=== PATIENT | female | born 1960 | race Caucasian/White ===

== ENCOUNTER 2022-10-07 16:22 | Outpatient (REF) | payer OTHER, SELFPAY | END 2022-10-07 16:23 | disposition home or self-care (01) | LOC: HO.CHCLNP 16:22 | PROVIDERS: Visit Provider Internal Medicine | DX: R82.90 Unspecified abnormal findings in urine (principal); Z87.440 Personal history of urinary (tract) infections | CPT/HCPCS: 87086 ==

== ENCOUNTER 2022-10-24 14:50 | Outpatient (REF) | payer OTHER, SELFPAY | END 2022-10-24 14:51 | disposition home or self-care (01) | LOC: HO.CHCLNP 14:50 | PROVIDERS: Visit Provider Family Medicine | DX: N39.0 Urinary tract infection, site not specified (principal) | CPT/HCPCS: 87086 ==

== ENCOUNTER 2022-12-06 09:01 | Outpatient (AMB) | payer OTHER, SELFPAY ==
--- NOTE | 2022-12-06 09:08 | MHC.OFFVIS ---
Intake Vital Signs 12/06/22 09:09 Height 4 ft 11 in Weight 136 lb 6 oz BMI 27.5 BP 98/76 Blood Pressure Location Rt brachial Position Sitting Pulse 78 Pulse Source Pulse Oximeter Pulse Oximetry (%) 95 Oxygen Delivery Method Room Air Intake Visit Reasons: f/u appt for Seizures-Confirmed Intake Note: Patient presents for follow up seizures. patient states I had 2 episode of seizures, im n ow having them awake. Allergies codeine Allergy (Severe, Verified 12/06/22 09:13) weird feeling through out body Medication List - Last Reconciled 12/06/22 by EVA Arita acetaminophen ER 650 mg PO TID albuterol sulfate 90 mcg/actuation (Ventolin HFA) inhalation ascorbic acid (vitamin C) 1 g PO Q6H aspirin 81 mg PO DAILY clonazepam 1 mg PO BID PRN duloxetine mg PO estradiol 0.01%(0.1mg/gram) vaginal insulin glargine (Lantus Solostar U-100 Insulin) units subcut levetiracetam 500 mg PO BID lidocaine 5% 1 patch topical DAILY PRN lisinopril 40 mg PO DAILY loratadine 10 mg PO DAILY magnesium oxide 400 mg PO DAILY meclizine 12.5 mg PO BID metoprolol succinate ER 100 mg PO DAILY oxycodone mg PO zolpidem 10 mg PO BEDTIME PRN HPI HPI Comments History of Present Illness Details 61-yr-old female presents for f/u visit. Pt's dtr reports sometime in July of this yr, pt started having frequent UTIs and vaginal bleeding, which has resulted in hypotensive episodes. She has been evaluated at [facility]. During one of the [facility] admissions, pt was observed to have seizure activity. In the ER, pt's trileptal dose was increased from 150mg bid to 300mg bid. She starts shaking, feels a sense of desparation, eyes roll back, starts drooling in the right, bites her tongue. The whole episode lasts a few seconds. She states she feels these symptoms. She can hear people but as if they are a little far away. Afterwards, she feels tired and weak. Denies loss of urinary control. She has had 3 episodes that occurred during the day - this was from July to August. She has been having 1-2 nocturnal episodes a month- which started some time before July of this year. She has not been able to use her CPAP machine- because her (who has health issues) threw it out. She continues to have snoring, fatigue, daytime sleepiness, and sleep difficulties. [facility] Surgical History (Updated 12/06/22 @ 09:19 by MADISON Stuart) H/O knee surgery Hx of cholecystectomy H/O section H/O hernia repair Family History Mother Cancer Diabetes Osteoporosis Memory loss Social History (Updated 12/06/22 @ 09:19 by MADISON Stuart) Alcohol intake: never Patient Tobacco Use Status: Never used Tobacco Review of Systems Const All systems reviewed & are unremarkable except as noted in HPI and below Physical Exam Vital Signs: Last Vital Signs Pulse 78 12/06/22 09:09 BP 98/76 12/06/22 09:09 Pulse Ox 95 12/06/22 09:09 Oxygen Delivery Method Room Air 12/06/22 09:09 BMI result Body Mass Index 27.5 Const General: cooperative and no acute distress Orientation/consciousness: patient oriented x3 HEENT Head: Yes normocephalic Resp Effort & Inspection: normal respiratory effort and able to speak in complete sentences Neuro General: patient oriented x3, gait normal and CN's II-XI intact bilaterally Cognition (Neuro): normal cognition Motor exam (neuro): 5/5 motor strength present throughout Psych Appearance: grossly normal Mental Status: mental status grossly normal Speech and movement: Normal speech and movement present Affect: normal affect Attitude: cooperative Thought process: Normal thought process present Thought content: Normal thought content present Insight: Good insight present (Psych) Judgement: Good judgement present (Psych) Assessment & Plan Assessment & Plan (1) Seizures: Code(s): R56.9 - Unspecified convulsions (2) MICHA (obstructive sleep apnea): Code(s): G47.33 - Obstructive sleep apnea (adult) (pediatric) (3) Frequent UTI: Code(s): N39.0 - Urinary tract infection, site not specified (4) Sleep difficulties: Code(s): G47.9 - Sleep disorder, unspecified (5) Excessive daytime sleepiness: Comment: ESS 10 Code(s): G47.19 - Other hypersomnia (6) Snoring: Code(s): R06.83 - Snoring Plan Increase Trileptal from 150mg bid to 300mg bid. Continue Keppra 500mg bid. Check CBC, CMP Check EEG. Pt advised to undergo HST to assess status of sleep apnea- as her threw out her previous CPAP machine. Will refer pt for urology consult- for eval of frequent UTIs. f/u in 3 months or sooner prn. Orders: Orders EEG electroencephalogram 12/06/22 R56.9 - Unspecified convulsions Comprehensive Met. Panel 12/06/22 R56.9 - Unspecified convulsions RT home sleep study Today G47.19 - Other hypersomnia, G47.33 - Obstructive sleep apnea (adult) (pediatric), G47.9 - Sleep disorder, unspecified, R06.83 - Snoring Complete Blood Count Auto Diff 12/06/22 R56.9 - Unspecified convulsions Referrals Urology Referral N39.0 - Urinary tract infection, site not specified, R56.9 - Unspecified convulsions Medications: New oxcarbazepine 300 mg PO BID 60 tabs 3RF 30 days Refilled levetiracetam 500 mg PO BID 60 tabs 6RF Coding Level of Care Code Est Pt Level 4 (02525) Diagnoses Seizures R56.9 MICHA (obstructive sleep apnea) G47.33 Frequent UTI N39.0 Sleep difficulties G47.9 Excessive daytime sleepiness G47.19 Snoring R06.83
[2022-12-06 09:09] VITALS: BP 98/76; PULSE 78; O2SAT 95; BMI 27.5
== END 2022-12-06 10:05 | disposition home or self-care (01) ==
PROVIDERS: Visit Provider Nurse Practitioner Family
DX: R56.9 Unspecified convulsions (principal); G47.33 Obstructive sleep apnea (adult) (pediatric); N39.0 Urinary tract infection, site not specified; G47.9 Sleep disorder, unspecified; G47.19 Other hypersomnia; R06.83 Snoring
CPT/HCPCS: 99214

== ENCOUNTER → 2022-12-06 09:01 | Outpatient (BNVA) | payer OTHER, SELFPAY | PROVIDERS: Visit Provider Nurse Practitioner Family | DX: R56.9 Unspecified convulsions (principal); N39.0 Urinary tract infection, site not specified; G47.33 Obstructive sleep apnea (adult) (pediatric); G47.19 Other hypersomnia; G47.9 Sleep disorder, unspecified; R06.83 Snoring | CPT/HCPCS: 99212 ==

== ENCOUNTER 2023-01-08 12:48 | Outpatient (REF) | payer OTHER, SELFPAY ==
--- NOTE | 2023-01-08 12:59 | EEG_ITS ---
This is a 16-channel digital EEG. Patient was reported awake and drowsy during the tracing. Background EEG rhythm was 14 to 16 hertz 5 to 50 microvolt posteriorly and lower amplitude fast anteriorly. Photic stimulation does not produce any significant abnormality. Hyperventilation is not performed. Cardiac lead does not reveal any significant abnormality. No sharp wave spikes or paroxysmal tendency noted. IMPRESSION: Unremarkable EEG. MD AZIZA Smith/LOIS / [id number]
== END 2023-01-08 12:49 | disposition home or self-care (01) ==
LOC: HO.NEURO 12:48
PROVIDERS: PCP Pediatrics; Visit Provider Nurse Practitioner Family
DX: R56.9 Unspecified convulsions (principal)
CPT/HCPCS: 95816

== ENCOUNTER → 2023-01-21 11:28 | Outpatient (REF) | payer OTHER, SELFPAY | LOC: HO.SL 11:28 | PROVIDERS: PCP Pediatrics; Visit Provider Nurse Practitioner Family | DX: G47.33 Obstructive sleep apnea (adult) (pediatric) (principal); G47.19 Other hypersomnia; R06.83 Snoring | CPT/HCPCS: 95806 ==

== ENCOUNTER → 2023-01-21 11:39 | Outpatient (BNV) | payer OTHER, SELFPAY | PROVIDERS: PCP Pediatrics; Visit Provider Psychiatry & Neurology Neurology | DX: R06.83 Snoring (principal) | CPT/HCPCS: 95806 ==

== ENCOUNTER 2023-03-21 12:54 | Outpatient (AMB) | payer OTHER, SELFPAY ==
--- NOTE | 2023-03-21 12:56 | A.OFFVIS_ITS ---
Intake Vital Signs 03/21/23 12:58 Height 4 ft 11 in Weight 133 lb BMI 26.9 BP 106/76 Blood Pressure Location Rt brachial Position Sitting Intake Visit Reasons: 4 mo f/u - Seizure-Confirmed Intake Note: Patient presents for 4 month follow up. I'm doing better I haven't gotten an attack Allergies codeine Allergy (Severe, Verified 03/21/23 13:01) weird feeling through out body HPI HPI Comments History of Present Illness Details U[age]-old female presents for f/u visit. Accompanied by her daughter. Pt denies any significant interval medical changes. 01/28/2023 EEG was normal 02/06/2023 home sleep study did not show any evidence of sleep apnea. AHI 1.2 per hour, with O2 vincent 84%, SpO2 under 90% for less than 1 minute, average SpO2 94% Patient denies any interval seizure activity. She is compliant with her Keppra and her Trileptal. She is concerned about her memory. She states she is misplacing things. She also notes that she has decreased motivation to shower, pressure T, the activities. The daughter notes she is often just laying down. Her daughter is concerned she is depressed. She is followed by Demarcus CAMARGO, psychiatric nurse practitioner. She does not have a therapist. She is also worried that she has a prolonged infection of her right lateral foot, which she says has been present for months and is getting bigger. The area is itchy as well as under her foot can be itchy. [facility] Medical History (Updated 03/23/23 @ 15:59 by EVA Arita) Diabetes Surgical History H/O knee surgery Hx of cholecystectomy H/O section H/O hernia repair Family History Mother Cancer Diabetes Osteoporosis Memory loss Social History Alcohol intake: never Patient Tobacco Use Status: Never used Tobacco Physical Exam Vital Signs: Last Vital Signs BP 106/76 03/21/23 12:58 BMI result Body Mass Index 26.9 Const General: cooperative and no acute distress Orientation/consciousness: patient oriented x3 Resp Effort & Inspection: normal respiratory effort and able to speak in complete sentences Neuro General: patient oriented x3 Cranial nerves: Yes CN's II-XII intact bilaterally Cognition (Neuro): normal cognition Extrem Other: Right lateral foot approximately 4 x 3 cm area of intact blanchable redness without peripheral erythema, induration, or warmth. Dorsal foot with mild red rash Right lateral 5th toe red blanchable tender. Psych Appearance: grossly normal Mental Status: mental status grossly normal Speech and movement: Normal speech and movement present Affect: normal affect Attitude: cooperative Assessment & Plan Assessment & Plan (1) Seizures: Code(s): R56.9 - Unspecified convulsions (2) Depression: Code(s): F32.A - Depression, unspecified (3) Sleep difficulties: Code(s): G47.9 - Sleep disorder, unspecified (4) Rash of foot: Code(s): R21 - Rash and other nonspecific skin eruption Plan Reviewed home sleep study, normal. Patient does not have to use her CPAP machine. For seizure: Reviewed EEG, was normal. Explained by EEG can be normal in epilepsy. Continue Keppra 500 mg b.i.d. Add vitamin B6 50 mg b.i.d., this can reduce mood side effects from Keppra Continue Trileptal 300 mg b.i.d. For mood: Will request recent labs from PCP and [facility] Will initiate referral for psychologists the [place]-speaking.- Linda Ramesh- Monitor mood, if mood does not improve consider tapering off Keppra and increasing Trileptal. Right lateral dorsal foot appear to be a fungal infection, however the right 5th toe redness maybe a very early pressure injury. We will send an order for antifungal seen for right lateral foot redness. Patient advised to wear larger better fitting shoes and do daily foot checks, as she is a diabetic. Follow-up in 3 months or sooner as needed Orders: Referrals Psychology Referral F32.A - Depression, unspecified Medications: New pyridoxine (vitamin B6) 50 mg PO BID 30 days 60 tabs 4RF terbinafine HCl 1% 1 appl topical BID 14 days 30 grams 3RF B35.3 - Tinea pedis, E11.9 - Type 2 diabetes mellitus without complications Refilled oxcarbazepine 300 mg PO BID 30 days 60 tabs 6RF levetiracetam 500 mg PO BID 60 tabs 6RF Coding Level of Care Code Est Pt Level 4 (19810) Diagnoses Seizures R56.9 Depression F32.A Sleep difficulties G47.9 Rash of foot R21
[2023-03-21 12:58] VITALS: BP 106/76; BMI 26.9
== END 2023-03-21 13:49 | disposition home or self-care (01) ==
PROVIDERS: PCP Pediatrics; Visit Provider Nurse Practitioner Family
DX: R56.9 Unspecified convulsions (principal); F32.A Depression, unspecified; G47.9 Sleep disorder, unspecified; R21 Rash and other nonspecific skin eruption
CPT/HCPCS: 99214

== ENCOUNTER → 2023-03-21 12:54 | Outpatient (BNVA) | payer OTHER, SELFPAY | PROVIDERS: Visit Provider Nurse Practitioner Family | DX: R56.9 Unspecified convulsions (principal); F32.A Depression, unspecified; G47.9 Sleep disorder, unspecified; R21 Rash and other nonspecific skin eruption | CPT/HCPCS: 99212 ==

== ENCOUNTER 2023-04-16 16:17 | Outpatient (REF) | payer OTHER, SELFPAY | END 2023-04-16 16:18 | disposition home or self-care (01) | LOC: HO.CHCLNP 16:17 | PROVIDERS: Visit Provider Pediatrics | DX: Z87.440 Personal history of urinary (tract) infections (principal) | CPT/HCPCS: 87086 ==

== ENCOUNTER 2023-08-08 10:30 | Outpatient (REF) | payer OTHER, SELFPAY ==
--- NOTE | ~2023-08-08 | XR_ITS ---
EXAMINATION: XR FOOT, RIGHT CLINICAL INFORMATION: Dorsal right foot COMPARISON: None available. TECHNIQUE: AP, lateral, and oblique views of the right foot. FINDINGS: Skin defect is seen in the plantar soft tissues of the midfoot with associated soft tissue swelling of the plantar aspect of the foot. The bones are intact. No bone destruction or periosteal reaction. No fracture. Alignment is anatomic. There is mild degenerative change of the first metatarsophalangeal joint. There is degenerative changes of the PIP and DIP joints of the toes. The second and third DIP joints are fused. There is a posterior plantar calcaneal spur and Achilles enthesophyte. Arterial vascular calcification is seen in the ankle and foot. XR/XR foot RT 2V IMPRESSION: 1. Skin defect in the plantar soft tissues of the midfoot with associated soft tissue swelling of the plantar aspect of the foot. 2. No acute bony abnormality.
== END 2023-08-08 10:31 | disposition home or self-care (01) ==
LOC: HO.XRAY 10:30
PROVIDERS: PCP Pediatrics; Visit Provider Internal Medicine
DX: S91.301A Unspecified open wound, right foot, initial encounter (principal)
CPT/HCPCS: 73620

== ENCOUNTER 2023-08-25 09:57 | Outpatient (AMB) | payer OTHER, SELFPAY ==
--- NOTE | 2023-08-25 10:19 | MHC.OFFVIS ---
Intake Visit Reasons: Recurrent UTI (no showed last appt) Intake Note: New Patient presents today for initial visit to establish treatment for : recurrent uti Urology Medications: none Allergies to Antibiotic: none Blood Thinner: aspirin PVR: 0ml's Fence Post Cutter Required: Yes Accompanied by: Daughter Allergies codeine Allergy (Severe, Verified 08/25/23 15:01) weird feeling through out body Medication List - Last Reconciled 08/25/23 by EVA Whitten-LEONARD acetaminophen ER 650 mg PO TID albuterol sulfate 90 mcg/actuation (Ventolin HFA) inhalation ascorbic acid (vitamin C) 1 g PO Q6H aspirin 81 mg PO DAILY clonazepam 1 mg PO BID PRN dulaglutide (Trulicity) mg subcut duloxetine mg PO estradiol 0.01%(0.1mg/gram) vaginal gabapentin 600 mg PO BEDTIME 30 days insulin glargine (Lantus Solostar U-100 Insulin) units subcut levetiracetam 500 mg PO BID lidocaine 5% 1 patch topical DAILY PRN lisinopril 40 mg PO DAILY loratadine 10 mg PO DAILY magnesium oxide 400 mg PO DAILY meclizine 12.5 mg PO BID metoprolol succinate ER 100 mg PO DAILY oxcarbazepine 300 mg PO BID 30 days oxycodone mg PO pyridoxine (vitamin B6) 50 mg PO BID 30 days terbinafine HCl 1% 1 appl topical BID 14 days zolpidem 10 mg PO BEDTIME PRN HPI Comments Details: Janice is a very pleasant 62-year-old Central African-speaking female patient of Dr. Keith was accompanied by her daughter at today's office visit. She has a past medical history of diabetes, seizures, and depression. She presents to the office today as a new patient for recurrent urinary tract infections. In discussion with the patient and her daughter today she reports a longstanding history of recurrent urinary tract infections and has been previously hospitalized for recurrent urinary tract infections. She reports following up with her PCP at which time recommendations were made for urology referral for further assessment evaluation. In discussion with the patient today she reports feeling lower urinary bladder pressure as well as foul-smelling urine. She otherwise denies incontinence, nocturia, hematuria, dysuria, changes to urinary stream, flank pain, fever, and or chills. In office urinalysis with 2+ leukocytes negative nitrates. PVR 0 mL. Discussed at length potential causes for recurrent urinary tract infections. She denies any issues with her bowels. Discussed obtaining retroperitoneal ultrasound for further assessment evaluation. Discussed further treatment options for recurrent urinary tract infections. She otherwise offers no other issues or concerns at this time. [facility] Medical History Diabetes Surgical History H/O knee surgery Hx of cholecystectomy H/O section H/O hernia repair Family History Mother Cancer Diabetes Osteoporosis Memory loss Social History Alcohol intake: never Patient Tobacco Use Status: Never used Tobacco Review of Systems Const Reports no additional complaints Eyes Reports no additional complaints ENT Reports no additional complaints Card Reports no additional complaints Resp Reports no additional complaints GI Reports no additional complaints Reports as per HPI Musc Reports no additional complaints Neuro Reports as per HPI Psych Reports as per HPI Endo Reports as per HPI Rosendo/Lymph Reports no additional complaints Aller/Immun Reports no additional complaints Physical Exam Const General: cooperative, healthy appearing, comfortable, no acute distress, well developed, alert and awake Orientation/consciousness: patient oriented x3 Limitations: no limitations HEENT Head: Yes normal to inspection, Yes normocephalic and Yes atraumatic Ears: hearing grossly normal bilaterally Eyes General: appearance normal, both eyes and all related structures Neck Neck: Yes normal visual inspection and Yes trachea midline Chest Chest palpation & inspection: normal inspection of the chest Resp Effort & Inspection: normal respiratory effort and able to speak in complete sentences Cardio Rate: regular rate GI Inspection: Yes normal to inspection General: Yes no CVA tenderness Back/Spine/Pelvis Back: no CVA tenderness Skin General skin exam: no rashes or lesions noted Neuro General: patient oriented x3 Extrem General: Yes normal to inspection Psych Appearance: grossly normal and well kempt Mental Status: mental status grossly normal Speech and movement: Normal speech and movement present and Clear speech present Affect: normal affect Attitude: cooperative Thought process: Normal thought process present Thought content: Normal thought content present Insight: Fair insight present (Psych) Judgement: Fair judgement present (Psych) Office Procedures Post Void Residual Post Residual Void Post Void Residual (PVR): 0 [id number] Void Residual by ultrasound Results AMB Urinalysis, Automated UA Leukoctes 125 Felice/uL Last Edit by Marcelle Hopkins on 08/25/23 11:18 UA Nitrite Negative Last Edit by Changersreyna Lira on 08/25/23 11:18 UA Urobilinogen 0.2 mg/dL Last Edit by Plenum[employer]rey[employer] Lira on 08/25/23 11:18 UA Protein 0 mg/dL Last Edit by [employer]enum[employer]es [employer] on 08/25/23 11:18 UA pH 6.0 Last Edit by [employer] on 08/25/23 11:18 UA Blood 0 Donnie/uL Last Edit by [employer] on 08/25/23 11:18 UA Specific [place] 1.015 Last Edit by [employer] on 08/25/23 11:18 UA Ketone Negative Last Edit by [employer] on 08/25/23 11:18 UA Bilirubin 0 mg/dL Last Edit by [employer] on 08/25/23 11:18 UA Glucose 0 mg/dL Last Edit by [employer] on 08/25/23 11:18 Results Reviewed Results Reviewed: Laboratory Last Values Urine pH (Auto) 6.0 08/25/23 11:17 Specific [place] (Auto) 1.015 08/25/23 11:17 Urine Protein (Auto) 0 mg/dL 08/25/23 11:17 Glucose (UA)(Auto) 0 mg/dL 08/25/23 11:17 Urine Ketones (Auto) Negative 08/25/23 11:17 Urine Blood (Auto) 0 Donnie/uL 08/25/23 11:17 Urine Nitrite (Auto) Negative 08/25/23 11:17 Urine Bilirubin (Auto) 0 mg/dL 08/25/23 11:17 Urine Urobilinogen (Auto) 0.2 mg/dL 08/25/23 11:17 Leukocyte Esterase (Auto) 125 Felice/uL 08/25/23 11:17 Assessment & Plan Assessment & Plan (1) Recurrent urinary tract infection: Code(s): N39.0 - Urinary tract infection, site not specified Category: Medical Plan In office urinalysis results reviewed with the patient today; as noted above; will send for urine culture. PVR 0 mL. Discussed at length importance of managing diabetes for improvement in lower urinary tract symptoms as well as overall health and well-being. Start Estrace cream as discussed and prescribed. Discussed UTI prevention with D mannose supplement, vitamin-C, increasing fluid intake, behavioral therapy with timed voiding, perineal hygiene and postcoital voiding, and management of constipation with stool softeners and increased fiber intake. Discussed possible near future in office cystoscopy for further assessment evaluation. Discussed possible near future microgen for further assessment or evaluation. Will obtain retroperitoneal ultrasound for further assessment evaluation. Follow-up in 1-3 months with imaging to be completed prior; or sooner with any issues, concerns, and or questions. Orders: Orders AMB Post Void Residual by ultrasound Today N39.0 - Urinary tract infection, site not specified Urine Culture Today N39.0 - Urinary tract infection, site not specified US retroperitoneal comp Today N39.0 - Urinary tract infection, site not specified AMB Urinalysis Automated Today Z13.9 - Encounter for screening, unspecified Medications: New estradiol 0.01%(0.1mg/gram) pea sized amount to urethra 3 times a week 30 days 42.5 grams 1RF Patient Instructions: The patient had an opportunity to ask questions regarding the treatment plan. All questions were answered. Physical exam, labs, and imaging were discussed and reviewed in detail. As well as risks, benefits, and discussion of treatment choices. No major barriers to understanding were identified. The patient expressed understanding and agreement with the above treatment plan. The patient was made aware they should contact our office by phone for worsening of their current condition, the appearance of new symptoms, or with any questions or concerns. Compliance is encouraged with any medications and follow up testing that is ordered. It is a privilege to be allowed the opportunity to participate in? your urological care.? Again, if you have any questions or concerns If you have any questions or concerns please do not hesitate to contact me. The office is [phone]. This note is constructed using voice recognition software. While every effort has been made to ensure accuracy job setter errors may have been included. Yours sincerely, NEEL Whitten Coding Level of Care Code New Pt Level 4 (78970) Diagnoses Recurrent urinary tract infection N39.0 CPT Codes Post Residual Void - PVR CPT Code: 88869-Kica Void Residual by ultrasound ([id number]) Time Spent (min) 35
== END 2023-08-25 11:23 | disposition home or self-care (01) ==
PROVIDERS: PCP Pediatrics; Visit Provider Nurse Practitioner Family
DX: Z13.9 Encounter for screening, unspecified (principal); N39.0 Urinary tract infection, site not specified
CPT/HCPCS: 99204

== ENCOUNTER 2023-08-25 09:57 | Outpatient (REF) | payer OTHER, SELFPAY | END 2023-08-25 09:58 | disposition home or self-care (01) | LOC: HO.LNP 09:57 | PROVIDERS: PCP Pediatrics; Visit Provider Nurse Practitioner Family | DX: N39.0 Urinary tract infection, site not specified (principal) | CPT/HCPCS: 51798; 81003; 87086; 99202 ==

== ENCOUNTER 2023-11-26 10:30 | Emergency (ER) | payer OTHER, SELFPAY ==
--- NOTE | ~2023-11-26 | CT_ITS ---
EXAMINATION: CT ABDOMEN AND PELVIS WITHOUT CONTRAST CLINICAL INFORMATION: Flank pain. COMPARISON: Abdominal ultrasound June 09, 2015 TECHNIQUE: Multidetector volumetric imaging was performed from the superior aspect of the liver through the pubic symphysis. Sagittal and coronal reformatted images were obtained on the technologist's workstation. This CT examination was performed using dose optimization techniques as appropriate, variously including the following: *Automated exposure control *Adjustment of mA and/or kV according to patient size (this includes techniques or standardized protocols for targeted exams where dose is matched to indication/reason for exam; i.e. extremities or head) *Use of iterative reconstruction technique DLP: 471 mGy-cm FINDINGS: LUNG BASES: The visualized lung bases are unremarkable. LIVER, GALLBLADDER, AND BILIARY TREE: The noncontrast liver is normal in size and contour. No focal hepatic lesion or biliary ductal dilatation is present. The gallbladder is surgically absent. PANCREAS: Unremarkable. SPLEEN: Unremarkable. ADRENAL GLANDS: Unremarkable. KIDNEYS AND URETERS: The kidneys are symmetric in size. No hydronephrosis. Punctate mid pole left renal calculus. No perinephric stranding. BLADDER: Unremarkable. GASTROINTESTINAL TRACT: Small and large bowel loops are of normal caliber. No small bowel obstruction. Appendix is within normal limits. ABDOMINAL WALL: Prior ventral abdominal hernia repair with surgical mesh in place. There is laxity of the surgical mesh. Small fat-containing left inguinal hernia. LYMPH NODES: No bulky lymphadenopathy. VASCULAR: Normal caliber abdominal aorta. PELVIC VISCERA: Unremarkable. OSSEOUS STRUCTURES: Possible L1 vertebral body hemangioma. CT/CT abdomen pelvis wo IV con IMPRESSION: No acute abnormality in the abdomen or pelvis. Electronically signed by: Arcadio Antoine MD 11/26/2023 02:47 PM EDT
[2023-11-26 10:50] VITALS: BP 160/91; PULSE 83; RESP 19; TEMP 36.6; O2SAT 98; BMI 26.7
[2023-11-26 13:22] LABS: MANUAL DIFF FLAG NO
[2023-11-26 13:24] LABS: Basophils Absolute Auto 0.1 X10*3/uL (0.0-0.2); Basophils Percent Auto 0.9 % (0-2); Eosinophils Absolute Auto 0.4 X10*3/uL (0.0-0.4); Hematocrit 40.2 % (37.0-47.0); Hemoglobin 14.1 g/dl (12.0-16.0); Imm Gran Abs Auto 0.04 X10*3/uL (0.00-0.03); Imm Gran Pct Auto 0.4 % (0.0-0.4); Lymphocytes Absolute Auto 4.2 X10*3/uL (1.2-4.9); Lymphocytes Percent Auto 41.7 % (20-40); Mean Corpuscular HGB Conc 35.1 g/dl (31.0-35.0); Mean Corpuscular Hemoglobin 32.3 pg (27.0-33.0); Mean Platelet Volume 9.1 fL (9.4-12.3); Monocytes Absolute Auto 0.8 X10*3/uL (0.1-1.2); Monocytes Percent Auto 7.8 % (2-11); Neutrophils Absolute Auto 4.6 x10*3/uL (2.0-8.3); Neutrophils Percent Auto 45.2 % (45-73); Platelet Count 307 X10*3/uL (160-400); Red Blood Count 4.37 X10*6/uL (4.20-5.50); Red Cell Distribution Width 12.2 % (11.0-16.0); White Blood Count 10.2 X10*3/uL (4.8-10.8)
[2023-11-26 13:46] LABS: Alanine Aminotransferase 19 U/L (0-31); Albumin Level 4.1 g/dL (3.5-5.0); Alkaline Phosphatase 74 U/L (39-117); Anion Gap 13 (12-20); Aspartate Amino Transferase 28 U/L (5-31); Bilirubin Total 0.3 mg/dL (0.0-1.0); Blood Urea Nitrogen 11 mg/dL (9-16); Calcium 9.8 mg/dL (8.4-10.2); Carbon Dioxide 32 mmol/L (22-29); Chloride 101 mmol/L (96-108); Creatinine Clr Calc Pharmacy 56.6; Estimated Glomerular Filt Rate > 60; Glucose Random 176 mg/dL (60-115); Potassium 4.1 mmol/L (3.3-5.1); Sodium 142 mmol/L (135-145); Total Protein 8.5 g/dL (6.5-8.0)
== END 2023-11-26 17:39 | disposition left against medical advice (07) ==
LOC: HO.ED 17:19
PROVIDERS: Physician Assistant Medical; Emergency Provider Student in an Organized Health Care Education/Training Program; PCP Pediatrics
DX: R10.9 Unspecified abdominal pain (principal); E11.9 Type 2 diabetes mellitus without complications; Z87.440 Personal history of urinary (tract) infections; Z53.21 Procedure and treatment not carried out due to patient leaving prior to being seen by health care provider
CPT/HCPCS: 36415; 74176; 80053; 85025; 99281

== ENCOUNTER 2023-12-29 09:29 | Outpatient (AMB) | payer OTHER, SELFPAY ==
--- NOTE | 2023-12-29 09:51 | A.OFFVIS_ITS ---
Intake Visit Reasons: 3m/U/S Intake Note: Patient presents today for follow up on: recurrent uti Urology Medications: estrace cream Allergies to Antibiotic: none Blood Thinner: aspirin PVR: 29ml's Digital Printer Required: Yes Accompanied by: Daughter Allergies codeine Allergy (Severe, Verified 12/29/23 10:01) weird feeling through out body HPI Comments Details: Janice is a very pleasant 63-year-old Mosotho-speaking female patient of Dr. Keith was accompanied by her daughter at today's office visit. She has a past medical history of diabetes, seizures, and depression. She presents to the office today for follow-up of her recurrent urinary tract infections and lower urinary tract symptoms. Of note, patient was seen approximately 3 months ago at which time a retroperitoneal ultrasound was ordered for further assessment evaluation. However, patient did not have this completed however she did have a CT KUB 11/24 performed as she had been having flank pain. These results reviewed with the patient today. The kidneys are symmetrical in size, no hydronephrosis, punctate mid pole left renal calculus. No perinephric stranding. The bladder is unremarkable. During last office visit urine was sent for urine culture as patient had been reporting dysuria however urine culture 08/24 noted no growth. When asked she reports compliance with Estrace cream as prescribed. She continues to report lower urinary tract symptoms of dysuria and bladder pressure. She also reports generalized lower abdominal pain however no CVA tende rness noted bilaterally on exam today. We discussed potential causes for lower urinary tract symptoms patient is experiencing. She also reports noting foul- smelling urine however relates this to her decreased water intake. In office urinalysis with 2+ leukocytes otherwise within normal limits. PVR 29 mL. When asked she denies incontinence, nocturia, hematuria, changes to urinary stream, flank pain, fever, and or chills. She denies any issues with her bowels. Discussed sending urine for micogen testing and near future in office cystoscopy for further asessment and evaluation if symptoms continue, persist and/or worsen. She otherwise offers no other issues or concerns at this time. [facility] Medical History Diabetes Surgical History H/O knee surgery Hx of cholecystectomy H/O section H/O hernia repair Family History Mother Cancer Diabetes Osteoporosis Memory loss Social History Alcohol intake: never Patient Tobacco Use Status: Never used Tobacco Review of Systems Const Reports no additional complaints Eyes Reports no additional complaints ENT Reports no additional complaints Card Reports no additional complaints Resp Reports no additional complaints GI Reports no additional complaints Reports as per HPI Musc Reports no additional complaints Neuro Reports as per HPI Psych Reports as per HPI Endo Reports as per HPI Rosendo/Lymph Reports no additional complaints Aller/Immun Reports no additional complaints Physical Exam Const General: cooperative, healthy appearing, comfortable, no acute distress, well developed, alert and awake Orientation/consciousness: patient oriented x3 Limitations: no limitations HEENT Head: Yes normal to inspection, Yes normocephalic and Yes atraumatic Ears: hearing grossly normal bilaterally Eyes General: appearance normal, both eyes and all related structures Neck Neck: Yes normal visual inspection and Yes trachea midline Chest Chest palpation & inspection: normal inspection of the chest Resp Effort & Inspection: normal respiratory effort and able to speak in complete sentences Cardio Rate: regular rate GI Inspection: Yes normal to inspection General: Yes no CVA tenderness Back/Spine/Pelvis Back: no CVA tenderness Skin General skin exam: no rashes or lesions noted Neuro General: patient oriented x3 Extrem General: Yes normal to inspection Psych Appearance: grossly normal and well kempt Mental Status: mental status grossly normal Speech and movement: Normal speech and movement present and Clear speech present Affect: normal affect Attitude: cooperative Thought process: Normal thought process present Thought content: Normal thought content present Insight: Fair insight present (Psych) Judgement: Fair judgement present (Psych) Office Procedures Post Void Residual Post Residual Void Post Void Residual (PVR): 29 [id number] Void Residual by ultrasound Results AMB Urinalysis, Automated UA Leukoctes 125 Felice/uL Last Edit by Marcelle Hopkins on 12/29/23 10:03 UA Nitrite Last Edit by Marcelle Hopkins on 12/29/23 10:03 UA Urobilinogen 0.2 mg/dL Last Edit by Marcelle Hopkins on 12/29/23 10:03 UA Protein 0 mg/dL Last Edit by Marcelle Hopkins on 12/29/23 10:03 UA pH 6.0 Last Edit by Marcelle Hopkins on 12/29/23 10:03 UA Blood 0 Donnie/uL Last Edit by Marcelle Hopkins on 12/29/23 10:03 UA Specific [place] 1.020 Last Edit by Marcelle Hopkins on 12/29/23 10:03 UA Ketone Negative Last Edit by Marcelle Hopkins on 12/29/23 10:03 UA Bilirubin 0 mg/dL Last Edit by Marcelle Hopkins on 12/29/23 10:03 UA Glucose 0 mg/dL Last Edit by Marcelle Hopkins on 12/29/23 10:03 Results Reviewed Results Reviewed: Laboratory Last Values Urine pH (Auto) 6.0 12/29/23 10:02 Specific [place] (Auto) 1.020 12/29/23 10:02 Urine Protein (Auto) 0 mg/dL 12/29/23 10:02 Glucose (UA)(Auto) 0 mg/dL 12/29/23 10:02 Urine Ketones (Auto) Negative 12/29/23 10:02 Urine Blood (Auto) 0 Donnie/uL 12/29/23 10:02 Urine Bilirubin (Auto) 0 mg/dL 12/29/23 10:02 Urine Urobilinogen (Auto) 0.2 mg/dL 12/29/23 10:02 Leukocyte Esterase (Auto) 125 Felice/uL 12/29/23 10:02 Date of Service: 11/26/23 EXAMINATION: CT ABDOMEN AND PELVIS WITHOUT CONTRAST FINDINGS: LUNG BASES: The visualized lung bases are unremarkable. LIVER, GALLBLADDER, AND BILIARY TREE: The noncontrast liver is normal in size and contour. No focal hepatic lesion or biliary ductal dilatation is present. The gallbladder is surgically absent. PANCREAS: Unremarkable. SPLEEN: Unremarkable. ADRENAL GLANDS: Unremarkable. KIDNEYS AND URETERS: The kidneys are symmetric in size. No hydronephrosis. Punctate mid pole left renal calculus. No perinephric stranding. BLADDER: Unremarkable. GASTROINTESTINAL TRACT: Small and large bowel loops are of normal caliber. No small bowel obstruction. Appendix is within normal limits. ABDOMINAL WALL: Prior ventral abdominal hernia repair with surgical mesh in place. There is laxity of the surgical mesh. Small fat-containing left inguinal hernia. LYMPH NODES: No bulky lymphadenopathy. VASCULAR: Normal caliber abdominal aorta. PELVIC VISCERA: Unremarkable. OSSEOUS STRUCTURES: Possible L1 vertebral body hemangioma. IMPRESSION: No acute abnormality in the abdomen or pelvis. Assessment & Plan Assessment & Plan (1) Recurrent urinary tract infection: Code(s): N39.0 - Urinary tract infection, site not specified Category: Medical (2) Sensation of pressure in bladder area: Code(s): R39.89 - Other symptoms and signs involving the genitourinary system Category: Medical (3) Dysuria: Code(s): R30.0 - Dysuria Category: Medical (4) Foul smelling urine: Code(s): R82.90 - Unspecified abnormal findings in urine Category: Medical Plan In office urinalysis results reviewed with the patient and her daughter today; will send for [facility] for further assessment evaluation; will await results for potential treatment. PVR 29 mL. Discussed bladder triggers/irritants. Recent CT results reviewed with the patient and her daughter today; as noted above. Continue Estrace cream as discussed and prescribed. Discussed UTI prevention with D mannose supplement, vitamin-C, increasing fluid intake, behavioral therapy with timed voiding, perineal hygiene and postcoital voiding, and management of constipation with stool softeners and increased fiber intake. Discussed possible low-dose VESIcare for question of bladder spasms; she will think about this. Discussed possible near future in office cystoscopy if symptoms persist. Follow-up in 1-3 months with PVR; or sooner with any issues, concerns, and or questions. Orders: Orders AMB Urinalysis Automated Today Z13.9 - Encounter for screening, unspecified AMB Post Void Residual by ultrasound Today N39.0 - Urinary tract infection, site not specified Patient Instructions: The patient had an opportunity to ask questions regarding the treatment plan. All questions were answered. Physical exam, labs, and imaging were discussed and reviewed in detail. As well as risks, benefits, and discussion of treatment choices. No major barriers to understanding were identified. The patient expressed understanding and agreement with the above treatment plan. The patient was made aware they should contact our office by phone for worsening of their current condition, the appearance of new symptoms, or with any questions or concerns. Compliance is encouraged with any medications and follow up testing that is ordered. It is a privilege to be allowed the opportunity to participate in? your urological care.? Again, if you have any questions or concerns If you have any questions or concerns please do not hesitate to contact me. The office is [phone]. This note is constructed using voice recognition software. While every effort has been made to ensure accuracy hansard reporter errors may have been included. Yours sincerely, NEEL Whitten Coding Level of Care Code Est Pt Level 3 (11236) Complex EM visit Add On G2211 Diagnoses Recurrent urinary tract infection N39.0 Sensation of pressure in bladder area R39.89 Dysuria R30.0 Foul smelling urine R82.90 CPT Codes Post Residual Void - PVR CPT Code: 34780-Baya Void Residual by ultrasound ([id number])
== END 2023-12-29 10:20 | disposition home or self-care (01) ==
PROVIDERS: PCP Pediatrics; Visit Provider Nurse Practitioner Family
DX: N39.0 Urinary tract infection, site not specified (principal); R39.89 Other symptoms and signs involving the genitourinary system; R30.0 Dysuria; R82.90 Unspecified abnormal findings in urine; Z13.9 Encounter for screening, unspecified
CPT/HCPCS: 99213; G2211

== ENCOUNTER → 2023-12-29 09:29 | Outpatient (BNVA) | payer OTHER, SELFPAY | PROVIDERS: PCP Pediatrics; Visit Provider Nurse Practitioner Family | DX: N39.0 Urinary tract infection, site not specified (principal); R30.0 Dysuria; R39.89 Other symptoms and signs involving the genitourinary system; R82.998 Other abnormal findings in urine | CPT/HCPCS: 51798; 81003; 99212 ==

== ENCOUNTER 2024-01-09 11:21 | Outpatient (AMB) | payer OTHER, SELFPAY ==
[2024-01-09 11:23] VITALS: BMI 26.9
--- NOTE | 2024-01-09 11:23 | MHC.OFFVIS ---
Vital Signs 01/09/24 11:23 Height 4 ft 11 in Weight 133 lb BMI 26.9 Intake Visit Reasons: Follow up Intake Note: Patient presents for follow up. patient had a fall 3 weeks ago hit her face which swelled up pretty bad. Allergies codeine Allergy (Severe, Verified 01/09/24 11:26) weird feeling through out body Medication List - Last Reconciled 01/09/24 by EVA Arita acetaminophen ER 650 mg PO TID albuterol sulfate 90 mcg/actuation (Ventolin HFA) inhalation amoxicillin-pot clavulanate 500-125 mg (Augmentin) 1 tab PO TID 7 days ascorbic acid (vitamin C) 1 g PO Q6H aspirin 81 mg PO DAILY clonazepam 1 mg PO BID PRN dulaglutide (Trulicity) mg subcut duloxetine mg PO estradiol 0.01%(0.1mg/gram) pea sized amount to urethra 3 times a week 30 days gabapentin 600 mg PO BEDTIME 30 days insulin glargine (Lantus Solostar U-100 Insulin) units subcut levetiracetam 500 mg PO BID levofloxacin 500 mg PO DAILY 7 days lidocaine 5% 1 patch topical DAILY PRN lisinopril 40 mg PO DAILY loratadine 10 mg PO DAILY magnesium oxide 400 mg PO DAILY meclizine 12.5 mg PO BID metoprolol succinate ER 100 mg PO DAILY nut.tx.gluc.intol,lac-free,soy (Glucerna Therapeutic Nutrition oral liquid) 1 ea PO DAILY 24 days oxcarbazepine 300 mg PO BID 30 days oxycodone mg PO pyridoxine (vitamin B6) 50 mg PO BID 30 days terbinafine HCl 1% 1 appl topical BID 14 days zolpidem 10 mg PO BEDTIME PRN HPI Comments Details: 63-yr-old female presents for f/u visit. Accompanied by her daughter. Pt reports she had a fall 2 weeks ago. States she has overall not been feeling well d/t recurrent UTIs and a right foot infection, and thus often feels weak and deconditioned. On the morning of the fall, pt was walking out of ehr house to the car w/ her . She was eating an apple- had last eaten approx 5pm the evening before, which is typical for her). Then, all of a sudden pt fell forward- striking her face and more so left side of her body. She does not recall how she fell and, she just remembers sitting up feeling headcahe, nausea, unwell. She states this may ahve felt like she does after a seizure, but dtr does not believe pt had a full convulsive seizure epsiode. She went to [facility] ER, initial BP was elevated however, as pt was not feeling well, family brought her to an urgent care. Pt was dx'd w/ concussion. Since, pt has had a face XR at [facility] but have not received results yet. She does still have left periorbital and bilateral forehead tenderness to touch. She is still a bit sore. She describes a head sensation of lightheadedness. She states her last seizure like episode was a few months ago- not a full seizure but like one would come on. She is compliant w/ her Keppra dose but has not had her oxcarbazepine in some time- states the pharmacy has been confused about the dose. [facility] Medical History Diabetes Surgical History H/O knee surgery Hx of cholecystectomy H/O section H/O hernia repair Family History Mother Cancer Diabetes Osteoporosis Memory loss Social History Alcohol intake: never Patient Tobacco Use Status: Never used Tobacco Physical Exam Vital Signs: BMI result Body Mass Index 26.9 Const General: cooperative and no acute distress Orientation/consciousness: patient oriented x3 Resp Effort & Inspection: normal respiratory effort and able to speak in complete sentences Neuro General: patient oriented x3 Cranial nerves: Yes CN's II-XII intact bilaterally Cognition (Neuro): normal cognition Gait exam (Neuro): Normal gait present Motor exam (neuro): 5/5 motor strength present throughout Psych Appearance: grossly normal Mental Status: mental status grossly normal Speech and movement: Normal speech and movement present Affect: normal affect Attitude: cooperative Assessment & Plan Assessment & Plan (1) Seizures: Code(s): R56.9 - Unspecified convulsions Category: Medical (2) Depression: Code(s): F32.A - Depression, unspecified Category: Medical (3) Sleep difficulties: Code(s): G47.9 - Sleep disorder, unspecified Category: Medical Plan For fall: Discussed fall trigger may be multifactorial- possible hypoglycemic, posisble OH, possible seizure, possible mechanical fall. Pt encouraged to increase fluids, stand slowly, adhere to AED tx as below, and to increase po intake. Will order Glucerna nutritional supplement for now. For seizure: Reviewed EEG, was normal. Explained by EEG can be normal in epilepsy. Continue Keppra 500 mg b.i.d. Continue B6 50 mg b.i.d., this can reduce mood side effects from Keppra Resume Trileptal 300 mg b.i.d. Follow-up in 3-6 months or sooner as needed Medications: New nut.tx.gluc.intol,lac-free,soy (Glucerna Therapeutic Nutrition oral liquid) 1 ea PO DAILY 24 days 5,688 mL 6RF Refilled oxcarbazepine 300 mg PO BID 30 days 60 tabs 6RF levetiracetam 500 mg PO BID 60 tabs 6RF Scribe Plan - Not visible on output: Reviewed possible medication side effects, including but not limited to drowsiness, dizziness. Coding Level of Care Code Est Pt Level 4 (55841) Diagnoses Seizures R56.9 Depression F32.A Sleep difficulties G47.9
== END 2024-01-09 12:20 | disposition home or self-care (01) ==
PROVIDERS: PCP Pediatrics; Visit Provider Nurse Practitioner Family
DX: R56.9 Unspecified convulsions (principal); F32.A Depression, unspecified; G47.9 Sleep disorder, unspecified
CPT/HCPCS: 99214

== ENCOUNTER → 2024-01-09 11:21 | Outpatient (BNVA) | payer OTHER, SELFPAY | PROVIDERS: PCP Pediatrics; Visit Provider Nurse Practitioner Family | DX: R56.9 Unspecified convulsions (principal); G47.9 Sleep disorder, unspecified; F32.A Depression, unspecified | CPT/HCPCS: 99212 ==

== ENCOUNTER 2024-03-22 10:31 | Outpatient (AMB) | payer OTHER, SELFPAY ==
[2024-03-22 10:35] VITALS: BP 128/88; PULSE 80; O2SAT 98; BMI 27.1
--- NOTE | 2024-03-22 10:35 | MHC.OFFVIS ---
Vital Signs 03/22/24 10:35 Height 4 ft 11 in Weight 134 lb 6 oz BMI 27.1 BP 128/88 Blood Pressure Location Lt brachial Position Sitting Pulse 80 Pulse Source Pulse Oximeter Pulse Oximetry (%) 98 Oxygen Delivery Method Room Air Intake Visit Reasons: Follow up Accompanied by: Son Allergies codeine Allergy (Severe, Verified 03/22/24 10:38) weird feeling through out body Medication List - Last Reconciled 03/22/24 by EVA Arita acetaminophen ER 650 mg PO TID albuterol sulfate 90 mcg/actuation (Ventolin HFA) inhalation amoxicillin-pot clavulanate 500-125 mg (Augmentin) 1 tab PO TID 7 days ascorbic acid (vitamin C) 1 g PO Q6H aspirin 81 mg PO DAILY clonazepam 1 mg PO BID PRN dulaglutide (Trulicity) mg subcut duloxetine mg PO estradiol 0.01%(0.1mg/gram) pea sized amount to urethra 3 times a week 30 days gabapentin 600 mg PO BEDTIME 30 days insulin glargine (Lantus Solostar U-100 Insulin) units subcut levetiracetam 500 mg PO BID levofloxacin 500 mg PO DAILY 7 days lidocaine 5% 1 patch topical DAILY PRN lisinopril 40 mg PO DAILY loratadine 10 mg PO DAILY magnesium oxide 400 mg PO DAILY meclizine 12.5 mg PO BID metoprolol succinate ER 100 mg PO DAILY nut.tx.gluc.intol,lac-free,soy (Glucerna Therapeutic Nutrition oral liquid) 1 ea PO DAILY 24 days oxcarbazepine 300 mg PO BID 30 days oxycodone mg PO pyridoxine (vitamin B6) 50 mg PO BID 30 days terbinafine HCl 1% 1 appl topical BID 14 days zolpidem 10 mg PO BEDTIME PRN HPI Comments Details: 63-yr-old female presents for f/u visit to discuss recent brain MRI results. Patient is accompanied by her son. Patient comes to discuss results of brain MRI ordered by PCP office, following previously known fall with positive head strike. 02/21/2024, brain MRI W/WO: Impression: No acute intracranial findings. Moderate chronic microvascular ischemic changes. Small partially empty sella. 07/30/2019, at [facility], Brain MRI W/O: IMPRESSION: There are scattered nonspecific signal changes primarily involving the supratentorial white matter and anais. These findings presumably represent a chronic manifestation of small vessel ischemia. She is having daily right sided headache times the past month. This right-sided headache is a/w right eye vision changes-seeing colors/the world pressure, photophobia, phonophobia, high pitched ringing. This headache is worse during the day. The tinnitus is worse during the day as well. She is using Tylenol p.r.n. with some effect. She is having a lot of dizziness and feeling off balance. She can often feel forgetful. She denies pulsatile tinnitus. Her last eye exam was some time ago, states [facility] no longer accepts her insurance. Patient reports she has had some weight loss, as her Trulicity decreases her appetite so she does not eat much. 01/09/2024, previous HPI: Pt reports she had a fall 2 weeks ago. States she has overall not been feeling well d/t recurrent UTIs and a right foot infection, and thus often feels weak and deconditioned. On the morning of the fall, pt was walking out of ehr house to the car w/ her . She was eating an apple- had last eaten approx 5pm the evening before, which is typical for her). Then, all of a sudden pt fell forward- striking her face and more so left side of her body. She does not recall how she fell and, she just remembers sitting up feeling headcahe, nausea, unwell. She states this may ahve felt like she does after a seizure, but dtr does not believe pt had a full convulsive seizure epsiode. She went to [facility] ER, initial BP was elevated however, as pt was not feeling well, family brought her to an urgent care. Pt was dx'd w/ concussion. Since, pt has had a face XR at [facility] but have not received results yet. She does still have left periorbital and bilateral forehead tenderness to touch. She is still a bit sore. She describes a head sensation of lightheadedness. She states her last seizure like episode was a few months ago- not a full seizure but like one would come on. She is compliant w/ her Keppra dose but has not had her oxcarbazepine in some time- states the pharmacy has been confused about the dose. [facility] Medical History Diabetes Surgical History H/O knee surgery Hx of cholecystectomy H/O section H/O hernia repair Family History Mother Cancer Diabetes Osteoporosis Memory loss Social History Alcohol intake: never Patient Tobacco Use Status: Never used Tobacco Physical Exam Vital Signs: Last Vital Signs Pulse 80 03/22/24 10:35 BP 128/88 03/22/24 10:35 Pulse Ox 98 03/22/24 10:35 Oxygen Delivery Method Room Air 03/22/24 10:35 BMI result Body Mass Index 27.1 Const General: cooperative and no acute distress Orientation/consciousness: patient oriented x3 Resp Effort & Inspection: normal respiratory effort and able to speak in complete sentences Neuro General: patient oriented x3 Cranial nerves: Yes CN's II-XII intact bilaterally Cognition (Neuro): normal cognition Gait exam (Neuro): Normal gait present Motor exam (neuro): 5/5 motor strength present throughout Psych Appearance: grossly normal Mental Status: mental status grossly normal Speech and movement: Normal speech and movement present Affect: normal affect Attitude: cooperative Assessment & Plan Assessment & Plan (1) Migraine with aura: Code(s): G43.109 - Migraine with aura, not intractable, without status migrainosus Category: Medical (2) Vision changes: Code(s): H53.9 - Unspecified visual disturbance Category: Medical (3) Empty sella syndrome: Code(s): E23.6 - Other disorders of pituitary gland Category: Medical (4) Vertigo: Code(s): R42 - Dizziness and giddiness Category: Medical (5) Seizures: Code(s): R56.9 - Unspecified convulsions Category: Medical Plan Reviewed recent brain MRI with and without contrast report, and also reviewed previous 2020 brain MRI without contrast report and images with patient/son- there appears to be indications of in large sella on previous MRI as well. Patient's current headache symptoms are not consistent with IIH presentation- as pressure headache is worse during the day when she is sitting up, tinnitus is worse when sitting up, and overall patient feels better when lying down. I suspect patient's right eye visual symptoms and worsening headache are secondary to chronicification of migraine status post concussion. However, I have asked patient/son to obtain a CD copy of the current brain MRI and bring to [facility] to Radiology to ask them to directly compare previous MRI to current MRI findings- to see if there is any progression in chronic microangiopathic changes and signs of empty sella. In the meantime, patient is advised to undergo: Comprehensive ophthalmology evaluation- to assess for papilledema, intra-ocular etiologies of right vision changes. PT/vestibular eval and treat- for dizziness, headache. Order slip given to patient/son with contact information for local vestibular PT therapist Future considerations: If eye exam does show evidence of papilledema, we could consider LP for opening pressure and CSF studies. We will also optimize patient's migraine with aura preventive treatment plan: Start Emgality 120mg/ml auto-injection: Loading dose: 240mg (2 120mg/ml auto-injections) via subcutaneous injection in 2 different sites). Then 30 days after loading dose, start Maintenance dose: 120mg (120mg/ml autoinjector) subcutaneous injection every month. Patient requests injection training once Emgality available. Important considerations: Emgality will likely require insurance prior authorization prior to receiving it from the pharmacy. Potential side effects include allergic reaction and injection site reactions. Emgality injection training educational video is available to view on [email or web address] Store Emgality in the refrigerator in it's original packaging in order to protect from light. Remove Emgality at least 1 hour prior to taking the injection. Emgality can be left out of the fridge for?up to 7 days at a temperature not above 86?F. If either of these conditions are exceeded, then Emgality must be thrown away. Once Emgality has been stored out of refrigeration, do not place it back in the refrigerator. Continue metoprolol-ordered for HTN. Previous trials: Amitriptyline for several months: Not fully effective. For acute migraine with aura treatment: Trial Sumatriptan 100mg tab, 1/2 - 1 tab (50-100mg) at onset of headache, may repeat in 2 hours. Max of 2 tabs (200mg) per 24 hours. May take sumatriptan with OTC Tylenol 650-1,000mg every 4-6 hours, Ibuprofen (liquid gels) 600mg every 6 hours, or Naproxen (liquid gels) 440mg q 12 hrs prn. Potential adverse effects of triptans, include but are not limited to nausea, fatigue, chest tightness/tingling (usually passes within a few minutes), medication overuse headaches. For seizure: Reviewed EEG, was normal. Explained by EEG can be normal in epilepsy. Continue Keppra 500 mg b.i.d. Continue B6 50 mg b.i.d., this can reduce mood side effects from Keppra Resume Trileptal 300 mg b.i.d. Will follow-up upon review of above and patient to follow-up in clinic in 2 months or sooner prn. Orders: Orders PT Evaluation and Treatment Today G43.109 - Migraine with aura, not intractable, without status migrainosus, R42 - Dizziness and giddiness Referrals Ophthalmology Referral E23.6 - Other disorders of pituitary gland, H53.9 - Unspecified visual disturbance Medications: New galcanezumab-gnlm (Emgality Pen) Loading dose: 120 mg subcu injection x2 in alternate sites (total 240 mg). To be followed by maintenance dose of 120 mg subcu q.month. 240 mg (2 mL) subcut ONCE 2 mL 0RF 30 days sumatriptan succinate 50 - 100 mg orally at onset of headache, may repeat in 2 hrs PRN; max 2 tabs per day or 4 tabs/week (may take with Tylenol) 12 tabs 6RF migraine headache 30 days Changed From meclizine 12.5 mg PO BID To meclizine 12.5 mg PO BID PRN 60 tabs 1RF dizziness 30 days Coding Level of Care Code Est Pt Level 4 (32691) Diagnoses Migraine with aura G43.109 Vision changes H53.9 Empty sella syndrome E23.6 Vertigo R42 Seizures R56.9
--- OUTSIDE RECORDS SUMMARY | 2024-03-22 10:57 | XMS_ITS | Data Portability ---
Author Organization [employer] in - [employer] Address [address] [place] [id number] Care Team Providers Care Dictating Machine Transcriber Name Role Phone [facility] OTHER [facility] OTHER Assessment Encounter Date Assessment Date Assessment LastModified by Organization Details LastModified Time 01/06/2023 01/06/2023 service called for urinary sx found 62 geeta with hx recurrent UTI c/o worsening of chronic urinary sx x 1d denies fever, chills, flank pain currently presentation of lesser severity compared to multiple prior currently followed by Urology [facility] UA: LE +2 #Acute UTI empiric macrobid f/up UCx [email or web address] Not available 01/06/2023 23:43:58 05/29/2023 05/29/2023 62 yo F who is febrile (Tmax 101 this morning), p/w with acute bacterial sinusitis and likely viral conjunctivitis. No CP, SOB. No pain w/EOM. No surrounding ocular erythema. Will send rx augmentin for sinusitis. Advised that if eye symptoms worsening after 5-7 days, can use ofloxacin eye drops. [email or web address] Not available 05/29/2023 20:21:16 08/01/2023 08/01/2023 I have reviewed and agree with the assessment and plan as documented by the cleaner greaser. I provided real time medical direction for this encounter and was immediately available to provide additional phone based assistance as needed. History as noted by cleaner greaser. Pt with history of DM and reported toenail fungal infection. History obtained from pt's daughter. Pt has had a red, itchy rash on her lateral and plantar R foot for many months or several years according to her daughter. She was given a fungal cream in the past which helped but they do not have any more. Pt reports that the rash is itchy and sometimes painful. Pt also reports that several days ago she noted a small, tender blister on the plantar R foot which opened yesterday and drained pus . She reports that this is mildly tender as well. No known trauma to the R foot or puncture injuries. No fever but pt has described chills. Daughter is not sure if the pt has ever seen a senior systems software engineer in the past. On exam, pt is afebrile. R foot with lateral and plantar slightly raised red, scaling rash. Plantar foot with a small open wound (see photo) with slight surrounding erythema and tenderness but no induration, fluctuance or drainage. Pedal pulses palpable. Impression: Pt with what appears to be a fungal rash on the lateral and plantar R foot as well as a small wound (? blister/puncture wound) which reportedly opened and drained possibly purulent fluid yesterday. On exam currently, no evidence of abscess. Will treat for possible diabetic foot infection and cellulitis with keflex, 500mg po now by medic and I prescribe 500mg TID x7 days. Pt also prescribed clotrimazole cream to apply to the foot bid as well. We speak to the pt's daughter about the diagnosis of fungal and possible bacterial infection and the importance of very close follow up to ensure that the infections resolve. Pt and daughter told to call and follow up with her primary care team next week to re-examine the foot to ensure improvement. For primary care team: Please call pt and daughter after the weekend to arrange for follow up evaluation of her R foot. Pt will also need a referral to a senior systems software engineer for follow up and diabetic foot care (daughter is unsure if pt has seen senior systems software engineer in the past). Pt and daughter instructed to seek medical attention right away with any worsening or new symptoms, which are reviewed with them. [email or web address] Not available 08/01/2023 17:33:15 08/14/2023 08/14/2023 I have reviewed and agree with the assessment and plan as documented by the cleaner greaser. I provided real-time medical direction for this encounter and was immediately available to provide additional phone-based assistance as needed. History as noted in EMR and by cleaner greaser. I would add / emphasize: Patient seen for evaluation of wound/ulcer on the bottom of her right foot in the setting of history of diabetes. Patient had been prescribed a course of cephalexin during which patient reports her wound appeared better. Since finishing last week she reports worsening of pain and redness in the foot. Had reported chills but on clarification was reporting throbbing in the right foot. She is scheduled to see wound care clinic on 08/20 and has had x-rays performed to evaluate further. AVSS, afebrile and well-appearing on exam. Pictures of wound and clinical imaging demonstrate some surrounding erythema around ulcer. Given previous improvement with antibiotics and high risk extremity wound in a diabetic patient will resume course of antibiotics (will broaden to Augmentin) ahead of patient's wound care visit. Red flags discussed for worsening redness, swelling, pain or development of systemic symptoms such as fevers or chills. [email or web address] Not available 08/18/2023 21:27:18 Plan of Treatment Reminders Order Date Submit Date Provider Last Modified By Organization Details Last Modified Time Details Appointments None recorded. Lab culture, urine [address] [facility], [address] [place], [address], 3 09:59:42 urinalysi s, dipstick 2022 023 [facility], [address] [place] [address], [phone], 3 17:38:10 culture, urine 2022 023 [facility], [address] [place], [address], 3 11:25:58 urinalysi s, dipstick 2022 023 [facility], [address] [place] [address], [phone], 3 20:32:11 Referral None recorded. Procedures None recorded. Surgeries None recorded. Imaging None recorded. Medication Orders Macrobid 100 mg capsule 2022 023 [id number], [address], [place], [id number], 3 15:54:07 Macrobid 100 mg capsule 2022 023 [facility] #[id number], [address], [id number], 3 19:57:54 ofloxacin 0.3 % eye drops 2023 024 [facility] #76025, [address], [phone], 4 17:58:46 amoxicill in 875 mg-potass ium clavulana te 125 mg tablet 2023 024 [facility] #85610, [address] [place], [place], [id number], 4 17:58:44 clotrimaz ole 1 % topical cream 2023 024 [facility] #12255, [address], [id number], 4 17:00:00 cephalexi n 500 mg capsule 2023 024 [facility]20121, [address], [id number], 4 16:59:51 cephalexi n 500 mg capsule 2023 024 [facility] #40947, [address], [id number], 4 17:00:00 Augmentin 875 mg-125 mg tablet 2023 0[facility], [address] [place], [place], [id number], 4 14:23:34 Augmentin 875 mg-125 mg tablet 2023 024 [facility] #40339, [address] [place], [place], [id number], 14:23:42 Patient TargetsNo targets recorded. Patient InstructionsNo instructions recorded. Reason for Referral None Reported. Results Created Date Observation Date Name Description Value Unit Range Abnormal Flag Note LastModifiedBy Organization Detail LastModifiedTime 09/23/1909/22/2022 URINE CULTU RE specimen description URINE Not Available [facility] [address] [place], [address], 09/23/2022 18:28:15 09/23/19 23 09/22/2022 URINE CULTU RE special requests NONE Not Available [facility] [address] [place], [address], 09/23/2022 18:28:15 09/23/19 23 09/23/2022 URINE CULTU RE culture Mixed bacter ial anita, 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 Not Available [facility] [address] [place], [address], 09/23/2022 18:28:15 09/23/1909/23/2022 URINE CULTU RE report status FINAL 2022 Not Available [facility] [address] [place], [address], 09/23/2022 18:28:15 10/03/1910/03/2022 UA W/REF YANDEL CULTU RE appear/color BROWN MARKE D TURBI DITY Not Available [facility] [address] [place], [address], 10/03/2022 03:55:44 10/03/1910/03/2022 UA W/REF YANDEL CULTU RE sp. gravity 1.028 (1.002 -1.030 ) Not Available [facility] [address] [place], [address], 10/03/2022 03:55:44 10/03/1910/03/2022 UA W/REF YANDEL CULTU RE urine pH 6.0 (5.0-8 .0) Not Available [facility] [address], [address], 10/03/2022 03:55:44 10/03/19 23 10/03/2022 UA W/REF YANDEL CULTU RE urine albumin 2+ (neg) abnormal Not Available [facility] [address], [address], 10/03/2022 03:55:44 10/03/19 23 10/03/2022 UA W/REF YANDEL CULTU RE urine glucose 4+ (neg) abnormal Not Available [facility] [address] [place], [address], 10/03/2022 03:55:44 10/03/19 23 10/03/2022 UA W/REF YANDEL CULTU RE urine ketones NEGATI VE (neg) normal Not Available [facility] [address] [place], [address], 10/03/2022 03:55:44 10/03/19 23 10/03/2022 UA W/REF YANDEL CULTU RE urine bilirubin NEGATI VE (neg) normal Not Available [facility] [address] [place], [address], 10/03/2022 03:55:44 10/03/19 23 10/03/2022 UA W/REF YANDEL CULTU RE urine hemoglobin 3+ (neg) abnormal Not Available [facility] [address] [place], [address], 10/03/2022 03:55:44 10/03/19 23 10/03/2022 UA W/REF YANDEL CULTU RE urine nitrite NEGATI VE (neg) normal Not Available [facility] [address] [place], [address], 10/03/2022 03:55:44 10/03/19 23 10/03/2022 UA W/REF YANDEL CULTU RE urine leukocyte 3+ (neg) abnormal Not Available [facility] [address] [place], [address], 10/03/2022 03:55:44 10/03/19 23 10/03/2022 UA W/REF YANDEL CULTU RE urobilinogen NORMAL mg/dL (norm) normal Not Available [facility] [address] [place], [address], 10/03/2022 03:55:44 10/03/19 23 10/03/2022 UA W/REF YANDEL CULTU RE urine WBCs >182 /hpf (0-5) high Not Available [facility] [address] [place], [address], 10/03/2022 03:55:44 10/03/19 23 10/03/2022 UA W/REF YANDEL CULTU RE urine RBCs >182 /hpf (0-3) high Not Available [facility] [address] [place], [address], 10/03/2022 03:55:44 10/03/19 23 10/03/2022 UA W/REF YANDEL CULTU RE bacteria SLIGHT hpf (neg) abnormal Not Available [facility] [address], [address], 10/03/2022 03:55:44 10/03/19 23 10/03/2022 UA W/REF YANDEL CULTU RE clarity MARKED TURBID ITY (clear ) abnormal Not Available [facility] [address], [address], 10/03/2022 03:55:44 10/03/19 23 10/03/2022 UA W/REF YANDEL CULTU RE culture indication CULTUR E INDICA BRAD Not Available [facility] [address] [place], [address], 10/03/2022 03:55:44 10/03/19 23 10/03/2022 URINE CULTU RE specimen description URINE Not Available [facility] [address] [place], [address], 10/05/2022 10:08:49 10/03/19 23 10/03/2022 URINE CULTU RE special requests NONE Reflex ed from [id number] Not Available [facility] [address], [address], 10/05/2022 10:08:49 10/03/19 23 10/05/2022 URINE CULTU RE culture abnormal >100, 000 COL/M L ENTER OCOCC US FAECA LIS This isola te was ident ified using Maldi -TOF syste m These AST resul ts were perfo rmed on the Micro scan ID and AST syste m Not Available [facility] [address] [place], [address], 10/05/2022 10:08:49 10/03/19 23 10/05/2022 URINE CULTU RE report status FINAL 2022 Not Available [facility] [address] [place], [address], 10/05/2022 10:08:49 10/03/19 23 10/05/2022 URINE CULTU RE organism ORGAN ISM >100, 000 COL/M L ENTER OCOCC US FAECA LIS This isola te was ident ified using Maldi -TOF syste m These AST resul ts were perfo rmed on the Micro scan ID and AST syste m Not Available [facility] [address] [place], [address], 10/05/2022 10:08:49 10/03/19 23 10/05/2022 URINE CULTU RE method METHOD MIN. INHIB. CONC. (MCG/M L) Not Available [facility] [address] [place], [address], 10/05/2022 10:08:49 10/03/19 23 10/05/2022 URINE CULTU RE ampicillin AMPICI LLIN SUSCEP TIBLE susceptib le Not Available [facility] [address] [place], [address], 10/05/2022 10:08:49 10/03/19 23 10/05/2022 URINE CULTU RE ciprofloxaci n CIPROF LOXACI N SUSCEP TIBLE susceptib le Not Available [facility] [address] [place], [address], 10/05/2022 10:08:49 10/03/19 23 10/05/2022 URINE CULTU RE nitrofuranto in NITROF URANTO IN SUSCEP TIBLE susceptib le Not Available [facility] [address] [place], [address], 10/05/2022 10:08:49 10/03/19 23 10/05/2022 URINE CULTU RE levofloxacin LEVOFL OXACIN SUSCEP TIBLE susceptib le Not Available [facility] [address] [place], [address], 10/05/2022 10:08:49 10/03/19 23 10/05/2022 URINE CULTU RE vancomycin VANCOM YCIN SUSCEP TIBLE susceptib le Not Available [facility] [address] [place], [address], 10/05/2022 10:08:49 10/03/19 23 10/05/2022 URINE CULTU RE gentamicin synergy GENTAM ICIN SYNERG Y SUSCEP TIBLE susceptib le Not Available [facility] [address] [place], [address], 10/05/2022 10:08:49 10/03/19 23 10/05/2022 URINE CULTU RE streptomycin synergy STREPT OMYCIN SYNERG Y SUSCEP TIBLE susceptib le Not Available [facility] [address] [place], [address], 10/05/2022 10:08:49 10/03/19 23 10/05/2022 URINE CULTU RE tetracycline TETRAC YCLINE RESIST ANT resistant Not Available [facility] [address] [place], [address], 10/05/2022 10:08:49 10/03/19 23 10/02/2022 urina lysis , dipst ick Leukocytes positi ve Not Available [facility] - [facility] [address] [place] [address], [phone], 10/02/2022 15:59:10 10/03/19 23 10/02/2022 urina lysis , dipst ick Nitrite positi ve Not Available Main - [facility] ed [address] [place] [address], [phone], 10/02/2022 15:59:10 10/03/19 23 10/02/2022 urina lysis , dipst ick Blood positi ve Not Available Main - [facility] ed [address] [place] [address], [phone], 10/02/2022 15:59:10 10/03/19 23 10/02/2022 urina lysis , dipst ick Appearance cloudy Not Available [facility] - [address], [phone], 10/02/2022 15:59:10 10/19/19 23 10/18/2022 URINE CULTU RE specimen description URINE Not Available [facility] [address] [place], [address], 10/21/2022 09:59:42 10/19/1910/18/2022 URINE CULTU RE special requests NONE Not Available [facility] [address] [place], [address], 10/21/2022 09:59:42 10/19/19 23 10/21/2022 URINE CULTU RE culture abnormal >100, 000 COL/M L ENTER OCOCC US FAECA LIS This isola te was ident ified using Maldi -TOF syste m These AST resul ts were perfo rmed on the Vitek 2 ID and AST syste m Not Available [facility] [address] [place], [address], 10/21/2022 09:59:42 10/19/19 23 10/21/2022 URINE CULTU RE report status FINAL 2022 Not Available [facility] [address] [place], [address], 10/21/2022 09:59:42 10/19/19 23 10/21/2022 URINE CULTU RE organism ORGAN ISM >100, 000 COL/M L ENTER OCOCC US FAECA LIS This isola te was ident ified using Maldi -TOF syste m These AST resul ts were perfo rmed on the Vitek 2 ID and AST syste m Not Available [facility] [address] [place], [address], 10/21/2022 09:59:42 10/19/19 23 10/21/2022 URINE CULTU RE method METHOD MIN. INHIB. CONC. (MCG/M L) Not Available [facility] [address] [place], [address], 10/21/2022 09:59:42 10/19/19 23 10/21/2022 URINE CULTU RE ampicillin AMPICI LLIN SUSCEP TIBLE susceptib le Not Available [facility] [address] [place], [address], 10/21/2022 09:59:42 10/19/19 23 10/21/2022 URINE CULTU RE ciprofloxaci n CIPROF LOXACI N SUSCEP TIBLE susceptib le Not Available [facility] [address] [place], [address], 10/21/2022 09:59:42 10/19/19 23 10/21/2022 URINE CULTU RE nitrofuranto in NITROF URANTO IN SUSCEP TIBLE susceptib le Not Available [facility] [address] [place], [address], 10/21/2022 09:59:42 10/19/19 23 10/21/2022 URINE CULTU RE levofloxacin LEVOFL OXACIN SUSCEP TIBLE susceptib le Not Available [facility] [address] [place], [address], 10/21/2022 09:59:42 10/19/19 23 10/21/2022 URINE CULTU RE vancomycin VANCOM YCIN SUSCEP TIBLE susceptib le Not Available [facility] [address] [place], [address], 10/21/2022 09:59:42 10/19/19 23 10/21/2022 URINE CULTU RE gentamicin synergy GENTAM ICIN SYNERG Y SUSCEP TIBLE susceptib le Not Available [facility] [address] [place], [address], 10/21/2022 09:59:42 10/19/19 23 10/21/2022 URINE CULTU RE streptomycin synergy STREPT OMYCIN SYNERG Y SUSCEP TIBLE susceptib le Not Available [facility] [address] [place], [address], 10/21/2022 09:59:42 10/19/19 23 10/21/2022 URINE CULTU RE tetracycline TETRAC YCLINE RESIST ANT resistant Not Available [facility] [address] [place], [address], 10/21/2022 09:59:42 01/07/20 23 01/07/2023 URINE CULTU RE specimen description URINE Not Available [facility] [address] [place], [address], 01/08/2023 11:25:58 01/07/20 23 01/07/2023 URINE CULTU RE special requests NONE Not Available [facility] [address], [address], 01/08/2023 11:25:58 01/07/20 23 01/08/2023 URINE CULTU RE culture NO GROWTH Not Available [facility] [address] [place], [address], 01/08/2023 11:25:58 01/07/20 23 01/08/2023 URINE CULTU RE report status FINAL 2022 Not Available [facility] [address] [place], [address], 01/08/2023 11:25:58 01/11/20 23 01/10/2023 URINE CULTU RE specimen description URINE CLEAN CATCH/ MIDSTR EAM Not Available [facility] [address] [place], [address], 01/11/2023 10:53:12 01/11/20 23 01/10/2023 URINE CULTU RE special requests NONE Not Available [facility] [address] [place], [address], 01/11/2023 10:53:12 01/11/20 23 01/11/2023 URINE CULTU RE culture NO GROWTH Not Available [facility] [address] [place], [address], 01/11/2023 10:53:12 01/11/20 23 01/11/2023 URINE CULTU RE report status FINAL 2022 Not Available [facility] [address] [place], [address], 01/11/2023 10:53:12 Result Notes None recorded. Medical Equipment None Reported. Medications Name Sig Start Date Stop Date Status Note LastModified by Organization Details LastModified Time vitamin b-12 100mcg tablets TAKE 1 TABLET BY MOUTH EVERY MORNING active Not Available Not Available No t Available b-12 tab 100mcg active Not Available Not Available Not Available amoxicillin 500 mg capsule TAKE 1 CAPSULE BY MOUTH EVERY 8 HOURS active Not Available Not Available No t Available terbinafine HCl 1 % topical cream APPLY TOPICALLY TO THE AFFECTED AREA TWICE DAILY FOR 14 DAYS active Not Available Not Available No t Available BD Alcohol Swabs USE THREE TIMES EVERY DAY active Not Available Not Available No t Available gabapentin 600 mg tablet TAKE 1 TABLET BY MOUTH AT BEDTIME active Not Available Not Available No t Available ibuprofen 800 mg tablet TAKE 1 TABLET BY MOUTH THREE TIMES DAILY WITH FOOD active Not Available Not Available No t Available ofloxacin 0.3 % eye drops INSTILL 1 DROP INTO AFFECTED EYE(S) BY OPHTHALMIC ROUTE 4 TIMES PER DAY active Not Available Not Available No t Available levetiraceta m 500 mg tablet TAKE 1 TABLET BY MOUTH TWICE DAILY active Not Available Not Available No t Available FreeStyle Lancets 28 gauge TEST BLOOD SUGAR FIVE TIMES DAILY active Not Available Not Available Not Available prednisone 20 mg tablet TAKE 1 TABLET BY MOUTH EVERY DAY active Not Available Not Available No t Available clonazepam 0.5 mg tablet TAKE 1 TABLET BY MOUTH TWICE DAILY NEEDED FOR ANXIETY active Not Available Not Available No t Available metoprolol succinate ER 100 mg tablet,exten ded release 24 hr TAKE 1 TABLET BY MOUTH EVERY DAY active Not Available Not Available No t Available clonazepam 1 mg tablet TAKE 1 TABLET BY MOUTH TWICE DAILY NEEDED FOR ANXIETY active Not Available Not Available No t Available meclizine 12.5 mg tablet TAKE 1 TABLET BY MOUTH TWICE DAILY active Not Available Not Available No t Available oxcarbazepin e 300 mg tablet TAKE 1 TABLET BY MOUTH TWICE DAILY active Not Available Not Available No t Available sulfamethoxa zole 800 mg-trimethop rim 160 mg tablet TAKE 1 TABLET BY MOUTH EVERY 12 HOURS FOR 5 DAYS active Not Available Not Available N ot Available peg-electrol yte solution 420 gram oral solution TAKE ONE OUNCE BY MOUTH APPLY SPARINGLY WITH EACH DIAPER CHANGE active Not Available Not Available No t Available aspirin 81 mg tablet,delay ed release TAKE 1 TABLET BY MOUTH EVERY MORNING active Not Available Not Available No t Available acetaminophe n 500 mg tablet TAKE 2 TABLETS BY MOUTH THREE TIMES DAILY NEEDED FOR MILD PAIN active Not Available Not Available No t Available acetaminophe n ER 650 mg tablet,exten ded release TAKE 1 TABLET BY MOUTH EVERY 8 HOURS NEEDED active Not Available Not Available No t Available magnesium oxide 400 mg (241.3 mg magnesium) tablet TAKE 1 TABLET BY MOUTH AT BEDTIME active Not Available Not Available No t Available OneTouch Ultra Test strips USE 1 FIVE TIMES A DAY active Not Available Not Available Not Available meclizine 25 mg tablet active Not Available Not Available No t Available cephalexin 500 mg capsule TAKE 1 CAPSULE BY MOUTH THREE TIMES DAILY FOR 7 DAYS active Not Available Not Available N ot Available mirtazapine 30 mg tablet TAKE 1 TABLET BY MOUTH AT BEDTIME active Not Available Not Available No t Available nystatin 100,000 unit/gram topical cream APPLY TOPICALLY TO THE AFFECTED AREA TWICE DAILY active Not Available Not Available No t Available buspirone 10 mg tablet TAKE 1 TABLET BY MOUTH TWICE DAILY active Not Available Not Available No t Available clotrimazole -betamethaso ne 1 %-0.05 % topical cream APPLY TOPICALLY TO THE AFFECTED AREA TWICE DAILY active Not Available Not Available No t Available lidocaine 5 % topical patch APPLY 1 PATCH TOPICALLY TO THE SKIN EVERY DAY. MAY WEAR UP TO 12 HOURS. NEEDED active Not Available Not Available No t Available docusate sodium 100 mg capsule TAKE 1 CAPSULE BY MOUTH EVERY DAY AT BEDTIME NEEDED active Not Available Not Available No t Available pyridoxine (vitamin B6) 50 mg tablet TAKE 1 TABLET BY MOUTH TWICE DAILY active Not Available Not Available No t Available diclofenac sodium 75 mg tablet,delay ed release active Not Available Not Available N ot Available cephalexin 500 mg tablet Take 1 tablet every 6 hours by oral route for 5 days. 2022 active Not Available Not Available Not Avai lable estradiol 0.01% (0.1 mg/gram) vaginal cream USE 1 GRAM VAGINALLY EVERY DAY FOR 14 DOSES. CONTINUE TO USE 2 TIMES A WEEK THEREAFTER active Not Available Not Available N ot Available zolpidem 10 mg tablet TAKE 1 TABLET BY MOUTH AT BEDTIME active Not Available Not Available No t Available celecoxib 100 mg capsule active Not Available Not Available Not Available lisinopril 40 mg tablet TAKE 1 TABLET BY MOUTH EVERY DAY active Not Available Not Available No t Available clotrimazole 1 % topical cream APPLY TOPICALLY TO THE AFFECTED AREA AND SURROUNDING AREAS OF RIGHT FOOT TWICE DAILY active Not Available Not Available Not Available loratadine 10 mg tablet TAKE 1 TABLET BY MOUTH EVERY DAY active Not Available Not Available No t Available amoxicillin 875 mg-potassium clavulanate 125 mg tablet TAKE 1 TABLET BY MOUTH TWICE DAILY active Not Available Not Available No t Available Ventolin HFA 90 mcg/actuatio n aerosol inhaler INHALE 2 PUFFS BY MOUTH EVERY 6 HOURS NEEDED FOR WHEEZING active Not Available Not Available No t Available oxycodone 5 mg tablet TAKE 1 TABLET BY MOUTH EVERY 4 HOURS FOR 3 DAYS NEEDED FOR MODERATE PAIN active Not Available Not Available No t Available Novolog FlexPen U-100 Insulin aspart 100 unit/mL (3 mL) subcutaneous INJECT 25 UNITS UNDER THE SKIN THREE TIMES DAILY BEFORE MEALS active Not Available Not Available No t Available nitrofuranto in monohydrate/ macrocrystal s 100 mg capsule TAKE 1 CAPSULE BY MOUTH EVERY 12 HOURS FOR 10 DAYS active Not Available Not Available Not Available duloxetine 60 mg capsule,davion yed release TAKE 1 CAPSULE BY MOUTH TWICE DAILY active Not Available Not Available No t Available BD Ultra-Fine Short Pen Needle 31 gauge x 5/16 USE DIRECTED THREE TIMES DAILY active Not Available Not Available No t Available Lantus Solostar U-100 Insulin 100 unit/mL (3 mL) subcutaneous pen ADMINISTER 68 UNITS UNDER THE SKIN EVERY NIGHT AT BEDTIME DIRECTED active Not Available Not Available No t Available diclofenac 1 % topical gel APPLY TOPICALLY TO THE AFFECTED AREA TWICE DAILY active Not Available Not Available No t Available OneTouch Ultra2 Meter USE DIRECTED active Not Available Not Available No t Available OneTouch Delica Plus Lancet 30 gauge USE 1 FIVE TIMES PER DAY active Not Available Not Available No t Available Trulicity 3 mg/0.5 mL subcutaneous pen injector ADMINISTER 0.5 ML UNDER THE SKIN EVERY WEEK active Not Available Not Available No t Available Trulicity 4.5 mg/0.5 mL subcutaneous pen injector ADMINISTER 4.5 MG UNDER THE SKIN 1 TIME EVERY WEEK active Not Available Not Available N ot Available BinaxNOW COVID-19 Ag Self Test kit TEST DIRECTED TODAY active Not Available Not Available No t Available Vitals Date Recorded Body temperature Respiratory rate Oxygen saturation Oxygen saturation in Arterial blood by Pulse oximetry Heart rate Systolic blood pressure Diastolic blood pressure Provider Name and Address Organization Details Last Updated DateTime 3 98.4 [degF] 16 /min 96 % 96 % 91 /min 144 mm[Hg] 88 mm[Hg] Not Available [employer] 3 15:50:54 Date Recorded Oxygen saturation Oxygen saturation in Arterial blood by Pulse oximetry Body height Heart rate Respiratory rate Body weight Systolic blood pressure Diastolic blood pressure Provider Name and Address Organization Details Last Updated DateTime 3 97 % 97 % 167.64 cm 80 /min 16 /min 49789.4 8 g 132 mm[Hg] 84 mm[Hg] Not Available [employer] 3 20:19:39 Date Recorded Body temperature Body weight Respiratory rate Oxygen saturation Oxygen saturation in Arterial blood by Pulse oximetry Body height Heart rate Systolic blood pressure Diastolic blood pressure Provider Name and Address Organization Details Last Updated DateTime 4 99.4 [degF] 86732.9 2 g 18 /min 98 % 98 % 147.32 cm 90 /min 127 mm[Hg] 75 mm[Hg] Not Available [employer] [facility] [employer] 4 17:34:56 Date Recorded Respiratory rate Body temperature Heart rate Oxygen saturation Oxygen saturation in Arterial blood by Pulse oximetry Systolic blood pressure Diastolic blood pressure Provider Name and Address Organization Details Last Updated DateTime 4 16 /min 98.3 [degF] 86 /min 95 % 95 % 122 mm[Hg] 84 mm[Hg] Not Available [employer] 4 16:48:35 Date Recorded Body weight Body temperature Respiratory rate Heart rate Oxygen saturation Oxygen saturation in Arterial blood by Pulse oximetry Systolic blood pressure Diastolic blood pressure Provider Name and Address Organization Details Last Updated DateTime 4 09804.9 2 g 98.8 [degF] 14 /min 85 /min 95 % 95 % 143 mm[Hg] 80 mm[Hg] Not Available [employer] [facility] [employer] 4 14:15:36 Social History None recorded. Functional Status None recorded. Mental Status None recorded. Family History Nothing Reported. Medical History No medical history recorded. Gynecological HistoryNo gynecological history recorded. Obstetrics History GPAL:G 0 P 0 0 0 0 Past Encounters Encounter ID Performer Location Encounter Start Date Encounter Closed Date Diagnosis/Indication Diagnosis SNOMED-CT Code Diagnosis ICD10 Code Diagnosis Note [id number] Shine Butler MD [facility] [address] [place] [address] [id number] 09/22/2022 18:56:06 09/23/2022 16:07:24 Dysuria 49247480 R30.0 S/p hospitaliz ation where she was receiving IV antibiotic s at [facility] prior to leaving [place]. States was going to be prescribed QID antibiotic before leaving. Unable to obtain lab report from [facility]. Rechecked urinalysis and sent culture and will treat empiricall y with Cephalexin in the interim. Urinary symptoms 9527941 08 R39.9 Per above [id number] Araseli Santoro MD [facility] [address] [place] [address] [id number] 10/02/2022 15:54:53 10/03/2022 12:15:37 Urinary tract infectious disease 12249153 N39.0 [id number] Cat Alarcon MD [facility] [address] [place] [address] [id number] 10/18/2022 15:50:47 10/19/2022 15:34:32 Urinary symptoms [id number] R39.9 61 year old female being evaluated for urinary symptoms for the last few days, recurrent after completing a course of bactrim for a UTI a few days ago. Patient reports dysuria, urgency and frequency, which improved after taking a course of bactrim, but resumed immediatel y after bactrim stopped. Patient believes this may be a recurring problem due to her underlying hernia, which she is awaiting surgical repair next month. Patient is taking PO, without vomiting or fever. Exam notable for normal vital signs, POC urinalysis positive for leukocytes . Presentati on suggestive of recurrent simple cystitis UTI, possibly secondary to underlying hernia. Previous urine culture sensitive to macrobid - will empiricall y treat with macrobid, although given recent antibiotic use, and high risk of recurrence , patient at high risk of MDR. Resent urine culture and encouraged patient to reach out to PCP carolina to discuss prophylaxi s until hernia surgery. [id number] Mary Guerra MD [facility] [address] [place] [address] [id number] 01/06/2023 19:53:10 01/07/2023 11:59:02 Acute urinary tract infection [id number] N39.0 Urinary symptoms [id number] 08 R39.9 [id number] ALF FULLER MD [facility] [address] [place] [address] [id number] 05/29/2023 17:34:47 06/02/2023 18:12:07 Acute bacterial sinusitis 12942180 J01.90 Acute conj unctivitis of bilateral eyes [id number] 29572 H10.33 [id number] Robinson Jefferson MD [facility] [address] [place] [address] [id number] 08/01/2023 16:48:22 08/01/2023 21:28:25 Tinea pedis 1057246 B35.3 Cellulitis of right lower limb [id number] [id number] L03.115 [id number] Jordon Crane MD [facility] [address] [place] [address] [id number] 08/14/2023 14:15:25 08/18/2023 22:23:18 Diabetic foot ulcer [id number] E13.621 Health Concerns Section Related Observation LastModified by Organization Detai ls LastModified Time None Recorded Concern Status LastModified by Organization Details LastModified Time None Recorded Advance Directives Directive None Recorded Payers Encounter Date Sequence Insurance Name Policy Number Policy Hayward Covered Member ID Hayward Member ID Guarantor Name 10/18/2022 1 [facility] - DOS ON OR AFTER 2022 - DUAL ELIGIBLE - [employer] OPTIONS AND ONE CARE (MEDICARE REPLACEMENT/AD VANTAGE - HMO) Janice Burt [id number] Janice Burt 01/06/2023 1 [email or web address] AFTER 2022 - DUAL ELIGIBLE - [employer] OPTIONS AND ONE CARE (MEDICARE REPLACEMENT/AD VANTAGE - HMO) Janice Burt [id number] Janice Burt 05/29/2023 1 [email or web address] ON OR AFTER 2022 - DUAL ELIGIBLE - [employer] OPTIONS AND ONE CARE (MEDICARE REPLACEMENT/AD VANTAGE - HMO) Janice Burt [id number] Janice Burt 08/01/2023 1 [email or web address] ON OR AFTER 2022 - DUAL ELIGIBLE - [employer] OPTIONS AND ONE CARE (MEDICARE REPLACEMENT/AD VANTAGE - HMO) Janice Burt [id number] Janice Burt 08/14/2023 1 [email or web address] ON OR AFTER 2022 - DUAL ELIGIBLE - [employer] OPTIONS AND ONE CARE (MEDICARE REPLACEMENT/AD VANTAGE - HMO) Janice Burt [id number] Janice Burt Notes Date Note Type Note Provider Name and Address Organization Details Recorded Time 10/18/2022 text/html [facility] Nursing Assessment: Reason For Request: UTI Chief Complaints: UTI/Pyelonephritis PMH: COPD/Asthma, Diabetes, Hypertension Comments: Members daughter calling in to place a referral, member identified via /name. Member with hernia that requires surgery, and can be causing blood per MD, surgery scheduled for Spet 22. Member also with a concern for UTI. Member having pain with urination, some urgency, urine is not dark but has blood intermittently, no odor, +flank pain, denies fever/chills. Member would like to be evaluated. ................... ................... ................... ................... ................... ................... ................... ........ Corner Trimmer Operator Note From Austen Perez: Dispatched to the call address for the female with possible UTI. Family states Pt has had many UTIs recently and was seen in the ED and spoke to her PCP recently. She was advised that she is likely getting recurrent UTIs due to her hernia that needs to be surgically repaired but is not scheduled until the middle of next month. Pt complains of frequent and painful urination and CVA tenderness. Pt states she is drinking as much water as she can tolerate. Pt was found sitting in living room chair, CAOx4, airway open and patent, breathing non labored, able to speak in full sentences, -JVD, -HEENT, skin PWD with good turgor, abd soft non tender, pupils PERRL, +CMSx4, A-febrile, UA positive for UTI. [facility] consulted. Script called into preferred pharmacy. Pt advised to follow up with PCP today to discuss joint terminal attack controller abx until her surgery. Red flags discussed. ALL times are approx. ................... ................... ................... ................... ................... ................... ................... ........ Disposition: Fulfilled Cat Alarcon MD [address] [facility],[address], [place], [address], [employer] 10/18/2022 16:26:54 01/06/2023 text/html CRC Nursing Assessment: Reason For Request: Daughter reporting problems with urination and pain in that area>symptoms going on a few weeks>called surgeon who recommended PCP but no availability. Chief Complaints: UTI/Pyelonephritis PMH: COPD/Asthma, Diabetes, Hypertension Pain Assessment: Level 8 out of 10 Comments: Umbilical hernia repair on 11/22. Difficulty urinating since surgery. + dysuria, lower abdominal pain, and bilateral flank pain. No known fevers. Denies hematuria. Reports urinary retention. ................... ................... ................... ................... ................... ................... ................... ........ Corner Trimmer Operator Note From Austen Perez: Dispatched to above address for UTI. On arrival patient 62 y/o F, found lying in bed, AOX4, airway patent, speaking in full sentences, good color, in no apparent distress. Patient states she is having continued abdominal pain and urinary retention, has been and ongoing problem for several months, had a hiatal hernia repair at the end of November, has a follow up with her surgeon this week and a follow up with urology next week. Patients vital signs checked, unremarkable. Physical exam unremarkable. Patient was able to provide a clean catch urine sample. Sample indicated positive for UTI on UA. Consulted to [facility], requested sample for culture and gave prescription for a new round of ABX treatment. Patient advised of red flags, has no questions or additional complaints at this time. SC12 clear. Labs brought to [facility] laboratory. [place]. [facility] Lab Orders: culture, urine: Performed urinalysis, dipstick: Performed ................... ................... ................... ................... ................... ................... ................... ........ Disposition: Fulfilled Mary Guerra MD [address] [facility],[address], [place], [address], [employer] 01/06/2023 23:44:10 05/29/2023 text/html HPI: Patient reports illness starting two weeks ago. Seemed better and then three days ago with worsening symptoms. Temp 101 last night and cough LITIGATION [place] burning eyes with drainage. No Home COVID testing done. ................... ................... ................... ................... ................... ................... ................... ........ [facility] Nurse Triage Notes (Mazin Lantigua): Comments: Reviewed HPI ................... ................... ................... ................... ................... ................... ................... ........ Corner Trimmer Operator Note From Erasmo Sanz: 62yo F c/o URI s/s. Pt had been sick 2-3 weeks prior, gotten better , and 3 days ago began to feel sick again. Pt c/o non-productive cough, eye pain, scratchy watery eyes with drainage, fever, TINSLEY, and lethargy. Pt denes CP, N/V/D, or UTI s/s. Pt reports having a fever last night of 101 but has been taking Tylenol since. MD requested urine sample due to multiple UTIs in the past. Uranalysis did not reveal any indication of such. MD Rx eye drops only if eye symptoms continue for two additional days. Also Rx Augmentin. Discussed red flags with pt and family discussing when to call 911/EMS or seek ER services. Pt or family had no questions. ................... ................... ................... ................... ................... ................... ................... ........ Disposition: Fulfilled ALF FULLER MD [address] [place] [address],[address], [place], [address], [employer] 05/29/2023 20:21:28 08/01/2023 text/html This was a supervised home visit with cleaner greaser Erasmo Fisher. HPI: Nurse Camacho from [facility] calling in to place a referral for member. Per Janice it was difficult to get chronological information from member. Member with diabetes, was seen by a senior systems software engineer for debridement of fungus to nails. Member also went on to say she has had discoloration in her legs for 3 months, had a cream, but ran out. Members chief complaint today is an open area to her right foot; corner edge and outer sole, foot is painful, unsure if there is any erythema, drainage or foul odor. Member agreeable to an [employer] visit. ................... ................... ................... ................... ................... ................... ................... ........ CRC Nurse Triage Notes (Anyi Rosa): Comments: CRC RN did not require any additional information to process this visit. ................... ................... ................... ................... ................... ................... ................... ........ Corner Trimmer Operator Note From Erasmo Fisher: Dispatched to the call address for a female with a wound on her foot. upon arrival daughter answered the door and advocated for mother due to language barrier but multiple children screaming and running in and out of the room and multiple dogs barking throughout making communication difficult. daughter noted her mother had a wound on the sole of her right foot that felt like a hard lump and then appeared like a blister filled with puss and then earlier today burst and liquid drained. noted redness around the area and pt. noted discomfort. also noted pt. had a fungal rash on the outside of her right foot that has been looked at and given fungal cream for but she ran out of the cream. doctors noted it was from poor circulation from her diabetes. noted feeling feverish over the last few days.pt.-vitals on scene. pt. -chest pain -sob -head pain -nvd -abd pain -fever per assessment -bowel issues -urinary issues eating and drinking properly. pt. and daughter were unable to remember when she saw the doctor for this and what type of doctor she saw and daughter was unable to provide a medication list. [facility] contacted and ordered a one time dose Keflex 500 mg PO and then would call in a prescription to be taken 3x a day 500 mg PO also ordered a fungal cream for the rash on the patients foot. red flag warnings discussed and noted if the patient began feeling feverish, chills, sweating or any other significant symptoms to call 911. Keflex PO administered by Corner Trimmer Operator on scene. instructed to orange picking supervisor the remainder by tonight. all times are approx. ................... ................... ................... ................... ................... ................... ................... ........ Disposition: Fulfilled Robinson Jefferson MD [address] [place] [address],[address], [place], [address], [facility] [employer] 08/01/2023 17:33:31 08/14/2023 text/html [facility] Nurse Triage Notes (Sharon Kirby): Reason For Request: Pt's daughter reporting mbr was seen for wound care 2 weeks ago Chief Complaints: Wound Care PMH: COPD/Asthma, Diabetes, Hypertension Comments: 62 year old female with PMH: Copd/asthma, DM, HTN, chief complaint of right foot wound/ulcer on bottom of her foot not getting any better. painful/chills/nerv e pain- taking TylenolSeen by [facility] 2 weeks ago, prescribed ABX treatment- completed, but no [facility] wound care follow up was done.Had a XRAY and pending results, [facility] to be [facility], verified address/phone/dobHp maria a CUETO ................... ................... ................... ................... ................... ................... ................... ........ Corner Trimmer Operator Note From Erasmo Sanz: 62 yo FPt called for a wound/ulcer on bottom of her R foot - which isn't getting any better. Wound started over two weeks ago, and was given Antibiotics Cephalexin 500mg 3x a day, for 1 week. After antibiotics and got better. It was finished last week. Since then, it's been getting worse. No S/S of sepsis, no fever, chills, or malaise.Insted reports painful/chills/ner ve pain- taking Tylenol to clarify, there is a throbbing pain in her R foot, but not chills, and pt has not had a fever, even when she does not take Tylenol. Had a XRAY and pending results, due to be seen @ [facility] on 08/20.MD Consult:Rx Augmentin 875mg BID, for 7 days.Very important, discussed red flags with pt, specifically focusing on fever, chills, and other sepsis s/s, informed if s/s developed pt needs to go to the ER. Pt and family had no questions. ................... ................... ................... ................... ................... ................... ................... ........ Disposition: Fulfilled Jordon Crane MD [address] [facility],[address], [place], [address], [employer] 08/18/2023 21:27:40 OBGyn Episode No OBEpisode recorded.
== END 2024-03-22 11:36 | disposition home or self-care (01) ==
PROVIDERS: PCP Pediatrics; Visit Provider Nurse Practitioner Family
DX: G43.109 Migraine with aura, not intractable, without status migrainosus (principal); H53.9 Unspecified visual disturbance; E23.6 Other disorders of pituitary gland; R42 Dizziness and giddiness; R56.9 Unspecified convulsions
CPT/HCPCS: 99214

== ENCOUNTER → 2024-03-22 10:31 | Outpatient (BNVA) | payer OTHER, SELFPAY | PROVIDERS: PCP Pediatrics; Visit Provider Nurse Practitioner Family | DX: G43.109 Migraine with aura, not intractable, without status migrainosus (principal); H53.9 Unspecified visual disturbance; E23.6 Other disorders of pituitary gland; R42 Dizziness and giddiness; R56.9 Unspecified convulsions; Z91.81 History of falling | CPT/HCPCS: 99212 ==

== ENCOUNTER 2024-05-04 09:57 | Outpatient (AMB) | payer OTHER, SELFPAY ==
--- NOTE | 2024-05-04 09:59 | A.OFFVIS_ITS ---
Vital Signs 05/04/24 10:00 Height 4 ft 11 in Weight 138 lb BMI 27.9 BP 102/60 Comment unable to obtain Oxygen and pulse Intake Visit Reasons: Follow Up Intake Note: Patient presents follow up migraine medication. PT reached out to patient with no CB. Ophthalmology booked 05/06/24 Allergies codeine Allergy (Severe, Verified 05/04/24 10:04) weird feeling through out body Medication List - Last Reconciled 05/04/24 by EVA Arita acetaminophen ER 650 mg PO TID albuterol sulfate 90 mcg/actuation (Ventolin HFA) inhalation amoxicillin-pot clavulanate 500-125 mg (Augmentin) 1 tab PO TID 7 days ascorbic acid (vitamin C) 1 g PO Q6H aspirin 81 mg PO DAILY clonazepam 1 mg PO BID PRN dulaglutide (Trulicity) mg subcut duloxetine mg PO estradiol 0.01%(0.1mg/gram) pea sized amount to urethra 3 times a week 30 days gabapentin 600 mg PO BEDTIME 30 days galcanezumab-gnlm (Emgality Pen) 120 mg subcut ONCE 30 days insulin glargine (Lantus Solostar U-100 Insulin) units subcut levetiracetam 500 mg PO BID levofloxacin 500 mg PO DAILY 7 days lidocaine 5% 1 patch topical DAILY PRN lisinopril 40 mg PO DAILY loratadine 10 mg PO DAILY magnesium oxide 400 mg PO DAILY meclizine 12.5 mg PO BID PRN 30 days metoprolol succinate ER 100 mg PO DAILY nut.tx.gluc.intol,lac-free,soy (Glucerna Therapeutic Nutrition oral liquid) 1 ea PO DAILY 24 days ondansetron HCl 4 mg PO Q4H PRN 30 days MDD 3 oxcarbazepine 300 mg PO BID 30 days oxycodone mg PO pyridoxine (vitamin B6) 50 mg PO BID 30 days sumatriptan succinate 50 - 100 mg orally at onset of headache, may repeat in 2 hrs PRN; max 2 tabs per day or 4 tabs/week (may take with Tylenol) 30 days terbinafine HCl 1% 1 appl topical BID 14 days zolpidem 10 mg PO BEDTIME PRN HPI Comments Details: The patient is a 63-year-old female presenting with chronic migraine and dizziness. Patient reports the initial injection of Emgality did not alleviate her symptoms- still has daily migraine, though behavioral improvements were observed by her daughter. Of note, patient did not take the full loading dose of Emgality of 240 mg, she only did 1 injection of 120 mg on 04/07/2024. She denies any adverse effects from the Emgality injection. She did not try the sumatriptan, daughter believes she accidentally threw it away and thought it was for something else. Ophthalmology exam is scheduled for later this week- for follow-up of recent MRI showing empty sella syndrome. Dizziness has persisted for two weeks, , particularly in the last 2 weeks. She did not start vestibular therapy- daughter was unaware she was supposed to do this. Nausea and anorexia are present, as well as frequent loose stools. The patient has difficulty consuming solid nutritious meals due to persistent nausea. She sometimes eats only once a day and reports that any intake often results in feelings of nausea. She reports known history of abdominal hernia- however she does not currently have a GI specialist. She is compliant with magnesium oxide every night. She denies any interval seizure activity. She has been compliant with her Keppra and oxcarbazepine therapy. 03/22/2024 HPI: 63-yr-old female presents for f/u visit to discuss recent brain MRI results. Patient is accompanied by her son. Patient comes to discuss results of brain MRI ordered by PCP office, following previously known fall with positive head strike. 02/21/2024, brain MRI W/WO: Impression: No acute intracranial findings. Moderate chronic microvascular ischemic changes. Small partially empty sella. 07/30/2019, at [facility], Brain MRI W/O: IMPRESSION: There are scattered nonspecific signal changes primarily involving the supratentorial white matter and anais. These findings presumably represent a chronic manifestation of small vessel ischemia. She is having daily right sided headache times the past month. This right-sided headache is a/w right eye vision changes-seeing colors/the world pressure, photophobia, phonophobia, high pitched ringing. This headache is worse during the day. The tinnitus is worse during the day as well. She is using Tylenol p.r.n. with some effect. She is having a lot of dizziness and feeling off balance. She can often feel forgetful. She denies pulsatile tinnitus. Her last eye exam was some time ago, [facility] eye [facility] no longer accepts her insurance. Patient reports she has had some weight loss, as her Trulicity decreases her appetite so she does not eat much. 01/09/2024, previous HPI: Pt reports she had a fall 2 weeks ago. States she has overall not been feeling well d/t recurrent UTIs and a right foot infection, and thus often feels weak and deconditioned. On the morning of the fall, pt was walking out of ehr house to the car w/ her . She was eating an apple- had last eaten approx 5pm the evening before, which is typical for her). Then, all of a sudden pt fell forward- striking her face and more so left side of her body. She does not recall how she fell and, she just remembers sitting up feeling headcahe, nausea, unwell. She states this may ahve felt like she does after a seizure, but dtr does not believe pt had a full convulsive seizure epsiode. She went to [facility] ER, initial BP was elevated however, as pt was not feeling well, family brought her to an urgent care. Pt was dx'd w/ concussion. Since, pt has had a face XR at [facility] but have not received results yet. She does still have left periorbital and bilateral forehead tenderness to touch. She is still a bit sore. She describes a head sensation of lightheadedness. She states her last seizure like episode was a few months ago- not a full seizure but like one would come on. She is compliant w/ her Keppra dose but has not had her oxcarbazepine in some time- states the pharmacy has been confused about the dose. [facility] Medical History Diabetes Surgical History H/O knee surgery Hx of cholecystectomy H/O section H/O hernia repair Family History Mother Cancer Diabetes Osteoporosis Memory loss Social History Alcohol intake: never Patient Tobacco Use Status: Never used Tobacco Physical Exam Vital Signs: Last Vital Signs BP 102/60 05/04/24 10:00 BMI result Body Mass Index 27.9 Const General: cooperative and no acute distress Orientation/consciousness: patient oriented x3 Resp Effort & Inspection: normal respiratory effort and able to speak in complete sentences Neuro General: patient oriented x3 Cranial nerves: Yes CN's II-XII intact bilaterally Cognition (Neuro): normal cognition Gait exam (Neuro): Normal gait present Motor exam (neuro): 5/5 motor strength present throughout Psych Appearance: grossly normal Mental Status: mental status grossly normal Speech and movement: Normal speech and movement present Affect: normal affect Attitude: cooperative Assessment & Plan Assessment & Plan (1) Migraine with aura: Code(s): G43.109 - Migraine with aura, not intractable, without status migrainosus Category: Medical (2) Vision changes: Code(s): H53.9 - Unspecified visual disturbance Category: Medical (3) Empty sella syndrome: Code(s): E23.6 - Other disorders of pituitary gland Category: Medical (4) Vertigo: Code(s): R42 - Dizziness and giddiness Category: Medical (5) Seizures: Code(s): R56.9 - Unspecified convulsions Category: Medical Plan Discussion Notes I discussed the importance of controlling migraine symptoms and their impact on overall health with the patient and her family. Discussed that a common migraine trigger is not eating and drinking on a regular basis. Emphasis was placed on correct administration of patient's acute and preventative migraine treatment regimen. Stressed the importance of eye exam as scheduled. I explained the potential gastrointestinal side effects of magnesium and recommended discontinuing its use. I provided details for referral to a pedodontist. The vestibular therapy referral was touched upon to alleviate dizziness, and Zofran was prescribed for episodic nausea relief. Patient was informed and verbally consented to the use of an ambient scribe for clinic note documentation during this visit. For empty sella syndrome: Reviewed recent brain MRI with and without contrast report, and also reviewed previous 2020 brain MRI without contrast report and images with patient/son- there appears to be indications of in large sella on previous MRI as well. Patient's current headache symptoms are not consistent with IIH presentation- as pressure headache is worse during the day when she is sitting up, tinnitus is worse when sitting up, and overall patient feels better when lying down. I suspect patient's right eye visual symptoms and worsening headache are secondary to chronicification of migraine status post concussion. However, I have asked patient/son to obtain a CD copy of the current brain MRI and bring to [facility] to Radiology to ask them to directly compare previous MRI to current MRI findings- to see if there is any progression in chronic microangiopathic changes and signs of empty sella. Comprehensive ophthalmology evaluation as ordered- to assess for papilledema, intra-ocular etiologies of right vision changes. Future considerations: If eye exam does show evidence of papilledema, we could consider LP for opening pressure and CSF studies. For dizziness: PT/vestibular eval and treat as ordered- for dizziness, headache. Order slip given to patient/son with contact information for local vestibular PT therapist Trial Zofran 4 mg every 6 hours as needed for nausea, not exceeding 3 doses daily. May use meclizine 12.5 mg twice a day as needed for dizziness. For nausea and GI symptoms that are interfering with oral intake, which thus may be exacerbating patient's neurological symptoms: We will take the liberty of referring patient for GI consult. We will also optimize patient's migraine with aura preventive treatment plan: As patient missed initial loading dose of Emgality, take Emgality 240mg tomorrow (she is due for her follow-up injection tomorrow)- (2 120mg/ml auto-injections) via subcutaneous injection in 2 different sites). Then 30 days after loading dose, resume maintenance dose: 120mg (120mg/ml autoinjector) subcutaneous injection every month. Continue metoprolol-ordered for HTN. Previous trials: Amitriptyline for several months: Not fully effective. For acute migraine with aura treatment: Again trial Sumatriptan 100mg tab, 1/2 - 1 tab (50-100mg) at onset of headache, may repeat in 2 hours. Max of 2 tabs (200mg) per 24 hours. May take sumatriptan with OTC Tylenol 650-1,000mg every 4-6 hours, Ibuprofen (liquid gels) 600mg every 6 hours, or Naproxen (liquid gels) 440mg q 12 hrs prn. Potential adverse effects of triptans, include but are not limited to nausea, fatigue, chest tightness/tingling (usually passes within a few minutes), medication overuse headaches. For seizure: Continue Keppra 500 mg b.i.d. Continue B6 50 mg b.i.d., this can reduce mood side effects from Keppra Continue Trileptal 300 mg b.i.d. Will follow-up upon review of above and patient to follow-up in clinic in 6 months or sooner prn. Orders: Referrals Gastroenterology Referral R11.0 - Nausea, R63.0 - Anorexia Medications: New ondansetron HCl 4 mg PO Q4H 30 days PRN 30 tabs 1RF nausea and vomiting MDD 3 Changed From galcanezumab-gnlm (Emgality Pen) Loading dose: 120 mg subcu injection x2 in alternate sites (total 240 mg). To be followed by maintenance dose of 120 mg subcu q.month. 240 mg (2 mL) subcut ONCE 30 days 2 mL 0RF To galcanezumab-gnlm (Emgality Pen) Maintenance dose of 120 mg subcu q.month. 120 mg subcut ONCE 30 days 1 mL 6RF Refilled oxcarbazepine 300 mg PO BID 30 days 60 tabs 6RF sumatriptan succinate (0.5 - 1 x 100 mg) 50 - 100 mg orally at onset of headache, may repeat in 2 hrs PRN; max 2 tabs per day or 4 tabs/week (may take with Tylenol) 30 days 12 tabs 6RF migraine headache Coding Level of Care Code Est Pt Level 4 (61826) Complex EM visit Add On G2211 Diagnoses Migraine with aura G43.109 Vision changes H53.9 Empty sella syndrome E23.6 Vertigo R42 Seizures R56.9
[2024-05-04 10:00] VITALS: BP 102/60; BMI 27.9
--- OUTSIDE RECORDS SUMMARY | 2024-05-04 11:51 | XMS_ITS | Data Portability ---
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 [email or web address] Not available 05/29/2023 20:21:16 08/01/2023 08/01/2023 I have reviewed and agree with the assessment and plan as documented by the [employer]. I provided real time medical direction for this encounter and was immediately available to provide additional phone based assistance as needed. History as noted by [employer]. Pt with history of DM and reported [...] if the pt has ever seen a mailroom associate in the past. On exam, pt is [...] will also need a referral to a mailroom associate for follow up and diabetic foot care (daughter is unsure if pt has seen mailroom associate in the past). Pt and daughter instructed to seek medical attention right away with any worsening or new symptoms, which are reviewed with them. [email or web address] Not available 08/01/2023 17:33:15 08/14/2023 08/14/2023 I have reviewed and agree with the assessment and plan as documented by the [employer]. I provided real-time medical direction for this encounter and was immediately available to provide additional phone-based assistance as needed. History as noted in EMR and by [employer]. I would add / emphasize: Patient seen [...] None recorded. Lab culture, urine 2022 023 [facility] (Centralized Electronic Ordering - All Locations), Patient Can Go To The Location Of Their Choice, [id number] 3 11:25:58 urinalysi s, dipstick 2022 023 [facility], [address] [place] [address], [phone], 3 20:32:11 culture, urine 2022 023 [facility] (Centralized Electronic Ordering - All Locations), Patient Can Go To The Location Of Their Choice, [id number] 3 09:59:42 urinalysi s, dipstick 2022 023 [facility], [address] [place] [address], [id number], 3 17:38:10 Referral None recorded. Procedures None recorded. Surgeries None recorded. Imaging None recorded. Medication Orders Augmentin 875 mg-125 mg tablet 2023 024 [id number], [address], [place], [place], [id number], 4 14:23:34 Augmentin 875 mg-125 mg tablet 2023 024 [facility] #71621, [address] [place], [place], [id number], 4 14:23:42 clotrimaz ole 1 % topical cream 2023 024 [facility] #01166, [address] [place], [place], [id number], 4 17:00:00 cephalexi n 500 mg capsule 2023 024 [facility] #75201, [address] [place], [place], [id number], 4 16:59:51 cephalexi n 500 mg capsule 2023 024 [facility] #67647, [address] [place], [place], [id number], 4 17:00:00 ofloxacin 0.3 % eye drops 2023 024 [facility] #73603, [address] [place], [place], [id number], 4 17:58:46 amoxicill in 875 mg-potass ium clavulana te 125 mg tablet 2023 024 [facility] #19936, [address] [place], [place], [id number], 4 17:58:44 Macrobid 100 mg capsule 2022 023 [facility] #63103, [address] [place], [place], [id number], 3 19:57:54 Macrobid 100 mg capsule 2022 023 [facility] #38772, [address], [place], [place], [id number], 15:54:07 Patient TargetsNo targets recorded. Patient InstructionsNo instructions recorded. Reason for Referral None Reported. Results Created Date Observation Date Name Description Value Unit Range Abnormal Flag Note LastModifiedBy Organization Detail LastModifiedTime 09/23/1909/22/2022 URINE CULTU RE specimen description URINE Not Available [facility] ([facility] Order[facility] - All Locations) Patient Can Go To The Location Of Their Choice, 09/23/2022 18:28:15 09/23/1909/22/2022 URINE CULTU RE special requests NONE Not Available [facility] ([facility] Ordering - All Locations) Patient Can Go To The Location Of Their Choice, 09/23/2022 18:28:15 09/23/1909/23/2022 URINE CULTU RE culture Mixed bacter ial anita, 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 Not Available [facility] (Centralized Electronic Ordering - All Locations) Patient Can Go To The Location Of Their Choice, 09/23/2022 18:28:15 09/23/1909/23/2022 URINE CULTU RE report status FINAL 2022 Not Available [facility] (Centralized Electronic Ordering - All Locations) Patient Can Go To The Location Of Their Choice, 09/23/2022 18:28:15 10/03/1910/03/2022 UA W/REF YANDEL CULTU RE appear/color BROWN MARKE D TURBI DITY Not Available [facility] (Centralized Electronic Ordering - All Locations) Patient Can Go To The Location Of Their Choice, 10/03/2022 03:55:44 10/03/1910/03/2022 UA W/REF YANDEL CULTU RE sp. gravity 1.028 (1.002 -1.030 ) Not Available [facility] (Centralized Electronic Ordering - All Locations) Patient Can Go To The Location Of Their Choice, 10/03/2022 03:55:44 10/03/1910/03/2022 UA W/REF YANDEL CULTU RE urine pH 6.0 (5.0-8 .0) Not Available [facility] (Centralized Electronic Ordering - All Locations) Patient Can Go To The Location Of Their Choice, 10/03/2022 03:55:44 10/03/1910/03/2022 UA W/REF YANDEL CULTU RE urine albumin 2+ (neg) abnormal Not Available [facility] ([facility] Ordering - All Locations) Patient Can Go To The Location Of Their Choice, 10/03/2022 03:55:44 10/03/1910/03/2022 UA W/REF YANDEL CULTU RE urine glucose 4+ (neg) abnormal Not Available [facility] (Centralized [facility] Ordering - All Locations) Patient Can Go To The Location Of Their Choice, 10/03/2022 03:55:44 10/03/1910/03/2022 UA W/REF YANDEL CULTU RE urine ketones NEGATI VE (neg) normal Not Available [facility] (Centralized Electronic Ordering - All Locations) Patient Can Go To The Location Of Their Choice, 10/03/2022 03:55:44 10/03/1910/03/2022 UA W/REF YANDEL CULTU RE urine bilirubin NEGATI VE (neg) normal Not Available [facility] (Centralized Electronic Ordering - All Locations) Patient Can Go To The Location Of Their Choice, 10/03/2022 03:55:44 10/03/1910/03/2022 UA W/REF YANDEL CULTU RE urine hemoglobin 3+ (neg) abnormal Not Available [facility] ([facility] Order[facility] - All Locations) Patient Can Go To The Location Of Their Choice, 10/03/2022 03:55:44 10/03/1910/03/2022 UA W/REF YANDEL CULTU RE urine nitrite NEGATI VE (neg) normal Not Available [facility] (Centralized Electronic Ordering - All Locations) Patient Can Go To The Location Of Their Choice, 10/03/2022 03:55:44 10/03/1910/03/2022 UA W/REF YANDEL CULTU RE urine leukocyte 3+ (neg) abnormal Not Available [facility] ([facility] Ordering - All Locations) Patient Can Go To The Location Of Their Choice, 10/03/2022 03:55:44 10/03/1910/03/2022 UA W/REF YANDEL CULTU RE urobilinogen NORMAL mg/dL (norm) normal Not Available [facility] (Central[facility] Ordering - All Locations) Patient Can Go To The Location Of Their Choice, 10/03/2022 03:55:44 10/03/1910/03/2022 UA W/REF YANDEL CULTU RE urine WBCs >182 /hpf (0-5) high Not Available [facility] (Centralized Electronic Ordering - All Locations) Patient Can Go To The Location Of Their Choice, 10/03/2022 03:55:44 10/03/1910/03/2022 UA W/REF YANDEL CULTU RE urine RBCs >182 /hpf (0-3) high Not Available [facility] (Centralized Electronic Ordering - All Locations) Patient Can Go To The Location Of Their Choice, 10/03/2022 03:55:44 10/03/1910/03/2022 UA W/REF YANDEL CULTU RE bacteria SLIGHT hpf (neg) abnormal Not Available [facility] (Centralized Electronic Ordering - All Locations) Patient Can Go To The Location Of Their Choice, 10/03/2022 03:55:44 10/03/1910/03/2022 UA W/REF YANDEL CULTU RE clarity MARKED TURBID ITY (clear ) abnormal Not Available [facility] (Centralized Electronic Ordering - All Locations) Patient Can Go To The Location Of Their Choice, 10/03/2022 03:55:44 10/03/1910/03/2022 UA W/REF YANDEL CULTU RE culture indication CULTUR E INDICA BRAD Not Available [facility] (Centralized Electronic Ordering - All Locations) Patient Can Go To The Location Of Their Choice, 10/03/2022 03:55:44 10/03/1910/03/2022 URINE CULTU RE specimen description URINE Not Available [facility] ([facility] Order[facility] - All Locations) Patient Can Go To The Location Of Their Choice, 10/05/2022 10:08:49 10/03/1910/03/2022 URINE CULTU RE special requests NONE Reflex ed from [id number] Not Available [facility] (Centralized Electronic Ordering - All Locations) Patient Can Go To The Location Of Their Choice, 10/05/2022 10:08:49 10/03/19 23 10/05/2022 URINE CULTU RE culture abnormal >100, 000 COL/M L ENTER OCOCC US FAECA LIS This isola te was ident ified using Maldi -TOF syste m These AST resul ts were perfo rmed on the Micro scan ID and AST syste m Not Available [facility] (Centralized Electronic Ordering - All Locations) Patient Can Go To The Location Of Their Choice, 10/05/2022 10:08:49 10/03/1910/05/2022 URINE CULTU RE report status FINAL 2022 Not Available [facility] (Centralized Electronic Ordering - All Locations) Patient Can Go To The Location Of Their Choice, 10/05/2022 10:08:49 10/03/1910/05/2022 URINE CULTU RE organism ORGAN ISM >100, 000 COL/M L ENTER OCOCC US FAECA LIS This isola te was ident ified using Maldi -TOF syste m These AST resul ts were perfo rmed on the Micro scan ID and AST syste m Not Available [facility] (Centralized Electronic Ordering - All Locations) Patient Can Go To The Location Of Their Choice, 10/05/2022 10:08:49 10/03/1910/05/2022 URINE CULTU RE method METHOD MIN. INHIB. CONC. (MCG/M L) Not Available [facility] (Centralized Electronic Ordering - All Locations) Patient Can Go To The Location Of Their Choice, 10/05/2022 10:08:49 10/03/1910/05/2022 URINE CULTU RE ampicillin AMPICI LLIN SUSCEP TIBLE susceptib le Not Available [facility] (Centralized Electronic Ordering - All Locations) Patient Can Go To The Location Of Their Choice, 10/05/2022 10:08:49 10/03/1910/05/2022 URINE CULTU RE ciprofloxaci n CIPROF LOXACI N SUSCEP TIBLE susceptib le Not Available [facility] (Centralized Electronic Ordering - All Locations) Patient Can Go To The Location Of Their Choice, 10/05/2022 10:08:49 10/03/1910/05/2022 URINE CULTU RE nitrofuranto in NITROF URANTO IN SUSCEP TIBLE susceptib le Not Available [facility] (Centralized Electronic Ordering - All Locations) Patient Can Go To The Location Of Their Choice, 10/05/2022 10:08:49 10/03/1910/05/2022 URINE CULTU RE levofloxacin LEVOFL OXACIN SUSCEP TIBLE susceptib le Not Available [facility] (Centralized Electronic Ordering - All Locations) Patient Can Go To The Location Of Their Choice, 10/05/2022 10:08:49 10/03/1910/05/2022 URINE CULTU RE vancomycin VANCOM YCIN SUSCEP TIBLE susceptib le Not Available [facility] (Centralized Electronic Ordering - All Locations) Patient Can Go To The Location Of Their Choice, 10/05/2022 10:08:49 10/03/1910/05/2022 URINE CULTU RE gentamicin synergy GENTAM ICIN SYNERG Y SUSCEP TIBLE susceptib le Not Available [facility] (Centralized Electronic Ordering - All Locations) Patient Can Go To The Location Of Their Choice, 10/05/2022 10:08:49 10/03/1910/05/2022 URINE CULTU RE streptomycin synergy STREPT OMYCIN SYNERG Y SUSCEP TIBLE susceptib le Not Available [facility] (Centralized Electronic Ordering - All Locations) Patient Can Go To The Location Of Their Choice, 10/05/2022 10:08:49 10/03/1910/05/2022 URINE CULTU RE tetracycline TETRAC YCLINE RESIST ANT resistant Not Available [facility] (Centralized Electronic Ordering - All Locations) Patient Can Go To The Location Of Their Choice, 10/05/2022 10:08:49 10/03/1910/02/2022 urina lysis , dipst ick Leukocytes positi ve Not Available [facility] [address] [place] [address], [id number], 10/02/2022 15:59:10 10/03/19 23 10/02/2022 urina lysis , dipst ick Nitrite positi ve Not Available [facility] [address] [place] [address], [phone], 10/02/2022 15:59:10 10/03/19 23 10/02/2022 urina lysis , dipst ick Blood positi ve Not Available [facility] [address] [facility], [place], [phone], 10/02/2022 15:59:10 10/03/19 23 10/02/2022 urina lysis , dipst ick Appearance cloudy Not Available [facility] [address] [place], [phone], 10/02/2022 15:59:10 10/19/19 23 10/18/2022 URINE CULTU RE specimen description URINE Not Available [facility] ([facility] Order[facility] - All Locations) Patient Can Go To The Location Of Their Choice, 10/21/2022 09:59:42 10/19/1910/18/2022 URINE CULTU RE special requests NONE Not Available [facility] ([facility] Ordering - All Locations) Patient Can Go To The Location Of Their Choice, 10/21/2022 09:59:42 10/19/1910/21/2022 URINE CULTU RE culture abnormal >100, 000 COL/M L ENTER OCOCC US FAECA LIS This isola te was ident ified using Maldi -TOF syste m These AST resul ts were perfo rmed on the Vitek 2 ID and AST syste m Not Available [facility] (Centralized Electronic Ordering - All Locations) Patient Can Go To The Location Of Their Choice, 10/21/2022 09:59:42 10/19/1910/21/2022 URINE CULTU RE report status FINAL 2022 Not Available [facility] (Centralized Electronic Ordering - All Locations) Patient Can Go To The Location Of Their Choice, 10/21/2022 09:59:42 10/19/19 23 10/21/2022 URINE CULTU RE organism ORGAN ISM >100, 000 COL/M L ENTER OCOCC US FAECA LIS This isola te was ident ified using Maldi -TOF syste m These AST resul ts were perfo rmed on the Vitek 2 ID and AST syste m Not Available [facility] (Centralized Electronic Ordering - All Locations) Patient Can Go To The Location Of Their Choice, 10/21/2022 09:59:42 10/19/1910/21/2022 URINE CULTU RE method METHOD MIN. INHIB. CONC. (MCG/M L) Not Available [facility] (Centralized Electronic Ordering - All Locations) Patient Can Go To The Location Of Their Choice, 10/21/2022 09:59:42 10/19/19 23 10/21/2022 URINE CULTU RE ampicillin AMPICI LLIN SUSCEP TIBLE susceptib le Not Available [facility] (Centralized Electronic Ordering - All Locations) Patient Can Go To The Location Of Their Choice, 10/21/2022 09:59:42 10/19/19 23 10/21/2022 URINE CULTU RE ciprofloxaci n CIPROF LOXACI N SUSCEP TIBLE susceptib le Not Available [facility] ([facility]ized Electronic Ordering - All Locations) Patient Can Go To The Location Of Their Choice, 10/21/2022 09:59:42 10/19/19 23 10/21/2022 URINE CULTU RE nitrofuranto in NITROF URANTO IN SUSCEP TIBLE susceptib le Not Available [facility] (Centralized Electronic Ordering - All Locations) Patient Can Go To The Location Of Their Choice, 10/21/2022 09:59:42 10/19/1910/21/2022 URINE CULTU RE levofloxacin LEVOFL OXACIN SUSCEP TIBLE susceptib le Not Available [facility] (Centralized Electronic Ordering - All Locations) Patient Can Go To The Location Of Their Choice, 10/21/2022 09:59:42 10/19/19 23 10/21/2022 URINE CULTU RE vancomycin VANCOM YCIN SUSCEP TIBLE susceptib le Not Available [facility] (Centralized Electronic Ordering - All Locations) Patient Can Go To The Location Of Their Choice, 10/21/2022 09:59:42 10/19/19 23 10/21/2022 URINE CULTU RE gentamicin synergy GENTAM ICIN SYNERG Y SUSCEP TIBLE susceptib le Not Available [facility] (Centralized Electronic Ordering - All Locations) Patient Can Go To The Location Of Their Choice, 10/21/2022 09:59:42 10/19/19 23 10/21/2022 URINE CULTU RE streptomycin synergy STREPT OMYCIN SYNERG Y SUSCEP TIBLE susceptib le Not Available [facility] ([facility]ized Electronic Ordering - All Locations) Patient Can Go To The Location Of Their Choice, [id number] 10/21/2022 09:59:42 10/19/1910/21/2022 URINE CULTU RE tetracycline TETRAC YCLINE RESIST ANT resistant Not Available [facility] ([facility]ized [facility] Ordering - All Locations) Patient Can Go To The Location Of Their Choice, [id number] 10/21/2022 09:59:42 01/07/2001/07/2023 URINE CULTU RE specimen description URINE Not Available [facility] ([facility] Order[facility] - All Locations) Patient Can Go To The Location Of Their Choice, 01/08/2023 11:25:58 01/07/2001/07/2023 URINE CULTU RE special requests NONE Not Available [facility] ([facility] Order[facility] - All Locations) Patient Can Go To The Location Of Their Choice, 01/08/2023 11:25:58 01/07/2001/08/2023 URINE CULTU RE culture NO GROWTH Not Available [facility] ([facility] Ordering - All Locations) Patient Can Go To The Location Of Their Choice, [id number] 01/08/2023 11:25:58 01/07/2001/08/2023 URINE CULTU RE report status FINAL 2022 Not Available [facility] ([facility]ized [facility] Ordering - All Locations) Patient Can Go To The Location Of Their Choice, [id number] 01/08/2023 11:25:58 01/11/2001/10/2023 URINE CULTU RE specimen description URINE CLEAN CATCH/ MIDSTR EAM Not Available [facility] ([facility]ized [facility] Ordering - All Locations) Patient Can Go To The Location Of Their Choice, [id number] 01/11/2023 10:53:12 01/11/2001/10/2023 URINE CULTU RE special requests NONE Not Available [facility] ([facility] Ordering - All Locations) Patient Can Go To The Location Of Their Choice, 01/11/2023 10:53:12 01/11/2001/11/2023 URINE CULTU RE culture NO GROWTH Not Available [facility] ([facility]ized [facility] Ordering - All Locations) Patient Can Go To The Location Of Their Choice, [id number] 01/11/2023 10:53:12 01/11/2001/11/2023 URINE CULTU RE report status FINAL 2022 Not Available [facility] ([facility]ized [facility] Ordering - All Locations) Patient Can Go To The Location Of Their Choice, [id number] 01/11/2023 10:53:12 Result Notes None recorded. Medical [...] Not Available Not Available No t Available [employer] Ultra Test strips USE 1 FIVE TIMES [...] /min 144 mm[Hg] 88 mm[Hg] Not Available [facility] 3 15:50:54 Date Recorded Oxygen saturation Oxygen saturation in Arterial blood by Pulse oximetry Body height Heart rate Respiratory rate Body weight Systolic blood pressure Diastolic blood pressure Provider Name and Address Organization Details Last Updated DateTime 3 97 % 97 % 167.64 cm 80 /min 16 /min 43608.4 8 g 132 mm[Hg] 84 mm[Hg] Not Available [facility] [facility] 3 20:19:39 Date Recorded Body temperature Body weight Respiratory rate Oxygen saturation Oxygen saturation in Arterial blood by Pulse oximetry Body height Heart rate Systolic blood pressure Diastolic blood pressure Provider Name and Address Organization Details Last Updated DateTime 4 99.4 [degF] 44600.9 2 g 18 /min 98 % 98 % 147.32 cm 90 /min 127 mm[Hg] 75 mm[Hg] Not Available [employer] 4 17:34:56 Date Recorded Respiratory rate Body temperature Heart rate Oxygen saturation Oxygen saturation in Arterial blood by Pulse oximetry Systolic blood pressure Diastolic blood pressure Provider Name and Address Organization Details Last Updated DateTime 4 16 /min 98.3 [degF] 86 /min 95 % 95 % 122 mm[Hg] 84 mm[Hg] Not Available [employer] 4 16:48:35 Date Recorded Body weight Body temperature Respiratory rate Heart rate Oxygen saturation Oxygen saturation in Arterial blood by Pulse oximetry Systolic blood pressure Diastolic blood pressure Provider Name and Address Organization Details Last Updated DateTime 4 91168.9 2 g 98.8 [degF] 14 /min 85 /min 95 % 95 % 143 mm[Hg] 80 mm[Hg] Not Available [facility] 4 14:15:36 Social History None recorded. Functional Status None recorded. Mental Status None recorded. Family History Nothing Reported. Medical History No medical history recorded. Gynecological HistoryNo gynecological history recorded. Obstetrics History GPAL:G 0 P 0 0 0 0 Past Encounters Encounter ID Performer Location Encounter Start Date Encounter Closed Date Diagnosis/Indication Diagnosis SNOMED-CT Code Diagnosis ICD10 Code Diagnosis Note [id number] Shine Butler MD [facility] [address] [place] [phone] 09/22/2022 18:56:06 09/23/2022 16:07:24 Dysuria 30790723 R30.0 [facility] prior to leaving [place]. States was going to be prescribed QID antibiotic before leaving. Unable to obtain lab report from [facility]. Rechecked urinalysis and sent culture and will treat empiricall y with Cephalexin in the interim. Urinary symptoms 4316640 08 R39.9 Per above [id number] Araseli Santoro MD [facility] [address] [place] [id number] 10/02/2022 15:54:53 10/03/2022 12:15:37 Urinary tract infectious disease 17839111 N39.0 [id number] Cat Alarcon MD [facility] [address] [place] [id number] 10/18/2022 15:50:47 10/19/2022 15:34:32 Urinary symptoms [id number] R39.9 61 year old female being evaluated [...] to discuss prophylaxi s until hernia surgery. [id number] Mary Guerra MD [facility] [address] [place] [phone] 01/06/2023 19:53:10 01/07/2023 11:59:02 Acute urinary tract infection 340949896 N39.0 Urinary symptoms 7519571 08 R39.9 [id number] ALF FULLER MD [facility] [address] [place] [id number] 05/29/2023 17:34:47 06/02/2023 18:12:07 Acute bacterial sinusitis 52566611 J01.90 Acute conj unctivitis of bilateral eyes [id number] 86841 H10.33 [id number] Robinson Jefferson MD [facility] [address] [place] [id number] 08/01/2023 16:48:22 08/01/2023 21:28:25 Tinea pedis 7108482 B35.3 Cellulitis of right lower limb 1652261054 [id number] L03.115 [id number] Jordon Crane MD [facility] [address] [place] [phone] 08/14/2023 14:15:25 08/18/2023 22:23:18 Diabetic foot ulcer 875213496 E13.621 Health Concerns Section Related Observation LastModified by Organization Detai ls LastModified Time None Recorded Concern Status LastModified by Organization Details LastModified Time None Recorded Advance Directives Directive None Recorded Payers Encounter Date Sequence Insurance Name Policy Number Policy Hayward Covered Member ID Hayward Member ID Guarantor Name 10/18/2022 1 [facility] [employer] - DOS ON OR AFTER 2022 - DUAL ELIGIBLE - HALFWAY OPTIONS AND ONE CARE (MEDICARE REPLACEMENT/AD VANTAGE - HMO) Janice Burt [id number] Janice Burt 01/06/2023 1 [facility] [employer] - DOS ON OR AFTER 2022 - DUAL ELIGIBLE - HALFWAY OPTIONS AND ONE CARE (MEDICARE REPLACEMENT/AD VANTAGE - HMO) Janice Burt [id number] Janice Burt 05/29/2023 1 [facility] [employer] - DOS ON OR AFTER 2022 - DUAL ELIGIBLE - HALFWAY OPTIONS AND ONE CARE (MEDICARE REPLACEMENT/AD VANTAGE - HMO) Janice Burt [id number] Janice Burt 08/01/2023 1 [facility] [employer] - DOS ON OR AFTER 2022 - DUAL ELIGIBLE - HALFWAY OPTIONS AND ONE CARE (MEDICARE REPLACEMENT/AD VANTAGE - HMO) Janice Javed [id number] Janice Javed 08/14/2023 1 [facility] - DOS ON OR AFTER 2022 - DUAL ELIGIBLE - HALFWAY OPTIONS AND ONE CARE (MEDICARE REPLACEMENT/AD VANTAGE - HMO) Janice Javed [id number] Janice Javed Notes Date Note Type Note Provider Name [...] ................... ................... ................... ................... ................... ................... ........ 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 Red flags discussed. ALL times are approx. ................... ................... ................... ................... ................... ................... ................... ........ Disposition: Fulfilled Cat Alarcon MD [address] [place] [address],[address], [place], [address], [employer] 10/18/2022 16:26:54 01/06/2023 text/html CRC Nursing Assessment: [...] ................... ................... ................... ................... ................... ................... ........ Coagulant Dipper Note From Austen Perez: Dispatched to above [...] positive for UTI on UA. Consulted to [facility], requested sample for culture and gave prescription for a new round of ABX treatment. Patient advised of red flags, has no questions or additional complaints at this time. SC12 clear. Labs brought to [facility] laboratory. [facility] Lab Orders: culture, urine: Performed urinalysis, dipstick: Performed ................... ................... ................... ................... ................... ................... ................... ........ Disposition: Fulfilled Mary Guerra MD [address] [facility],[address], [place], [address], [employer] 01/06/2023 23:44:10 05/29/2023 text/html HPI: Patient reports illness starting two weeks ago. Seemed better and then three days ago with worsening symptoms. 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 No Home COVID testing done. ................... ................... ................... ................... ................... ................... ................... ........ [facility] Nurse Triage Notes (Mazin Lantigua): Comments: Reviewed HPI ................... ................... ................... ................... ................... ................... ................... ........ Coagulant Dipper Note From Erasmo Sanz: 62yo F c/o [...] ................... ........ Disposition: Fulfilled ALF FULLER MD [address] [facility],[address], [place], [address], [employer] 05/29/2023 20:21:28 08/01/2023 text/html This was a supervised home visit with miller helper distillery Erasmo Fisher. HPI: Nurse Janice from [facility] calling in to place a referral for member. Per Janice it was difficult to get chronological information from member. Member with diabetes, was seen by a mailroom associate for debridement of fungus to nails. Member also went on to say she has had discoloration in her legs for 3 months, had a cream, but ran out. Members chief complaint today is an open area to her right foot; corner edge and outer sole, foot is painful, unsure if there is any erythema, drainage or foul odor. Member agreeable to an [facility] visit. ................... ................... ................... ................... ................... ................... ................... ........ [facility] Nurse Triage Notes (Anyi Rosa): Comments: [facility] RN did not require any additional information to process this visit. ................... ................... ................... ................... ................... ................... ................... ........ Coagulant Dipper Note From Erasmo Fisher: Dispatched to the [...] was unable to provide a medication list. [facility] contacted and ordered a one time dose [...] to call 911. Keflex PO administered by Coagulant Dipper on scene. instructed to picking tech the remainder by magalie. all times are approx. ................... ................... ................... ................... ................... ................... ................... ........ Disposition: Fulfilled Robinson Jefferson MD [address] [facility],[address], [place], [address], [facility] [employer] 08/01/2023 17:33:31 08/14/2023 text/html [facility] Nurse Triage Notes (Sharon Kirby): Reason For Request: Pt's daughter reporting mbr was seen for wound care 2 weeks ago Chief Complaints: Wound Care PMH: COPD/Asthma, Diabetes, Hypertension Comments: 62 year old female with PMH: Copd/asthma, DM, HTN, chief complaint of right foot wound/ulcer on bottom of her foot not getting any better. painful/chills/nerv e pain- taking Tyl[facility]olSeen by [facility] 2 weeks ago, prescribed ABX treatment- completed, but no [facility] wound care follow up was done.Had a XRAY and pending results, due to be [facility] on [facility], verified address/phone/dobHp maria a CUETO ................... ................... ................... ................... ................... ................... ................... ........ Coagulant Dipper Note From Erasmo Sanz: 62 yo FPt [...] ........ Disposition: Fulfilled Jordon Crane MD [address] [facility],[address], [place], [address], [employer] OTR [facility]NA 08/18/2023 21:27:40 OBGyn Episode No OBEpisode recorded.
--- OUTSIDE RECORDS SUMMARY | 2024-05-04 11:51 | XMS_ITS | Encounter Summary ---
Author Organization [facility] Address [address] [place] [address] Care Team Providers Care Vocational Rehabilitation Consultant Name Role Phone Unavailable Primary Care Provider Unavailabl e Encounter Details Date Type Department Care Team (Late st Contact Info) Description 12/31/2023 12:01 PM EDT Hospital Encounter TH HISTORIC ENCOUNTERS EASTERN CONVERSION ONLY Viola Keith MD [address] [place] [phone] Social History Tobacco Use Types Packs/Day Years Used Date Smoking Tobacco: Never Smokeless Tobacco: Never Alcohol Use Standard Drinks/Week Comments No 0 (1 standard drink = 0.6 oz pur e alcohol) Comments Unknown Sex and Gender Information Value Date Recorded Sex Assigned at Not on file Legal Sex Female 5:37 AM EST Gender Identity Not on file Sexual Orientation Not on file documented as of this encounter Plan of Treatment Upcoming Encounters Date Type Department Care Team (Late st Contact Info) Description 06/02/2024 10:15 AM EDT Office Visit Orthopedic Surgery - [place] [address] [address] Filiberto Silva DPM [address] [address] documented as of this encounter Procedures Procedure Name Priority Date/Time Associated Diagnosis Comments CR ORBIT MIN 4 VIEWS Routine 12/31/2023 5:08 PM EDT documented in this encounter Results * CR ORBIT MIN 4 VIEWS (12/31/2023 5:08 PM EDT) Anatomical Region Laterality Modality Ultrasound 12/31/2023 12:0 7 PM EDT Narrative 12/31/2023 5:08 PM EDT [facility] Diagnostic Imaging Department [address] [place] [address] Patient: ??TITO BURTBETH ?/Age/Sex: 1960 - 63 - F Unit#: ??[id number] ? Location/Status: ??SPDIGEN/REG CLI ? Mnemonic/Ordering Site: ??[facility] Ordering Physician: ??VIOLA KETIH CR Orbit Min 4 Views - 12/31/23 [...] clinical concern for facial/orbital fracture. Dictating Physician: ??ELSY OTERO MD Electronically Signed by: ??ELSY OTERO MD Dic Date/Time: ??12/31/231705 Sign date/Time: ??12/31/231707 Procedure Note Elsy Otero MD - 01/03/2024 [facility] Diagnostic Imaging Department [address] [place] [address] Patient: JANICE BURT./Age/Sex: 1960 - 63 - F Unit#: [id number] Location/Status: SPDIGEN/REG CLI Mnemonic/Ordering Site: [facility]DI Ordering [...] Sign date/Time: 12/31/231707 us Viola Keith MD IMG US PROCEDURES Final Resul t documented in this encounter Visit Diagnoses Not on filedocumented in this encounter
--- OUTSIDE RECORDS SUMMARY | 2024-05-04 11:51 | XMS_ITS | Encounter Summary ---
Author Organization [employer] Address [address] [facility] [address] [place] [address] Care Team Providers Care Canoe Inspector Final Name Role Phone Ana Keith MD Primary Care Provider [phone] Reason for Visit * Reason Onset Date Comments Med Refill 03/19/2023 Encounter Details Date Type Department Care Team (Late st Contact Info) Description 03/19/2023 Telephone [facility] MEDICINE [address] [place] [address] Ana Keith MD [address] [place] [address] Med Refill Social History Tobacco Use Types Packs/Day Years Used Date Smoking Tobacco: Never Passive Smoke Exposure: Never Smokeless Tobacco: Never Comments Unknown Sex and Gender Information Value Date Recorded Sex Assigned at Female 12/31/2021 10:29 AM EDT Legal Sex Female 10:29 AM EDT Gender Identity Female 12/31/2021 10:29 AM EDT Sexual Orientation Straight 12/31/2021 10 :29 AM EDT documented as of this encounter Miscellaneous Notes * Telephone Encounter - Carrillo Aldridge - 03/19/2023 1:37 PM EST TC from pt requesting medication refill. Medications needing refill : insulin glargine (Lantus SoloStar) 100 UNIT/ML pen To be sent to: [id number] - [place], [place] - [address] documented in this encounter Plan of Treatment Not on file documented as of this encounter Visit Diagnoses Not on filedocumented in this encounter Care Teams Canoe Inspector Final Relationship Specialty Start Date End Date Ana Keith MD [address] [place] [address] PCP - General Family Medicine 11/05/17 documented as of this encounter
--- OUTSIDE RECORDS SUMMARY | 2024-05-04 11:52 | XMS_ITS | Encounter Summary ---
Author Organization [employer] Address [address] [place] [address] 7 [place] [address] Care Team Providers Care Director Of Online Education Name Role Phone Ana Keith MD Primary Care Provider [phone] Encounter Details Date Type Department Care Team (Late st Contact Info) Description 06/04/2023 Telephone [facility] MEDICINE [address] [place] [address] Ana Keith MD [address] [place], [place] [phone] Social History Tobacco Use Types Packs/Day Years Used Date Smoking Tobacco: Never Passive Smoke Exposure: Never Smokeless Tobacco: Never Depression Answer Date Recorded Patient Health Questionnaire-9 Score 22 04/16/2023 Patient Health Questionnaire-9 Score 22 04/16/2023 Last PHQ-9: Questionnaire Data Not on file 0 04/16/2023 Depression Answer Date Recorded Patient Health Questionnaire-2 Score 6 04/16/2023 Comments Unknown Sex and Gender Information Value Date Recorded Sex Assigned at Female 12/31/2021 10:29 AM EDT Legal Sex Female 10:29 AM EDT Gender Identity Female 12/31/2021 10:29 AM EDT Sexual Orientation Straight 12/31/2021 10 :29 AM EDT documented as of this encounter Plan of Treatment Not on file documented as of this encounter Visit Diagnoses Not on filedocumented in this encounter Additional Health Concerns Assessment Noted Time PHQ-9 Depression Total Score: 22 024 11:59 AM EST documented as of this encounter Care Teams Director Of Online Education Relationship Specialty Start Date End Date Ana Keith MD [address] [place] [address] PCP - General Family Medicine 11/05/17 documented as of this encounter
--- OUTSIDE RECORDS SUMMARY | 2024-05-04 11:52 | XMS_ITS | Encounter Summary ---
Author Organization [employer] Address [address] [place] [address] [address] [address] Care Team Providers Care Locomotive Observer Name Role Phone Ana Keith MD Primary Care Provider [phone] Reason for Visit * Reason Onset Date Comments Results 04/02/2022 Encounter Details Date Type Department Care Team ([facility] st Contact Info) Description 04/02/2022 Telephone [facility] MED & PEDS [address] [place], [place] [phone] Ana Keith MD [address] [place] [address] Results Social History Tobacco Use Types Packs/Day Years Used Date Smoking Tobacco: Never Assessed Comments Unknown Sex and Gender Information Value Date Recorded Sex Assigned at Female 12/31/2021 10:29 AM EDT Legal Sex Female 10:29 AM EDT Gender Identity Female 12/31/2021 10:29 AM EDT Sexual Orientation Straight 12/31/2021 10 :29 AM EDT documented as of this encounter Miscellaneous Notes * Telephone Encounter - Addy Burt RN - 04/02/2022 1:26 PM EST Call to pt. Per pt, completed a colonoscopy at [facility] several weeks ago and is requesting results. RN advised results are not in system. Will request results and and send to scan for PCP to review. Pt agrees. Pt requesting f/u with PCP. States she saw general surgery today at [facility]. Per pt, will be scheduled for surgery of hernia repair and would like to see PCP to discuss prior to the surgery. Pt agrees tovisit on 04/10/22 @11:00am. * Telephone Encounter - Edyta Ariane - 04/02/2022 9:38 AM EST Tc from pt requesting colonoscopy results . documented in this encounter Plan of Treatment Not on file documented as of this encounter Visit Diagnoses Diagnosis Type 2 diabetes mellitus without complication, with long-term current use of insulin ([facility])- Primary Mild intermittent asthma without complication Diverticulosis Diverticulosis of colon (without mention of hemorrhage) documented in this encounter Care Teams Locomotive Observer Relationship Specialty Start Date End Date Ana Keith MD [address] [place] [address] PCP - General Family Medicine 11/05/17 documented as of this encounter
--- OUTSIDE RECORDS SUMMARY | 2024-05-04 11:52 | XMS_ITS | Encounter Summary ---
Author Organization [employer] Address [address] [place] [address] [address] [place] [address] Care Team Providers Care Dry Mixer Name Role Phone Ana Keith MD Primary Care Provider [phone] Reason for Visit * Reason Onset Date Comments Durable Medical Equipment 03/19/2023 Encounter Details Date Type Department Care Team (Late st Contact Info) Description 03/19/2023 Telephone [facility] MEDICINE [address] [place], [place] [phone] Ana Keith MD [address] [place] [address] Durable Medical Equipment Social History Tobacco Use Types Packs/Day Years [...] Telephone Encounter - Carrillo Aldridge - 03/19/2023 1:41 PM EST Tc from pharmacy requesting a Onetouch glucose monitoring kit documented in this encounter Plan of Treatment Not on file documented as of this encounter Visit Diagnoses Not on filedocumented in this encounter Care Teams Dry Mixer Relationship Specialty Start Date End Date Ana Keith MD [address] [place] [address] PCP - General Family Medicine 11/05/17 documented as of this encounter
--- OUTSIDE RECORDS SUMMARY | 2024-05-04 11:52 | XMS_ITS | Clinical Summary ---
Author Organization [address] [place] [address] Address [address] [place] [address] Phone Care Team Providers Care Coke Drawer Name Role Phone Viola Keith MD Primary Care Provider [phone] Allergies Active Allergy Reactions Criticality Noted Date Comments Codeine 02/11/2020 Medications lisinopril (PRINIVIL,ZEST RIL) 40 mg tablet Take 40 mg by mouth daily. Active zolpidem tartrate (AMBIEN ORAL) Take by mouth. A ctive CLONAZEPAM ORAL Take by mouth. Activ e UNABLE TO FIND FLUOXETINE HCL OR Take by mouth Active dulaglutide (Trulicity) 0.75 mg/0.5 mL pen injector injection Inject into the skin. Active albuterol sulfate (PROAIR HFA INHL) Inhale into the lungs. Active gabapentin (NEURONTIN) 300 mg capsule Take 300 mg by mouth 2 times daily. Active amitriptyline HCl (AMITRIPTYLINE ORAL) AMITRIPTYLINE HCL OR Take ??by mouth. Active metformin HCl (METFORMIN ORAL) Take by mouth. Activ e Active Problems Problem Noted Date Diagnosed Date Class 1 obesity with body ma ss index (BMI) of 30.0 to 30.9 in adult 02/03/2024 Diastasis recti 04/10/2020 Incisional hernia with obstruction but no gangre ne 04/10/2020 Nephrolithiasis 04/10/2020 Nonalcoholic steatohepatitis (SLOAN) 04/10/2020 Type 2 diabetes mellitus wit hout complication, without long-term current use of insulin 04/10/2020 Uncomplicated asthma 04/10/2020 Encounters Date Type Department Care Team Description 02/21/2024 9:05 AM EST - 02/21/2024 11:59 PM EST Hospital Encounter [facility] MRI [address] [place] [id number] Blurry vision Discharge Disposition: Home or Self Care from Last 3 Months Social History Tobacco Use Types Packs/Day Years Used Date Smoking Tobacco: Never Smokeless Tobacco: Never Alcohol Use Standard Drinks/Week Comments No 0 (1 standard drink = 0.6 oz pur e alcohol) Comments Unknown Sex and Gender Information Value Date Recorded Sex Assigned at Not on file Legal Sex Female 5:37 AM EST Gender Identity Not on file Sexual Orientation Not on file Obstetrics History Last Filed Vital Signs Vital Sign Reading Time Taken Comments Blood Pressure - - Pulse - - Temperature - - Respiratory Rate - - Oxygen Saturation - - Inhaled Oxygen Concentration - - Weight 57.6 kg (127 lb) 02/21/2024 9:04 AM EST Height - - Body Mass Index - - Plan of Treatment Upcoming Encounters Date Type Department Care Team (Late st Contact Info) Description 06/02/2024 10:15 AM EDT Office Visit [facility] [place] [address] [address] Filiberto Silva, DPM [address] [address] Health Maintenance Due Date Last Done Comments Diabetes: Annual Foot Exam 1968 Diabetes: Annual Retina Eye Exam 1968 Pneumococcal Vaccine: 50+ Years (1 of 2 - PCV) 1977 Pneumococcal Vaccine: Pediatrics (0 to 5 Years) and At-Risk Patients (6 to 64 Years) (1 of 2 - PCV) 1977 Cervical Cancer Screening: Pap Smear 12/24/1979 RSV Immunization Patients 60+ Years Old (1 - Risk 60-74 years 1-dose series) 2018 Hepatitis B Vaccines (3 of 3 - 19+ 3-dose series) 01/08/2019 08/20/2018, 07/08/2018 Colorectal Cancer Screening: Colonoscopy 02/03/2022 Hepatitis C Screening 02/03/2022 Social Influencers of Health Screening 02/03/2022 Diabetes: Annual Urine Albumin-Creatinine Ratio (uACR) 02/15/2022 01/10/1998 Breast Cancer Screening 04/18/2023 04/18/2021, 03/19 COVID-19 Vaccine ( season) 2023 01/12/2021, 06/08/2020, 05/10/2020 Falls Risk Assessment 12/24/2023 Diabetes: Blood Sugar Control Test (HGBA1C) 06/30/2024 12/31/2023 Diabetes: Annual GFR (Glomerular Filtration Rate) 11/25/2024 11/26/2023 Hypertension/CHF/CAD Annual BMP Blood Test 11/25/2024 11/26/2023 Depression Screening 12/30/2024 12/31/2023 Cholesterol Screening (Lipid Panel) 02/28/2026 02/28/2021 DTaP,Tdap,and Td Vaccines (2 - Td or Tdap) 09/11/2026 09/11/2016 Osteoporosis Screening (Bone Density Screening) 04/18/2031 04/18/2021 Zoster Vaccines Completed 04/29/2019, 12/07/2018 Influenza Vaccine Completed 12/31/2023, , 11/21/2021, Additional history exists HIB Vaccines Aged Out No longer eligi ble based on patient's age to complete this topic HPV Vaccines Aged Out No longer eligi ble based on patient's age to complete this topic Hepatitis A Vaccines Aged Out No long er eligible based on patient's age to complete this topic IPV Vaccines Aged Out No longer eligi ble based on patient's age to complete this topic MMR Vaccines Aged Out No longer eligi ble based on patient's age to complete this topic Meningococcal ACWY Vaccine Aged Out N o longer eligible based on patient's age to complete this topic Meningococcal B Vacine Aged Out No lo nger eligible based on patient's age to complete this topic RSV Immunization Patients Under 20 months Aged Out No longer eligible based on patient's age to complete this topic Varicella Vaccines Aged Out No longer eligible based on patient's age to complete this topic Procedures Procedure Name Priority Date/Time Associated Diagnosis Comments MR BRAIN WO AND W CONTRAST Routine 02/21/2024 10:02 AM EST Blurry vision PILAR DEXA AXIAL SKELETON Routine 04/18/2021 1:22 PM EST Encounter for screening for osteoporosis PILAR SCREENING DIGITAL Routine 04/18/2021 1:10 PM EST Encounter for screening mammogram for malignant neoplasm of breast HM URINE ALBUMIN CREATININE RATIO Routine 01/10/1998 from Last 3 Months or Most Recently Relevant to Health Maintenance Results * MR Brain wo and w Contrast (02/21/2024 10:02 AM EST) Anatomical Region Laterality Modality Head and Neck Magnetic Resonan ce 02/21/2024 11:1 6 AM EST Impressions 02/22/2024 1:17 PM EST No acute intracranial findings. Moderate chronic microvascular ischemic changes. Small partially empty sella. ??This is a relatively common finding which can be seen in asymptomatic patients, but has been associated with pseudotumor cerebri and requires correlation with the patient's clinical presentation. -------- FINAL REPORT -------- Dictated By: Khalif Crane Dictated Date: 02/21/2024 11:16 ET Assigned Physician: Khalif Crane Reviewed and Electronically Signed By: Khalif Crane Signed Date: 02/22/2024 13:17 ET Workstation ID: [id number] Transcribed By: Self Edit Transcribed Date: 02/21/2024 11:29 ET Narrative 02/22/2024 1:17 PM EST MRI brain dated 02/21/2024. HISTORY: blurry vision. ??History of head trauma. TECHNIQUE: Multiplanar multisequence MRI of the brain with and without intravenous contrast. IV CONTRAST DOSE: 12 mL intravenous Dotarem from a 15 mL vial with 3 mL discarded. COMPARISON: FINDINGS: BRAIN: No diffusion abnormality. ??No mass or extra-axial fluid collection. ??No hydrocephalus. ??The major intracranial flow voids are preserved. Age commensurate ventricles and sulci. ??No abnormal enhancement. ??Patchy T2 signal abnormality in the central anais and multifocal T2 hyperintensities in the supratentorial white matter, suggestive of moderate chronic microvascular ischemic disease. ??Small partially empty sella. ORBITS: Normal. SINUSES/MASTOIDS: Mild mucosal thickening in the ethmoid air cells. ??Large right dillan bullosa. ??Small amount of fluid in the right mastoid air cells. CALVARIUM: Mild hyperostosis frontalis interna. OTHER: The visualized skull base soft tissues are normal. ??Partially visible degenerative changes of the cervical spine. Procedure Note Khalif Crane MD - 02/22/2024 MRI brain dated 02/21/2024. HISTORY: blurry vision. History of head trauma. TECHNIQUE: Multiplanar multisequence MRI of the brain with and withoutintravenous contrast. IV CONTRAST DOSE: 12 mL intravenous Dotarem from a 15 mL vial with 3 mLdiscarded. COMPARISON: FINDINGS: BRAIN: No diffusion abnormality. No mass or extra-axial fluid collection.No hydrocephalus. The major intracranial flow voids are preserved. Agecommensurate ventricles and sulci. No abnormal enhancement. Patchy [id number] abnormality in the central anais and multifocal T2 hyperintensitiesin the supratentorial white matter, suggestive of moderate chronicmicrovascular ischemic disease. Small partially empty sella. ORBITS: Normal. SINUSES/MASTOIDS: Mild mucosal thickening in the ethmoid air cells. Largeright dillan bullosa. Small amount of fluid in the right mastoid aircells. CALVARIUM: Mild hyperostosis frontalis interna. OTHER: The visualized skull base soft tissues are normal. Partiallyvisible degenerative changes of the cervical spine. IMPRESSION: No acute intracranial findings. Moderate chronic microvascular ischemic changes. Small partially empty sella. This is a relatively common finding whichcan be seen in asymptomatic patients, but has been associated withpseudotumor cerebri and requires correlation with the patient's clinicalpresentation. -------- FINAL REPORT -------- Dictated By: Khalif Crane Dictated Date: 02/21/2024 11:16 ET Assigned Physician: Khalif Crane Reviewed and Electronically Signed By: Khalif Crane Signed Date: 02/22/2024 13:17 ET Workstation ID: [id number] Transcribed By: Self Edit Transcribed Date: 02/21/2024 11:29 ET us Viola Keith MD IM MRI PROCEDURES Final Resu lt * PILAR DEXA AXIAL SKELETON (04/18/2021 1:22 PM EST) Anatomical Region Laterality Modality Mammography 04/18/2021 10:0 6 AM EST Narrative 04/18/2021 1:22 PM EST [facility] Diagnostic Imaging Department [address] [place] [id number] Patient: ??JANICE BURT ?/Age/Sex: 1960 - 60 - F Unit#: ??[id number] ? Location/Status: ??SPDIMAM/REG CLI ? Mnemonic/Ordering Site: ??MAMDEXAAX/SPMAM Ordering Physician: ??VIOLA KEITH [facility] Dexa Axial Skeleton - 04/18/211052 HISTORY: Post menopausal woman with hormone depletion for screening bone densitometry. TECHNIQUE: Bone densitometry is performed utilizing dual energy x-ray absorptiometry (DEXA) in the [employer] unit. The lumbar spine is evaluated in the AP projection and L1 through L4 are utilized. The proximal femora are evaluated in the AP projection bilaterally. FINDINGS: AP spine: Bone mineral density: 1.257 gm/cm2 T-score: 0.6 Z-score: 2.1 Dual Femur (mean): Bone mineral density: 1.112 gm/cm2 T-score: 0.8 Z-score: 1.9 IMPRESSION: Normal bone mineralization in the lumbar spine. Normal bone mineralization in the bilateral hips. Comparison with prior examination 07/18/2016, there is increased bone mineralization within the lumbar spine and increased bone mineralization within the left proximal femur and decreased bone mineralization in the right proximal femur. [id number] A report detailing these results has been enclosed. Dictating Physician: ??MILTON OCAMPO MD Electronically Signed by: ??MILTON OCAMPO MD Dic Date/Time: ??04/18/21 1321 Sign date/Time: ??04/18/21 1322 Procedure Note Milton Ocampo MD - 02/20/2022 [facility] Diagnostic Imaging Department [address] [place], [place] [id number] Patient: JANICE BURT D.O.B./Age/Sex: 1960 - 60 - F Unit#: [id number] Location/Status: [facility] Mnemonic/Ordering Site: [facility] Ordering Physician: VIOLA KEITH [facility] Dexa Axial Skeleton - 04/18/21 - 105 HISTORY: Post menopausal woman with hormone depletion for screening bone densitometry. TECHNIQUE: Bone densitometry is performed utilizing dual energy x-ray absorptiometry (DEXA) in the [employer] unit. The lumbar spine isevaluated in the AP projection and L1 through L4 are utilized. The proximal femoraare evaluated in the AP projection bilaterally. FINDINGS: AP spine: Bone mineral density: 1.257 gm/cm2 T-score: 0.6 Z-score: 2.1 Dual Femur (mean): Bone mineral density: 1.112 gm/cm2 T-score: 0.8 Z-score: 1.9 IMPRESSION: Normal bone mineralization in the lumbar spine. Normal bone mineralization in the bilateral hips. Comparison with prior examination 07/18/2016, there is increased bone mineralization within the lumbar spine and increased bone mineralizationwithin the left proximal femur and decreased bone mineralization in the rightproximal femur. [id number] A report detailing these results has been enclosed. Dictating Physician: MILTON OCAMPO MD Electronically Signed by: MILTON OCAMPO MD Dic Date/Time: 04/18/21 1321 Sign date/Time: 04/18/21 1322 us Viola Keith MD IMG BI PROCEDURES Final Resul t * PILAR SCREENING DIGITAL (04/18/2021 1:10 PM EST) Anatomical Region Laterality Modality Mammography 04/18/2021 10:0 4 AM EST Narrative 04/18/2021 1:10 PM EST [facility] Diagnostic Imaging Department [address] [place] [address] Patient: ??JANICE BURT ?/Age/Sex: 1960 - 60 - F Unit#: ??[id number] ? Location/Status: ??SPDIMAM/REG CLI ? Mnemonic/Ordering Site: ??DIGSC/SPMAM Ordering Physician: ??VIOLA KEITH [facility] Screening Digital - 04/18/21 - EXAM: [facility] Screening Digital EXAM DATE AND TIME: 04/18/2021 10:47 AM HISTORY: ??Screening. Mother had breast carcinoma. COMPARISON: ??03/19/18, at 2616, 04/07/13, 09/19/11 TECHNIQUE: CC and MLO views of both breasts were obtained using full field digital mammography. Bilateral digital breast tomosynthesis was performed in the MLO projection. Computer aided detection with the [employer] was employed. TISSUE DENSITY: c. The breasts are heterogeneously dense, which may obscure small masses. FINDINGS: No suspicious masses, grouped microcalcifications, or areas of architectural distortion are seen. Scattered microcalcifications are again seen. Vascular calcification is present. The skin is unremarkable. IMPRESSION: Stable mammographic appearance of the breasts. ??No evidence of malignancy is seen. A negative mammogram in the presence of a clinically suspicious palpable abnormality does not preclude the possibility of malignancy or alter the indications for biopsy. BI-RADS: ??Category 2: Benign RECOMMENDATION(S): 1: Routine screening mammogram BILATERAL in 1 year. 65809, 09358 3342F, 7025F Dictating Physician: ??ELSY OTERO MD Electronically Signed by: ??ELSY OTERO MD Dic Date/Time: ??04/18/21 1310 Sign date/Time: ??04/18/21 1310 Procedure Note Elsy Otero MD - 02/20/2022 [facility] Diagnostic Imaging Department [address] [place], [place] [id number] Patient: JANICE BURT/Age/Sex: 1960 - 60 - F Unit#: [id number] Location/Status: SPDIMAM/REG CLI Mnemonic/Ordering Site: [facility] Ordering Physician: VIOLA KEITH [facility] Screening Digital - 04/18/21 - EXAM: [facility] Screening Digital EXAM DATE AND TIME: 04/18/2021 10:47 AM HISTORY: Screening. Mother had breast carcinoma. COMPARISON: 03/19/18, at 2616, 04/07/13, 09/19/11 TECHNIQUE: CC and MLO views of both breasts were obtained using fullfield digital mammography. Bilateral digital breast tomosynthesis was performedin the MLO projection. Computer aided detection with the [employer] employed. TISSUE DENSITY: c. The breasts are heterogeneously dense, which mayobscure small masses. FINDINGS: No suspicious masses, grouped microcalcifications, or areas ofarchitectural distortion are seen. Scattered microcalcifications are again seen. Vascular calcification is present. The skin is unremarkable. IMPRESSION: Stable mammographic appearance of the breasts. No evidence of malignancyis seen. A negative mammogram in the presence of a clinically suspicious palpable abnormality does not preclude the possibility of malignancy or alter the indications for biopsy. BI-RADS: Category 2: Benign RECOMMENDATION(S): 1: Routine screening mammogram BILATERAL in 1 year. 07472, 75325 3342F, 7025F Dictating Physician: ELSY OTERO MD Electronically Signed by: ELSY OTERO MD Dic Date/Time: 04/18/21 1310 Sign date/Time: 04/18/21 1310 us Viola Keith MD IMG BI PROCEDURES Final Resul t * HM Urine Albumin Creatinine Ratio (01/10/1998) Urine Albumin Creatinine Ratio Abstracted us Historical Provider HEALTH MAINTENANCE Final Result from Last 3 Months or Most Recently Relevant to Health Maintenance Advance Directives Documents on File Type Date Recorded Patient Tour Escort Expl anation Health Care Decision (hx) 07/23/2017 AD GEE DIRECTIVE Health Care Decision (hx) 07/23/2017 AD GEE DIRECTIVE Health Care Decision (hx) 07/23/2017 AD GEE DIRECTIVE Health Care Decision (hx) 07/23/2017 AD GEE DIRECTIVE Health Care Decision (hx) 07/23/2017 AD GEE DIRECTIVE Health Care Decision (hx) 07/23/2017 AD GEE DIRECTIVE Health Care Decision (hx) 07/23/2017 AD GEE DIRECTIVE Health Care Decision (hx) 07/23/2017 AD GEE DIRECTIVE Health Care Decision (hx) 07/23/2017 AD GEE DIRECTIVE Health Care Decision (hx) 07/23/2017 AD GEE DIRECTIVE Health Care Decision (hx) 07/23/2017 AD GEE DIRECTIVE Health Care Decision (hx) 07/23/2017 AD GEE DIRECTIVE Health Care Decision (hx) 07/23/2017 AD GEE DIRECTIVE Health Care Decision (hx) 07/23/2017 AD GEE DIRECTIVE Health Care Decision (hx) 07/23/2017 AD GEE DIRECTIVE Health Care Decision (hx) 07/23/2017 AD GEE DIRECTIVE Health Care Decision (hx) 07/23/2017 AD GEE DIRECTIVE Health Care Decision (hx) 07/23/2017 AD GEE DIRECTIVE Health Care Decision (hx) 07/23/2017 AD GEE DIRECTIVE Health Care Decision (hx) 07/23/2017 AD GEE DIRECTIVE Health Care Decision (hx) 07/23/2017 AD GEE DIRECTIVE Health Care Decision (hx) 07/23/2017 AD GEE DIRECTIVE Health Care Decision (hx) 07/23/2017 AD GEE DIRECTIVE Health Care Decision (hx) 07/23/2017 AD GEE DIRECTIVE Health Care Decision (hx) 07/23/2017 AD GEE DIRECTIVE Health Care Decision (hx) 07/23/2017 AD GEE DIRECTIVE Health Care Decision (hx) 07/23/2017 AD GEE DIRECTIVE Health Care Decision (hx) 07/23/2017 AD GEE DIRECTIVE Health Care Decision (hx) 07/23/2017 AD GEE DIRECTIVE Health Care Decision (hx) 07/23/2017 AD GEE DIRECTIVE Health Care Decision (hx) 07/23/2017 AD GEE DIRECTIVE Health Care Decision (hx) 07/23/2017 AD GEE DIRECTIVE Health Care Decision (hx) 07/23/2017 AD GEE DIRECTIVE Health Care Decision (hx) 07/23/2017 AD GEE DIRECTIVE Health Care Decision (hx) 07/23/2017 AD GEE DIRECTIVE Health Care Decision (hx) 07/23/2017 AD GEE DIRECTIVE Health Care Decision (hx) 07/23/2017 AD GEE DIRECTIVE Health Care Decision (hx) 07/23/2017 AD GEE DIRECTIVE Health Care Decision (hx) 07/23/2017 AD GEE DIRECTIVE Health Care Decision (hx) 07/23/2017 AD GEE DIRECTIVE Health Care Decision (hx) 07/23/2017 AD GEE DIRECTIVE Health Care Decision (hx) 07/23/2017 AD GEE DIRECTIVE Health Care Decision (hx) 07/23/2017 AD GEE DIRECTIVE Health Care Decision (hx) 07/23/2017 AD GEE DIRECTIVE Health Care Decision (hx) 07/23/2017 AD GEE DIRECTIVE Health Care Decision (hx) 07/23/2017 AD GEE DIRECTIVE Health Care Decision (hx) 07/23/2017 AD GEE DIRECTIVE Health Care Decision (hx) 07/23/2017 AD GEE DIRECTIVE Health Care Decision (hx) 07/23/2017 AD GEE DIRECTIVE Health Care Decision (hx) 07/23/2017 AD GEE DIRECTIVE Care Teams Coke Drawer Relationship Specialty Start Date End Date Viola Kieth MD [address] [place] [phone] PCP - General Internal Medicine 02/03/24
--- OUTSIDE RECORDS SUMMARY | 2024-05-04 11:52 | XMS_ITS | Encounter Summary ---
Author Organization [employer] Address [address] [facility] 7[address] [place] [address] Care Team Providers Care Aircraft Armorer Name Role Phone Ana Keith MD Primary Care Provider [phone] Reason for Visit * Reason Onset Date Comments Results 03/01/2024 Encounter Details Date Type Department Care Team ([facility] st Contact Info) Description 03/01/2024 Telephone C [facility] [address] [place], [place] [phone] Aan Keith MD [address] [place] [address] Results Social History Tobacco Use Types Packs/Day Years Used Date Smoking Tobacco: Never Passive Smoke Exposure: Never Smokeless Tobacco: Never Alcohol Answer Date Recorded Frequency of Alcohol Consumption Not on file 12/31/2023 Average Number of Drinks Not on file 024 Frequency of Binge Drinking Not on file 12/03 Score 0 12/31/2023 Depression Answer Date Recorded Patient Health Questionnaire-9 Score 17 12/31/2023 Patient Health Questionnaire-9 Score 17 12/31/2023 Last PHQ-9: Questionnaire Data Not on file 1 Housing Stability Answer Date Recorded What is your housing situation today? I have reji hart 12/31/[address] you li ve. Do you have problems with any of the following? None of the above 12/31/2023 Food Insecurity Answer Date Recorded Within the past 12 months, y ou worried that your food would run out before you got money to buy more: Never True 12/31/2023 Within the past 12 months,th e food you bought just didn't last and you didn't have enough money to get more: Never True Transportation Answer Date Recorded In the past 12 months, has l ack of transportation kept you from medical appts, meetings, work or from getting things needed for daily living? No 12/31/2023 Utilities Answer Date Recorded In the past 12 months, has t he electric, gas, oil or water company threatened to shut off services in your home? Yes 12/31/2023 Depression Answer Date Recorded Patient Health Questionnaire-2 Score 4 12/31/2023 Internet Access Answer Date Recorded Internet Access Q1 Yes 12/31/2023 Internet Access Q2 Not on file 12/31/2023 Comments Unknown Sex and Gender Information Value Date Recorded Sex Assigned at Female 12/31/2021 10:29 AM EDT Legal Sex Female 10:29 AM EDT Gender Identity Female 12/31/2021 10:29 AM EDT Sexual Orientation Straight 12/31/2021 10 :29 AM EDT documented as of this encounter Miscellaneous Notes * Telephone Encounter - Felecia Meza RN - 03/10/2024 2:36 PM EST Noted MRI result faxed to [facility] Neuro as requested. * Telephone Encounter - Edyta Thakkar - 03/01/2024 11:25 AM EST TC from pt daughter Catarina requesting a call back regarding Results. Type of results: MRI Date when done: about 2 weeks ago Facility: [facility] documented in this encounter Plan of Treatment Not on file documented as of this encounter Visit Diagnoses Not on filedocumented in this encounter Additional Health Concerns Assessment Noted Time PHQ-9 Depression Total Score: 17 024 11:10 AM EDT documented as of this encounter Care Teams Aircraft Armorer Relationship Specialty Start Date End Date Ana Keith MD [address] [place] [address] PCP - General Family Medicine 11/05/17 documented as of this encounter
--- OUTSIDE RECORDS SUMMARY | 2024-05-04 11:52 | XMS_ITS | Encounter Summary ---
Author Organization [employer] Address [address] [facility] [address] [place] [address] Care Team Providers Care Bowling Alley Operator Name Role Phone Ana Keith MD Primary Care Provider [phone] Reason for Visit * Reason Comments Med Refill Encounter Details Date Type Department Care Team ([facility] [facility] st Contact Info) Description 02/07/[address] [facility] [address] [place], [place] [phone] Ana Keith MD [address] [place] [address] Type 2 diabetes mellitus without complication, with long-term current use of insulin ([facility]); Mild intermittent asthma without complication; Diverticulosis Social History Tobacco Use Types Packs/Day Years [...] complication, with long-term current use of insulin ([facility]) Mild intermittent asthma without complication Diverticulosis Diverticulosis of colon (without mention of hemorrhage) documented in this encounter Additional Health Concerns Assessment Noted Time PHQ-9 Depression Total Score: 17 024 11:10 AM EDT documented as of this encounter Care Teams Bowling Alley Operator Relationship Specialty Start Date End Date nAa Keith MD [address] [place] [phone] PCP - General Family Medicine 11/05/17 documented as of this encounter
--- OUTSIDE RECORDS SUMMARY | 2024-05-04 11:52 | XMS_ITS | Clinical Summary ---
Author Organization [employer] Address [address] [facility] 7t [place] [address] Care Team Providers Care Cheese Cook Name Role Phone Ana Keith MD Primary Care Provider [phone] Allergies Active Allergy Reactions Criticality Noted Date Comments Codeine Hives 10/12/2015 Other reaction(s): Hives/Skin Rash Sumatriptan 04/10/2022 Other reaction(s): chest pain Medications * This document contains information received from the source organization and may not represent a complete record from that organization. B-D ULTRAFINE III SHORT PEN 31G X 8 MM miscIndications: Type 2 diabetes mellitus without complication, with long-term current use of insulin ([facility]),Mild intermittent asthma without complication,Div erticulosis Inject under the skin 3 times daily. 100 each 11 04/12/19 23 Active OXcarbazepine (Trileptal) 150 MG tablet take 1 tablet by oral route 2 times every day x2 weeks then increase to 300mg BID Active baclofen (Lioresal) 10 MG tablet Take 1 tablet by mouth if needed in the morning and at bedtime. 10/28/19 10 Active clonazePAM (KlonoPIN) 1 MG tablet Take 1 mg by mouth if needed in the morning and at bedtime for anxiety. 06/21/19 23 Active docusate sodium (Colace) 100 MG capsule Take 1 capsule by mouth if needed at bedtime. 07/13/19 23 Active DULoxetine (Cymbalta) [address] capsule Take 1 capsule by mouth 2 times daily. 06/21/19 23 Active gabapentin (Neurontin) 600 MG tablet Take 1 tablet by mouth at bedtime. 07/15/19 23 Active FreeStyle lancets TEST BLOOD SUGAR FIVE TIMES DAILY 10/11/19 22 Active levETIRAcetam (Keppra) 500 MG tablet Take 1 tablet by mouth 2 times daily. 07/13/19 23 Active meclizine (Antivert) 12.5 MG tablet Take 1 tablet by mouth 2 times daily. 07/10/19 23 Active riboflavin (vitamin B2) 100 mg tablet tablet Take 2 tablets by mouth 2 times daily. Active zolpidem (Ambien) 10 MG tablet Take 10 mg by mouth at bedtime. 07/25/19 23 Active rosuvastatin (Crestor) 20 MG tablet Take 1 tablet by mouth at bed time. 01/31/20 21 Active amitriptyline (Elavil) 10 MG tablet Take 1 tablet by mouth at bed time. Active ammonium lactate (Amlactin) 12 % cream use daily as needed 05/26/19 21 Active estradiol (Estrace) 0.1 MG/GM vaginal cream 1g vaginally x 14d, then continue to use twice weekly thereafter 42.5 g 2 11/13/19 23 Active aspirin (Aspirin Low Dose) 81 MG EC tabletIndication s:Type 2 diabetes mellitus without complication, with long-term current use of insulin ([facility]),Mild intermittent asthma without complication,Div erticulosis TAKE 1 TABLET BY MOUTH EVERY MORNING 30 tablet 11 12/17/19 23 Active Alcohol Swabs (B-D SINGLE USE SWABS REGULAR) pads USE THREE TIMES DAILY 100 each 11 12/17/19 23 Active nystatin (Mycostatin) cream APPLY TOPICALLY TO THE AFFECTED AREA TWICE DAILY 60 g 3 12/17/19 23 Active busPIRone (Buspar) 10 MG tablet 04/10/19 24 Active pyridoxine (Vitamin B-6) 50 MG tablet Take 1 tablet by mouth 2 times daily. 03/21/19 24 Active dulaglutide (Trulicity) 4.5 MG/0.5ML solution pen-injector Inject 4.5 mg under the skin 1 (one) time per week. 4 each 11 04/16/19 24 Active Diclofenac Sodium 1 % gel Apply bid to affected area 100 g 3 04/16/19 24 Active nitrofurantoin, macrocrystal-mon ohydrate, (Macrobid) 100 MG capsule TAKE 1 CAPSULE BY MOUTH EVERY 12 HOURS FOR 10 DAYS 20 capsule 04/16/19 24 Active NovoLOG FLEXPEN 100 UNIT/ML pen Inject 25 Units under the skin before breakfast, before lunch, and before evening meal. 10 mL 11 06/05/19 24 Active lidocaine (Lidoderm) 5 % patch APPLY 1 PATCH TOPICALLY TO THE SKIN EVERY DAY. MAY WEAR UP TO 12 HOURS. NEEDED 30 patch 11 08/22/19 24 Active metoprolol succinate XL (Toprol-XL) 100 MG 24 hr tablet TAKE 1 TABLET BY MOUTH EVERY DAY 90 tablet 1 09/24/19 24 Active lisinopril 40 MG tabletIndication s:Primary hypertension,Jerri n TAKE 1 TABLET(40 MG) BY MOUTH IN THE MORNING 90 tablet 3 12/01/19 24 Active cyanocobalamin (Vitamin B-12) 100 MCG tabletIndication s:Type 2 diabetes mellitus without complication, with long-term current use of insulin (CMS/HCC),Mild intermittent asthma without complication,Div erticulosis TAKE 1 TABLET BY MOUTH EVERY MORNING 30 tablet 3 12/10/19 24 Active Blood Glucose Monitoring Suppl (Blood Glucose Monitor System) w/Device kitIndications:T ype 2 diabetes mellitus with hyperglycemia, with long-term current use of insulin (CMS/HCC) 1 kit 4 times daily. 1 kit 12/31/19 24 Active Continuous Glucose Monitor Sup miscIndications: Type 2 diabetes mellitus with hyperglycemia, with long-term current use of insulin (CMS/HCC) 1 kit 4 times daily. 2 kit 12/31/19 24 Active Misc. Devices (Pulse Oximeter) miscIndications: Mild intermittent asthma without complication Use prn to check oxygen level 1 each 12/31/19 24 Active meclizine (Antivert) 25 MG tablet Take 1 tab orally tid prn dizziness 30 tablet 12/31/19 24 Active loratadine (Claritin) 10 MG tablet Take 1 tablet (10 mg) by mouth Once per day. 30 tablet 11 12/31/19 24 Active omeprazole (PriLOSEC) [address] capsule Take 1 capsule (20 mg) by mouth before breakfast and before evening meal. 30 capsule 11 12/31/19 24 Active acetaminophen (Tylenol 8 Hour) 650 MG ER tablet TAKE 1 TABLET BY MOUTH EVERY 8 HOURS NEEDED 60 tablet 2 02/09/20 24 Active albuterol 108 (90 Base) MCG/ACT inhalerIndicatio ns:Type 2 diabetes mellitus without complication, with long-term current use of insulin (CMS/HCC),Mild intermittent asthma without complication,Div erticulosis INHALE 2 PUFFS BY MOUTH EVERY 6 HOURS NEEDED FOR WHEEZING 18 g 2 02/09/20 24 Active magnesium oxide (Mag-Ox) 400 (240 Mg) MG tabletIndication s:Type 2 diabetes mellitus without complication, with long-term current use of insulin (CMS/HCC),Mild intermittent asthma without complication,Div erticulosis TAKE 1 TABLET BY MOUTH AT BEDTIME 30 tablet 3 02/09/20 24 Active clotrimazole-bet amethasone (Lotrisone) cream Apply topically 2 times daily. 45 g 1 03/26/19 25 Active glucose blood (VeaconTouch Ultra Test) test strip USE 1 FIVE TIMES A DAY 450 strip 5 04/12/19 25 Active Lantus SoloStar 100 UNIT/ML pen ADMINISTER 68 UNITS UNDER THE SKIN EVERY NIGHT AT BEDTIME DIRECTED 45 mL 5 04/12/19 25 Active Lantus SoloStar 100 UNIT/ML pen INJECT 68 UNITS UNDER THE SKIN EVERY NIGHT AT BEDTIME DIRECTED 45 mL 5 03/19/19 24 025 Discontinued glucose blood test strip 1 each by Other route 5 (five) times a day. 450 each 3 03/20/19 24 025 Discontinued terbinafine (LamISIL) 250 MG tablet Take 1 tablet (250 mg) by mouth Once per day for 14 days. 14 tablet 03/26/19 25 025 Active Problems Problem Noted Date Diagnosed Date Tinea pedis of both feet 12/31/2023 Recurrent UTI 10/24/2022 Assessment & Plan (10/24/2022 1:13 PM EDT): Hx of recurrent UTI's and atrophic vaginitis upon examination. Will refer to clinic senior ruby developer and urologist for further evaluation. Diverticulosis 04/10/2022 Fibromyalgia 04/09/2022 Hypertension 04/09/2022 Benign essential hypertension 05/26/2015 Type 2 diabetes mellitus 05/26/2015 Mild intermittent asthma 05/26/2015 Primary insomnia 05/26/2015 Vitamin D deficiency 05/26/2015 Encounters * This document contains information received from the source organization and may not represent a complete record from that organization. Date Type Department Care Team Description 04/09/2024 Refill [facility] [address] [place] [address] Ana Keith MD 03/26/2024 Orders Only [facility] [address] [place] [id number] Ana Keith MD 03/12/2024 Telephone [facility] [address] [place] [address] Ana Keith MD Prior Authorization (Lidocaine patches ) 03/01/2024 Orders Only [facility] [address] [place] [address] Ana Keith MD Blurry vision, right eye (Primary Dx); Empty sella syndrome (CMS/HCC) 03/01/2024 Telephone [facility] [address] [place] [address] Ana Keith MD Results 02/11/2024 11:00 AM EST Office Visit [facility] [address] [place] [address] Ana Keith MD Type 2 diabetes mellitus with hyperglycemia, with long-term current use of insulin (CMS/HCC) (Primary Dx); Blurry vision, right eye; Decreased peripheral vision of right eye; Head trauma, sequela 02/11/2024 Telephone [facility] [address] [place] [address] Ana Keith MD DME quad cane 02/11/2024 Travel 02/09/2024 Telephone [facility] [address] [place] [phone] Ana Keith MD Nurse Triage 02/07/2024 Refill [facility] [address] [place] [address] Gisell Guthrie MD Type 2 diabetes mellitus without complication, with long-term current use of insulin (CMS/HCC); Mild intermittent asthma without complication; Diverticulosis 02/07/2024 Refill [facility] [address] [place] [address] Ana Keith MD Type 2 diabetes mellitus without complication, with long-term current use of insulin ([facility]); Mild intermittent asthma without complication; Diverticulosis from Last 3 Months Immunizations Name Administration Dates Next Due Hep B, adult 08/20/2018,07/08/2018 Influenza High-dose Quadriva lent Preservative Free 11/21/2021 Influenza injectable quadriv alent IIV4 with preservative 11/26/2017,01/03/2016 Influenza injectable quadriv alent preservative free 04/16/2023,01/12/2021,12/04/2018 Influenza, High Dose Seasona l, Preservative Free 12/31/2023 Influenza, IIV3, injectable 11/02/2009 Tdap 09/11/2016 Zoster, Recombinant 04/29/2019,12/07/2018 Social History Tobacco Use Types Packs/Day Years Used Date Smoking Tobacco: Never Passive Smoke Exposure: Never Smokeless Tobacco: Never Tobacco Cessation:Counseling Given: Not Answered Alcohol Answer Date Recorded Frequency of Alcohol [...] Orientation Straight 12/31/2021 10 :29 AM EDT Last Filed Vital Signs Vital Sign Reading Time Taken Comments Blood Pressure 161/88 02/11/2024 10:57 AM EST Pulse 86 02/11/2024 10:57 AM EST Temperature 36.9 ??C (98.5 ??F) 02/11/2024 10:[address] Respiratory Rate 16 02/11/2024 10:57 AM EST Oxygen Saturation 97% 02/11/2024 10:57 AM EST Inhaled Oxygen Concentration - - Weight 57.6 kg (127 lb) 02/11/2024 10:57 AM EST Height 149.9 cm (4' 11 ) 02/11/2024 10:57 AM EST Body Mass Index 25.65 02/11/2024 10:57 AM EST Plan of Treatment Health Maintenance Due Date Last Done Comments CT Colonography 1958 Colonoscopy 1958 Colorectal Cancer Screening 1958 FIT DNA/Cologuard 1958 FIT 1958 FOBT 1958 Sigmoidoscopy 1958 Diabetes: Foot Exam 1968 Eye Exam 1968 Hepatitis C Screening 1976 Hepatitis A Vaccines (1 of 2 - Risk 2-dose series) 1977 Pneumococcal Vaccine: 50+ Years (1 of 2 - PCV) 1977 Mammogram 1998 Dental Prophylaxis 09/24/2017 03/26/2017, 0 06/12/2016, 10/12/2015 Dental X-Ray: Full Mouth 10/12/2018 10/12/2015 Dental Oral Exam 11/21/2018 05/20/2018, , 08/21/2016, Additional history exists RSV Patients and Patients Aged 60 years or older (1 - Risk 60-74 years 1-dose series) 2018 Hepatitis B Vaccines (3 of 3 - Risk 3-dose series) 01/08/2019 08/20/2018, 07/08/2018 Dental X-Ray: Bitewings 05/22/2019 05/21/19 19, 08/21/2016, 10/12/2015 Diabetes: Urine Protein Screening 02/28/2022 02/28/2021 Lipid Panel 02/28/2022 02/28/2021 COVID-19 Vaccine ( season) 2023 01/12/2021, 06/08/2020, 05/10/2020 Pap Smear 03/29/2024 03/29/2021 Diabetes: Hemoglobin A1C 04/01/2024 024, 08/07/2023, 04/16/2023, Additional history exists Depression Monitoring (PHQ-9) 06/30/2024 12/31/2023, 12/31/2023 Alcohol/Substance Use Screening 12/30/2024 12/31/2023 Depression Screening 12/30/2024 12/31/2023, 12/31/19 24 SDOH Screening 12/30/2024 12/31/2023 Tobacco Screening 02/10/2025 02/11/2024 Cervical Cancer Screening 03/29/2026 HPV/Cotest 03/29/2026 03/29/2021, 08/19/2017 DTaP/Tdap/Td Vaccines (2 - Td or Tdap) 09/11/2026 09/11/2016 Zoster Vaccines Completed 04/29/2019, 12/07/2018 Influenza Vaccine Completed 12/31/2023, , 11/21/2021, Additional history exists HIB Vaccines Aged Out No longer eligi ble based on patient's age to complete this topic HPV Vaccines Aged Out No longer eligi ble based on patient's age to complete this topic IPV Vaccines Aged Out No longer eligi ble based on patient's age to complete this topic Meningococcal Vaccine Aged Out No thanh sienna eligible based on patient's age to complete this topic RSV under 20 months Aged Out No longe r eligible based on patient's age to complete this topic Rotavirus Vaccines Aged Out No longer eligible based on patient's age to complete this topic Procedures Procedure Name Priority Date/Time Associated Diagnosis Comments MR BRAIN W AND WO CONTRAST Routine 02/21/2024 Type 2 diabetes mellitus with hyperglycemia, with long-term current use of insulin ([facility]) Blurry vision, right eye Decreased peripheral vision of right eye Head trauma, sequela POCT GLYCATED HEMOGLOBIN, TOTAL Routine 12/31/2023 11:15 AM EDT Type 2 diabetes mellitus with hyperglycemia, with long-term current use of insulin ([facility]) THINPREP IMAGING PAP AND HPV MRNA E6/E7, WITH CT/NG, TRICHOMONAS Routine 03/29/2021 12:00 AM EST ALBUMIN, RANDOM URINE W/CREATININE Routine 02/28/2021 11:12 AM EST LIPID PANEL, STANDARD Routine 02/28/2021 11:12 AM EST BITEWINGS - 4 RADIOGRAPHIC IMAGES Routine 05/20/2018 12:00 AM EDT PERIODIC ORAL EVALUATION - ESTABLISHED PATIENT Routine 05/20/2018 12:00 AM EDT PROPHYLAXIS - ADULT Routine 03/26/2017 1 2:00 AM EST INTRAORAL - COMPLETE SERIES OF RADIOGRAPHIC IMAGES Routine 10/12/2015 12:00 AM EDT from Last 3 Months or Most Recently Relevant to Health Maintenance Results * Mr Brain w/ and w/o Contrast (02/21/2024) Anatomical Region Laterality Modality Brain Magnetic Resonan ce us Ana Keith MD IMG MRI PROCEDURES Final Resu lt * (ABNORMAL) POCT HGB A1C (12/31/2023 11:15 AM EDT) Hemoglobin A1C 7.5(A) 4.0 - 6.0 % QC Media Lot # [id number] Lot# Expiration Date [id number] Blood 12/31/2023 11:1 5 AM EDT Ana Keith MD POINT OF CARE TEST ENTER/EDIT ORDERABLES Final Result * THINPREP TIS PAP AND HPV mRNA E6/E7, CT/NG, TRICH (03/29/2021 12:00 AM EST) Chlamydia trachomatis RNA, TMA, Urogenital NOT DETECTED NOT DETECTED [facility] Clinical Information: None given [facility] COMMENT SEE COMMENT [facility] Comment: The analytical performance characteristics of this assay, when used to test SurePath(TM) specimens have been determined by [employer]. The modifications have not been cleared or approved by the FDA. This assay has been validated pursuant to the CLIA regulations and is used for clinical purposes. ?? For additional information, please refer to https://education.Dunamu/faq/NCB000 (This link is being provided for information/ educational purposes only.) ?? COMMENT SEE COMMENT [facility] Comment: EXPLANATORY NOTE: ? The Pap is a screening test for cervical cancer. It is ?? not a diagnostic test and is subject to false negative ?? and false positive results. It is most reliable when a ?? satisfactory sample, regularly obtained, is submitted ?? with relevant clinical findings and history, and when ?? the Pap result is evaluated along with historic and ?? current clinical information. ?? COMMENT: SEE COMMENT [facility] Comment: This case could not be evaluated with computer assisted technology. The slide was manually screened according to routine procedures. Quality Control Tech: SEE COMMENT [facility] Comment: CXP, CT(ASCP) CT screening location: [address] ??[address] HPV nRNA E6/E7 Not Detected Not Detected [facility] Comment: Methodology: Dietitian Therapeutic-Mediated Amplification This assay detects E6/E7 viral messenger RNA (mRNA) from 14 high-risk HPV types (16,18,31,33,35,39,45,51,52,56,58,59,66,68). ? The analytical performance characteristics of this assay have been determined by [employer]. The modifications have not been cleared or approved by the FDA. This assay has been validated pursuant to the CLIA regulations and is used for clinical purposes. ?? For additional information, please refer to http://Addvocate.Dunamu/faq/LGR008g9 (This link if provided for information/ educational purposes only.) Interpretation/Res ult: SEE COMMENT [facility] Comment: Negative for intraepithelial lesion or malignancy. Atrophic pattern; predominantly parabasal cells LMP: NONE GIVEN [facility] Neisseria gonorrhoeae RNA, TMA, Urogenital NOT DETECTED NOT DETECTED [facility] Prev. BX: NONE GIVEN [facility] Prev. PAP: NONE GIVEN [facility] Review Quality Control Tech: SEE COMMENT [facility] Comment: GSG, CT(ASCP) CT screening location: [address] ??[address] SOURCE: None given [facility] Statement Of Adequacy: SATISFACTORY FOR EVALUATION [facility] Trichomonas vaginalis, QL, TMA, PAP Vial NOT DETECTED NOT DETECTED [facility] Comment: The analytical performance characteristics of this assay have been determined by [employer]. The modifications have not been cleared or approved by the FDA. This assay has been validated pursuant to the CLIA regulations and is used for clinical purposes. ?? For additional information, please refer to [email or web address].Dunamu/ faq/Trichomonastma (This link is being provided for information/ educational purposes only.) ?? 03/29/2021 Ana Keith MD LAB PATHOLOGY ORDERABLES Enid gerard Result [facility] [address] * ALBUMIN, RANDOM URINE W/CREATININE (02/28/2021 11:12 AM EST) Microalbumin Urine 1.9 See Note: mg/dL [facility] Comment: Reference Range: ?? Reference Range Not established Microalb/Creat Ratio 24 <30 mcg/mg creat [facility] Comment: ?? The ADA defines abnormalities in albumin excretion as follows: ?? Albuminuria Category ?Result (mcg/mg creatinine) ?? Normal to Mildly increased ?? <30 Moderately increased ? 30-299 ?? Severely increased ? > OR = 300 ?? The ADA recommends that at least two of three specimens collected within a 3-6 month period be abnormal before considering a patient to be within a diagnostic category. Creatinine, Urine 79 20 - 275 mg/dL [facility] 02/28/2021 11:1 2 AM EST us Ana Keith MD LAB URINE ORDERABLES Final Re sult [facility] [address] * (ABNORMAL) LIPID PANEL, STANDARD (02/28/2021 11:12 AM EST) Chol/HDLC Ratio 6.4(H) <5.0 (calc) [facility] Cholesterol, Total 251(H) <200 mg/dL [facility] HDL Cholesterol 39(L) > OR = 50 mg/dL [facility] LDL Cholesterol 151(H) mg/dL (calc) [facility] Comment: Reference range: <100 ?? Desirable range <100 mg/dL for primary prevention; ?? <70 mg/dL for patients with CHD or diabetic patients ?? with > or = 2 CHD risk factors. ?? LDL-C is now calculated using the John-Dinero ?? calculation, which is a validated novel method providing ?? better accuracy than the Friedewald equation in the ?? estimation of LDL-C. ?? John RIGGINS et al. CLAUDIA. 2013;310(19): 1009-2658 ?? (http://education.[employer]faq/VGE966) Non-HDL Cholesterol 212(H) <130 mg/dL (calc) [facility] Comment: For patients with diabetes plus 1 major ASCVD risk ?? factor, treating to a non-HDL-C goal of <100 mg/dL ?? (LDL-C of <70 mg/dL) is considered a therapeutic ?? option. Triglycerides 396(H) <150 mg/dL [facility] Comment: ?? If a non-fasting specimen was collected, consider repeat triglyceride testing on a fasting specimen if clinically indicated. ?? Rashmi et al. J. of Clin. Lipidol. 2015;9:129-169. ?? 02/28/2021 11:1 2 AM EST Ana Keith MD LAB BLOOD ORDERABLES Final Re sult [facility] [address] [place] [address], from Last 3 Months or Most Recently Relevant to Health Maintenance Insurance [facility] Care Teams Cheese Cook Relationship Specialty Start Date End Date Ana Keith MD [address] [place] [phone] PCP - General Family Medicine 11/05/17
--- OUTSIDE RECORDS SUMMARY | 2024-05-04 11:52 | XMS_ITS | Encounter Summary ---
Author Organization [employer] Address [address] [facility] 7t [place] [address] Care Team Providers Care Insurance Writer Name Role Phone Ana Keith MD Primary Care Provider [phone] Encounter Details Date Type Department Care Team (Late st Contact Info) Description 09/02/2023 Orders Only [facility] [address] [place] [address] Provider, Historical, Social History Tobacco Use Types Packs/Day Years [...] on file documented as of this encounter Procedures Procedure Name Priority Date/Time Associated Diagnosis Comments DERMATOPATHOLOGY REPORT Routine 08/21/2023 1:35 PM EDT documented in this encounter Results * Dermatopathology Report (08/21/2023 1:35 PM EDT) us Historical Provider LAB BLOOD ORDERABLES Edit ed Result - Final documented in this encounter Visit Diagnoses Not on filedocumented in this encounter Additional Health Concerns Assessment Noted Time PHQ-9 Depression Total Score: 22 04/16/ 024 11:59 AM EST documented as of this encounter Care Teams Insurance Writer Relationship Specialty Start Date End Date Ana Keith MD [address] [place] [address] PCP - General Family Medicine 11/05/17 documented as of this encounter
--- OUTSIDE RECORDS SUMMARY | 2024-05-04 11:52 | XMS_ITS | Encounter Summary ---
Author Organization [employer] Address [address] [facility] [address]t [place] [address] Care Team Providers Care Personal Care Aide Name Role Phone Ana Keith MD Primary Care Provider [phone] Encounter Details Date Type Department Care Team ([facility] st Contact Info) Description 09/30/2023 Orders Only [facility] [address] [place], [place] [phone] Ana Keith MD [address] [place] [address] Social History Tobacco Use Types Packs/Day Years [...] documented as of this encounter Care Teams Personal Care Aide Relationship Specialty Start Date End Date Ana Keith MD [address] [place] [phone] PCP - General Family Medicine 11/05/17 documented as of this encounter
--- OUTSIDE RECORDS SUMMARY | 2024-05-04 11:52 | XMS_ITS | Encounter Summary ---
Author Organization [employer] Address 75 [facility] [address] [place] [address] Care Team Providers Care Protein Purification Scientist Name Role Phone Ana Keith MD Primary Care Provider [phone] Reason for Visit * Reason Comments Med Refill Encounter Details Date Type Department Care Team ([facility] st Contact Info) Description 04/09/2024 Refill [facility] [address] [place], [place] [phone] Ana Keith MD [address] [place] [address] Social History Tobacco Use Types Packs/Day Years [...] documented as of this encounter Care Teams Protein Purification Scientist Relationship Specialty Start Date End Date Ana Keith MD [address] [place] [phone] PCP - General Family Medicine 11/05/17 documented as of this encounter
--- OUTSIDE RECORDS SUMMARY | 2024-05-04 11:52 | XMS_ITS | Encounter Summary ---
Author Organization [employer] Address [address] [facility] [address] [place] [address] Care Team Providers Care Fishing Gear Mechanic Name Role Phone Ana Keith MD Primary Care Provider [phone] Encounter Details Date Type Department Care Team ([facility] st Contact Info) Description 02/03/2024 Orders Only [facility] MED & PEDS [address] [place], [place] [id number] Ana Keith MD [address] [place] [address] Social History Tobacco Use Types Packs/Day Years [...] documented as of this encounter Care Teams Fishing Gear Mechanic Relationship Specialty Start Date End Date Ana Keith MD [address] [place] [id number] PCP - General Family Medicine 11/05/17 documented as of this encounter
--- OUTSIDE RECORDS SUMMARY | 2024-05-04 11:52 | XMS_ITS | Encounter Summary ---
Author Organization [employer] Address [address] [facility] [address] [place] [address] Care Team Providers Care Lehr Attendant Name Role Phone Ana Keith MD Primary Care Provider [phone] Reason for Visit * Reason Onset Date Comments Medication Question 06/04/2023 Referral 06/04/2023 Encounter Details Date Type Department Care Team (Late st Contact Info) Description 06/04/2023 Telephone [facility] MED[facility]INE [address] [place] [address] Ana Keith MD [address] [place] [phone] Medication Question; Referral Social History Tobacco Use Types Packs/Day Years [...] encounter Miscellaneous Notes * Telephone Encounter - David Olsen RN - 06/05/2023 3:15 PM EDT Return T/C x 1 pm through [employer] id - [id number] for below message, No answer. Mail box is full, not able to LVM. * Telephone Encounter - Robert Cassidy - 06/04/2023 2:56 PM EDT Tc from pt requesting call back from nurse regarding medication stating pharmacy has not been receiving medications unsure on what is going on. Pt is also requesting status on referral for vascular specialist discussed during last office visit with pcp. Please contact pt at [phone]. documented in this encounter Plan of Treatment Not on file documented as of this encounter Visit Diagnoses Not on filedocumented in this encounter Additional Health Concerns Assessment Noted Time PHQ-9 Depression Total Score: 22 024 11:59 AM EST documented as of this encounter Care Teams Lehr Attendant Relationship Specialty Start Date End Date Ana Keith MD [address] [place] [id number] PCP - General Family Medicine 11/05/17 documented as of this encounter
== END 2024-05-04 10:49 | disposition home or self-care (01) ==
PROVIDERS: PCP Pediatrics; Visit Provider Nurse Practitioner Family
DX: G43.109 Migraine with aura, not intractable, without status migrainosus (principal); H53.9 Unspecified visual disturbance; E23.6 Other disorders of pituitary gland; R42 Dizziness and giddiness; R56.9 Unspecified convulsions
CPT/HCPCS: 99214; G2211

== ENCOUNTER → 2024-05-04 09:57 | Outpatient (BNVA) | payer OTHER, SELFPAY | PROVIDERS: PCP Pediatrics; Visit Provider Nurse Practitioner Family | DX: G43.109 Migraine with aura, not intractable, without status migrainosus (principal); H53.9 Unspecified visual disturbance; E23.6 Other disorders of pituitary gland; R42 Dizziness and giddiness; R56.9 Unspecified convulsions | CPT/HCPCS: 99212 ==

== ENCOUNTER 2024-05-31 09:50 | Outpatient (AMB) | payer OTHER, SELFPAY ==
--- NOTE | 2024-05-31 10:08 | A.OFFVIS_ITS ---
Intake Visit Reasons: 2m/PVR Intake Note: Patient presents today for follow up on: recurrent uti and dysuria Urology Medications: estrace cream Allergies to Antibiotic: none Blood Thinner: aspirin PVR: 19ml's Sample Maker Hand Required: Yes Accompanied by: Daughter Allergies codeine Allergy (Severe, Verified 05/31/24 10:41) weird feeling through out body Medication List - Last Reconciled 05/31/24 by NEEL Whitten acetaminophen ER 650 mg PO TID albuterol sulfate 90 mcg/actuation (Ventolin HFA) inhalation ascorbic acid (vitamin C) 1 g PO Q6H aspirin 81 mg PO DAILY clonazepam 1 mg PO BID PRN dulaglutide (Trulicity) mg subcut duloxetine mg PO estradiol 0.01%(0.1mg/gram) pea sized amount to urethra 3 times a week 30 days gabapentin 600 mg PO BEDTIME 30 days galcanezumab-gnlm (Emgality Pen) 120 mg subcut ONCE 30 days insulin glargine (Lantus Solostar U-100 Insulin) units subcut levetiracetam 500 mg PO BID lidocaine 5% 1 patch topical DAILY PRN lisinopril 40 mg PO DAILY loratadine 10 mg PO DAILY magnesium oxide 400 mg PO DAILY meclizine 12.5 mg PO BID PRN 30 days metoprolol succinate ER 100 mg PO DAILY mirabegron ER (Myrbetriq) 25 mg PO DAILY 30 days nut.tx.gluc.intol,lac-free,soy (Glucerna Therapeutic Nutrition oral liquid) 1 ea PO DAILY 24 days ondansetron HCl 4 mg PO Q4H PRN 30 days MDD 3 oxcarbazepine 300 mg PO BID 30 days pyridoxine (vitamin B6) 50 mg PO BID 30 days sumatriptan succinate 100 mg orally at onset of headache, may repeat in 2 hrs PRN; max 2 tabs per day or 4 tabs/week (may take with Tylenol) 30 days terbinafine HCl 1% 1 appl topical BID 14 days zolpidem 10 mg PO BEDTIME PRN HPI Comments Details: Janice is a very pleasant 63-year-old Czech-speaking female patient of Dr. Keith was accompanied by her daughter at today's office visit. She has a past medical history of diabetes, seizures, and depression. She presents to the office today for follow-up of her recurrent urinary tract infections and lower urinary tract symptoms. Of note, patient was seen approximately 6 months ago at which time her urine was sent for microgen testing for further assessment evaluation as patient had been reporting bladder pressure. These results were reviewed with the patient today 12/24 microgen Klebsiella granulomatis, lactococcus lactis, Enterococcus faecalis, Klebsiella pneumoniae, Streptococcus agalactiae, prevotella bivia, gardnerella vaginalis she has since completed Levaquin and Augmentin as prescribed. She reports feeling lower abdominal bladder discomfort she had been experiencing has since subsided. She does however continue to report episodes of urge/stress incontinence. She reports typically when she is at home it is less bothersome as she has axis of the bathroom rather quickly however when she is out in about she finds this bothersome as she has had increased episodes of incontinence. She reports utilizing approximately 2 adult diapers per day. In office urinalysis results reviewed with the patient today. PVR 19 mL. When asked she reports compliance with Estrace cream as prescribed. She otherwise denies nocturia, hematuria, changes to urinary stream, flank pain, fever, and or chills. She denies any issues with her bowels. We discussed potential near future in office cystoscopy and or urodynamics for further assessment evaluation. We discussed potential causes as well as treatment options for stress/mixed urinary incontinence. All questions were answered. She otherwise offers no other issues or concerns at this time. [facility] Medical History Diabetes Surgical History H/O knee surgery Hx of cholecystectomy H/O section H/O hernia repair Family History Mother Cancer Diabetes Osteoporosis Memory loss Social History (Reviewed 03/04/25 @ 10:04 by NEGRA Tracey Alcohol intake: never Patient Tobacco Use Status: Never used Tobacco Review of Systems Const Reports no additional complaints Eyes Reports no additional complaints ENT Reports no additional complaints Card Reports no additional complaints Resp Reports no additional complaints GI Reports no additional complaints Reports as per HPI Musc Reports no additional complaints Neuro Reports as per HPI Psych Reports as per HPI Endo Reports as per HPI Rosendo/Lymph Reports no additional complaints Aller/Immun Reports no additional complaints Physical Exam Const General: cooperative, healthy appearing, comfortable, no acute distress, well developed, alert and awake Orientation/consciousness: patient oriented x3 Limitations: ambulation with cane HEENT Head: Yes normal to inspection, Yes normocephalic and Yes atraumatic Ears: hearing grossly normal bilaterally Eyes General: appearance normal, both eyes and all related structures Neck Neck: Yes normal visual inspection and Yes trachea midline Chest Chest palpation & inspection: normal inspection of the chest Resp Effort & Inspection: normal respiratory effort and able to speak in complete sentences Cardio Rate: regular rate GI Inspection: Yes normal to inspection General: Yes no CVA tenderness Back/Spine/Pelvis Back: no CVA tenderness Skin General skin exam: no rashes or lesions noted Neuro General: patient oriented x3 Extrem General: Yes normal to inspection Psych Appearance: grossly normal and well kempt Mental Status: mental status grossly normal Speech and movement: Normal speech and movement present and Clear speech present Affect: normal affect Attitude: cooperative Thought process: Normal thought process present Thought content: Normal thought content present Insight: Fair insight present (Psych) Judgement: Fair judgement present (Psych) Office Procedures Post Void Residual Post Residual Void Post Void Residual (PVR): 19 [id number]-[id number] Void Residual by ultrasound Results AMB Urinalysis, Automated UA Leukoctes 0 Felice/uL Last Edit by Bin1 ATE Sandeep on 05/31/24 10:51 UA Nitrite Last Edit by Bin1 ATE Sandeep on 05/31/24 10:51 UA Urobilinogen 0.2 mg/dL Last Edit by Skyfiberreyes Hopkins on 05/31/24 10:51 UA Protein 0 mg/dL Last Edit by Skyfiberreyes Hopkins on 05/31/24 10:51 UA pH 6.0 Last Edit by Bin1 ATE Sandeep on 05/31/24 10:51 UA Blood 0 Donnie/uL Last Edit by Marcelle Hopkins on 05/31/24 10:51 UA Specific Olema 1.010 Last Edit by Marcelle Hopkins on 05/31/24 10:51 UA Ketone Last Edit by Marcelle Hopkins on 05/31/24 10:51 UA Bilirubin 0 mg/dL Last Edit by Marcelle Hopkins on 05/31/24 10:51 UA Glucose 1000 mg/dL Last Edit by Marcelle Hopkins on 05/31/24 10:51 Results Reviewed Results Reviewed: Laboratory Last Values Urine pH (Auto) 6.0 05/31/24 10:50 Specific Olema (Auto) 1.010 05/31/24 10:50 Urine Protein (Auto) 0 mg/dL 05/31/24 10:50 Glucose (UA)(Auto) 1000 mg/dL 05/31/24 10:50 Urine Blood (Auto) 0 Donnie/uL 05/31/24 10:50 Urine Bilirubin (Auto) 0 mg/dL 05/31/24 10:50 Urine Urobilinogen (Auto) 0.2 mg/dL 05/31/24 10:50 Leukocyte Esterase (Auto) 0 Felice/uL 05/31/24 10:50 Assessment & Plan Assessment & Plan (1) Foul smelling urine: Code(s): R82.90 - Unspecified abnormal findings in urine Category: Medical (2) Sensation of pressure in bladder area: Code(s): R39.89 - Other symptoms and signs involving the genitourinary system Category: Medical (3) Mixed stress and urge urinary incontinence: Code(s): N39.46 - Mixed incontinence Category: Medical Plan In office urinalysis results reviewed with the patient today; as noted above. PVR 19 mL. We discussed potential causes of stress/urge/mixed urinary incontinence; as well as further treatment options and risks and benefits of these treatment options. We discussed potential near future in office cystoscopy and or urodynamics for further assessment evaluation. Start Myrbetriq as discussed and prescribed. We discussed bladder triggers/irritants. We discussed importance of timed/scheduled voiding given decreased mobility. We also discussed the importance of managing diabetes for improvement in lower urinary tract symptoms as well as overall health and well-being. Follow-up in 1-3 months with PVR; or sooner with any issues, concerns, and or questions. Orders: Orders AMB Urinalysis Automated Today Z13.9 - Encounter for screening, unspecified AMB Post Void Residual by ultrasound Today N39.0 - Urinary tract infection, site not specified Medications: New mirabegron ER (Myrbetriq) 25 mg PO DAILY 30 tabs 3RF 30 days N30.10 - Interstit ial cystitis (chronic) without hematuria, N32.81 - Overactive bladder, R35.1 - Nocturia, R39.15 - Urgency of urination Patient Instructions: The patient had an opportunity to ask questions regarding the treatment plan. All questions were answered. Physical exam, labs, and imaging were discussed and reviewed in detail. As well as risks, benefits, and discussion of treatment choices. No major barriers to understanding were identified. The patient expressed understanding and agreement with the above treatment plan. The patient was made aware they should contact our office by phone for worsening of their current condition, the appearance of new symptoms, or with any questions or concerns. Compliance is encouraged with any medications and follow up testing that is ordered. It is a privilege to be allowed the opportunity to participate in? your urological care.? Again, if you have any questions or concerns If you have any questions or concerns please do not hesitate to contact me. The office is [phone]. This note is constructed using voice recognition software. While every effort has been made to ensure accuracy facility practice specialist errors may have been included. Yours sincerely, NEEL Whitten Coding Level of Care Code Est Pt Level 4 (75930) Diagnoses Foul smelling urine R82.90 Sensation of pressure in bladder area R39.89 Mixed stress and urge urinary incontinence N39.46 CPT Codes Post Residual Void - PVR CPT Code: 70050-Mnph Void Residual by ultrasound ([id number])
== END 2024-05-31 10:39 | disposition home or self-care (01) ==
LOC: HO.HUSH 09:50
PROVIDERS: PCP Pediatrics; Visit Provider Nurse Practitioner Family
DX: R82.90 Unspecified abnormal findings in urine (principal); R39.89 Other symptoms and signs involving the genitourinary system; N39.46 Mixed incontinence; Z13.9 Encounter for screening, unspecified
CPT/HCPCS: 99214

== ENCOUNTER → 2024-05-31 09:50 | Outpatient (BNVA) | payer OTHER, SELFPAY | PROVIDERS: PCP Pediatrics; Visit Provider Nurse Practitioner Family | DX: R30.0 Dysuria (principal); R82.90 Unspecified abnormal findings in urine; R39.89 Other symptoms and signs involving the genitourinary system; N39.46 Mixed incontinence; N30.10 Interstitial cystitis (chronic) without hematuria; N32.81 Overactive bladder; R35.1 Nocturia | CPT/HCPCS: 51798; 81003; 99212 ==

== ENCOUNTER 2024-10-01 08:59 | Outpatient (AMB) | payer OTHER, SELFPAY ==
--- OUTSIDE RECORDS SUMMARY | 2023-12-31 12:01 | XMS_ITS | Encounter Summary ---
Author Organization [facility] Address [address] [place] [address] Care Team Providers Care Solar Installation Supervisor Name Role Phone Unavailable Primary Care Provider Unavailabl e Encounter Details Date Type Department Care Team (Late st Contact Info) Description 12/31/2023 12:01 PM EDT Hospital Encounter TH HISTORIC ENCOUNTERS [facility] ONLY Viola Keith MD [address] [place] [phone] Social History Tobacco Use Types Packs/Day Years Used Date Smoking Tobacco: Never Smokeless Tobacco: Never Alcohol Use Standard Drinks/Week Comments No 0 (1 standard drink = 0.6 oz pur e alcohol) Health Literacy Answer Date Recorded How often do you need to hav e someone help you when you read instructions, pamphlets, or other written material from your doctor or pharmacy? Always 07/07/2024 Caregiver: How often do you need to have someone help you when you read instructions, pamphlets, or other written material from your doctor or pharmacy? Not on file 07/07/2024 Transportation Answer Date Recorded Has the lack of transportati on kept you from meetings, work, or from getting things needed for daily living? No Has the lack of transportati on kept you from medical appointments or from getting medications? No 06/16/2024 Social Isolation Answer Date Recorded How often do you feel lonely or isolated from th ose around you? Never 07/08/2024 Interpersonal Safety Answer Date Record ed Physical Abuse 09/09/2024 Verbal Abuse 09/09/2024 Comments No Sex and Gender Information Value Date Recorded Sex Assigned at Female 06/15/2024 12:42 PM EDT Legal Sex Female 5:37 AM EST Gender Identity Female 06/15/2024 12:42 PM EDT Sexual Orientation Straight 06/15/2024 12 :42 PM EDT documented as of this encounter Plan of Treatment Upcoming Encounters Date Type Department Care Team (Late st Contact Info) Description 10/04/2024 10:15 AM EDT Treatment [facility] [address] [phone] aTnmay Carlton, PT 10/04/2024 11:00 AM EDT Treatment [facility] Occupational Therapy [address] [place] [phone] Nell Warren, OT 10/06/2024 10:15 AM EDT Treatment [facility] [address] [phone] Tanmay Carlton, PT 10/06/2024 11:00 AM EDT Treatment [facility] Occupational Therapy [address] [place] [phone] Boni Mckeon COTA/Sandra 10/11/2024 10:15 AM EDT Treatment [facility] [address] [address] Tom Antony, MAY 10/11/2024 11:00 AM EDT Treatment [facility] Occupational Therapy [address] [place] [phone] Nell Warren, OT 10/14/2024 11:00 AM EDT Treatment [facility] Occupational Therapy [address] [place] [phone] Nell Warren, OT 10/14/2024 12:00 PM EDT Treatment [facility] [address] [phone] Geovanna Conroy, PT documented as of this encounter Goals Goal Patient Goal Type Associated Problems Recent Progress Patient-Stated? Author PT LTGs General No Tanmay Carlton, PT Note: Pt will complete all bed mobility tasks mod independent Pt will transfer to/from all seated surfaces mod independent with LAD Pt will ambulate x200 ft with LAD mod independent Pt will ascend/descend 12 stesp with LAD mod independent Pt will be independent with HEP PT STGs General No Tanmay Carlton, PT Note: Pt will be fitted for and receive right AFO Pt will ambulate with LAD x50 ft with supervision and LAD Pt will stand-pivot transfer left and right with LAD with supervision Pt will ascend/descend 4 steps with supervision and LAD OT STG 6-8 visits General No Zina Warren OT Note: Pt/family will return demo initial HEP (positioning, therex, pain mange) 09/20 Met and ongoing Pt will demo R sh elevation at least 80 AROM for ease of axillary bathe/shave 09/20 In progress, cont Pt will demo R elbow ext AROM no > than -20 to enable reaching ADL items tabletop 09/20 in progress, cont Pt will report no greater than min pain to palp RUT 09/20 Met, but does report GH joint pain Pt will engage RUE in stablizing position w/ no greater than mod A for placement (ie to stablize mixing bowl or bottle) 09/20/Met New goals Pt will engage RUE in stablizing position w/ no greater than min A for placement (ie to stablize mixing bowl or bottle) Pt will demo R wrist ext at least 1/2 range AROM to promote finger and utensil feeding OT LTG's 20 visits General On track( 025 2:06 PM EDT) Nell Scanlon OT Note: Pt/family return demo approp HEP (therex, positioining, review of AE/DME needs consistent w/fcnl level at DC) RUE FUEL Level 4 (active stablizer), pt will be able to indep place RUE in stablizing position on larger handles/ADL containers while unaffected arm performs opening/skilled/fine motor aspects of task documented as of this encounter Procedures Procedure Name Priority Date/Time Associated Diagnosis Comments CR ORBIT MIN 4 VIEWS Routine 12/31/2023 5:08 PM EDT documented in this encounter Results * CR ORBIT MIN 4 VIEWS (12/31/2023 5:08 PM EDT) Anatomical Region Laterality Modality Ultrasound 12/31/2023 12:0 7 PM EDT Narrative 12/31/2023 5:08 PM EDT [facility] Diagnostic Imaging Department [address] [place] [id number] Patient: JANICE BURT D.O.B./Age/Sex: 1960 - 63 - F Unit#: [id number] Location/Status: SPDIGEN/REG CLI Mnemonic/Ordering Site: ORBITS/SPDI Ordering Physician: VIOLA KEITH CR Orbit Min 4 Views - 12/31/23 - 4830 Report Status:Signed History: Facial trauma (fall). Orbital contusions. Comparison: 06/20/11 Findings: AP, Pringle and oblique views of both orbits. No fracture of the bony orbits is identified. The paranasal sinuses are clear. The mastoids are well-pneumatized. Impression: No orbital fracture is identified. Recommend maxillofacial CT for further evaluation if there is clinical concern for facial/orbital fracture. Dictating Physician: ELSY OTERO MD Electronically Signed by: ELSY OTERO MD Dic Date/Time: 12/31/231705 Sign date/Time: 12/31/231707 Procedure Note Elsy Otero MD - 01/03/2024 [facility] Diagnostic Imaging Department [address] [place] [phone] Patient: JANICE BURT./Age/Sex: 1960 - 63 - F Unit#: [id number] Location/Status: SPDIGEN/REG CLI Mnemonic/Ordering Site: ORBITS/SPDI Ordering Physician: VIOLA KEITH CR Orbit Min 4 Views - 12/31/23 - 1226 Report Status:Signed History: Facial trauma (fall). Orbital contusions. Comparison: 06/20/11 Findings: AP, Pringle and oblique views of both orbits. No fracture of the bony orbits is identified. The paranasal sinuses areclear. The mastoids are well-pneumatized. Impression: No orbital fracture is identified. Recommend maxillofacial CT for further evaluation if there is clinicalconcern for facial/orbital fracture. Dictating Physician: ELSY OTERO MD Electronically Signed by: ELSY OTERO MD Dic Date/Time: 12/31/231705 Sign date/Time: 10/30/24 1708 us Viola Keith MD [facility] PROCEDURES Final Resul t documented in this encounter Visit Diagnoses Not on filedocumented in this encounter Additional Health Concerns Infection Onset Date Last Indicated Resolved Time Respiratory Rule-Out 06/07/2024 06/07/2024 025 2:32 AM EDT COVID-19 Rule-Out 06/07/2024 06/07/2024 06/07/2024 2:32 AM EDT Enterovirus Comment:completed 06/07/2024 06/07/2024 06/16/2024 10:41 AM EDT Rhinovirus Comment:completed 06/07/2024 06/07/2024 06/16/2024 10:41 AM EDT Respiratory Rule-Out 06/21/2024 06/21/2024 025 1:44 PM EDT COVID-19 Rule-Out 06/21/2024 06/21/2024 06/21/2024 1:44 PM EDT Enterovirus Comment:Completed isolation period 06/21/2024 06/21/202406/28 10:07 AM EDT Rhinovirus Comment:Completed isolation period 06/21/2024 06/21/202406/28 10:07 AM EDT ESBL Comment:Klebsiella Oxytoca ESBL culture from the . 08/16/2024 09/10/2024 C. difficile Rule-Out 09/10/2024 09/10/20242024 1:29 PM EDT C. difficile 09/10/2024 09/10/2024 documented as of this encounter
[2024-10-01 09:01] VITALS: BP 120/74; PULSE 86; O2SAT 97
--- NOTE | 2024-10-01 09:01 | MHC.OFFVIS ---
Vital Signs 10/01/24 09:01 Height 4 ft 11 in BP 120/74 Blood Pressure Location Lt brachial Position Sitting Pulse 86 Pulse Source Pulse Oximeter Pulse Oximetry (%) 97 Oxygen Delivery Method Room Air Intake Visit Reasons: 6 mo follow up Intake Note: Patient presents follow up Migraine/Seizure medication. GI booked 11/15 Electric Train Driver Required: No Electric Train Driver Name: Son is interpreting Accompanied by: Son Allergies codeine Allergy (Severe, Verified 10/01/24 09:14) weird feeling through out body HPI Comments Details: The patient is a 63-year-old female presenting with chronic migraine and dizziness, however patient today notes that she suffered an interval stroke in June. Patient is accompanied by her son. Patient reports on 06/09/2024, her presenting symptoms of the stroke were elevated BP, she reports she had presented to [facility], and then due to long wait time, returned home. Upon returning home, her family noted that she had left facial droop and slurred speech, and as she just in the seen right, they called 911 and patient was brought to [facility] ER. Per ER notes, patient had left facial droop and right hemiparesis and speech difficulties upon presentation. Patient underwent stroke workup which was notable for an acute 2.2 cm infarct in the left paramedian anais. Stroke was managed medically-started on aspirin, Plavix, BP optimization, with plan for outpatient cardiac monitoring to assess for AFib in setting of cardiomyopathy.. On 06/11/2024, patient had exacerbation of right-sided weakness, however follow-up head CT did not reveal any new infarcts. Patient was discharged to [facility] for several weeks. Patient has since returned home with VNA services and PT. Since, patient had another [facility] hospitalization due to exacerbation of right foot wound. At [facility], patient was advised to undergo RLE amputation, however patient and family declined. Since, patient returned home with VNA nursing for wound care and PT. Patient's primary complaint today, is bothersome pulsating migraine a/w room spinning dizziness. Compliant w/ Emgality. Has been using Sumatriptan prn- which has been helpful. Patient states since the stroke, she can no longer tolerate cold on her head, but rather prefers warmth. Patient states her residual stroke symptoms include some difficulty w/ swallowing, right-sided weakness. She has starting to walk some at home with assist Notes right distal thumb and finger intact redness-they state they were told this is a pressure ulcer due to patient holding her right hand in flexion. Continues to have chronic right foot ulcer- has KENNAA, f/b Dr Blake podiatry at [place], and has been referred to wound clinic and [facility] vascular. She has had follow-up cardiology consult with Dr. Jovel at [facility], who recommended against an implanted ICD but rather recommended a 2-week ZIO monitor to assess for any atrial fibrillation Son notes, the patient has not had a refill of the aspirin or the atorvastatin in since discharge from rehab, as they need a follow-up appointment with the PCP before this would be filled. Also states that the oxcarbazepine was discontinued during the rehab stay. Image ?CT Angio Neck?06/09/2024 17:04 by Kg Valencia IMPRESSION: No proximal occlusion or high grade stenosis in the major arteries of the head and neck. ?CT Angio Head?06/09/2024 17:04 by Kg Valencia IMPRESSION: No proximal occlusion or high grade stenosis in the major arteries of the head and neck. ?MRI Brain W/O Contrast?06/11/2024 03:05 by Nikko Faye IMPRESSION: 1. Acute 2.2 cm infarct in the left paramedian anais. 2. Most focal T2 signal abnormality in the supratentorial white matter and anais is nonspecific though likely related to chronic microvascular ischemic change. Chronic lacunar infarcts are also seen in the bilateral basal ganglia and thalami. ?CT Head-Hyper Acute Stroke?06/11/2024 09:39 by Cristiane Henderson IMPRESSION: Subtle area of hypoattenuation in the left hemipons, corresponding to acute infarct, better appreciated on recent MRI. No new abnormality. No hydrocephalus. ?Echo Complete-Doppler, Colorflow, M-Mode?06/11/2024 13:53 by Renée GAMINO, Robel Daigle Summary The left ventricle is small. Left ventricular systolic function is vigorous. LVEF visually estimated at 70 to 75%. No significant LV regional wall motion abnormalities. *There is moderate asymmetric hypertrophy of the anteroseptum, 15 mm. There is severe hypertrophy of the inferoseptum, 17 mm. The papillary muscles are hypertrophied. There is mild systolic anterior motion of the anterior mitral valve leaflet. There is mild inducible mid cavity obstruction-mid cavity peak gradient at rest 20 mmHg. Mid cavity peak gradient with Valsalva is 34 mmHg. On a post PAC beat with compensatory pause, mid cavity peak gradient 45 mmHg. Indeterminate diastolic function. The right ventricle is normal in size and systolic function. Normal biatrial size. No significant valve dysfunction. Normal CVP and PASP estimate. Impressions Findings consistent with hypertrophic cardiomyopathy with mild, inducible mid cavity LV obstruction. 05/04/2024, previous HPI: Patient reports the initial injection of Emgality did not alleviate her symptoms- still has daily migraine, though behavioral improvements were observed by her daughter. Of note, patient did not take the full loading dose of Emgality of 240 mg, she only did 1 injection of 120 mg on 04/07/2024. She denies any adverse effects from the Emgality injection. She did not try the sumatriptan, daughter believes she accidentally threw it away and thought it was for something else. Ophthalmology exam is scheduled for later this week- for follow-up of recent MRI showing empty sella syndrome. Dizziness has persisted for two weeks, , particularly in the last 2 weeks. She did not start vestibular therapy- daughter was unaware she was supposed to do this. Nausea and anorexia are present, as well as frequent loose stools. The patient has difficulty consuming solid nutritious meals due to persistent nausea. She sometimes eats only once a day and reports that any intake often results in feelings of nausea. She reports known history of abdominal hernia- however she does not currently have a GI specialist. She is compliant with magnesium oxide every night. She denies any interval seizure activity. She has been compliant with her Keppra and oxcarbazepine therapy. 03/22/2024 HPI: 63-yr-old female presents for f/u visit to discuss recent brain MRI results. Patient is accompanied by her son. Patient comes to discuss results of brain MRI ordered by PCP office, following previously known fall with positive head strike. 02/21/2024, brain MRI W/WO: Impression: No acute intracranial findings. Moderate chronic microvascular ischemic changes. Small partially empty sella. 07/30/2019, at [facility], Brain MRI W/O: IMPRESSION: There are scattered nonspecific signal changes primarily involving the supratentorial white matter and anais. These findings presumably represent a chronic manifestation of small vessel ischemia. She is having daily right sided headache times the past month. This right-sided headache is a/w right eye vision changes-seeing colors/the world pressure, photophobia, phonophobia, high pitched ringing. This headache is worse during the day. The tinnitus is worse during the day as well. She is using Tylenol p.r.n. with some effect. She is having a lot of dizziness and feeling off balance. She can often feel forgetful. She denies pulsatile tinnitus. Her last eye exam was some time ago, states [facility] no longer accepts her insurance. Patient reports she has had some weight loss, as her Trulicity decreases her appetite so she does not eat much. 01/09/2024, previous HPI: Pt reports she had a fall 2 weeks ago. States she has overall not been feeling well d/t recurrent UTIs and a right foot infection, and thus often feels weak and deconditioned. On the morning of the fall, pt was walking out of ehr house to the car w/ her . She was eating an apple- had last eaten approx 5pm the evening before, which is typical for her). Then, all of a sudden pt fell forward- striking her face and more so left side of her body. She does not recall how she fell and, she just remembers sitting up feeling headcahe, nausea, unwell. She states this may ahve felt like she does after a seizure, but dtr does not believe pt had a full convulsive seizure epsiode. She went to [facility] ER, initial BP was elevated however, as pt was not feeling well, family brought her to an urgent care. Pt was dx'd w/ concussion. Since, pt has had a face XR at [facility] but have not received results yet. She does still have left periorbital and bilateral forehead tenderness to touch. She is still a bit sore. She describes a head sensation of lightheadedness. She states her last seizure like episode was a few months ago- not a full seizure but like one would come on. She is compliant w/ her Keppra dose but has not had her oxcarbazepine in some time- states the pharmacy has been confused about the dose. [facility] Medical History Diabetes Surgical History H/O knee surgery Hx of cholecystectomy H/O section H/O hernia repair Family History Mother Cancer Diabetes Osteoporosis Memory loss Social History Alcohol intake: never Patient Tobacco Use Status: Never used Tobacco Physical Exam Vital Signs: Last Vital Signs Pulse 86 10/01/24 09:01 BP 120/74 10/01/24 09:01 Pulse Ox 97 10/01/24 09:01 Oxygen Delivery Method Room Air 10/01/24 09:01 Const General: cooperative and no acute distress Orientation/consciousness: patient oriented x3 Resp Effort & Inspection: normal respiratory effort and able to speak in complete sentences Neuro Other: Right hemiparesis: Right hand decreased ability to flex and extend fingers against gravity, RUE 4+/5, RLE 5-/5 Right distal palm-erythematous, moist- c/w fungal infection Right distal fingers with patches of intact blanchable erythema. General: patient oriented x3 Cranial nerves: Yes CN's II-XII intact bilaterally Cognition (Neuro): normal cognition Deep tendon reflexes (DTR's): Right triceps reflex intensity grade: 3+, Left triceps reflex intensity grade: 2+, Rt Biceps (C5, C6): 3+, Left biceps reflex intensity grade: 2+, Right brachioradialis reflex intensity grade: 3+, Left brachioradialis reflex intensity grade: 2+, Right patellar reflex intensity grade: 3+ and Left patellar reflex intensity grade: 2+ Psych Appearance: grossly normal Mental Status: mental status grossly normal Speech and movement: Normal speech and movement present Affect: normal affect Attitude: cooperative Results Reviewed Results Reviewed: Patient lab results from [facility]: Assessment & Plan Assessment & Plan (1) Left pontine CVA: Code(s): I63.9 - Cerebral infarction, unspecified Category: Medical (2) Migraine with aura: Code(s): G43.109 - Migraine with aura, not intractable, without status migrainosus Category: Medical Qualifiers: Status migrainosus presence: without status migrainosus Intractability: not intractable Qualified Code(s): G43.109 - Migraine with aura, not intractable, without status migrainosus (3) Vision changes: Code(s): H53.9 - Unspecified visual disturbance Category: Medical (4) Empty sella syndrome: Code(s): E23.6 - Other disorders of pituitary gland Category: Medical (5) Vertigo: Code(s): R42 - Dizziness and giddiness Category: Medical (6) Seizures: Code(s): R56.9 - Unspecified convulsions Category: Medical Plan For left pontine stroke: Resume aspirin 81 mg daily at bedtime Resume atorvastatin 40 mg daily at bedtime Continue metoprolol and lisinopril per Cardiology. Follow-up with cardiology as scheduled for Rubeno monitor. Continue post stroke PT For right hand fungal infection: We will send order for nystatin powder to treat the palm of the right hand, and nystatin cream to treat the right fingers. For dizziness: Continue Zofran 4 mg every 6 hours as needed for nausea, not exceeding 3 doses daily. Continue meclizine 12.5 mg twice a day as needed for dizziness. For migraine with aura preventive treatment plan: Continue Emgality 120mg (120mg/ml autoinjector) subcutaneous injection every month. Continue metoprolol-ordered for HTN. Previous trials: Amitriptyline for several months: Not fully effective. For acute migraine with aura treatment: Discontinue Sumatriptan 100mg tab due to recent CVA. May continue OTC Tylenol 650-1,000mg every 4-6 hours as needed. Acute migraine treatment contraindications: All triptans and DHE due to CVA Future considerations: Ubrelvy or Nurtec, however not until patient is at least 6 months post CVA For seizure: Continue Keppra 500 mg b.i.d. Continue B6 50 mg b.i.d., this can reduce mood side effects from Keppra Resume Trileptal 300 mg b.i.d. Recent CBC and serum sodium level within normal limits. For empty sella syndrome: Monitor clinically May 2024 eye exam, no evidence of IIH. Follow-up eye exam as scheduled evaluation as ordered. Will follow-up upon review of above and patient to follow-up in clinic in 6 months or sooner prn. Medications: New gabapentin 1 cap in, 2 caps qhs, and 1 extra cap per day prn pain orally bedtime; 120 caps 6RF 30 days MDD 4 caps aspirin 81 mg PO BEDTIME 30 tabs 3RF 30 days atorvastatin (Lipitor) 40 mg PO BEDTIME 30 tabs 3RF 30 days nystatin 1 appl topical QID 60 grams 1RF 30 days B49 - Unspecified mycosis nystatin 1 appl topical BID 30 grams 1RF fungal infection of hand 30 days Refilled levetiracetam 500 mg PO BID 60 tabs 6RF Discontinued terbinafine HCl 1% Discontinued Reason: Doctor's Order 1 appl topical BID 14 days 30 grams 3RF B35.3 - Tinea pedis, E11.9 - Type 2 diabetes mellitus without complications gabapentin Discontinued Reason: Doctor's Order 600 mg PO BEDTIME 30 days 30 tabs 5RF sumatriptan succinate Discontinued Reason: Doctor's Order 100 mg orally at onset of headache, may repeat in 2 hrs PRN; max 2 tabs per day or 4 tabs/week (may take with Tylenol) 30 days 12 tabs 6RF migraine headache Coding Level of Care Code Est Pt Level 4 (58351) Diagnoses Left pontine CVA I63.9 Migraine with aura and without status migrainosus, not intractable G43.109 Status migrainosus presence: without status migrainosus Intractability: not intractable Vision changes H53.9 Empty sella syndrome E23.6 Vertigo R42 Seizures R56.9
--- OUTSIDE RECORDS SUMMARY | 2024-10-01 09:16 | XMS_ITS | Encounter Summary ---
Author Organization [employer] Address [address] [place] [address] Care Team Providers Care Branch Lending Manager Name Role Phone Ana Keith MD Primary Care Provider [phone] Reason for Visit * Reason Onset Date Comments Med Refill 03/19/2023 Encounter Details Date Type Department Care Team (Late st Contact Info) Description 03/19/2023 Telephone [facility] [address] [place] [address] Ana Keith MD [address] [place] [id number] Med Refill Social History Tobacco Use Types [...] 100 UNIT/ML pen To be sent to: [id number] [place], [place] - [address] documented in this encounter Plan of Treatment Upcoming Encounters Date Type Department Care Team (Late st Contact Info) Description 10/04/2024 9:30 AM EDT Office Visit [facility] [address] [place] [address] Siddharth Roa DDS [address] [place] [address] 10/08/2024 9:15 AM EDT Office Visit [facility] [address] [place], [place] [id number] Ana Keith MD [address] [place] [address] documented as of this encounter Visit Diagnoses Not on filedocumented in this encounter Care Teams Branch Lending Manager Relationship Specialty Start Date End Date Ana Keith MD [address] [place] [address] PCP - General Family Medicine 11/05/17 [facility] 09/16/24 documented as of this encounter
== END 2024-10-01 10:19 | disposition home or self-care (01) ==
LOC: HO.HSMS 09:00
PROVIDERS: PCP Pediatrics; Visit Provider Nurse Practitioner Family
DX: I69.398 Other sequelae of cerebral infarction (principal); G43.109 Migraine with aura, not intractable, without status migrainosus; H53.9 Unspecified visual disturbance; E23.6 Other disorders of pituitary gland; R42 Dizziness and giddiness; R56.9 Unspecified convulsions
CPT/HCPCS: 99214

== ENCOUNTER → 2024-10-01 08:59 | Outpatient (BNVA) | payer OTHER, SELFPAY | PROVIDERS: PCP Pediatrics; Visit Provider Nurse Practitioner Family | DX: R42 Dizziness and giddiness (principal); I63.9 Cerebral infarction, unspecified; G43.109 Migraine with aura, not intractable, without status migrainosus; E23.6 Other disorders of pituitary gland; R56.9 Unspecified convulsions | CPT/HCPCS: 99212 ==

== ENCOUNTER 2024-11-15 12:36 | Outpatient (AMB) | payer OTHER, SELFPAY ==
--- OUTSIDE RECORDS SUMMARY | 2023-12-31 12:01 | XMS_ITS | Encounter Summary ---
Author Organization [facility] Address [address] [place] [address] Care Team Providers Care Head Mva Reactor Operator Name Role Phone Unavailable Primary Care Provider Unavailabl e Encounter Details Date Type Department Care Team (Late st Contact Info) Description 12/31/2023 12:01 PM EDT Hospital Encounter TH HISTORIC ENCOUNTERS [facility] ONLY Viola Keith MD [address] [place] [phone] Social History Tobacco Use Types Packs/Day Years [...] PM EDT Narrative 12/31/2023 5:08 PM EDT [facility] Diagnostic Imaging Department [address] [place] [address] Patient: JANICE BURT D.O.B./Age/Sex: 1960 - 63 - F Unit#: [id number] Location/Status: SPDIGEN/REG CLI Mnemonic/Ordering Site: ORBITS/SPDI Ordering [...] Procedure Note Elsy Otero MD - 01/03/2024 [facility] Diagnostic Imaging Department [address] [place] [address] Patient: JANICE BURT./Age/Sex: 1960 - 63 - F Unit#: [id number] Location/Status: SPDIGEN/REG CLI Mnemonic/Ordering Site: ORBITS/SPDI Ordering [...]
--- NOTE | 2024-11-15 12:38 | A.OFFVIS_ITS ---
Vital Signs 11/15/24 12:42 Height 4 ft 11 in Weight 131 lb BMI 26.5 BP 121/74 Blood Pressure Location Lt brachial Position Sitting Intake Visit Reasons: Nausea - Anorexia Intake Note: Janice presents in the office as a new patient for nausea and anorexia. CC: diarrhea, nausea, states that she has some pains in her colon. Switchboard And Control Room Operator Required: Yes Switchboard And Control Room Operator Name: son Allergies codeine Allergy (Severe, Verified 11/15/24 12:42) weird feeling through out body HPI Comments Details: 63 y.o F with PMH of CVA, HTN, DM, empty sella syndrome who is here on behest of her neurologist. Pt reports decreased appetite and nausea ongoing since the stroke. Reports no difficulty swallowing. No unintentional weight loss. She does report increase in Trulicity dose around the same time. Pt also reports fluctuating diarrhea with constipation also ongoing x 6 months. No blood in stool. Reports hx of C Diff earlier this year after she was prolonged Abx for a foot infection. Completed PO vanc. Last colo was in 2018 or 2019, does not recall where it was done. Had polyps. [facility] Medical History Diabetes Surgical History Hx of colonoscopy H/O knee surgery Hx of cholecystectomy H/O section H/O hernia repair Family History Mother Cancer Diabetes Osteoporosis Memory loss Social History Alcohol intake: never Patient Tobacco Use Status: Never used Tobacco Review of Systems Const All systems reviewed & are unremarkable except as noted in HPI and below Physical Exam Exam Exam: No apparent distress Nonicteric Abdomen soft, nondistended Alert and oriented x3, normal gait Vital Signs: Last Vital Signs BP 121/74 11/15/24 12:42 BMI result Body Mass Index 26.5 Assessment & Plan Assessment & Plan (1) Nausea: Code(s): R11.0 - Nausea Category: Medical (2) Change in bowel habit: Code(s): R19.4 - Change in bowel habit Category: Medical (3) Anorexia: Code(s): R63.0 - Anorexia Category: Medical Plan Reports decreased appetite with nausea ongoing with change in bowel habits x months. Coincides with increase in dose of trulicity could potentially be 2/2 to med effect. Other ddx include IBD, PUD, gastritis, pt is s/p CCY. Plan: - Labs as below - EGD/colo to be booked. PEG prep + bisacodyl given. Pt aware to HOLD trulicity x 1 dose. - Pt also encouraged to review trulicity dosing with PCP Follow up after procedures Orders: Orders Comprehensive Met. Panel Today R19.4 - Change in bowel habit Calprotectin, Fecal Today R19.4 - Change in bowel habit TSH reflex Free T4 Today R19.4 - Change in bowel habit Immunoglobulin A Today R19.4 - Change in bowel habit Complete Blood Count no Diff Today R19.4 - Change in bowel habit Transglutaminase IgA Today R19.4 - Change in bowel habit Referrals GI Procedure Notification R11.0 - Nausea, R19.4 - Change in bowel habit Medications: New peg 3350-electrolytes 236-22.74-6.74 -5.86 gram (Golytely) as per split prep instructions, until fecal effluent is clear 240 mL PO Q10M 4,000 mL 0RF colonoscopy bisacodyl start 2 days before the colonoscopy 10 mg (2 x 5 mg) PO BID 8 tabs 0RF 2 days Coding Level of Care Code New Pt Level 4 (07542) Diagnoses Nausea R11.0 Change in bowel habit R19.4 Anorexia R63.0
[2024-11-15 12:42] VITALS: BP 121/74; BMI 26.5
--- OUTSIDE RECORDS SUMMARY | 2024-11-15 14:45 | XMS_ITS | Encounter Summary ---
Author Organization [employer] Address [address] [place] [address] [address] [address] Care Team Providers Care Campus Manager Name Role Phone Ana Keith MD Primary Care Provider [phone] Reason for Referral * Imaging (Routine) - Pending Review Specialty Diagnoses / Procedures Referred By Contac t Referred To Contact Radiology Diagnoses Vaginal bleeding Procedures US Pelvis Transvaginal Cuca Sousa MD [address] [place] [address] Phone: tel: fax: [address] Phone: tel: fax: Referral ID Status Reason Start Date Expiration Date V isits Requested Visits Authorized [id number] Pending Review 11/15/2024 11/15/2025 1 1 * Consultation (Urgent) - Pending Review Specialty Diagnoses / Procedures Referred By Contac t Referred To Contact Obstetrics and Gynecology Diagnoses Vaginal bleeding Cuca Sousa MD [address] [place] [address] Phone: tel: fax: Referral ID Status Reason Start Date Expiration Date Visits Requested Visits Authorized [id number] Pending Review Specialty Services Required 11/15/2024 11/15/2025 1 1 Reason for Visit * Reason Comments Vaginal Bleeding Encounter Details Date Type Department Care Team ([facility] st Contact Info) Description 11/15/2024 2:45 PM EDT Office Visit [facility] PEDS [address] [place] [address] Cuca Sousa MD [address] [place] [address] Vaginal bleeding (Primary Dx) Social History Tobacco Use Types Packs/Day Years Used Date Smoking Tobacco: Never Passive Smoke Exposure: Never Smokeless Tobacco: Never Alcohol Use Standard Drinks/Week Comments Never 0 (1 standard drink = 0.6 oz pur e alcohol) Alcohol Answer Date Recorded Frequency of Alcohol [...] AM EDT documented as of this encounter Last Filed Vital Signs Vital Sign Reading Time Taken Comments Blood Pressure 135/87 11/15/2024 2:48 PM EDT Pulse 94 11/15/2024 2:48 PM EDT Temperature - - Respiratory Rate 20 11/15/2024 2:48 PM EDT Oxygen Saturation 97% 11/15/2024 2:48 PM EDT Inhaled Oxygen Concentration - - Weight 59.4 kg (131 lb) 11/15/2024 2:48 PM EDT Height 149.9 cm (4' 11 ) 11/15/2024 2:48 PM EDT Body Mass Index 26.46 11/15/2024 2:48 PM EDT documented in this encounter Progress Notes * Cuca Sousa MD - 11/15/2024 2:45 PM EDT SUBJECTIVE Janice Burt is a 63 y.o. female who presents for Vaginal Bleeding. Vaginal Bleeding The patient's primary symptoms include vaginal bleeding. This is a new problem. The current episodestarted today. The problem occurs daily. The problem has been unchanged. The patient is experiencing no pain. Pertinent negatives include no abdominal pain, anorexia, back pain, chills, constipation,diarrhea, discolored urine, dysuria, fever, flank pain, frequency, headaches, hematuria, joint pain, joint swelling, nausea, painful intercourse, rash, sore throat, urgency or vomiting. The vaginal discharge was bloody. The vaginal bleeding is cutter operator tile than menses. She has not been passing clots. She has not been passing tissue. Nothing aggravates the symptoms. She has tried nothing for the symptoms. She is not sexually active. Problem List[1] Allergies[2] Medications Ordered Prior to Encounter[3] Review of Systems Constitutional: Negative for chills and fever. HENT: Negative for sore throat. Gastrointestinal: Negative for abdominal pain, anorexia, constipation, diarrhea, nausea and vomiting. Genitourinary: Positive for vaginal bleeding. Negative for dysuria, flank pain, frequency, hematuria and urgency. Musculoskeletal: Negative for back pain and joint pain. Skin: Negative for rash. Neurological: Negative for headaches. OBJECTIVE Vitals: 11/15/24 1448 BP: 135/87 BP Location: Left arm Patient Position: Sitting BP Cuff Size: Adult Pulse: 94 Resp: 20 SpO2: 97% Weight: 131 lb (59.4 kg) Height: 4' 11 (1.499 m) Physical Exam Constitutional: General: She is not in acute distress. Appearance: Normal appearance. She is not ill-appearing, toxic-appearing or diaphoretic. Cardiovascular: Rate and Rhythm: Normal rate. Pulmonary: Effort: Pulmonary effort is normal. Abdominal: General: There is no distension. Palpations: Abdomen is soft. There is no mass. Tenderness: There is no abdominal tenderness. Hernia: No hernia is present. Neurological: Mental Status: She is alert. Assessment/Plan Assessment/Plan Diagnoses and all orders for this visit: Vaginal bleeding - Referral to Obstetrics / Gynecology; Future - US Pelvis Transvaginal; Future Normal exam No urinary complaint. Pt needs an urgent referral to consider an endometrial biopsy. [1] Patient Active Problem List Diagnosis Benign essential hypertension Type 2 diabetes mellitus without complication, without long-term current use of insulin (CMS/HCC) Chronic pain syndrome HTN (hypertension) Mild intermittent asthma Primary insomnia Vitamin D deficiency Diverticulosis Recurrent UTI Tinea pedis of both feet Hypertrophic cardiomyopathy (CMS/HCC) Stroke (CMS/HCC) Anxiety Chest pain Class 1 obesity with body mass index (BMI) of 30.0 to 30.9 in adult Class 1 obesity Diabetic foot infection (CMS/HCC) Diastasis recti Dry skin Incisional hernia with obstruction but no gangrene Migraine headache Nephrolithiasis Nonalcoholic steatohepatitis (SLOAN) Pressure injury of left foot, stage 3 (CMS/HCC) Seasonal allergic rhinitis Ulcer of toe of right foot, with necrosis of muscle (CMS/HCC) Uncomplicated asthma Vulvovaginitis Well controlled intermittent asthma Severe dental caries Missing teeth, acquired Periodontal disease [2] Allergies Allergen Reactions Codeine Hives Other reaction(s): Hives/Skin Rash Sumatriptan Other reaction(s): chest pain [3] Current Outpatient Medications on File Prior to Visit Medication Sig Dispense Refill acetaminophen (Tylenol 8 Hour) 650 MG ER tablet Take 1 tablet (650 mg) by mouth every 6 (six) hoursduring the day. 60 tablet 3 Admelog SoloStar 100 UNIT/ML injection Alcohol Swabs (B-D SINGLE USE SWABS REGULAR) pads USE THREE TIMES DAILY 100 each 11 aspirin 81 MG chewable tablet Chew 1 tablet at bedtime. atorvastatin (Lipitor) 40 MG tablet Take 1 tablet by mouth at bedtime. Blood Glucose Monitoring Suppl (Blood Glucose Monitor System) w/Device kit 1 kit 4 times daily. 1 kit 0 Blood Pressure kit 1 kit Once per day. 1 kit 0 busPIRone (Buspar) 10 MG tablet Take 1 tablet by mouth 2 times daily. clonazePAM (KlonoPIN) 0.5 MG tablet Take 1 tablet by mouth if needed in the morning and at bedtime for anxiety. Continuous Glucose Monitor Sup misc 1 kit 4 times daily. 2 kit 0 cyanocobalamin (Vitamin B-12) 100 MCG tablet TAKE 1 TABLET BY MOUTH EVERY MORNING 30 tablet 3 Diclofenac Sodium 1 % gel Apply bid to affected area 100 g 3 docusate sodium (Colace) 100 MG capsule Take 1 capsule by mouth if needed at bedtime. Dulaglutide (Trulicity) 1.5 MG/0.5ML solution auto-injector Inject 1.5 mg under the skin 1 (one) time per week. 0.5 mL 11 DULoxetine (Cymbalta) [address] capsule Take 1 capsule by mouth 2 times daily. Emgality 120 MG/ML auto-injector Inject 120 mg under the skin every 30 (thirty) days. estradiol (Estrace) 0.1 MG/GM vaginal cream 1g vaginally x 14d, then continue to use twice weekly thereafter 42.5 g 2 FreeStyle lancets TEST BLOOD SUGAR FIVE TIMES DAILY gabapentin (Neurontin) 300 MG capsule Take 1 cap in the am , 2 caps at bedtime, and 1 extra cap perday as needed for pain at bedtime glucose blood (OneTouch Ultra Test) test strip USE 1 FIVE TIMES A DAY 450 strip 5 insulin glargine (Lantus SoloStar) 100 UNIT/ML pen Inject 37 Units under the skin at bedtime. 12 mL2 levETIRAcetam (Keppra) 500 MG tablet Take 1 tablet by mouth 2 times daily. lidocaine (Lidoderm) 5 % patch APPLY 1 PATCH TOPICALLY TO THE SKIN EVERY DAY. MAY WEAR UP TO 12 HOURS. NEEDED 30 patch 11 loratadine (Claritin) 10 MG tablet Take 1 tablet (10 mg) by mouth Once per day. 30 tablet 11 magnesium oxide (Mag-Ox) 400 (240 Mg) MG tablet TAKE 1 TABLET BY MOUTH AT BEDTIME 30 tablet 3 metoprolol succinate XL (Toprol-XL) 25 MG 24 hr tablet Take 1 tablet by mouth Once per day. Misc. Devices (Pulse Oximeter) misc Use prn to check oxygen level 1 each 0 nystatin (Mycostatin) 640631 UNIT/GM powder Apply topically 4 times daily. nystatin (Mycostatin) cream Apply topically 2 times daily. OXcarbazepine (Trileptal) 300 MG tablet Take 1 tablet by mouth 2 times daily. pen needle 32G x 4 mm misc Use as instructed 100 each 3 pyridoxine (Vitamin B-6) 50 MG tablet Take 1 tablet (50 mg) by mouth 2 times daily. 90 tablet 1 triamcinolone (Kenalog) 0.1 % cream Apply topically if needed in the morning and at bedtime (pain and swelling). 30 g 2 Ventolin HFA 108 (90 Base) MCG/ACT inhaler INHALE 2 PUFFS BY MOUTH EVERY 6 HOURS NEEDED FOR WHEEZING 18 g 2 zolpidem (Ambien) 10 MG tablet Take 10 mg by mouth at bedtime. [DISCONTINUED] albuterol 108 (90 Base) MCG/ACT inhaler INHALE 2 PUFFS BY MOUTH EVERY 6 HOURS NEEDED FOR WHEEZING 18 g 2 No current facility-administered medications on file prior to visit. documented in this encounter Plan of Treatment Upcoming Encounters Date Type Department Care Team (Late st Contact Info) Description 12/02/2024 9:00 AM EDT Office Visit [facility] ADULT DENTAL [address] [place] [address] Siddharth Roa DDS [address] [place] [address] Scheduled Orders Name Type Priority Associated Diagnoses Orde r Schedule US Pelvis Transvaginal Imaging Routine Vaginal bleeding Expected: 11/15/2024, Expires: 11/15/2025 Scheduled Referrals Name Type Priority Associated Diagnoses Order Schedule Referral to Obstetrics / Gynecology Outpatient Referral Urgent Vaginal bleeding Expected: 11/15/2024 (Approximate), Expires: 11/15/2025 documented as of this encounter Visit Diagnoses Diagnosis Vaginal bleeding- Primary Other specified noninflammatory disorder of vagina documented in this encounter Additional Health Concerns Assessment Noted Time PHQ-9 Depression Total Score: 17 024 11:10 AM EDT documented as of this encounter Care Teams Campus Manager Relationship Specialty Start Date End Date Ana Keith MD [address] [place] [phone] PCP - General Family Medicine 11/05/17 [facility] 09/16/24 documented as of this encounter
--- OUTSIDE RECORDS SUMMARY | 2024-11-15 17:18 | XMS_ITS | Encounter Summary ---
Author Organization [employer] Address [address] [facility] [address] [place] [address] Care Team Providers Care Appliance Tester Name Role Phone Ana Keith MD Primary Care Provider [phone] Encounter Details Date Type Department Care Team (Late st Contact Info) Description 11/15/2024 Orders Only GENERIC EXTERNAL DATA DEPARTMENT Provider, Generic External Data Social History Tobacco Use Types Packs/Day Years [...] Description 12/02/2024 9:00 AM EDT Office Visit [facility] ADULT D[facility] [address] [place] [address] Siddharth Roa, DDS [address] [place] [address] documented as of this encounter Procedures Procedure Name Priority Date/Time Associated Diagnosis Comments TSH W/REFLEX TO FT4 Routine 11/15/2024 1 :34 PM EDT CBC Routine 11/15/2024 1:34 PM EDT COMPREHENSIVE METABOLIC PANEL Routine 11/15/2024 1:34 PM EDT documented in this encounter Results * TSH with Reflex to Free T4 (11/15/2024 1:34 PM EDT) TSH reflex Free T4 1.34 0.32 - 4.0 uIU/mL [facility] 11/15/2024 1:34 PM EDT 11/15/2024 1:34 PM EDT us Generic External Data Provider LAB BLOOD ORDERAB LES Final Result [facility] [address] [place] [address] [phone] * (ABNORMAL) Comprehensive Metabolic Panel (11/15/2024 1:34 PM EDT) Sodium 143 135 - 145 mmol/L [facility] Potassium 4.2 3.3 - 5.1 mmol/L [facility] Chloride 102 96 - 108 mmol/L [facility] Carbon Dioxide 33(H) 22 - 29 mmol/L [facility] Anion Gap 12 12 - 20 [facility] Urea Nitrogen (BUN) 8(L) 9 - 16 mg/dL [facility] Creatinine, Serum 0.59 0.5 - 1.4 mg/dL [facility] Estimated Glomerular Filt Rate >60 [facility] Comment:Chronic Kidney Disea se: Estimated GFR < 60 mL/min/[id number] Kidney Disease: Estimated GFR < 15 mL/min/1.73m2 Glucose 90 60 - 115 mg/dL [facility] Calcium 10.3(H) 8.4 - 10.2 mg/dL [facility] Bilirubin, Total 0.3 0.0 - 1.0 mg/dL [facility] Aspartate Amino Transferase 25 5 - 31 U/L [facility] Alanine Aminotransferase 23 0 - 31 U/L [facility] Total Protein 8.8(H) 6.5 - 8.0 g/dL [facility] Albumin Level 4.5 3.5 - 5.0 g/dL [facility] Alkaline Phosphatase 80 39 - 117 U/L [facility] 11/15/2024 1:34 PM EDT 11/15/2024 1:34 PM EDT us Generic External Data Provider LAB BLOOD ORDERAB LES Final Result Performing Organization Address [facility]/ZIP Co de Phone Number [facility] [address] [place] [address] [phone] * (ABNORMAL) CBC (11/15/2024 1:34 PM EDT) White Blood Count 8.9 4.8 - 10.8 X10*3/uL [facility] Red Blood Count 4.63 4.20 - 5.50 X10*6/uL [facility] Hemoglobin 14.8 12.0 - 16.0 g/dl [facility] Hematocrit 41.9 37.0 - 47.0 % [facility] Mean Corpuscular Volume 90.5 80.0 - 98.0 fL [facility] Mean Corpuscular Hemoglobin 32.0 27.0 - 33.0 pg [facility] Mean Corpuscular HGB Conc 35.3(H) 31.0 - 35.0 g/dl [facility] Red Cell Distribution Width 12.8 11.0 - 16.0 % [facility] Platelet Count 355 160 - 400 X10*3/uL [facility] Mean Platelet Volume 9.0(L) 9.4 - 12.3 fL [facility] NRBC Pct Auto 0.0 0.0 - 0.2 /100WBC [facility] NRBC Abs Auto 0.000 0.0 - 0.012 X10*3/uL [facility] 11/15/2024 1:34 PM EDT 11/15/2024 1:34 PM EDT us Generic External Data Provider LAB BLOOD ORDERAB LES Final Result [facility] [address] [place] [address] [phone] documented in this encounter Visit Diagnoses Not on filedocumented in this encounter Additional Health Concerns Assessment Noted Time PHQ-9 Depression Total Score: 17 024 11:10 AM EDT documented as of this encounter Care Teams Appliance Tester Relationship Specialty Start Date End Date Ana Keith MD [address] [place] [phone] PCP - General Family Medicine 11/05/17 [facility] 09/16/24 documented as of this encounter
--- OUTSIDE RECORDS SUMMARY | 2024-11-15 17:18 | XMS_ITS | Clinical Summary ---
Author Organization 175 [facility] Address [address] [place] [address] Phone Care Team Providers Care Partner Marketing Intern Name Role Phone Viola Rhodes MD Primary Care Provider [phone] Allergies Active Allergy Reactions Criticality Noted Date Comments Codeine 02/11/2020 Medications SUMAtriptan (IMITREX) 100 mg tablet Take 1 tablet (100 mg total) by mouth 1 (one) time each day if needed for migraine. May repeat dose once in 2 hours if no relief. Do not exceed 2 doses in 24 hours. Active atorvastatin (LIPITOR) 40 mg tablet Take 1 tablet (40 mg total) by mouth at bedtime. 30 each 5 Active gabapentin (NEURONTIN) 100 mg capsule Take 1 capsule (100 mg total) by mouth at bedtime. 30 each 5 Active levETIRAcetam (KEPPRA) 500 mg tablet Take 1 tablet (500 mg total) by mouth 2 (two) times a day. 60 each 5 Active loratadine (CLARITIN) 10 mg tablet Take 1 tablet (10 mg total) by mouth 1 (one) time each day. 30 each 5 Active Additional Information Patient taking differently:10 mg oralDaily PRN, allergies, Reported on 09/09/2024 metoprolol succinate (TOPROL-XL) 25 mg 24 hr tablet Take 1 tablet (25 mg total) by mouth 1 (one) time each day. Do not crush or chew. 30 each 5 Active insulin glargine (LANTUS) 100 unit/mL injectionIndica tions:type 2 diabetes mellitus Inject 37 Units under the skin at bedtime. 5 Active Admelog U-100 insulin lispro 100 unit/mL injectionIndica tions:type 2 diabetes mellitus Inject 2-12 Units under the skin 4 (four) times a day (before meals and nightly). -Administer within 15 minutes of a meal 10 mL 12 5 07/09/19 26 Active Admelog U-100 insulin lispro 100 unit/mL injectionIndica tions:type 2 diabetes mellitus Inject 10 Units under the skin 1 (one) time each day before dinner. -Administer within 15 minutes of a meal 5 Active Admelog U-100 insulin lispro 100 unit/mL injectionIndica tions:type 2 diabetes mellitus Inject 5 Units under the skin 2 (two) times daily after breakfast and lunch. -Administer within 15 minutes of a meal 5 Active acetaminophen (TYLENOL 8 HOUR) 650 mg 8 hr tablet Take 1 tablet (650 mg total) by mouth every 8 (eight) hours if needed. Active busPIRone (BUSPAR) 10 mg tablet Take 1 tablet (10 mg total) by mouth 2 (two) times a day. Active clonazePAM (KlonoPIN) 0.5 mg tablet Take 1 tablet (0.5 mg total) by mouth 2 (two) times a day if needed. for anxiety Max Daily Amount: 1 mg Active Trulicity 1.5 mg/0.5 mL pen injector injection Inject 0.5 mL (1.5 mg total) under the skin 1 (one) time per week. TAKE ON FRIDAY Active DULoxetine (CYMBALTA) [address] capsule Take 1 capsule (60 mg total) by mouth 2 (two) times a day. Active Emgality Pen 120 mg/mL injection pen Inject 1 mL (120 mg total) under the skin every 28 (twenty-eight) days. Active omeprazole (PriLOSEC) [address] capsule Take 1 capsule (20 mg total) by mouth 1 (one) time each day. Active pyridoxine (B-6) 50 mg tablet Take 1 tablet (50 mg total) by mouth 2 (two) times a day. Active zolpidem (AMBIEN) 10 mg tablet Take 1 tablet (10 mg total) by mouth at bedtime. at bedtime. Max Daily Amount: 10 mg Active Active Problems Problem Noted Date Diagnosed Date Diabetic foot infection ([facility] V24, [facility] V2 8) 09/14/2024 Pressure injury of left foot , stage 3 ([facility] V24, [facility] V28) 09/09/2024 Ulcer of toe of right foot, with necrosis of muscle ([facility] V24, [facility] V28) 09/09/2024 Stroke ([facility] V24, [facility] V28) 06/15/2024 Chest pain 06/06/2024 Class 1 obesity with body ma ss index (BMI) of 30.0 to 30.9 in adult 02/03/2024 Diastasis recti 04/10/2020 Incisional hernia with obstruction but no gangre ne 04/10/2020 Nephrolithiasis 04/10/2020 Nonalcoholic steatohepatitis (SLOAN) 04/10/2020 Type 2 diabetes mellitus wit hout complication, without long-term current use of insulin ([facility] V24, [facility] V28) 04/10/2020 Uncomplicated asthma 04/10/2020 Encounters Date Type Department Care Team Description 10/06/2024 11:00 AM EDT Treatment [facility] Occupational Therapy [address] [place] [phone] Boni Mckeon COTA/Sandra Cerebrovascular accident (CVA) due to other mechanism ([facility] V24, [facility] V28) (Primary Dx) 10/06/2024 10:15 AM EDT Treatment [facility] Outpatient Rehabilitation [facility] [address] [phone] Tanmay Carlton, PT Cerebrovascular accident (CVA) due to other mechanism ([facility] V24, [facility] V28) (Primary Dx) 09/27/2024 10:15 AM EDT Treatment [facility] [address] [phone] Tom Antony PTA Cerebrovascular accident (CVA) due to other mechanism ([facility] V24, [facility] V28) (Primary Dx) 09/20/2024 11:00 AM EDT Treatment [facility] Occupational Therapy [address] [phone] Nell Warren, OT Cerebrovascular accident (CVA) due to other mechanism ([facility] V24, [facility] V28) (Primary Dx) 09/20/2024 10:15 AM EDT Treatment [address] [phone] Tanmay Carlton, PT Cerebrovascular accident (CVA) due to other mechanism ([facility] V24, [facility] V28) (Primary Dx) 09/10/2024 3:00 PM EDT - 09/10/2024 4:00 PM EDT Surgery [address] [phone] Filiberto Silva DPM DEBRIDEMENT WOUND [80060 (CPT )] 09/10/2024 2:14 PM EDT Anesthesia Event [address] [phone] Hiro Malcolm MD 09/09/2024 12:19 PM EDT - 09/14/2024 5:49 PM EDT Hospital Encounter [facility]rology Unit [address] [place] [phone] Stella Rollins DO Flores, Carlos M, MD Kokosadze, Estate, MD Zipagan, James T, MD Diabetic foot infection ([facility] V24, [facility] V28) (Primary Dx); Gangrene of left foot ([facility] V24, [facility] V28); Ulcer of toe of right foot, with necrosis of muscle (CMS/HCC V24, [facility] V28); Pressure injury of left foot, stage 3 (CMS/HCC V24, CMS/HCC V28) Discharge Disposition: Home-Health Care [facility] 09/09/2024 Telephone [facility] [phone] [phone] Filiberto Silva DPM 09/06/2024 3:50 PM EDT Office Visit Orthopedic [facility] [address] [phone] Filiberto Silva, DPM Cellulitis of right foot (Primary Dx); Ulcer of toe of right foot, with fat layer exposed (CMS/HCC V24, CMS/HCC V28); Gangrene (CMS/HCC V24, CMS/HCC V28); Follow-up exam 09/02/2024 11:30 AM EDT Treatment [facility] [address] [phone] Tatianna Carreon, E [employer] Aphasia (Primary Dx); Cerebrovascular accident (CVA) due to other mechanism (CMS/HCC V24, CMS/HCC V28) 09/01/2024 1:15 PM EDT Treatment [facility] [address] [phone] Boni Mckeon, TUTTLE/L Cerebrovascular accident (CVA) due to other mechanism (CMS/HCC V24, CMS/HCC V28) (Primary Dx); Ulcer of toe of right foot, with fat layer exposed ([facility] V24, [facility] V28) 08/26/2024 Telephone [facility] [address] [phone] Nell Warren OT 08/19/2024 1:00 PM EDT Treatment [facility] [address] [phone] Boni Mckeon, TUTTLE/L Cerebrovascular accident (CVA) due to other mechanism (CMS/HCC V24, CMS/HCC V28) (Primary Dx) 08/16/2024 9:45 AM EDT Office Visit [facility] [place] [address] [place] [phone] Filiberto Silva, DPM Ulcer of toe of right foot, with fat layer exposed ([facility] V24, [facility] V28) (Primary Dx); Cellulitis of right foot from Last 3 Months Surgical History Surgery Date Site/Laterality Comments HERNIA REPAIR x2 Medical History Medical History Date Comments Hypertension Diabetes mellitus ([facility] V24, [facility] V28) Migraines Hyperlipidemia CVA (cerebral vascular accident) ([facility] V24, [facility] V28) Insomnia Asthma Seizure disorder ([facility] V24, [facility] V28) Fibromyalgia Arthritis Family History Medical History Relation Name Comments Diabetes Other Hyperlipidemia Other Hypertension Other Relation Name Status Comments Other Social History Tobacco Use Types Packs/Day Years [...] Orientation Straight 06/15/2024 12 :42 PM EDT Obstetrics History Last Filed Vital Signs Vital Sign Reading Time Taken Comments Blood Pressure 154/83 09/14/2024 3:50 PM EDT Pulse 92 09/14/2024 3:50 PM EDT Temperature 37 C (98.6 F) 09/14/2024 3:50 PM EDT Respiratory Rate 16 09/14/2024 3:50 PM EDT Oxygen Saturation 95% 09/14/2024 7:26 AM EDT Inhaled Oxygen Concentration - - Weight 68 kg (150 lb) 09/09/2024 12:00 PM EDT Height 149 cm (4' 10.66 ) 09/09/2024 12:00 PM ED T Body Mass Index 30.65 09/09/2024 12:00 PM EDT Plan of Treatment Health Maintenance Due Date Last Done Comments Diabetes: Annual Retina Eye Exam 1968 Pneumococcal Vaccine: 50+ Years (1 of 2 - PCV) 1977 Cervical Cancer Screening: Pap Smear 12/24/1979 RSV Immunization Adult Patients (1 - Risk 60-74 years 1-dose series) 2018 Hepatitis B Vaccines (3 of 3 - 19+ 3-dose series) 01/08/2019 08/20/2018, 07/08/2018 Colorectal Cancer Screening: Colonoscopy 02/03/2022 Hepatitis C Screening 02/03/2022 Medicare Annual Wellness Visit 02/03/2022 Diabetes: Annual Urine Albumin-Creatinine Ratio (uACR) 02/15/2022 01/10/1998 Breast Cancer Screening 04/18/2023 04/18/2021, 03/19 COVID-19 Vaccine ( season) 2024 01/12/2021, 06/08/2020, 05/10/2020 Influenza Vaccine (#1) 2024 , 04/16/2023, 11/21/2021, Additional history exists Diabetes: Blood Sugar Control Test (HGBA1C) 01/16/2025 07/16/2024, 06/06/2024, 12/31/2023 Social Influencers of Health Screening 07/08/2025 07/08/2024 Diabetes: Annual Foot Exam 09/09/2025 09/09/2024 Diabetes: Annual GFR (Glomerular Filtration Rate) 09/13/2025 09/13/2024, 09/11/2024, 09/10/2024, Additional history exists Hypertension/CHF/CAD Annual BMP Blood Test 09/13/2025 09/13/2024, 09/11/2024, 09/10/2024, Additional history exists Falls Risk Assessment 09/14/2025 09/14/2024 DTaP,Tdap,and Td Vaccines (2 - Td or Tdap) 09/11/2026 09/11/2016 Cholesterol Screening (Lipid Panel) 06/07/2029 06/07/2024, 02/28/2021 Osteoporosis Screening (Bone Density Screening) 04/18/2031 04/18/2021 Zoster Vaccines Completed 04/29/2019, 12/07/2018 Depression Screening Completed 07/08/2024 HIB Vaccines Aged Out No longer eligi [...] age to complete this topic Meningococcal B Vaccine Aged Out No l onger eligible based on patient's age to complete this topic RSV Immunization Patients Under 20 months Aged Out No longer eligible based on patient's age to complete this topic Varicella Vaccines Aged Out No longer eligible based on patient's age to complete this topic Goals Goal Patient Goal Type Associated Problems [...] General On track( 025 2:06 PM EDT) No Nell Warren, OT Note: Pt/family return demo approp HEP (therex, positioining, review of AE/DME needs consistent w/fcnl level at DC) RUE FUEL Level 4 (active stablizer), pt will be able to indep place RUE in stablizing position on larger handles/ADL containers while unaffected arm performs opening/skilled/fine motor aspects of task Procedures Procedure Name Priority Date/Time Associated Diagnosis Comments POCT GLUCOSE BLOOD Routine 09/14/2024 5: 07 PM EDT POCT GLUCOSE BLOOD Routine 09/14/2024 11 :08 AM EDT POCT GLUCOSE BLOOD Routine 09/14/2024 7: 32 AM EDT POCT GLUCOSE BLOOD Routine 09/13/2024 8: 19 PM EDT POCT GLUCOSE BLOOD Routine 09/13/2024 3: 54 PM EDT ECG 12-LEAD Routine 09/13/2024 2:30 PM EDT POCT GLUCOSE BLOOD Routine 09/13/2024 11 :16 AM EDT POCT GLUCOSE BLOOD Routine 09/13/2024 7: 53 AM EDT MAGNESIUM Routine 09/13/2024 6:12 AM EDT BASIC METABOLIC PANEL Routine 09/13/2024 6:12 AM EDT LAVENDER - EDTA Routine 09/13/2024 6:09 AM EDT EXTRA TUBES Routine 09/13/2024 6:09 AM EDT POCT GLUCOSE BLOOD Routine 09/12/2024 3: 56 PM EDT POCT GLUCOSE BLOOD Routine 09/12/2024 11 :33 AM EDT POCT GLUCOSE BLOOD Routine 09/12/2024 7: 49 AM EDT POCT GLUCOSE BLOOD Routine 09/11/2024 8: 18 PM EDT POCT GLUCOSE BLOOD Routine 09/11/2024 4: 53 PM EDT POCT GLUCOSE BLOOD Routine 09/11/2024 11 :38 AM EDT POCT GLUCOSE BLOOD Routine 09/11/2024 8: 32 AM EDT CBC WITH AUTO DIFFERENTIAL Routine 09/11/2024 5:21 AM EDT CBC AND DIFFERENTIAL Routine 09/11/2024 5:21 AM EDT BASIC METABOLIC PANEL Routine 09/11/2024 5:20 AM EDT POCT GLUCOSE BLOOD Routine 09/10/2024 9: 00 PM EDT POCT GLUCOSE BLOOD Routine 09/10/2024 3: 00 PM EDT OXYGEN THERAPY, ADULT Routine 09/10/2024 2:54 PM EDT TISSUE EXAM Routine 09/10/2024 2:45 PM EDT Ulcer of toe of right foot, with necrosis of muscle (CMS/HCC V24, CMS/HCC V28) CULTURE WOUND DEEP Routine 09/10/2024 2: 44 PM EDT Ulcer of toe of right foot, with necrosis of muscle (CMS/HCC V24, CMS/HCC V28) AR DEBRIDEMENT MUSCLE/FASCIA <= 20 SQ CM 09/10/2024 2:13 PM EDT Ulcer of toe of right foot, with necrosis of muscle (CMS/HCC V24, CMS/HCC V28) CLOSTRIDIUM DIFFICILE PCR Routine 09/10/2024 12:40 PM EDT CLOSTRIDIUM DIFFICILE TOXIN Routine 09/10/2024 12:40 PM EDT POCT GLUCOSE BLOOD Routine 09/10/2024 11 :00 AM EDT CBC WITH AUTO DIFFERENTIAL Routine 09/10/2024 6:06 AM EDT MAGNESIUM Routine 09/10/2024 6:06 AM EDT BASIC METABOLIC PANEL Routine 09/10/2024 6:06 AM EDT CBC AND DIFFERENTIAL Routine 09/10/2024 6:06 AM EDT POCT GLUCOSE BLOOD Routine 09/09/2024 8: 07 PM EDT POCT GLUCOSE BLOOD Routine 09/09/2024 5: 37 PM EDT MR FOOT WO AND W CONTRAST RIGHT STAT 09/09/2024 4:43 PM EDT CULTURE BLOOD STAT 09/09/2024 1:54 PM EDT LACTATE STAT 09/09/2024 1:33 PM EDT CULTURE BLOOD STAT 09/09/2024 1:33 PM EDT CBC WITH AUTO DIFFERENTIAL STAT 09/09/2024 12:07 PM EDT BASIC METABOLIC PANEL STAT 09/09/2024 12:07 PM EDT CBC AND DIFFERENTIAL STAT 09/09/2024 12:07 PM EDT XR FOOT 3+ VIEWS RIGHT Routine 09/06/2024 4:17 PM EDT Follow-up exam CULTURE WOUND DEEP Routine 08/16/2024 10 :59 AM EDT Ulcer of toe of right foot, with fat layer exposed (CMS/HCC V24, CMS/HCC V28) LIPID PANEL WITH REFLEX TO DIRECT LDL Routine 06/07/2024 5:54 AM EDT HEMOGLOBIN A1C Add-On 06/06/2024 7:53 PM EDT [facility] DEXA AXIAL SKELETON Routine 04/18/2021 1:22 PM EST Encounter for screening for osteoporosis [facility] SCREENING DIGITAL Routine 04/18/2021 1:10 PM EST Encounter for screening mammogram for malignant neoplasm of breast URINE ALBUMIN CREATININE RATIO Routine 01/10/1998 from Last 3 Months or Most Recently Relevant to Health Maintenance Results * (ABNORMAL) POCT Glucose, blood (09/14/2024 5:07 PM EDT) Only the most recent of19 resultswithin the time period is included. Glucose POCT 204(H) 70 - 100 mg/dL 09/14/2024 8:14 PM EDT [facility] Blood Capillary blood specimen / Unknown 09/14/2024 5:07 PM EDT 09/14/2024 8:15 PM EDT Vincent Bradford MD LAB POINT OF CARE TE ST DOCKED DEVICE UNSOLICITED RESULTS Final Result Performing Organization Address [facility] Co de Phone Number [facility] [address] [place] [address], [place] [phone] * ECG 12 lead (09/13/2024 2:30 PM EDT) Ventricular Rate ECG 86 BPM GEMUSE Atrial Rate 86 BPM GEMUSE P-R Interval 152 ms GEMUSE QRS Duration 74 ms GEMUSE Q-T Interval 380 ms GEMUSE QTc 454 ms GEMUSE P Wave [place] 60 degrees GEMUSE R [place] 17 degrees GEMUSE T [place] 56 degrees GEMUSE ECG Interpretation Normal sinus rhythm When compared with ECG of 06-JUN-2024 21:00, No significant change was found Confirmed by MADDY THOMAS ([id number]) on 09/14/2024 7:13:53 AM GEMUSE 09/13/2024 2:30 PM EDT 09/14/2024 7:13 AM EDT Fern Thomas MD ECG ORDERABLES Final Result Performing Organization Address [facility] de Phone Number GEMUSE * Magnesium (09/13/2024 6:12 AM EDT) Only the most recent of2 resultswithin the time period is included. Pathologist [facility] Magnesium 2.2 1.9 - 2.6 mg/dL LAB CHEMISTRY METHOD 09/13/2024 7:14 AM EDT [facility] Blood Venous blood specimen / Unknown Venipuncture / Unknown 09/13/2024 6:12 AM EDT 09/13/2024 6:33 AM EDT Ciara ARMANDO LAB BLOOD ORDERABLES Final Result [facility] [address] [place] [address], * (ABNORMAL) Basic metabolic panel (09/13/2024 6:12 AM EDT) Only the most recent of4 resultswithin the time period is included. Sodium 136 133 - 145 mmol/L LAB CHEMISTRY METHOD 09/13/2024 7:14 AM [facility] Potassium 4.0 3.5 - 5.5 mmol/L LAB CHEMISTRY METHOD 09/13/2024 7:14 AM [facility] Chloride 102 96 - 110 mmol/L LAB CHEMISTRY METHOD 09/13/2024 7:14 AM [facility] CO2 30 21 - 32 mmol/L LAB CHEMISTRY METHOD 09/13/2024 7:14 AM [facility] Anion Gap 4 3 - 11 LAB CHEMISTRY METHOD 09/13/2024 7:14 AM [facility] Glucose 111(H) 70 - 100 mg/dL LAB CHEMISTRY METHOD 09/13/2024 7:14 AM [facility] BUN 14 5 - 25 mg/dL LAB CHEMISTRY METHOD 09/13/2024 7:14 AM [facility] Creatinine 0.64 0.50 - 1.10 mg/dL LAB CHEMISTRY METHOD 09/13/2024 7:14 AM [facility] eGFR 98 >=60 mL/min/1. 73m2 LAB CHEMISTRY METHOD 09/13/2024 7:14 AM [facility] Comment:Calculation based on the Chronic Kidney Disease Epidemiology Collaboration (CKD-EPI) equation refit without adjustment for race. BUN/Creatinine Ratio 21.9 LAB CHEMISTRY METHOD 09/13/2024 7:14 AM [facility] Calcium 9.6 8.5 - 10.5 mg/dL LAB CHEMISTRY METHOD 09/13/2024 7:14 AM EDT [facility] Blood Venous blood specimen / Unknown Venipuncture / Unknown 09/13/2024 6:12 AM EDT 09/13/2024 6:33 AM EDT us Ciara ARMANDO LAB BLOOD ORDERABLES Final Result [facility] [address] [place] [address], [place] [phone] * Lavender tube (09/13/2024 6:09 AM EDT) [facility] Extra Tube Hold for add-ons. 09/13/2024 8:01 AM EDT [facility] Comment:Auto resulted. Blood Venous blood specimen / Unknown Venipuncture / Unknown 09/13/2024 6:09 AM EDT 09/13/2024 6:33 AM EDT us Vincent Bradford MD LAB BLOOD ORDERABLES Final Re sult [facility] [address] [place] [address], [place] [phone] * CBC auto differential (09/11/2024 5:21 AM EDT) Only the most recent of3 resultswithin the time period is included. WBC 7.7 4.8 - 10.8 K/mcL LAB HEMETOLOGY METHOD 09/11/2024 6:51 AM EDT [facility] RBC 3.90 3.80 - 4.80 M/mcL LAB HEMETOLOGY METHOD 09/11/2024 6:51 AM EDT [facility] Hemoglobin 12.5 11.5 - 16.0 g/dL LAB HEMETOLOGY METHOD 09/11/2024 6:51 AM EDT [facility] Hematocrit 36.4 35.0 - 47.0 % LAB HEMETOLOGY METHOD 09/11/2024 6:51 AM [facility] MCV 92.4 79.0 - 98.0 FL LAB HEMETOLOGY METHOD 09/11/2024 6:51 AM [facility] MCH 31.7 27.0 - 32.0 pcg LAB HEMETOLOGY METHOD 09/11/2024 6:51 AM [facility] MCHC 34.3 32.0 - 37.0 g/dL LAB HEMETOLOGY METHOD 09/11/2024 6:51 AM [facility] RDW 12.4 11.0 - 15.0 % LAB HEMETOLOGY METHOD 09/11/2024 6:51 AM [facility] Platelets 304 130 - 400 K/mcL LAB HEMETOLOGY METHOD 09/11/2024 6:51 AM [facility] MPV 9.8 7.0 - 11.0 FL LAB HEMETOLOGY METHOD 09/11/2024 6:51 AM [facility] NRBC 0.0 <1.0 % LAB HEMETOLOGY METHOD 09/11/2024 6:51 AM [facility] NRBC Absolute 0.00 <0.10 K/mcL LAB HEMETOLOGY METHOD 09/11/2024 6:51 AM [facility] Neutrophils Relative 50.3 % LAB HEMETOLOGY METHOD 09/11/2024 6:51 AM [facility] Lymphocytes Relative 35.3 % LAB HEMETOLOGY METHOD 09/11/2024 6:51 AM [facility] Monocytes Relative 7.3 % LAB HEMETOLOGY METHOD 09/11/2024 6:51 AM [facility] Eosinophils Relative 6.1 % LAB HEMETOLOGY METHOD 09/11/2024 6:51 AM [facility] Basophils Relative 0.7 % LAB HEMETOLOGY METHOD 09/11/2024 6:51 AM EDT [facility] Immature Granulocytes Relative 0.3 % LAB HEMETOLOGY METHOD 09/11/2024 6:51 AM EDT [facility] Neutrophils Absolute 3.86 1.50 - 7.00 K/mcL LAB HEMETOLOGY METHOD 09/11/2024 6:51 AM EDT [facility] Lymphocytes Absolute 2.71 1.00 - 5.00 K/mcL LAB HEMETOLOGY METHOD 09/11/2024 6:51 AM EDT [facility] Monocytes Absolute 0.56 0.20 - 1.00 K/mcL LAB HEMETOLOGY METHOD 09/11/2024 6:51 AM EDT [facility] Eosinophils Absolute 0.47 0.00 - 0.50 K/mcL LAB HEMETOLOGY METHOD 09/11/2024 6:51 AM EDT [facility] Basophils Absolute 0.05 0.00 - 0.20 K/mcL LAB HEMETOLOGY METHOD 09/11/2024 6:51 AM EDT [facility] Immature Granulocytes Absolute 0.02 0.00 - 0.03 K/mcL LAB HEMETOLOGY METHOD 09/11/2024 6:51 AM T [facility] Blood Venous blood specimen / Unknown Venipuncture / Unknown 09/11/2024 5:21 AM EDT 09/11/2024 6:22 AM EDT us Ciara ARMANDO LAB BLOOD ORDERABLES Final Result [facility] [address] [place] [address], * Tissue exam (09/10/2024 2:45 PM EDT) Final Diagnosis Right foot-debridemen t: -SCAR AND NON-SPECIFIC CHRONIC INFLAMMATION 09/13/2024 2:42 PM EDT [facility] Gross Description A. Foot, Right, wound tissue sample: Labeled foot R, wound . Received in formalin is a 0.4 x 0.4 x 0.2 cm aggregate of irregular granular pink-red soft tissue fragments which is wrapped in paper and submitted in toto in one cassette, multiple pieces. BRIDGETT 09/13/2024 2:42 PM EDT [facility] Disclaimer Unless otherwise specified, all tissue is 10% NB formalin fixed and paraffin embedded. 09/13/2024 2:42 PM EDT [facility] Tissue Structure of right foot / Unknown 09/10/2024 2:45 PM EDT 09/10/2024 4:01 PM EDT Filiberto Silva DPM LAB PATHOLOGY ORDERABLES Final Result [facility] [address] [place] [address], * (ABNORMAL) Culture wound deep (09/10/2024 2:44 PM EDT) Only the most recent of2 resultswithin the time period is included. Culture, Wound Growth in broth media only Pseudomonas aeruginosa(A) ETTA 09/13/2024 10:14 AM EDT [facility] Comment: The organism value for this result has been updated. These results have been appended to the previously preliminary verified report. This is an edited result. Previous organism was Gram negative bacilli on 09/12/2024 at 1052 EDT. Culture, Wound Klebsiella oxytoca ESBL(A) ETTA 09/13/2024 10:14 AM EDT [facility] Comment: THIS ORGANISM IS POSITIVE FOR EXTENDED SPECTRUM BETA-LACTAMASE (ESBL). EXTENDED SPECTRUM BETA-LACTAMASE PRODUCING ORGANISMS DEMONSTRATE DECREASED ACTIVITY WITH PENICILLINS, CEPHALOSPORINS AND AZTREONAM. The organism value for this result has been updated. These results have been appended to the previously preliminary verified report. This is an edited result. Previous organism was Gram negative bacilli on 09/12/2024 at 1052 EDT. Gram Stain Result No polymorphonuclear leukocytes, No epithelial cells, and No organisms noted 09/13/2024 10:14 AM EDT [facility] Swab Structure of right foot / Unknown 09/10/2024 2:44 PM EDT 09/10/2024 2:59 PM EDT Narrative Organism Antibiotic Method Susceptibility Pseudomonas aeruginosa Piperacillin/Tazobactam ETTA 8 ug/ml: Susceptible Pseudomonas aeruginosa Ceftazidime ETTA 2 ug/ml: Susceptible Pseudomonas aeruginosa Cefepime ETTA 2 ug/ml: Susceptible Pseudomonas aeruginosa Meropenem ETTA <=0.25 ug/ml: Susceptible Pseudomonas aeruginosa Ciprofloxacin ETTA 0.12 ug/ml: Susceptible Pseudomonas aeruginosa Levofloxacin ETTA 1 ug/ml: Susceptible Klebsiella oxytoca ESBL Amoxicillin/Clavulanate ETTA <=2 ug/ml: Susceptible Klebsiella oxytoca ESBL Ampicillin/Sulbactam ETTA 8 ug/ml: Susceptible Klebsiella oxytoca ESBL Cefoxitin ETTA <=4 ug/ml: Susceptible Klebsiella oxytoca ESBL Ceftazidime ETTA <=0.5 ug/ml: Susceptible Klebsiella oxytoca ESBL Ceftriaxone ETTA <=0.25 ug/ml: Susceptible Klebsiella oxytoca ESBL Cefepime ETTA <=0.12 ug/ml: Susceptible Klebsiella oxytoca ESBL Meropenem ETTA <=0.25 ug/ml: Susceptible Klebsiella oxytoca ESBL Amikacin ETTA <=1 ug/ml: Susceptible Klebsiella oxytoca ESBL Gentamicin ETTA <=1 ug/ml: Susceptible Klebsiella oxytoca ESBL Ciprofloxacin ETTA <=0.06 ug/ml: Susceptible Klebsiella oxytoca ESBL Levofloxacin ETTA <=0.12 ug/ml: Susceptible Klebsiella oxytoca ESBL Trimethoprim/Sul famethoxazo le ETTA >=320 ug/ml: Resistant us Filiberto Silva DPM LAB MICROBIOLOGY - GENERA L ORDERABLES Final Result [facility] [address] [place] [address], * (ABNORMAL) Clostridium difficile molecular study (09/10/2024 12:40 PM EDT) Clostridium difficile PCR Positive (AA) Negative LAB MICROBIOLOGY METHOD 09/10/2024 2:39 PM EDT [facility] Comment: CRITICAL RESULT POSITIVE FOR TOXIN PRODUCING CLOSTRIDIOIDES DIFFICILE, NO ADDITIONAL TESTING IS NECESSARY. REPEAT SAMPLES SHOULD NOT BE SUBMITTED FOR TEST OF CURE. Stool Rectum structure / Unknown Non-blood Collection / Unknown 09/10/2024 12:40 PM EDT 09/10/2024 1:28 PM EDT Ciara ARMANDO LAB MICROBIOLOGY - GENERAL ORDERABLES Final Result Performing Organization Address [facility]/ZIP Co de Phone Number [facility] [address] [place] [address], [place] [phone] * Clostridium difficile toxin (09/10/2024 12:40 PM EDT) C difficile Toxins A+B, EIA 09/10/2024 1:29 PM EDT [facility] Comment:Refer to C. difficil e PCR assay for results. Stool Rectum structure / Unknown Non-blood Collection / Unknown 09/10/2024 12:40 PM EDT 09/10/2024 12:46 PM EDT Ciara ARMANDO LAB MICROBIOLOGY - GENERAL ORDERABLES Final Result Performing Organization Address City/[facility]/ZIP Co de Phone Number [facility] [address] [place] [address], [place] [phone] * MR Foot wo and w Contrast Right (09/09/2024 4:43 PM EDT) Anatomical Region Laterality Modality Lower Extremities, Foot Right Magnetic Resonance 09/10/2024 8:08 AM EDT Impressions 09/10/2024 8:27 AM EDT 1. Ill-defined enhancing soft tissue thickening along the 5th dorsal interspace, possibly granulation tissue at the site of a chronic wound. There may be subtle nonspecific marrow edema in the phalanges of the 5th toe, but no correlating signal abnormality is evident on T1-weighted imaging; no convincing evidence of osteomyelitis. 2. No soft tissue abscess. -------- FINAL REPORT -------- Dictated By: Khalif Crane Dictated Date: 09/10/2024 08:08 ET Assigned Physician: Khalif Crane Reviewed and Electronically Signed By: Khalif Crane Signed Date: 09/10/2024 08:27 ET Workstation ID: [id number] Transcribed By: Self Edit Transcribed Date: 09/10/2024 08:08 ET Narrative 09/10/2024 8:27 AM EDT PROCEDURE: MRI of the right forefoot with intravenous contrast administration. IV contrast dose: 12 mL intravenous Dotarem from a 15 mL vial with 3 mL discarded. HISTORY: Osteomyelitis, foot. COMPARISON: None. TECHNIQUE: Multiplanar multisequence MRI of the right forefoot with and without intravenous contrast administration. FINDINGS: There is ill-defined enhancing soft tissue centered along the dorsal aspect of the 4th interspace the level of the metatarsal heads, which may represent granulation tissue. Mild generalized soft tissue edema, also most prominent along the dorsolateral aspect of the foot. No focal rim-enhancing fluid collection. Evaluation for T2 signal abnormality and enhancement within the marrow spaces of the phalanges is limited by off resonance fat saturation. On inversion recovery images there is suggestion of mild T2 signal abnormality in the head and neck of the 5th proximal phalanx and in the medial aspect of the middle phalanx, but there is no accompanying signal abnormality on T1-weighted imaging. Mild degenerative irregularity of the 1st MTP joint with a small bunion. The DIP joints of the 2nd and 3rd toes are fused. Mild degenerative irregularity throughout the midfoot. Procedure Note Khalif Crane MD - 09/10/2024 PROCEDURE: MRI of the right forefoot with intravenous contrastadministration. IV contrast dose: 12 mL intravenous Dotarem from a 15 mL vial with 3 mLdiscarded. HISTORY: Osteomyelitis, foot. COMPARISON: None. TECHNIQUE: Multiplanar multisequence MRI of the right forefoot with andwithout intravenous contrast administration. FINDINGS: There is ill-defined enhancing soft tissue centered along the dorsalaspect of the 4th interspace the level of the metatarsal heads, which mayrepresent granulation tissue. Mild generalized soft tissue edema, alsomost prominent along the dorsolateral aspect of the foot. No focalrim-enhancing fluid collection. Evaluation for T2 signal abnormality and enhancement within the marrowspaces of the phalanges is limited by off resonance fat saturation. Oninversion recovery images there is suggestion of mild T2 signalabnormality in the head and neck of the 5th proximal phalanx and in themedial aspect of the middle phalanx, but there is no accompanying signalabnormality on T1-weighted imaging. Mild degenerative irregularity of the 1st MTP joint with a small bunion.The DIP joints of the 2nd and 3rd toes are fused. Mild degenerativeirregularity throughout the midfoot. IMPRESSION: 1. Ill-defined enhancing soft tissue thickening along the 5th dorsalinterspace, possibly granulation tissue at the site of a chronic wound.There may be subtle nonspecific marrow edema in the phalanges of the 5thtoe, but no correlating signal abnormality is evident on T1-weightedimaging; no convincing evidence of osteomyelitis. 2. No soft tissue abscess. -------- FINAL REPORT -------- Dictated By: Khalif Crane Dictated Date: 09/10/2024 08:08 ET Assigned Physician: Khalif Crane Reviewed and Electronically Signed By: Khalif Crane Signed Date: 09/10/2024 08:27 ET Workstation ID: [id number] Transcribed By: Self Edit Transcribed Date: 09/10/2024 08:08 ET Stella Rollins DO IMG MRI PROCEDURES Final Result * Blood culture (09/09/2024 1:54 PM EDT) Only the most recent of2 resultswithin the time period is included. Culture, Blood No growth at 5 days 09/14/2024 3:01 PM EDT [facility] Blood Venous blood specimen / Unknown Venipuncture / Unknown 09/09/2024 1:54 PM EDT 09/09/2024 2:08 PM EDT Stella Rollins DO LAB MICROBIOLOGY - GENERA L ORDERABLES Final Result [facility] [address] [place] [address], [place] [phone] * Lactate (09/09/2024 1:33 PM EDT) Lactate 1.2 0.4 - 2.0 mmol/L LAB CHEMISTRY METHOD 09/09/2024 2:37 PM EDT [facility] Blood Venous blood specimen / Unknown Venipuncture / Unknown 09/09/2024 1:33 PM EDT 09/09/2024 2:09 PM EDT Stella Rollins DO LAB BLOOD ORDERABLES Enid l Result Performing Organization Address City/[facility]/ZIP Co de Phone Number [facility] [address] [place] [address], [place] [phone] * XR Foot 3+ Views Right (09/06/2024 4:17 PM EDT) Anatomical Region Laterality Modality Lower Extremities, Foot Right Computed Radiography Narrative 09/30/2024 5:27 PM EDT Right foot 3 views No radiolucencies noted in chief complaint overlying 4th and 5th digit Filiberto Silva DPM IMG XR PROCEDURES Final R esult * (ABNORMAL) Lipid panel with reflex to direct LDL (06/07/2024 5:54 AM EDT) Cholesterol 190 0 - 200 mg/dL LAB CHEMISTRY METHOD 06/07/2024 6:38 AM EDT [facility] Triglycerides 195(H) 0 - 150 mg/dL LAB CHEMISTRY METHOD 06/07/2024 6:38 AM EDT [facility] HDL 45 >=40 mg/dL LAB CHEMISTRY METHOD 06/07/2024 6:38 AM EDT [facility] LDL Calculated 106(H) 0 - 100 mg/dL LAB CHEMISTRY METHOD 06/07/2024 6:38 AM EDT [facility] VLDL Cholesterol Chauncey 39 mg/dL LAB CHEMISTRY METHOD 06/07/2024 6:38 AM EDT [facility] Non HDL Chol. (LDL+VLDL) 145(H) <145 mg/dL LAB CHEMISTRY METHOD 06/07/2024 6:38 AM EDT [facility] Chol/HDL Ratio 4.2 0.0 - 4.4 LAB CHEMISTRY METHOD 06/07/2024 6:38 AM EDT [facility] Blood Venous blood specimen / Unknown Venipuncture / Unknown 06/07/2024 5:54 AM EDT 06/07/2024 6:01 AM EDT Luz Elena ARMANDO LAB BLOOD ORDERABLES Final Resu lt Performing Organization Address City/[facility]/ZIP Co de Phone Number [facility] [address] [place] [address], [place] [phone] * (ABNORMAL) Hemoglobin A1c (06/06/2024 7:53 PM EDT) Hemoglobin A1C 10.2(H) <6.5 % LAB CHEMISTRY METHOD 06/07/2024 10:50 AM EDT [facility] Mean Bld Glu Estim. 246 mg/dL LAB CHEMISTRY METHOD 06/07/2024 10:50 AM EDT [facility] Blood Venous blood specimen / Unknown Venipuncture / Unknown 06/06/2024 7:53 PM EDT 06/06/2024 8:01 PM EDT Filiberto Conroy MD LAB BLOOD ORDERABLES Final Result Performing Organization Address [facility]/ZIP Co de Phone Number [facility] [address] [place] [address], [place] [phone] * PILAR DEXA AXIAL SKELETON (04/18/2021 1:22 PM EST) Anatomical Region Laterality Modality Mammography 04/18/2021 10:0 6 AM EST Narrative 04/18/2021 1:22 PM EST [facility] Diagnostic Imaging Department [address] [place] [id number] Patient: JANICE BURT./Age/Sex: 1960 - 60 - F Unit#: [id number] Location/Status: SPDIMAM/REG CLI [facility]em[facility] Ordering Physician: VIOLA RHODES [facility] Dexa Axial Skeleton - 04/18/21 - 1053 HISTORY: Post menopausal woman with hormone depletion for screening bone densitometry. TECHNIQUE: Bone densitometry is performed utilizing dual energy x-ray absorptiometry (DEXA) in the [employer] unit. The lumbar spine is evaluated in [...] bone mineralization in the right proximal femur. [id number] A report detailing these results has been enclosed. Dictating Physician: MILTON OCAMPO MD Electronically Signed by: MILTON OCAMPO MD Dic Date/Time: 04/18/21 1321 Sign date/Time: 04/18/21 1322 Procedure Note Milton Ocampo MD - 02/20/2022 [facility] Diagnostic Imaging Department [address] [place] [address] Patient: JANICE BURT./Age/Sex: 1960 - 60 - F Unit#: [id number] [facility] Ordering Physician: VIOLA RHODES [facility] Dexa Axial Skeleton - 04/18/211052 HISTORY: Post menopausal woman with hormone depletion for screening bone densitometry. TECHNIQUE: Bone densitometry is performed utilizing dual energy x-ray absorptiometry (DEXA) in the [employer] unit. The lumbar spine isevaluated in the [...] decreased bone mineralization in the rightproximal femur. [id number] A report detailing these results has been enclosed. Dictating Physician: MILTON OCAMPO MD Electronically Signed by: MILTON OCAMPO MD Dic Date/Time: 04/18/21 1321 Sign date/Time: 04/18/21 132 Viola Rhodes MD IMG BI PROCEDURES Final Resul t * PILAR SCREENING DIGITAL (04/18/2021 1:10 PM EST) Anatomical Region Laterality Modality Mammography 04/18/2021 10:0 4 AM EST Narrative 04/18/2021 1:10 PM EST [facility] Diagnostic Imaging Department [address] [place], [place] [id number] Patient: JANICE BURT/Age/Sex: 1960 - 60 - F Unit#: [id number] Location/Status: [facility] CLI Mnemonic/Ordering Site: [facility] Ordering Physician: VIOLA RHODES Pilar Screening Digital - 04/18/21 - EXAM: Pilar Screening Digital EXAM DATE AND TIME: 04/18/2021 10:47 AM HISTORY: Screening. Mother had breast carcinoma. COMPARISON: 03/19/18, at 2616, 04/07/13, 09/19/11 TECHNIQUE: CC and MLO views of both breasts were obtained using full field digital mammography. Bilateral digital breast tomosynthesis was performed in the MLO projection. Computer aided detection with the [employer]Game.2-H was employed. TISSUE DENSITY: c. The breasts are heterogeneously dense, which may obscure small masses. FINDINGS: No suspicious masses, grouped microcalcifications, or areas of architectural distortion are seen. Scattered microcalcifications are again seen. Vascular calcification is present. The skin is unremarkable. IMPRESSION: Stable mammographic appearance of the breasts. No evidence of malignancy is seen. A negative mammogram in the presence of a clinically suspicious palpable abnormality does not preclude the possibility of malignancy or alter the indications for biopsy. BI-RADS: Category 2: Benign RECOMMENDATION(S): 1: Routine screening mammogram BILATERAL in 1 year. 72717, 20367 3342F, 7018F Dictating Physician: ELSY OTERO MD Electronically Signed by: ELSY OTERO MD Dic Date/Time: 04/18/21 1310 Sign date/Time: 04/18/21 131 Procedure Note Elsy Otero MD - 02/20/2022 [facility] Diagnostic Imaging Department [address] [place] [address] Patient: JANICE BURT/Age/Sex: 1960 - 60 - F Unit#: [id number] Location/Status: [facility]/REG CLI Mnemonic/Ordering Site: [facility] Ordering Physician: VIOLA RHODES [facility] Screening Digital - 04/18/21 - EXAM: [facility] Screening Digital EXAM DATE AND TIME: 04/18/2021 10:47 AM HISTORY: Screening. Mother had breast carcinoma. COMPARISON: 03/19/18, at 2616, 04/07/13, 09/19/11 TECHNIQUE: CC and MLO views of both breasts were obtained using fullfield digital mammography. Bilateral digital breast tomosynthesis was performedin the MLO projection. Computer aided detection with the [employer]Game.[employer] employed. TISSUE DENSITY: c. The breasts are [...] Routine screening mammogram BILATERAL in 1 year. 13266, 55301 3342F, 7025F Dictating Physician: ELSY OTERO MD Electronically Signed by: ELSY OTERO MD Dic Date/Time: 04/18/21 1310 Sign date/Time: 04/18/21 1310 Viola Rhodes MD IMG BI PROCEDURES Final Resul t * Urine Albumin Creatinine Ratio (01/10/1998) Urine Albumin Creatinine Ratio Abstracted Historical Provider HEALTH MAINTENANCE Final Result from Last 3 Months or Most Recently Relevant to Health Maintenance Additional Health Concerns Infection Onset Date Last Indicated ESBL Comment:Klebsiella Oxytoca ESBL culture from the . 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 Do not modify or discontinue any currently active code status orders. * Full Code - Default Date Activated Date Inactivated Comments 06/15/2024 7:09 PM 07/08/2024 1:29 PM This is order is used when code status has not been discussed with the patient, or code status is otherwise unknown/unconfirmed To update the patient's code status, place a code status order. Do not modify or discontinue any currently active code status orders. * Full Code - Default Date Activated Date Inactivated Comments 06/06/2024 11:01 PM 06/08/2024 1:20 PM This is order is used when code status has not been discussed with the patient, or code status is otherwise unknown/unconfirmed To update the patient's code status, place a code status order. Do not modify or discontinue any currently active code status orders. Healthcare Agents on File Name Relationship Healthcare Agent Relationship Communication Aakash Javed Spouse Health Care Agent Celestine Burt Son Second Alternate Health Care Agent Care Teams Partner Marketing Intern Relationship Specialty Start Date End Date Viola Rhodes MD [address] [place] [phone] PCP - General Internal Medicine 02/03/24
--- OUTSIDE RECORDS SUMMARY | 2024-11-15 17:18 | XMS_ITS | Encounter Summary ---
Author Organization [facility] Address [address] [place] [address] Encounters * CPT with [facility] at [facility] on 2024-11-02 Call returned to Rosemary who reports pt having this red rash on hand is new. Pt has had on her foot and told it was fungal. Per [facility] redness is on palm and across fingers. Pt mentioned to [facility] yesterday. Pt is seen daily for wound care on right foot. No new lotions/soaps to skin to cause irritation. Call returned to Janice Burt to triage below at [phone]. Patient confirms that has had redness on hand x 3 months. Per pt has been applying nystatin with no relief of sx. Pt states rash isvery itchy on hands. No open skin or areas of bleeding/discharge. Pt states unable to send picture now but will have [facility] assist in the morning. Pt states unable to see outer foot as currently coveredby bandage. Pt advised of disposition, agrees to [facility]ED for evaluation as pt unable to come into [facility]. Confirmed demographics and allergies. { reasonForRequest : Provider request , patientReports : ,& quot;denies :[], chiefComplaints : Rash, Weakness, Wound Care , pmh&qu ot;: COPD/Asthma, Hypertension, Asthma, Diabetes Mellitus Type 2, Fibromyalgia, Urinary Tract Infections (UTI), Stroke , allergies : Codeine, Sumatriptan , otherAllergies :null, painAssessment : , visitOutcome : ,&quot ;additionalComments : HPI reviewed } Dispatched to the call address for the female with a rash on her hand. Pts family advises that Pt has a rash on her hand that has been there for approx 4 months now. She states she had a similar belgica her right foot and now it is on her hand. It is not painful but it is itchy. She also has a wound on her right foot that is being treated by wound care specialists. Family advises that Pt hid the rash from them because she did not want to go back to the ED. 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 She denies fevers, chest pain, diff breathing/sob, n/v/d, cough or other symptoms at this time. Pt was found laying in hospital bed in bedroom, CAOx4, airway open and patent, able to speak in full sentences, breathing non labored, lungs CTA, skin PWD with good turgor, mucous membranes pink and moist, -JVD, -HEENT, abd soft non tender/distended, -edema/swelling, afebrile. right hand with spotsof raised erythema and round areas approx the size of a dime of erythema on Pts armpits/upper innerarms Rash Pt was assessed. Pictures of rash taken and uploaded to Pts portal. [facility] consulted. Script called into preferred pharmacy. Red flags discussed. Noted- multiple cockroaches seen climbing castro/furniture. ALL times are approx. ORAL_MEDICATION, WOUND_CARE, PO_MEDICATION Written by Medical [facility] on 2024-11-02
--- OUTSIDE RECORDS SUMMARY | 2024-11-15 17:18 | XMS_ITS | Encounter Summary ---
Author Organization [employer] Address [address] [place] [address] Care Team Providers Care Citrix Engineer Name Role Phone Ana Keith MD Primary Care Provider [phone] Encounter Details Date Type Department Care Team (Latest Contact Info) Description 11/15/2024 Travel Social History Tobacco Use Types Packs/Day Years [...] Description 12/02/2024 9:00 AM EDT Office Visit [facility] [address] [place] [address] Siddharth Roa DDS [address] [place] [address] documented as of this encounter Visit Diagnoses Not on filedocumented in this encounter Additional Health Concerns Assessment Noted Time PHQ-9 Depression Total Score: 17 024 11:10 AM EDT documented as of this encounter Care Teams Citrix Engineer Relationship Specialty Start Date End Date Ana Keith MD [address] [place] [address] PCP - General Family Medicine 11/05/17 [facility] 09/16/24 documented as of this encounter
--- OUTSIDE RECORDS SUMMARY | 2024-11-15 17:18 | XMS_ITS | Encounter Summary ---
Author Organization [employer] Address [address] [place] [address] Care Team Providers Care Supervisor Cytology Name Role Phone Ana Keith MD Primary Care Provider [phone] Encounter Details Date Type Department Care Team (Late st Contact Info) Description 07/08/2024 Orders Only [facility] [address] [place] [address] Provider, MD Megan Social History Tobacco Use Types Packs/Day Years [...] Description 12/02/2024 9:00 AM EDT Office Visit [facility] [address] [place] [address] Siddharth Roa DDS [address] [place] [address] documented as of this encounter Procedures Procedure Name Priority Date/Time Associated Diagnosis Comments XR HUMERUS 2+ VW LEFT Routine 07/07/2024 9:30 AM EDT documented in this encounter Results * XR HUMERUS 2+ VW LEFT (07/07/2024 9:30 AM EDT) Anatomical Region Laterality Modality Radiographic Gloria ging Historical Provider MD TORRES XR PROCEDURES Final R esult documented in this encounter Visit Diagnoses Not on filedocumented in this encounter Additional Health Concerns Assessment Noted Time PHQ-9 Depression Total Score: 17 024 11:10 AM EDT documented as of this encounter Care Teams Supervisor Cytology Relationship Specialty Start Date End Date Ana Keith MD [address] [place] [address] PCP - General Family Medicine 11/05/17 [facility] 09/16/24 documented as of this encounter
--- OUTSIDE RECORDS SUMMARY | 2024-11-15 17:18 | XMS_ITS | Encounter Summary ---
Author Organization [employer] Address [address] [place] [address] [address] [place] [address] Care Team Providers Care Student Services Representative Name Role Phone Ana Keith MD Primary Care Provider [phone] Encounter Details Date Type Department Care Team (Late st Contact Info) Description 09/02/2023 Orders Only [facility] MED & PEDS [address] [place], [place] [phone] Provider, MD Megan Social History Tobacco Use [...] Description 12/02/2024 9:00 AM EDT Office Visit [facility] ADULT DENTAL [address] [place] [address] Siddharth Roa DDS [address] [place], [place] [phone] documented as of this encounter Procedures Procedure [...] documented as of this encounter Care Teams Student Services Representative Relationship Specialty Start Date End Date Ana Keith MD [address] [place] [address] PCP - General Family Medicine 11/05/17 [facility] 09/16/24 documented as of this encounter
--- OUTSIDE RECORDS SUMMARY | 2024-11-15 17:18 | XMS_ITS | Encounter Summary ---
Author Organization [facility] Address [address] [facility] [address] [place] [address] Encounters * CPT with Sacha Boo at [employer] on 2024-09-17 BG >350 x 2. Recent discharge from [facility] . Wound infection/debridement Known CDiff, ESBL,Pseudomonas. Is to be on PO Vanco per DC instructions meds not filled by [facility] as not on approved list. No current issues with elevated BG per . { reasonForRequest : Diabetes Related , patientReports : ,& quot;denies :[], chiefComplaints : Diabetes Related , pmh : COPD/Asthma, Hypertension, Asthma, Diabetes Mellitus Type 2, Fibromyalgia, Urinary Tract Infections(UTI), Other , allergies : Codeine, Sumatriptan , otherAllergies :null, painAssessment : , visitOutcome : , additionalComments : Per requestor, \ home evaluation of elevated BG use of insulins and recent illness. Follow if PO Vanco has been obtained as ordered\ .\OHPI reviewed by this RN, no further information needed to process visit -Hari Fitch RN } Encountered patient supine and conscious with family present. Family reports patient was admitted to the hospital from 09/09/24-09/15/24 after a diagnosis of C-Diff, was discharged on PO vancomycin, but the pharmacy was unable to fill the prescription due to a logistical issue. Patient and family report patient has not exhibited any worsening symptoms, denies pain as well as any decreases in oral intake and has not exhibited fevers since coming home. Skin warm, dry and of appropriate color for ethnicity. Head and neck, free of trauma and edema. -JVD. Breath sounds present, clear and equal bilaterally. Abdomen is soft, non-tender and non-distended. Extremities are free of trauma and edema. [facility] contacted: this typewriter operator automatic explained to [facility] that patient is not currently reporting any symptoms and does not require interventions; this visit was made by patient???s son in order to obtain the prescription patient was supposed to be taking since 09/15/24. [facility] reports they will contact patients pharmacy personally in order to fix patients prescription. [facility] returns phone call stating the correct prescription has been sent to patients pharmacy. Patient and family were encouraged to monitor patient for worsening symptoms and fevers; urged to consider further medical attention including 911 should said symptoms develop. Patient and family verbalize understanding of the plan and state they are co mfortable with patient remaining home today. IV_(FLUIDS_AND/OR_MEDICATION), MEDICATION_IM, POC_BLOODWORK, GLUCOSE Written by Sacha Boo on 2024-09-17
--- OUTSIDE RECORDS SUMMARY | 2024-11-15 17:18 | XMS_ITS | Encounter Summary ---
Author Organization [employer] Address [address] [facility] [address] [place] [address] Care Team Providers Care Director Of [employer] Name Role Phone Ana Keith MD Primary Care Provider [phone] Reason for Visit * Reason Onset Date Comments Medication Question 09/24/2024 Encounter Details Date Type Department Care Team ([facility] st Contact Info) Description 09/24/[address] [facility] [address] [place] [address] Ana Keith MD [address] [place] [phone] Medication Question Social History Tobacco Use Types Packs/Day Years [...] encounter Miscellaneous Notes * Telephone Encounter - Robert Cassidy - 09/24/2024 3:30 PM EDT Tc from pt requesting pen needles to be sent. She states that she would need to have an appt with pcp before receiving script but she informed she does not want nor need an appt and would just like script to be sent to the pharmacy. Please contact pt at [phone]. (Faroese Speaker) documented in this encounter Plan of Treatment Upcoming Encounters Date Type Department Care Team (Late st Contact Info) Description 12/02/2024 9:00 AM EDT Office Visit [facility] ADULT DENTAL [address] [place] [address] Siddharth Roa DDS [address] [place] [address] documented as of this encounter Visit Diagnoses Not on filedocumented in this encounter Additional Health Concerns Assessment Noted Time PHQ-9 Depression Total Score: 17 024 11:10 AM EDT documented as of this encounter Care Teams Director Of [employer] [facility] Relationship Specialty Start Date End Date Ana Keith MD [address] [place] [address] PCP - General Family Medicine 11/05/[address] [facility] 09/16/24 documented as of this encounter
--- OUTSIDE RECORDS SUMMARY | 2024-11-15 17:18 | XMS_ITS | Encounter Summary ---
Author Organization [employer] Address [address] [facility] [address] [place] [address] Care Team Providers Care Dry Pan Feeder Name Role Phone Ana Keith MD Primary Care Provider [phone] Reason for Visit * Reason Comments Med Refill Encounter Details Date Type Department Care Team ([facility] Contact Info) Description 02/07/2024 Refill [facility] MED & PEDS [address] [place], [place] [phone] Ana Keith MD [address] [place] [address] Type 2 diabetes mellitus without complication, with long-term current use of insulin ([facility]); Mild intermittent asthma without complication; Diverticulosis Social [...] Description 12/02/2024 9:00 AM EDT Office Visit [facility] ADULT DENTAL [address] [place] [address] Siddharth Roa DDS [address] [place] [address] documented as of this encounter Visit Diagnoses Diagnosis Type 2 diabetes mellitus without complication, with long-term current use of insulin ([facility]) Mild intermittent asthma without complication Diverticulosis Diverticulosis of colon (without mention of hemorrhage) documented in this encounter Additional Health Concerns Assessment Noted Time PHQ-9 Depression Total Score: 17 024 11:10 AM EDT documented as of this encounter Care Teams Dry Pan Feeder Relationship Specialty Start Date End Date Ana Keith MD [address] [place] [address] PCP - General Family Medicine 11/05/17 [facility] 09/16/24 documented as of this encounter
--- OUTSIDE RECORDS SUMMARY | 2024-11-15 17:18 | XMS_ITS | Encounter Summary ---
Author Organization [employer] Address [address] [facility] [address] [place] [address] Care Team Providers Care At Risk Specialist Name Role Phone Ana Keith MD Primary Care Provider [phone] Encounter Details Date Type Department Care Team (Late st Contact Info) Description 06/07/2024 Orders Only [facility] [address] [place] [address] Provider, MD Megan Social History Tobacco Use [...] Description 12/02/2024 9:00 AM EDT Office Visit [facility] ADULT DENTAL [address] [place], [place] [phone] Siddharth Roa DDS [address] [place] [address] documented as of this encounter Procedures Procedure Name Priority Date/Time Associated Diagnosis Comments XR CHEST 2 VIEWS Routine 06/06/2024 10:4 8 AM EDT documented in this encounter Results * XR Chest 2 Views (06/06/2024 10:48 AM EDT) Anatomical Region Laterality Modality Chest Radiographic Gloria ging Historical Provider MD TORRES XR PROCEDURES Final R esult documented in this encounter Visit Diagnoses Not on filedocumented in this encounter Additional Health Concerns Assessment Noted Time PHQ-9 Depression Total Score: 17 024 11:10 AM EDT documented as of this encounter Care Teams At Risk Specialist Relationship Specialty Start Date End Date Ana Keith MD [address] [place] [address] PCP - General Family Medicine 11/05/17 [facility] 09/16/24 documented as of this encounter
--- OUTSIDE RECORDS SUMMARY | 2024-11-15 17:18 | XMS_ITS | Clinical Summary ---
Author Organization [employer] Address [address] [place] [address] Care Team Providers Care Analytics Developer Name Role Phone Ana Keith MD Primary Care Provider [phone] Allergies Active Allergy Reactions Criticality Noted Date Comments Codeine Hives 10/12/2015 Other reaction(s): Hives/Skin Rash Sumatriptan 04/10/2022 Other reaction(s): chest pain Medications * This document contains information received from the source organization and may not represent a complete record from that organization. docusate sodium (Colace) 100 MG capsule Take 1 capsule by mouth if needed at bedtime. 07/13/19 23 Active FreeStyle lancets TEST BLOOD SUGAR FIVE TIMES DAILY 10/11/19 22 Active levETIRAcetam (Keppra) 500 MG tablet Take 1 tablet by mouth 2 times daily. 07/13/19 23 Active zolpidem (Ambien) 10 MG tablet Take 10 mg by mouth at bedtime. 07/25/19 23 Active estradiol (Estrace) 0.1 MG/GM vaginal cream 1g vaginally x 14d, then continue to use twice weekly thereafter 42.5 g 2 11/13/19 23 Active Alcohol Swabs (B-D SINGLE USE SWABS REGULAR) pads USE THREE TIMES DAILY 100 each 11 12/17/19 23 Active Diclofenac Sodium 1 % gel Apply bid to affected area 100 g 3 04/16/19 24 Active lidocaine (Lidoderm) 5 % patch APPLY 1 PATCH TOPICALLY TO THE SKIN EVERY DAY. MAY WEAR UP TO 12 HOURS. NEEDED 30 patch 11 08/22/19 24 Active cyanocobalamin (Vitamin B-12) 100 MCG tabletIndicatio ns:Type 2 diabetes mellitus without complication, with long-term current use of insulin (CMS/HCC),Mild intermittent asthma without complication,Di verticulosis TAKE 1 TABLET BY MOUTH EVERY MORNING 30 tablet 3 12/10/19 24 Active Blood Glucose Monitoring Suppl (Blood Glucose Monitor System) w/Device kitIndications: Type 2 diabetes mellitus with hyperglycemia, with long-term current use of insulin (CMS/HCC) 1 kit 4 times daily. 1 kit 12/31/19 24 Active Misc. Devices (Pulse Oximeter) miscIndications :Mild intermittent asthma without complication Use prn to check oxygen level 1 each 12/31/19 24 Active loratadine (Claritin) 10 MG tablet Take 1 tablet (10 mg) by mouth Once per day. 30 tablet 11 12/31/19 24 Active magnesium oxide (Mag-Ox) 400 (240 Mg) MG tabletIndicatio ns:Type 2 diabetes mellitus without complication, with long-term current use of insulin (CMS/HCC),Mild intermittent asthma without complication,Di verticulosis TAKE 1 TABLET BY MOUTH AT BEDTIME 30 tablet 3 02/09/20 24 Active Emgality 120 MG/ML auto-injector Inject 120 mg under the skin every 30 (thirty) days. Active metoprolol succinate XL (Toprol-XL) 25 MG 24 hr tablet Take 1 tablet by mouth Once per day. 07/09/19 25 Active OXcarbazepine (Trileptal) 300 MG tablet Take 1 tablet by mouth 2 times daily. Active Admelog SoloStar 100 UNIT/ML injection 07/09/19 25 Active Dulaglutide (Trulicity) 1.5 MG/0.5ML solution auto-injectorIn dications:Type 2 diabetes mellitus with hyperglycemia, with long-term current use of insulin (CMS/[facility]) Inject 1.5 mg under the skin 1 (one) time per week. 0.5 mL 11 07/17/19 25 Active Blood Pressure kit 1 kit Once per day. 1 kit 07/17/19 25 Active triamcinolone (Kenalog) 0.1 % cream Apply topically if needed in the morning and at bedtime (pain and swelling). 30 g 2 07/17/19 25 Active glucose blood (GoChimeTouch Ultra Test) test strip USE 1 FIVE TIMES A DAY 450 strip 5 07/30/19 25 Active insulin glargine (Lantus SoloStar) 100 UNIT/ML penIndications: Type 2 diabetes mellitus with hyperglycemia, with long-term current use of insulin ([facility]) Inject 37 Units under the skin at bedtime. 12 mL 2 09/25/19 25 025 Active aspirin 81 MG chewable tablet Chew 1 tablet at bedtime. 10/02/19 25 Active atorvastatin (Lipitor) 40 MG tablet Take 1 tablet by mouth at bedtime. Active busPIRone (Buspar) 10 MG tablet Take 1 tablet by mouth 2 times daily. Active clonazePAM (KlonoPIN) 0.5 MG tablet Take 1 tablet by mouth if needed in the morning and at bedtime for anxiety. 09/18/19 25 Active DULoxetine (Cymbalta) [address] capsule Take 1 capsule by mouth 2 times daily. Active gabapentin (Neurontin) 300 MG capsule Take 1 cap in the am , 2 caps at bedtime, and 1 extra cap per day as needed for pain at bedtime 10/02/19 25 Active nystatin (Mycostatin) 521143 UNIT/GM powder Apply topically 4 times daily. Active nystatin (Mycostatin) cream Apply topically 2 times daily. Active pyridoxine (Vitamin B-6) 50 MG tablet Take 1 tablet (50 mg) by mouth 2 times daily. 90 tablet 1 10/09/19 25 Active Continuous Glucose Monitor Sup miscIndications :Type 2 diabetes mellitus with hyperglycemia, with long-term current use of insulin ([facility]),Type 2 diabetes mellitus with hyperglycemia, with long-term current use of insulin ([facility]) 1 kit 4 times daily. 2 kit 10/09/19 25 Active acetaminophen (Tylenol 8 Hour) 650 MG ER tablet Take 1 tablet (650 mg) by mouth every 6 (six) hours during the day. 60 tablet 3 10/09/19 25 Active pen needle 32G x 4 mm miscIndications :Type 2 diabetes mellitus with hyperglycemia, with long-term current use of insulin ([facility]) Use as instructed 100 each 3 11/06/19 25 Active Ventolin HFA 108 (90 Base) MCG/ACT inhalerIndicati ons:Type 2 diabetes mellitus without complication, with long-term current use of insulin ([facility]),Mild intermittent asthma without complication,Di verticulosis INHALE 2 PUFFS BY MOUTH EVERY 6 HOURS NEEDED FOR WHEEZING 18 g 2 11/12/19 25 Active albuterol 108 (90 Base) MCG/ACT inhalerIndicati ons:Type 2 diabetes mellitus without complication, with long-term current use of insulin ([facility]),Mild intermittent asthma without complication,Di verticulosis INHALE 2 PUFFS BY MOUTH EVERY 6 HOURS NEEDED FOR WHEEZING 18 g 2 02/09/20 24 025 Discontinued(R eorder (will not trigger notification to Pharmacy)) pen needle 32G x 4 mm miscIndications :Type 2 diabetes mellitus with hyperglycemia, with long-term current use of insulin ([facility]) Use as instructed 100 each 09/25/19 25 025 Discontinued(R eorder (will not trigger notification to Pharmacy)) Active Problems Problem Noted Date Diagnosed Date Class 1 obesity 10/04/2024 Dry skin 10/04/2024 Migraine headache 10/04/2024 Vulvovaginitis 10/04/2024 Severe dental caries 10/04/2024 Missing teeth, acquired 10/04/2024 Periodontal disease 10/04/2024 Diabetic foot infection 09/14/2024 Pressure injury of left foot, stage 3 09/09/2024 Ulcer of toe of right foot, with necrosis of mus randell 09/09/2024 Hypertrophic cardiomyopathy 07/16/2024 Stroke 06/15/2024 Chest pain 06/06/2024 Class 1 obesity with body ma ss index (BMI) of 30.0 to 30.9 in adult 02/03/2024 Tinea pedis of both feet 12/31/2023 Recurrent UTI 10/24/2022 Assessment & Plan (10/24/2022 1:13 PM EDT): Hx of recurrent UTI's and atrophic vaginitis upon examination. Will refer to clinic manager loss prevention and urologist for further evaluation. Diverticulosis 04/10/2022 HTN (hypertension) 04/09/2022 Diastasis recti 04/10/2020 Incisional hernia with obstruction but no gangre ne 04/10/2020 Nephrolithiasis 04/10/2020 Nonalcoholic steatohepatitis (SLOAN) 04/10/2020 Uncomplicated asthma 04/10/2020 Well controlled intermittent asthma 11/05/2017 Benign essential hypertension 05/26/2015 Type 2 diabetes mellitus wit hout complication, without long-term current use of insulin 05/26/2015 Chronic pain syndrome 05/26/2015 Mild intermittent asthma 05/26/2015 Primary insomnia 05/26/2015 Vitamin D deficiency 05/26/2015 Anxiety 05/26/2015 Seasonal allergic rhinitis 05/26/2015 Encounters Date Type Department Care Team Description 11/15/2024 2:45 PM EDT Office Visit [facility] [address] [place] [address] Cuca Sousa MD Vaginal bleeding (Primary Dx) 11/15/2024 Orders Only GENERIC EXTERNAL DATA DEPARTMENT Provider, Generic External Data 11/15/2024 Travel 11/11/[address] [facility] [address] [place] [address] Ana Keith MD wound orders 11/10/[address] [facility] [address] [place] [address] Ana Keith MD Type 2 diabetes mellitus without complication, with long-term current use of insulin (CMS/HCC); Mild intermittent asthma without complication; Diverticulosis 11/04/2024 Refill [facility] [address] [place] [address] Jay Martinez MD Type 2 diabetes mellitus with hyperglycemia, with long-term current use of insulin (CMS/HCC) 11/02/[address] [facility] [address] [place] [address] Ana Keith MD request 11/02/[address] [facility] [address] [place] [address] Ana Keith MD Nurse Triage 10/27/2024 Orders Only [facility] [address] [place] [address] Ana Keith MD Left pontine stroke (CMS/HCC) (Primary Dx); Decreased peripheral vision of right eye 10/27/[address] [facility] [address] [place] [address] Ana Keith MD 10/26/2024 Telephone [facility] [address] [place] [address] Siddharth Roa DDS 10/19/[address] [facility] [address] [place] [address] Ana Keith MD 10/08/2024 9:15 AM EDT Office Visit [facility] [address] [place] [address] Ana Keith MD Benign essential hypertension (Primary Dx); Type 2 diabetes mellitus with hyperglycemia, with long-term current use of insulin ([facility]); Type 2 diabetes mellitus with hyperglycemia, with long-term current use of insulin ([facility]); Ulcer of toe of right foot, with necrosis of muscle ([facility]); Anxiety; Primary insomnia; 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, unspecified blood vessel laterality ([facility]) 10/08/2024 Travel 10/07/2024 Telephone [facility] [address] [place] [phone] Ana Keith MD FYI 10/04/2024 9:30 AM EDT Office Visit [facility] [address] [place] [address] Siddharth Roa DDS Severe dental caries (Primary Dx); Missing teeth, acquired; Periodontal disease 10/01/2024 Orders Only [facility] [address] [place] [address] Megan Ferrer MD 09/24/[address] [phone] Ana Keith MD Medication Question 09/24/2024 Telephone [facility] [address] [place] [phone] Jay Martinez MD 09/24/[address] [facility] [address] [place] [address] Ana Keith MD Med Refill 09/24/[address] [facility] [address] [place] [phone] Ana Keith MD 09/17/2024 Patient Outreach [address] [address] Ana Keith MD Pre-visit Planning (HDF scheduled and SDOH screening unable to be completed. ) 09/17/[address] [address] Ana Keith MD Med Refill 09/17/[address] [address] Ana Keith MD Nurse Triage 09/17/[address] [address] Ana Keith MD Hospital Follow-up 09/14/2024 Orders Only [facility] [address] [place] [address] Megan Ferrer MD 09/13/2024 Orders Only [facility] [address], [place] [phone] ProviderMegan MD from Last 3 Months Immunizations Immunization Administration Dates Next Due Hep B, adult [...] Never Tobacco Cessation:Counseling Given: Not Answered Alcohol Use Standard Drinks/Week Comments Never 0 [...] Pulse 94 11/15/2024 2:48 PM EDT Temperature 36.1 C (97 F) 10/08/2024 9:12 AM EDT Respiratory Rate 20 11/15/2024 2:48 PM EDT Oxygen Saturation 97% 11/15/2024 2:48 PM EDT Inhaled Oxygen Concentration - - Weight 59.4 kg (131 lb) 11/15/2024 2:48 PM EDT Height 149.9 cm (4' 11 ) 11/15/2024 2:48 PM EDT Body Mass Index 26.46 11/15/2024 2:48 PM EDT Plan of Treatment Upcoming Encounters Date Type Department Care Team (Late st Contact Info) Description 12/02/2024 9:00 AM EDT Office Visit [facility] [address] [place] [address] Siddharth Roa, ALIZES [address] [place], [place] [phone] Health Maintenance Due Date Last Done Comments CT Colonography 1958 FIT DNA/Cologuard 1958 FIT 1958 FOBT 1958 Sigmoidoscopy 1958 Diabetes: Foot Exam 1968 Eye Exam 1968 Hepatitis C Screening 1976 Hepatitis A Vaccines (1 of 2 - Risk 2-dose series) 1977 Pneumococcal Vaccine: 50+ Years (1 of 2 - PCV) 1977 Mammogram 1998 Dental Prophylaxis 09/24/2017 03/26/2017, 0 06/12/2016, 10/12/2015 RSV Patients and Patients Aged 60 years or older (1 - Risk 60-74 years 1-dose series) 2018 Hepatitis B Vaccines (3 of 3 - Risk 3-dose series) 01/08/2019 08/20/2018, 07/08/2018 Diabetes: Urine Protein Screening 02/28/2022 02/28/2021 Lipid Panel 02/28/2022 02/28/2021 Pap Smear 03/29/2024 03/29/2021 Depression Monitoring 06/30/2024 12/31/2023, 024 COVID-19 Vaccine ( season) 2024 01/12/2021, 06/08/2020, 05/10/2020 Influenza Vaccine (#1) 2024 , 04/16/2023, 11/21/2021, Additional history exists Alcohol/Substance Use Screening 12/30/2024 12/31/2023 SDOH Screening 12/30/2024 12/31/2023 Diabetes: Hemoglobin A1C 01/08/2025 08 025, 07/16/2024, 06/06/2024, Additional history exists Dental Oral Exam 04/07/2025 10/04/2024, , 03/26/2017, Additional history exists Dental X-Ray: Bitewings 10/05/2025 10/05/19, 05/20/2018, 08/21/2016, Additional history exists Tobacco Screening 11/15/2025 11/15/2024 Cervical Cancer Screening 03/29/2026 HPV/Cotest 03/29/2026 03/29/2021, 08/19/2017 DTaP/Tdap/Td Vaccines (2 - Td or Tdap) 09/11/2026 09/11/2016 Colonoscopy 03/08/2027 03/08/2022 Colorectal Cancer Screening 03/08/2027 Dental X-Ray: Full Mouth 10/06/2027 10/04/2024, 10/01 Zoster Vaccines Completed 04/29/2019, 12/07/2018 HIB Vaccines Aged Out No longer eligi [...] FT4 Routine 11/15/2024 1 :34 PM EDT COMPREHENSIVE METABOLIC PANEL Routine 11/15/2024 1:34 PM EDT CBC Routine 11/15/2024 1:34 PM EDT POCT GLYCATED HEMOGLOBIN, TOTAL Routine 10/08/2024 9:16 AM EDT Type 2 diabetes mellitus with hyperglycemia, with long-term current use of insulin ([facility]) POCT GLUCOSE Routine 10/08/2024 9:16 AM EDT Type 2 diabetes mellitus with hyperglycemia, with long-term current use of insulin ([facility]) CASE PRESENTATION, DETAILED AND EXTENSIVE TREATMENT PLANNING Routine 10/04/2024 9:30 AM EDT INTRAORAL - COMPLETE SERIES OF RADIOGRAPHIC IMAGES Routine 10/04/2024 9:30 AM EDT PERIODIC ORAL EVALUATION - ESTABLISHED PATIENT Routine 10/04/2024 9:30 AM EDT 6 F(V) COMPOSITE FILLING Routine 10/04/2024 12:00 AM EDT 5 B(V) COMPOSITE FILLING Routine 10/04/2024 12:00 AM EDT ECG 12-LEAD Routine 09/13/2024 10:22 AM EDT MR FOOT W AND WO CONTRAST RIGHT Routine 09/09/2024 8:37 AM EDT XR FOOT 3+ VIEWS RIGHT Routine 10:04 AM EDT HM COLONOSCOPY Routine 03/08/2022 THINPREP IMAGING PAP AND HPV MRNA E6/E7, WITH CT/NG, TRICHOMONAS Routine 03/29/2021 12:00 AM EST ALBUMIN, RANDOM URINE W/CREATININE Routine 02/28/2021 11:12 AM EST LIPID PANEL, STANDARD Routine 02/28/2021 11:12 AM EST PROPHYLAXIS - ADULT Routine 03/26/2017 1 2:00 AM EST from Last 3 Months or Most Recently Relevant to Health Maintenance Results * TSH with Reflex to Free T4 (11/15/2024 1:34 PM EDT) TSH reflex Free T4 1.34 0.32 - 4.0 uIU/mL [facility] 11/15/2024 1:34 PM EDT 11/15/2024 1:34 PM EDT us Generic External Data Provider LAB BLOOD ORDERAB LES Final Result [facility] [address] [place] [address] [phone] * (ABNORMAL) CBC (11/15/2024 1:34 PM EDT) [facility] White Blood Count 8.9 4.8 - 10.8 X10*3/uL [facility] Red Blood Count 4.63 4.20 - 5.50 X10*6/uL [facility] Hemoglobin 14.8 12.0 - 16.0 g/dl [facility] Hematocrit 41.9 37.0 - 47.0 % [facility] Mean Corpuscular Volume 90.5 80.0 - 98.0 fL [facility] Mean Corpuscular Hemoglobin 32.0 27.0 - 33.0 pg [facility] Mean Corpuscular HGB Conc 35.3(H) 31.0 - 35.0 g/dl [facility] Red Cell Distribution Width 12.8 11.0 - 16.0 % [facility] Platelet Count 355 160 - 400 X10*3/uL [facility] Mean Platelet Volume 9.0(L) 9.4 - 12.3 fL [facility] NRBC Pct Auto 0.0 0.0 - 0.2 /100WBC [facility] NRBC Abs Auto 0.000 0.0 - 0.012 X10*3/uL [facility] 11/15/2024 1:3 4 PM EDT 11/15/2024 1:34 PM EDT us Generic External Data Provider LAB BLOOD ORDERAB LES Final Result Performing Organization Address City/Va Hospital/ZIP Co de Phone Number [facility] [address] [place] [address] [phone] * (ABNORMAL) Comprehensive Metabolic Panel (11/15/2024 1:34 PM EDT) [facility] Sodium 143 135 - 145 mmol/L [facility] Potassium 4.2 3.3 - 5.1 mmol/L [facility] Chloride 102 96 - 108 mmol/L [facility] Carbon Dioxide 33(H) 22 - 29 mmol/L [facility] Anion Gap 12 12 - 20 [facility] Urea Nitrogen (BUN) 8(L) 9 - 16 mg/dL [facility] Creatinine, Serum 0.59 0.5 - 1.4 mg/dL [facility] Estimated Glomerular Filt Rate >60 [facility] Comment:Chronic Kidney Disea se: Estimated GFR < 60 mL/min/[id number] Kidney Disease: Estimated GFR < 15 mL/min/1.73m2 Glucose 90 60 - 115 mg/dL [facility] Calcium 10.3(H) 8.4 - 10.2 mg/dL [facility] Bilirubin, Total 0.3 0.0 - 1.0 mg/dL [facility] Aspartate Amino Transferase 25 5 - 31 U/L [facility] Alanine Aminotransferase 23 0 - 31 U/L [facility] Total Protein 8.8(H) 6.5 - 8.0 g/dL [facility] Albumin Level 4.5 3.5 - 5.0 g/dL [facility] Alkaline Phosphatase 80 39 - 117 U/L [facility] 11/15/2024 1:34 PM EDT 11/15/2024 1:34 PM EDT us Generic External Data Provider LAB BLOOD ORDERAB LES Final Result [facility] [address] [place] [phone] * (ABNORMAL) POCT HGB A1C (10/08/2024 9:16 AM EDT) Hemoglobin A1C 7.2(A) 4.0 - 5.7 % Blood 10/08/2024 9:16 AM EDT us Ana Keith MD POINT OF CARE TEST ENTER/EDIT ORDERABLES Final Result * POCT Glucose (10/08/2024 9:16 AM EDT) Pathologist [facility] Glucose Blood, POC 188 60 - 200 mg/dL Blood Capillary blood specimen / Unknown 10/08/2024 9:16 AM EDT Result [facility] Ana Keith MD POINT OF CARE TEST ENTER/EDIT ORDERABLES Final Result * ECG 12 lead (09/13/2024 10:22 AM EDT) Result [facility] Provider ECG ORDERABLES Final Res ult * MR Foot w/ and w/o Contrast Right (09/09/2024 8:37 AM EDT) Anatomical Region Laterality Modality Lower Extremities, Foot Right Magnetic Resonance Result [facility] Provider IMG MRI PROCEDURES Final Result * XR Foot 3+ Views Right (09/06/2024 10:04 AM EDT) Anatomical Region Laterality Modality Lower Extremities, Foot Right Radiogra phic Imaging Result [facility] Provider IMG XR PROCEDURES Final R esult * Hm Colonoscopy (03/08/2022) [facility] Colonoscopy Normal Normal Narrative Jacqueline Chadwick - 03/08/2022 Recommended 5 years . See results scanned in junior media buyer Result [facility] Provider HEALTH MAINTENANCE Final Result * THINPREP TIS PAP AND HPV mRNA E6/E7, CT/NG, TRICH (03/29/2021 12:00 AM EST) Pathologist [facility] Chlamydia trachomatis RNA, TMA, Urogenital NOT DETECTED NOT DETECTED [facility] Clinical Information: None given [facility] COMMENT SEE COMMENT [facility] Comment: The analytical performance characteristics of this assay, when used to test SurePath(TM) specimens have been determined by [employer]. The modifications have not been cleared or approved by the FDA. This assay has been validated pursuant to the CLIA regulations and is used for clinical purposes. For additional information, please refer to https://[email or web address]/faq/VUK600 (This link is being provided for information/ educational purposes only.) COMMENT SEE COMMENT [facility] Comment: EXPLANATORY NOTE: The Pap is a screening test for cervical cancer. It is not a diagnostic test and is subject to false negative and false positive results. It is most reliable when a satisfactory sample, regularly obtained, is submitted with relevant clinical findings and history, and when the Pap result is evaluated along with historic and current clinical information. COMMENT: SEE COMMENT [facility] Comment: This case could not be evaluated with computer assisted technology. The slide was manually screened according to routine procedures. Digital Campaign Specialist: SEE COMMENT [facility] Comment: CXP, CT(ASCP) CT screening location: [place] [address] HPV nRNA E6/E7 Not Detected Not Detected [facility] Comment: Methodology: Pbx Teacher-Mediated Amplification This assay detects E6/E7 viral messenger RNA (mRNA) from 14 high-risk HPV types (16,18,31,33,35,39,45,51,52,56,58,59,66,68). The analytical performance characteristics of this assay have been determined by [employer]. The modifications have not been cleared or approved by the FDA. This assay has been validated pursuant to the CLIA regulations and is used for clinical purposes. For additional information, please refer to [email or web address]/faq/GHF670u6 (This link if provided for information/ educational purposes only.) Interpretation/Res ult: SEE COMMENT [facility] Comment: Negative for intraepithelial lesion or malignancy. Atrophic pattern; predominantly parabasal cells LMP: NONE GIVEN [facility] Neisseria gonorrhoeae RNA, TMA, Urogenital NOT DETECTED NOT DETECTED [facility] Prev. BX: NONE GIVEN [facility] Prev. PAP: NONE GIVEN [facility] Review Digital Campaign Specialist: SEE COMMENT [facility] Comment: GSG, CT(ASCP) CT screening location: [place] [address] SOURCE: None given [facility] Statement Of Adequacy: SATISFACTORY FOR EVALUATION [facility] Trichomonas vaginalis, QL, TMA, PAP Vial NOT DETECTED NOT DETECTED [facility] Comment: The analytical performance characteristics of this assay have been determined by [employer]. The modifications have not been cleared or approved by the FDA. This assay has been validated pursuant to the CLIA regulations and is used for clinical purposes. For additional information, please refer to [email or web address]/ faq/Trichomonastma (This link is being provided for information/ educational purposes only.) 03/29/2021 Ana Keith MD LAB PATHOLOGY ORDERABLES Enid l Result Performing Organization Address [facility] de Phone Number [facility] [address] [place] [address], * ALBUMIN, RANDOM URINE W/CREATININE (02/28/2021 11:12 AM EST) Microalbumin Urine 1.9 See Note: mg/dL [facility] Comment: Reference Range: Reference Range Not established Microalb/Creat Ratio 24 <30 mcg/mg creat [facility] Comment: The ADA defines abnormalities in albumin excretion as follows: Albuminuria Category Result (mcg/mg creatinine) Normal to Mildly increased <30 Moderately increased 30-299 Severely increased > OR = 300 The ADA recommends that at least two of three specimens collected within a 3-6 month period be abnormal before considering a patient to be within a diagnostic category. Creatinine, Urine 79 20 - 275 mg/dL [facility] 02/28/2021 11:1 2 AM EST Ana Keith MD LAB URINE ORDERABLES Final Re sult Performing Organization Address [facility] de Phone Number [facility] [address] [place] [address], * (ABNORMAL) LIPID PANEL, STANDARD (02/28/2021 11:12 AM EST) Chol/HDLC Ratio 6.4(H) <5.0 (calc) [facility] Cholesterol, Total 251(H) <200 mg/dL [facility] HDL Cholesterol 39(L) > OR = 50 mg/dL [facility] LDL Cholesterol 151(H) mg/dL (calc) [facility] Comment: Reference range: <100 Desirable range <100 mg/dL for primary prevention; <70 mg/dL for patients with CHD or diabetic patients with > or = 2 CHD risk factors. LDL-C is now calculated using the Fred calculation, which is a validated novel method providing better accuracy than the Friedewald equation in the estimation of LDL-C. John RIGGINS et al. CLAUDIA. 2013;310(19): 4179-8536 (http://education.Brainomix/faq/TBT246) Non-HDL Cholesterol 212(H) <130 mg/dL (calc) [facility] Comment: For patients with diabetes plus 1 major ASCVD risk factor, treating to a non-HDL-C goal of <100 mg/dL (LDL-C of <70 mg/dL) is considered a therapeutic option. Triglycerides 396(H) <150 mg/dL [facility] Comment: If a non-fasting specimen was collected, consider repeat triglyceride testing on a fasting specimen if clinically indicated. Rashmi et al. J. of Clin. Lipidol. 2015;9:129-169. 02/28/2021 11:1 2 AM EST us Ana Keith MD LAB BLOOD ORDERABLES Final Re sult [facility] Organization Address City/State/ZIP Co de Phone Number [facility] [address] from Last 3 Months or Most Recently Relevant to Health Maintenance Insurance [facility] < [address] [id number] DENTAL - [facility] Care Teams Analytics Developer Relationship Specialty Start Date End Date Ana Keith MD [address] [place] [address] PCP - General Family Medicine 11/05/17 [facility] 09/16/24
--- OUTSIDE RECORDS SUMMARY | 2024-11-15 17:18 | XMS_ITS | Encounter Summary ---
Author Organization [employer] Address 75 [facility] 7 [place] [address] Care Team Providers Care Records And Information Manager Name Role Phone Ana Keith MD Primary Care Provider [phone] Reason for Visit * Reason Onset Date Comments Durable Medical Equipment 03/19/2023 Encounter Details Date Type Department Care Team (Late st Contact Info) Description 03/19/[address] [facility] MEDICINE [address] [place] [address] Ana Keith MD [address] [place] [address] Durable Medical Equipment Social History Tobacco Use [...] Description 12/02/2024 9:00 AM EDT Office Visit [facility] ADULT DENTAL [address] [place] [address] Siddharth Roa DDS [address] [place] [address] documented as of this encounter Visit Diagnoses Not on filedocumented in this encounter Care Teams Records And Information Manager Relationship Specialty Start Date End Date Ana Keith MD [address] [place] [address] PCP - General Family Medicine 11/05/17 [facility] 09/16/24 documented as of this encounter
--- OUTSIDE RECORDS SUMMARY | 2024-11-15 17:18 | XMS_ITS | Encounter Summary ---
Author Organization [employer] Address 75 [facility] 7 [place] [address] Care Team Providers Care Digital Color Press Operator Name Role Phone Ana Keith MD Primary Care Provider [phone] Reason for Visit * Reason Comments Med Refill Encounter Details Date Type Department Care Team ([facility] Contact Info) Description 11/10/2024 Refill [facility] CHC MED & PEDS [address] [place], [place] [phone] Ana Keith MD 505 [place] [address] Type 2 diabetes mellitus without complication, with long-term current use of insulin ([facility]); Mild intermittent asthma without complication; Diverticulosis Social [...] Description 12/02/2024 9:00 AM EDT Office Visit [facility] ADULT DENTAL [address] [place] [address] Siddharth Roa DDS [address] [place] [address] documented as of this encounter Visit Diagnoses Diagnosis Type 2 diabetes mellitus without complication, with long-term current use of insulin ([facility]) Mild intermittent asthma without complication Diverticulosis Diverticulosis of colon (without mention of hemorrhage) documented in this encounter Additional Health Concerns Assessment Noted Time PHQ-9 Depression Total Score: 17 024 11:10 AM EDT documented as of this encounter Care Teams Digital Color Press Operator Relationship Specialty Start Date End Date Ana Keith MD [address] [place] [address] PCP - General Family Medicine 9/5/18 [facility] 09/16/24 documented as of this encounter
--- OUTSIDE RECORDS SUMMARY | 2024-11-15 17:18 | XMS_ITS | Encounter Summary ---
Author Organization [employer] Address 75 [facility] 7 [place] [address] Care Team Providers Care Motel Operator Name Role Phone Ana Keith MD Primary Care Provider [phone] Reason for Visit * Reason Onset Date Comments wound orders 11/11/2024 Encounter Details Date Type Department Care Team ([facility] Contact Info) Description 11/11/2024 Telephone [facility] CHC MED & PEDS [address] [place], [place] [phone] Ana Keith MD 505 [place] [address] wound orders Social History Tobacco Use Types Packs/Day Years [...] encounter Miscellaneous Notes * Telephone Encounter - María Rebolledo - 11/11/2024 10:49 AM EDT Tc from Samm Dolan at [facility] stating the wound of pt she was assigned too resulted. Now pt has a different wound on other side of foot and she is requesting specific orders for that wound Contact Samm at [phone] documented in this encounter Plan of Treatment Upcoming Encounters Date Type Department Care Team (Late st Contact Info) Description 12/02/2024 9:00 AM EDT Office Visit [facility] ADULT DENTAL [address] [place], [place] [phone] Siddharth Roa DDS [address] [place] [address] documented as of this encounter Visit Diagnoses Not on filedocumented in this encounter Additional Health Concerns Assessment Noted Time PHQ-9 Depression Total Score: 17 024 11:10 AM EDT documented as of this encounter Care Teams Motel Operator Relationship Specialty Start Date End Date Ana Keith MD [address] [place] [address] PCP - General Family Medicine 11/05/17 [facility] 09/16/24 documented as of this encounter
--- OUTSIDE RECORDS SUMMARY | 2024-11-15 17:18 | XMS_ITS | Continuity of Care Document ---
Author Name Sacha Boo Address [address] [place] [address] Organization Unknown Address [address] [place] [address] Medications No known medications Problems No known problems
--- OUTSIDE RECORDS SUMMARY | 2024-11-15 17:18 | XMS_ITS | Encounter Summary ---
Author Organization [employer] Address 75 [facility] 7 [place] [address] Care Team Providers Care Multi Site Leasing Consultant Name Role Phone Ana Keith MD Primary Care Provider [phone] Reason for Visit * Reason Onset Date Comments Med Refill 03/19/2023 Encounter Details Date Type Department Care Team (Late st Contact Info) Description 03/19/[address] [facility] MEDICINE [address] [place] [address] Ana Keith MD [address] [place] [address] Med Refill Social History Tobacco Use Types [...] 100 UNIT/ML pen To be sent to: [id number] [place], [place] - [address] documented in this encounter Plan of Treatment Upcoming Encounters Date Type Department Care Team (Late st Contact Info) Description 12/02/2024 9:00 AM EDT Office Visit [facility] ADULT DENTAL [address] [place], [place] [phone] Siddharth Roa DDS [address] [place] [address] documented as of this encounter Visit Diagnoses Not on filedocumented in this encounter Care Teams Multi Site Leasing Consultant Relationship Specialty Start Date End Date Ana Keith MD 505 [place] [address] PCP - General Family Medicine 11/05/17 [facility] 09/16/24 documented as of this encounter
--- OUTSIDE RECORDS SUMMARY | 2024-11-15 17:18 | XMS_ITS | Encounter Summary ---
Author Organization [employer] Address 75 [facility] 7t [place] [address] Care Team Providers Care Sewing Machine Operator Paper Bags Name Role Phone Ana Keith MD Primary Care Provider [phone] Encounter Details Date Type Department Care Team (Late st Contact Info) Description 10/01/2024 Orders Only [facility] [address] [place] [address] Provider, MD Megan Social History Tobacco Use [...] Description 12/02/2024 9:00 AM EDT Office Visit [facility] ADULT DENTAL [address] [place], [place] [phone] Siddharth Roa DDS [address] [place] [address] documented as of this encounter Procedures Procedure Name Priority Date/Time Associated Diagnosis Comments XR FOOT 3+ VIEWS RIGHT Routine 09/06/2024 10:04 AM EDT documented in this encounter Results * XR Foot 3+ Views Right (09/06/2024 10:04 AM EDT) Anatomical Region Laterality Modality Lower Extremities, Foot Right Radiogra phic Imaging us Historical Provider MD TORRES XR PROCEDURES Final R esult documented in this encounter Visit Diagnoses Not on filedocumented in this encounter Additional Health Concerns Assessment Noted Time PHQ-9 Depression Total Score: 17 024 11:10 AM EDT documented as of this encounter Care Teams Sewing Machine Operator Paper Bags Relationship Specialty Start Date End Date Ana Keith MD 505 [place] [address] PCP - General Family Medicine 11/05/17 [facility] 09/16/24 documented as of this encounter
--- OUTSIDE RECORDS SUMMARY | 2024-11-15 17:18 | XMS_ITS | Continuity of Care Document ---
Author Name [employer], Medical Address [address] [place] [address] Organization Unknown Address [address] [place] [address] Medications No known medications Problems No known problems
--- OUTSIDE RECORDS SUMMARY | 2024-11-15 17:18 | XMS_ITS | Encounter Summary ---
Author Organization [employer] Address 75 [facility] 7 [place] [address] Care Team Providers Care Staff Forester Name Role Phone Ana Keith MD Primary Care Provider [phone] Reason for Visit * Reason Onset Date Comments Medication Question 06/04/2023 Referral 06/04/2023 Encounter Details Date Type Department Care Team ([facility] st Contact Info) Description 06/04/2023 Telephone [facility] MEDICINE [address] [place] [address] Ana Keith MD [address] [place] [address] Medication Question; Referral Social History Tobacco Use [...] EDT Return T/C x 1 pm through propio interpreters id - [id number] for below message, No answer. Mail box [...] visit with pcp. Please contact pt at [phone]. documented in this encounter Plan of Treatment Upcoming Encounters Date Type Department Care Team (Late st Contact Info) Description 12/02/2024 9:00 AM EDT Office Visit [facility] ADULT DENTAL [address] [place] [address] Siddharth Roa DDS [address] [place] [address] documented as of this encounter Visit Diagnoses Not on filedocumented in this encounter Additional Health Concerns Assessment Noted Time PHQ-9 Depression Total Score: 22 024 11:59 AM EST documented as of this encounter Care Teams Staff Forester Relationship Specialty Start Date End Date Ana Keith MD [address] [place] [address] PCP - General Family Medicine 11/05/17 [facility] 09/16/24 documented as of this encounter
--- OUTSIDE RECORDS SUMMARY | 2024-11-15 17:18 | XMS_ITS | Encounter Summary ---
Author Organization [employer] Address 75 [facility] 7 [place] [address] Care Team Providers Care Grocery Sacker Name Role Phone Ana Keith MD Primary Care Provider [phone] Encounter Details Date Type Department Care Team (Late st Contact Info) Description 09/30/2023 Orders Only [facility] CHC MED & PEDS [address] [place], [place] [phone] Ana Keith MD [address] [place] [address] Social History Tobacco Use Types Packs/Day Years [...] 9:00 AM EDT Office Visit [facility] ADULT DENTAL [address] [place], [place] [phone] Siddharth Roa DDS [address] [place], [place] [phone] documented as of this encounter Visit Diagnoses Not on filedocumented in this encounter Additional Health Concerns Assessment Noted Time PHQ-9 Depression Total Score: 22 024 11:59 AM EST documented as of this encounter Care Teams Grocery Sacker Relationship Specialty Start Date End Date Ana Keith MD 505 [facility] [place] [address] PCP - General Family Medicine 11/05/17 [facility] 09/16/24 documented as of this encounter
--- OUTSIDE RECORDS SUMMARY | 2024-11-15 17:18 | XMS_ITS | Encounter Summary ---
Author Organization [email or web address] Address 75 [facility] 7t [place] [address] Care Team Providers Care Materials And Processes Manager Name Role Phone Ana Keith MD Primary Care Provider [phone] Encounter Details Date Type Department Care Team (Late st Contact Info) Description 09/14/2024 Orders Only [facility] [address] [place] [address] Provider, MD Megan Social History Tobacco Use [...] 9:00 AM EDT Office Visit [facility] ADULT DENTAL [address] [place], [place] [phone] Siddharth Roa DDS [address] [place] [address] documented as of this encounter Procedures Procedure Name Priority Date/Time Associated Diagnosis Comments ECG 12-LEAD Routine 09/13/2024 10:22 AM EDT documented in this encounter Results * ECG 12 lead (09/13/2024 10:22 AM EDT) us Historical Provider ECG ORDERABLES Final Res ult documented in this encounter Visit Diagnoses Not on filedocumented in this encounter Additional Health Concerns Assessment Noted Time PHQ-9 Depression Total Score: 17 024 11:10 AM EDT documented as of this encounter Care Teams Materials And Processes Manager Relationship Specialty Start Date End Date Ana Keith MD [address] [place] [address] PCP - General Family Medicine 11/05/17 [facility] 09/16/24 documented as of this encounter
--- OUTSIDE RECORDS SUMMARY | 2024-11-15 17:18 | XMS_ITS | Encounter Summary ---
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, unspecified blood vessel laterality (CMS/HCC) Cuca Sousa MD [address] [place] [address] Phone: tel: fax: Referral ID Status Reason Start Date Expiration Date V isits Requested Visits Authorized [id number] Closed Specialty Services Required 08/06/2024 08/06/2025 1 1 Encounter Details Date Type Department Care Team (Late st Contact Info) Description 08/06/2024 Orders Only [facility] CHC MED & PEDS [address] [place] [address] Cuca Sousa MD [address] [place] [address] Left pontine stroke (CMS/HCC) (Primary Dx); 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, unspecified blood vessel laterality (CMS/HCC) Social History Tobacco Use Types Packs/Day Years [...] 9:00 AM EDT Office Visit [facility] ADULT DENTAL [address] [place] [address] Siddharth Roa DDS [address] [place], [place] [phone] Scheduled Referrals Name Type Priority Associated Diagnoses Orde r Schedule Referral to Physical Therapy Outpatient Referral Routine 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, unspecified blood vessel laterality (CMS/HCC) Expected: 08/06/2024 (Approximate), Expires: 08/06/2025 documented as of this encounter Visit Diagnoses Diagnosis Left pontine stroke (CMS/HCC)- Primary 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
--- OUTSIDE RECORDS SUMMARY | 2024-11-15 17:18 | XMS_ITS | Encounter Summary ---
Author Organization [employer] Address [address] [facility] [address] 7t [place] [address] Care Team Providers Care Application Project Leader Name Role Phone Ana Keith MD Primary Care Provider [phone] Encounter Details Date Type Department Care Team (Late st Contact Info) Description 09/13/2024 Orders Only [facility] CHC MED & PEDS [address] [place], [place] [phone] ProviderMegan MD Social History Tobacco Use Types Packs/Day Years [...] [facility] ADULT DENTAL 230 [place], [place] [phone] Siddharth Roa DDS [address] [place] [address] documented as of this encounter Procedures Procedure Name Priority Date/Time Associated Diagnosis Comments MR FOOT W AND WO CONTRAST RIGHT Routine 09/09/2024 8:37 AM EDT documented in this encounter Results * MR Foot w/ and w/o Contrast Right (09/09/2024 8:37 AM EDT) Anatomical Region Laterality Modality Lower Extremities, Foot Right Magnetic Resonance Historical Provider MD TORRES MRI PROCEDURES Final Result documented in this encounter Visit Diagnoses Not on filedocumented in this encounter Additional Health Concerns Assessment Noted Time PHQ-9 Depression Total Score: 17 024 11:10 AM EDT documented as of this encounter Care Teams Application Project Leader Relationship Specialty Start Date End Date Ana Keith MD [address] [place] [address] PCP - General Family Medicine 11/05/17 [facility] 09/16/24 documented as of this encounter
--- OUTSIDE RECORDS SUMMARY | 2024-11-15 17:18 | XMS_ITS | Encounter Summary ---
Author Organization [employer] Address 75 [facility] 7t [place] [address] Care Team Providers Care Sprue Knocker Name Role Phone Ana Keith MD Primary Care Provider [phone] Encounter Details Date Type Department Care Team ([facility] st Contact Info) Description 07/19/2024 Telephone C CHC MED & PEDS [address] [place], [place] [phone] Ana Keith MD [address] [place] [address] Social History Tobacco Use Types Packs/Day Years [...] encounter Miscellaneous Notes * Telephone Encounter - Verona Corona - 07/19/2024 12:14 PM EDT Tc from pt son Celestine stating he had a missed call and voicemail from requesting a call back. Contact Celestine at [phone] documented in this encounter Plan of Treatment Upcoming Encounters Date Type Department Care Team (Late st Contact Info) Description 12/02/2024 9:00 AM EDT Office Visit [facility] ADULT DENTAL [address] [place] [address] Siddharth oRa DDS [address] [place] [address] documented as of this encounter Visit Diagnoses Not on filedocumented in this encounter Additional Health Concerns Assessment Noted Time PHQ-9 Depression Total Score: 17 024 11:10 AM EDT documented as of this encounter Care Teams Sprue Knocker Relationship Specialty Start Date End Date Ana Keith MD [address] [place] [address] PCP - General Family Medicine 11/05/17 [facility] 09/16/24 documented as of this encounter
--- OUTSIDE RECORDS SUMMARY | 2024-11-15 17:18 | XMS_ITS | Encounter Summary ---
Author Organization [employer] Address 75 [facility] 7 [place] [address] Care Team Providers Care Construction Operations Manager Name Role Phone Ana Keith MD Primary Care Provider [phone] Encounter Details Date Type Department Care Team (Late st Contact Info) Description 06/04/2023 Telephone [facility] MEDICINE [address] [place], [place] [phone] Ana Keith MD [address] [place] [phone] Social History Tobacco Use Types Packs/Day Years [...] Description 12/02/2024 9:00 AM EDT Office Visit [facility] ADULT DENTAL 230 [place], [place] [phone] Siddharth Roa DDS [address] [place], [place] [phone] documented as of this encounter Visit Diagnoses Not on filedocumented in this encounter Additional Health Concerns Assessment Noted Time PHQ-9 Depression Total Score: 22 024 11:59 AM EST documented as of this encounter Care Teams Construction Operations Manager Relationship Specialty Start Date End Date Ana Keith MD [address] [place] [address] PCP - General Family Medicine 11/05/17 [facility] 09/16/24 documented as of this encounter
--- OUTSIDE RECORDS SUMMARY | 2024-11-15 17:18 | XMS_ITS | Encounter Summary ---
Author Organization [employer] Address 75 [facility] 7 [place] [address] Care Team Providers Care Periodicals Clerk Name Role Phone Ana Keith MD Primary Care Provider Reason for Visit * Reason Onset Date Comments Results 03/01/2024 Encounter Details Date Type Department Care Team ([facility] Contact Info) Description 03/01/2024 Telephone [facility] CHC MED & PEDS [address] [place], [place] [phone] Ana Keith MD [address] [place] [address] Results Social History Tobacco Use Types Packs/Day [...] PM EST Noted MRI result faxed to [facility] as requested. * Telephone Encounter - Edyta Thakkar - 03/01/2024 11:25 AM EST TC from pt daughter Catarina requesting a call back regarding Results. Type of results: MRI Date when done: about 2 weeks ago Facility: [facility] documented in this encounter Plan of Treatment Upcoming Encounters Date Type Department Care Team (Late st Contact Info) Description 12/02/2024 9:00 AM EDT Office Visit [facility] ADULT DENTAL [address] [place], [place] [phone] Siddharth Roa DDS [address] [place] [address] documented as of this encounter Visit Diagnoses Not on filedocumented in this encounter Additional Health Concerns Assessment Noted Time PHQ-9 Depression Total Score: 17 024 11:10 AM EDT documented as of this encounter Care Teams Periodicals Clerk Relationship Specialty Start Date End Date Ana Keith MD [address] [place] [address] PCP - General Family Medicine 11/05/17 [facility] 09/16/24 documented as of this encounter
--- OUTSIDE RECORDS SUMMARY | 2024-11-15 17:18 | XMS_ITS | Encounter Summary ---
Author Organization [employer] Address [address] [facility] 7[address] [place] [address] Care Team Providers Care Chick Grader Name Role Phone Ana Keith MD Primary Care Provider [phone] Encounter Details Date Type Department Care Team ([facility] st Contact Info) Description 02/03/2024 Orders Only [facility] PEDS [address] [place], [place] [phone] Ana Keith MD [address] [place] [address] Social History Tobacco Use Types Packs/Day Years [...] Description 12/02/2024 9:00 AM EDT Office Visit [facility] ADULT DENTAL [address] [place] [address] Siddharth Roa DDS [address] [place] [address] documented as of this encounter Visit Diagnoses Not on filedocumented in this encounter Additional Health Concerns Assessment Noted Time PHQ-9 Depression Total Score: 17 024 11:10 AM EDT documented as of this encounter Care Teams Chick Grader Relationship Specialty Start Date End Date Ana Keith MD [address] [place] [address] PCP - General Family Medicine 11/05/17 [facility] 09/16/24 documented as of this encounter
--- OUTSIDE RECORDS SUMMARY | 2024-11-15 17:18 | XMS_ITS | Encounter Summary ---
Author Organization [employer] Address [address] [place] [address] [address] [place] [address] Care Team Providers Care Manager Practice Name Role Phone Ana Keith MD Primary Care Provider [phone] Reason for Visit * Reason Onset Date Comments Results 04/02/2022 Encounter Details Date Type Department Care Team ([facility] Contact Info) Description 04/02/2022 Telephone [facility]ED[facility] [address] [place], [place] [phone] Ana Keith MD [address] [place] [address] Results Social History Tobacco Use Types Packs/Day [...] pt. Per pt, completed a colonoscopy at [facility] several weeks ago and is requesting results. RN advised results are not in system. Will request results and and send to scan for PCP to review. Pt agrees. Pt requesting f/u with PCP. States she saw general surgery today at [facility]. Per pt, will be scheduled for surgery of hernia repair and would like to see PCP to discuss prior to the surgery. Pt agrees tovisit on 04/10/22 @11:00am. * Telephone Encounter - Edyta Thakkar - 04/02/2022 9:38 AM EST Tc from pt requesting colonoscopy results . documented in this encounter Plan of Treatment Upcoming Encounters Date Type Department Care Team (Late st Contact Info) Description 12/02/2024 9:00 AM EDT Office Visit [facility] [address] [place], [place] [phone] Siddharth Roa DDS [address] [place] [address] documented as of this encounter Visit Diagnoses Diagnosis Type 2 diabetes mellitus without complication, with long-term current use of insulin ([facility])- Primary Mild intermittent asthma without complication Diverticulosis Diverticulosis of colon (without mention of hemorrhage) documented in this encounter Care Teams Manager Practice Relationship Specialty Start Date End Date Ana Keith MD [address] [place] [address] PCP - General Family Medicine 11/05/17 [facility] 09/16/24 documented as of this encounter
== END 2024-11-15 13:21 | disposition home or self-care (01) ==
LOC: HO.HGI 12:36
PROVIDERS: PCP Pediatrics; Visit Provider Internal Medicine
DX: R11.0 Nausea (principal); R19.4 Change in bowel habit; R63.0 Anorexia
CPT/HCPCS: 99204

== ENCOUNTER 2024-11-15 12:36 | Outpatient (REF) | payer OTHER, SELFPAY ==
[2024-11-15 13:48] LABS: Hematocrit 41.9 % (37.0-47.0); Hemoglobin 14.8 g/dl (12.0-16.0); Mean Corpuscular HGB Conc 35.3 g/dl (31.0-35.0); Mean Corpuscular Hemoglobin 32.0 pg (27.0-33.0); Mean Corpuscular Volume 90.5 fL (80.0-98.0); NRBC Abs Auto 0.000 X10*3/uL (0.0-0.012); NRBC Pct Auto 0.0 /100WBC (0.0-0.2); Platelet Count 355 X10*3/uL (160-400); Red Blood Count 4.63 X10*6/uL (4.20-5.50); White Blood Count 8.9 X10*3/uL (4.8-10.8)
[2024-11-15 14:42] LABS: Alanine Aminotransferase 23 U/L (0-31); Albumin Level 4.5 g/dL (3.5-5.0); Alkaline Phosphatase 80 U/L (39-117); Anion Gap 12 (12-20); Aspartate Amino Transferase 25 U/L (5-31); Blood Urea Nitrogen 8 mg/dL (9-16); Calcium 10.3 mg/dL (8.4-10.2); Carbon Dioxide 33 mmol/L (22-29); Chloride 102 mmol/L (96-108); Estimated Glomerular Filt Rate > 60; Potassium 4.2 mmol/L (3.3-5.1); Sodium 143 mmol/L (135-145); Total Protein 8.8 g/dL (6.5-8.0)
[2024-11-16 09:59] LABS: Immunoglobulin A 783 mg/dL (70-320)
== END 2024-11-15 12:37 | disposition home or self-care (01) ==
LOC: HO.LAB 12:36
PROVIDERS: PCP Pediatrics; Visit Provider Internal Medicine
DX: R63.0 Anorexia (principal); R11.0 Nausea; R19.4 Change in bowel habit
CPT/HCPCS: 36415; 80053; 82784; 84443; 85027; 86364; 99202

== ENCOUNTER 2024-11-17 14:02 | Outpatient (REF) | payer OTHER, SELFPAY ==
--- OUTSIDE RECORDS SUMMARY | 2023-12-31 12:01 | XMS_ITS | Encounter Summary ---
Author Organization [facility] Address [address] [place] [address] Care Team Providers Care Crepe Machine Operator Name Role Phone Unavailable Primary Care Provider Unavailabl e Encounter Details Date Type Department Care Team (Late st Contact Info) Description 12/31/2023 12:01 PM EDT Hospital Encounter TH HISTORIC ENCOUNTERS [facility] ONLY Viola Keith MD [address] [place] [phone] Social History Tobacco Use Types Packs/Day Years [...] as of this encounter Plan of Treatment Not on file documented as of this encounter Goals Goal [...] be fitted for and receive right AFO - not met Pt will ambulate with LAD x50 ft with supervision and LAD - not met Pt will stand-pivot transfer left and right with LAD with supervision - not met Pt will ascend/descend 4 steps with supervision and LAD - not met OT STG 6-8 visits General No Zina Warren, OT Note: Pt/family will return demo initial [...] On track( 025 2:06 PM EDT) Nell Scanlon, OT Note: Pt/family return demo approp HEP [...] PM EDT Narrative 12/31/2023 5:08 PM EDT [facility] Diagnostic Imaging Department [address] [place] [address] Patient: JANICE BURT D.O.B./Age/Sex: 1960 - 63 - F Unit#: [id number] Location/Status: SPDIGEN/REG CLI Mnemonic/Ordering Site: ORBITS/SPDI Ordering Physician: VIOLA KEITH CR Orbit Min 4 Views - 12/31/23 - 1225 Report Status:Signed History: Facial trauma (fall). Orbital [...] Procedure Note Elsy Otero MD - 01/03/2024 [facility] Diagnostic Imaging Department [address] [place] [address] Patient: JANICE BURT./Age/Sex: 1960 - 63 - F Unit#: [id number] Location/Status: SPDIGEN/REG CLI Mnemonic/Ordering Site: ORBITS/SPDI Ordering Physician: VIOLA KEITH CR Orbit Min 4 Views - 12/31/23 - 6 Report Status:Signed History: Facial trauma (fall). Orbital [...] MD Dic Date/Time: 12/31/231705 Sign date/Time: 12/31/231707 us Viola Keith MD IM US PROCEDURES Final Resul t documented in this [...] 1:29 PM EDT C. difficile 09/10/2024 09/10/2024 10/04/2024 7:06 PM EDT documented as of this encounter
--- OUTSIDE RECORDS SUMMARY | 2024-11-15 14:45 | XMS_ITS | Encounter Summary ---
Author Organization [employer] Address [address] [place] [address] [address], [place] [address] Care Team Providers Care Electric Motor Repairer Name Role Phone Ana Keith MD Primary Care Provider [phone] Reason for Referral * Imaging (Routine) - Authorized Specialty Diagnoses / Procedures Referred By Contac t Referred To Contact Radiology Diagnoses Vaginal bleeding Procedures US Pelvis Transvaginal Cuca Sousa MD [address] [place] [address] Phone: tel: fax: [facility] [address] [place], [place] Phone: tel: fax: Referral ID Status Reason Start Date Expiration Date V isits Requested Visits Authorized [id number] Authorized 11/15/2024 11/15/2025 1 1 * Consultation (Urgent) - Authorized Specialty Diagnoses / Procedures Referred By Contac t Referred To Contact Diagnoses Vaginal bleeding Cuca Sousa MD [address] [place] [address] Phone: tel: fax: Makenna Hampton [address] [address] Phone: tel: fax: Referral ID Status Reason Start Date Expiration Date Visits Requested Visits Authorized [id number] Authorized Specialty Services Required 11/15/2024 11/15/2025 1 1 Reason for Visit * Reason Comments Vaginal Bleeding Encounter Details Date Type Department Care Team ([facility] st Contact Info) Description 11/15/2024 2:45 PM EDT Office Visit [facility] PEDS [address] [place] [address] Cuca Sousa MD [address] [place] [address] Vaginal bleeding (Primary Dx) Social History Tobacco [...] Sousa MD - 11/15/2024 2:45 PM EDT AZEEM Burt is a 63 y.o. female who [...] discharge was bloody. The vaginal bleeding is buyer intern than menses. She has not been passing [...] oxygen level 1 each 0 nystatin (Mycostatin) 843086 UNIT/GM powder Apply topically 4 times daily. [...] Description 12/02/2024 9:00 AM EDT Office Visit [facility] ADULT DENTAL [address] [place], [place] [phone] Siddharth Roa DDS [address] [place] [address] Scheduled Orders Name Type Priority Associated Diagnoses [...] documented as of this encounter Care Teams Electric Motor Repairer Relationship Specialty Start Date End Date Ana Keith MD [address] [place] [phone] PCP - General Family Medicine 11/05/17 [facility] 09/16/24 documented as of this encounter
--- OUTSIDE RECORDS SUMMARY | 2024-11-18 16:01 | XMS_ITS | Encounter Summary ---
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, unspecified blood vessel laterality (CMS/HCC) Cuca Sousa MD [address] [place] [address] Phone: tel: fax: Referral ID Status Reason Start Date Expiration Date V isits Requested Visits Authorized [id number] Closed Specialty Services Required 08/06/2024 08/06/2025 1 1 Encounter Details Date Type Department Care Team (Late st Contact Info) Description 08/06/2024 Orders Only [facility] MED & PEDS [address] [place] [address] Cuca Sousa MD [address] [place] [address] Left pontine stroke (CMS/HCC) (Primary Dx); Cerebrovascular [...] Description 12/02/2024 9:00 AM EDT Office Visit [facility] ADULT D[facility] [address] [place] [address] Siddharth Roa DDS [address] [place], [place] [phone] Scheduled Referrals Name Type Priority Associated Diagnoses [...] documented as of this encounter Care Teams Sap Consultant Relationship Specialty Start Date End Date Ana Keith MD [address] [place] [id number] PCP - General Family Medicine 11/05/17 [facility] 09/16/24 documented as of this encounter
--- OUTSIDE RECORDS SUMMARY | 2024-11-18 16:01 | XMS_ITS | Encounter Summary ---
Author Organization [employer] Address [address] [facility] 7 [place] [address] Care Team Providers Care Speech And Language Clinician Name Role Phone Ana Keith MD Primary Care Provider [phone] Reason for Visit * Reason Onset Date Comments Medication Question 06/04/2023 Referral 06/04/2023 Encounter Details Date Type Department Care Team ([facility] st Contact Info) Description 06/04/2023 Telephone [facility] MEDICINE [address] [place] [address] Ana Keith MD [address] [place] [id number] Medication Question; Referral Social History Tobacco Use [...] 1 pm through [place] - [id number] for below message, No answer. Mail box [...] visit with pcp. Please contact pt at [phone]. documented in this encounter Plan of Treatment Upcoming Encounters Date Type Department Care Team (Late st Contact Info) Description 12/02/2024 9:00 AM EDT Office Visit [facility] ADULT DENTAL [address] [place] [address] Siddharth Roa DDS [address] [place] [address] documented as of this encounter Visit Diagnoses Not on filedocumented in this encounter Additional Health Concerns Assessment Noted Time PHQ-9 Depression Total Score: 22 024 11:59 AM EST documented as of this encounter Care Teams Speech And Language Clinician Relationship Specialty Start Date End Date Ana Keith MD [address] [place] [address] PCP - General Family Medicine 11/05/17 [facility] 09/16/24 documented as of this encounter
--- OUTSIDE RECORDS SUMMARY | 2024-11-18 16:01 | XMS_ITS | Clinical Summary ---
Author Organization 175 [facility] Address [address] [place] [address] Phone Care Team Providers Care Thread Drawer Name Role Phone Viola Rhodes MD Primary Care Provider [phone] Allergies Active Allergy Reactions Criticality Noted Date [...] Noted Date Diagnosed Date Diabetic foot infection ([facility] V24, [facility] V2 8) 09/14/2024 Pressure injury of left foot , stage 3 ([facility] V24, [facility] V28) 09/09/2024 Ulcer of toe of right foot, with necrosis of muscle ([facility] V24, [facility] V28) 09/09/2024 Stroke ([facility] V24, [facility] V28) 06/15/2024 Chest pain 06/06/2024 Class 1 obesity with body ma ss index (BMI) of 30.0 to 30.9 in adult 02/03/2024 Diastasis recti 04/10/2020 Incisional hernia with obstruction but no gangre ne 04/10/2020 Nephrolithiasis 04/10/2020 Nonalcoholic steatohepatitis (SLOAN) 04/10/2020 Type 2 diabetes mellitus wit hout complication, without long-term current use of insulin ([facility] V24, [facility] V28) 04/10/2020 Uncomplicated asthma 04/10/2020 Encounters Date Type Department Care Team Description 10/06/2024 11:00 AM EDT Treatment [facility] Occupational Therapy [address] [place] [phone] Boni Mckeon COTA/Sandra Cerebrovascular accident (CVA) due to other mechanism ([facility] V24, [facility] V28) (Primary Dx) 10/06/2024 10:15 AM EDT Treatment [facility] Outpatient Rehabilitation [facility] [address] [phone] Tanmay Carlton, PT Cerebrovascular accident (CVA) due to other mechanism ([facility] V24, [facility] V28) (Primary Dx) 09/27/2024 10:15 AM EDT Treatment [facility] [address] [phone] Tom Antony PTA Cerebrovascular accident (CVA) due to other mechanism ([facility] V24, [facility] V28) (Primary Dx) 09/20/2024 11:00 AM EDT Treatment [facility] Occupational Therapy [address] [phone] Nell Warren, OT Cerebrovascular accident (CVA) due to other mechanism ([facility] V24, [facility] V28) (Primary Dx) 09/20/2024 10:15 AM EDT Treatment [address] [phone] Tanmay Carlton, PT Cerebrovascular accident (CVA) due to other mechanism ([facility] V24, [facility] V28) (Primary Dx) 09/10/2024 3:00 PM EDT - 09/10/2024 4:00 PM EDT Surgery [address] [phone] Filiberto Silva DPM DEBRIDEMENT WOUND [04011 (CPT )] 09/10/2024 2:14 PM EDT Anesthesia Event [address] [phone] Hiro Malcolm MD 09/09/2024 12:19 PM EDT - 09/14/2024 5:49 PM EDT Hospital Encounter [facility] Urology Unit [address] [place] [phone] Stella Rollins DO Flores, Carlos M, MD Kokosadze, Estate, MD Zipagan, James T, MD Diabetic foot infection ([facility] V24, [facility] V28) (Primary Dx); Gangrene of left foot ([facility] V24, [facility] V28); Ulcer of toe of right foot, with necrosis of muscle ([facility] V24, [facility] V28); Pressure injury of left foot, stage 3 (CMS/HCC V24, CMS/HCC V28) Discharge Disposition: [place] [facility] 09/09/2024 Telephone Orthopedic Surgery [place] [address] [phone] Filiberto Silva DPM 09/06/2024 3:50 PM EDT Office Visit Orthopedic Surgery [facility] [address] [phone] Filiberto Silva, DPM Cellulitis of right foot (Primary Dx); Ulcer of toe of right foot, with fat layer exposed ([facility] V24, [facility] V28); Gangrene ([facility] V24, [facility] V28); Follow-up exam 09/02/2024 11:30 AM EDT Treatment [facility] Speech Therapy [address] [phone] Tatianna Carreon, 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 Aphasia (Primary Dx); Cerebrovascular accident (CVA) due to other mechanism (CMS/HCC V24, [facility] V28) 09/01/2024 1:15 PM EDT [facility] [address] [phone] Boni Mckeon, TUTTLE/L Cerebrovascular accident (CVA) due to other mechanism ([facility] V24, [facility] V28) (Primary Dx); Ulcer of toe of right foot, with fat layer exposed ([facility] V24, [facility] V28) 08/26/2024 Telephone [facility] [address] [phone] Nell Warren OT 08/19/2024 1:00 PM EDT [facility] [address] [phone] Boni Mckeon, TUTTLE/L Cerebrovascular accident (CVA) due to other mechanism ([facility] V24, [facility] V28) (Primary Dx) from Last 3 Months Surgical History Surgery Date Site/Laterality Comments HERNIA REPAIR x2 Medical History Medical History Date Comments Hypertension Diabetes mellitus ([facility] V24, [facility] V28) Migraines Hyperlipidemia CVA (cerebral vascular accident) ([facility] V24, [facility] V28) Insomnia Asthma Seizure disorder ([facility] V24, [facility] V28) Fibromyalgia Arthritis Family History Medical History [...] necrosis of muscle (CMS/HCC V24, CMS/HCC V28) GA DEBRIDEMENT MUSCLE/FASCIA <= 20 SQ CM 09/10/2024 [...] Routine 09/06/2024 4:17 PM EDT Follow-up exam LIPID PANEL WITH REFLEX TO DIRECT LDL [...] of19 resultswithin the time period is included. [facility] Glucose POCT 204(H) 70 - 100 mg/dL 09/14/2024 8:14 PM EDT [facility] Blood Capillary blood specimen / Unknown 09/14/2024 5:07 PM EDT 09/14/2024 8:15 PM EDT us Vincent [place] MD LAB POINT OF CARE TE ST DOCKED DEVICE UNSOLICITED RESULTS Final Result [facility] [address] [place] [address], [place] [phone] * ECG 12 lead (09/13/2024 2:30 PM EDT) [facility] Ventricular Rate ECG 86 BPM GEMUSE Atrial Rate 86 BPM GEMUSE P-R Interval 152 ms GEMUSE QRS Duration 74 ms GEMUSE Q-T Interval 380 ms GEMUSE QTc 454 ms GEMUSE P Wave [place] 60 degrees GEMUSE R [place] 17 degrees GEMUSE T [place] 56 degrees GEMUSE ECG Interpretation Normal sinus rhythm When compared with ECG of 06-JUN-2024 21:00, No significant change was found Confirmed by MADDY THOMAS ([id number]) on 09/14/2024 7:13:53 AM GEMUSE 09/13/2024 2:30 PM EDT 09/14/2024 7:13 AM EDT Fern Thomas MD ECG ORDERABLES Final Result Performing Organization Address [facility] de Phone Number GEMUSE * Magnesium (09/13/2024 6:12 AM EDT) Only the most recent of2 resultswithin the time period is included. [facility] Magnesium 2.2 1.9 - 2.6 mg/dL LAB CHEMISTRY METHOD 09/13/2024 7:14 AM EDT [facility] Blood Venous blood specimen / Unknown Venipuncture / Unknown 09/13/2024 6:12 AM EDT 09/13/2024 6:33 AM EDT Ciara ARMANDO LAB BLOOD ORDERABLES Final Result Performing Organization Address [facility] Co de Phone Number [facility] [address] [place] [address], [place] [phone] * (ABNORMAL) Basic metabolic panel (09/13/2024 6:12 AM EDT) Only the most recent of4 resultswithin the time period is included. [facility] Sodium 136 133 - 145 mmol/L LAB CHEMISTRY METHOD 09/13/2024 7:14 AM EDT [facility] Potassium 4.0 3.5 - 5.5 mmol/L LAB CHEMISTRY METHOD 09/13/2024 7:14 AM [facility] Chloride 102 96 - 110 mmol/L LAB CHEMISTRY METHOD 09/13/2024 7:14 AM [facility] CO2 30 21 - 32 mmol/L LAB CHEMISTRY METHOD 09/13/2024 7:14 AM [facility] Anion Gap 4 3 - 11 LAB CHEMISTRY METHOD 09/13/2024 7:14 AM [facility] Glucose 111(H) 70 - 100 mg/dL LAB CHEMISTRY METHOD 09/13/2024 7:14 AM [facility] BUN 14 5 - 25 mg/dL LAB CHEMISTRY METHOD 09/13/2024 7:14 AM [facility] Creatinine 0.64 0.50 - 1.10 mg/dL LAB CHEMISTRY METHOD 09/13/2024 7:14 AM [facility] eGFR 98 >=60 mL/min/1. 73m2 LAB CHEMISTRY METHOD 09/13/2024 7:14 AM [facility] Comment:Calculation based on the Chronic Kidney Disease Epidemiology Collaboration (CKD-EPI) equation refit without adjustment for race. BUN/Creatinine Ratio 21.9 LAB CHEMISTRY METHOD 09/13/2024 7:14 AM [facility] Calcium 9.6 8.5 - 10.5 mg/dL LAB CHEMISTRY METHOD 09/13/2024 7:14 AM [facility] Blood Venous blood specimen / Unknown Venipuncture / Unknown 09/13/2024 6:12 AM EDT 09/13/2024 6:33 AM EDT us Ciara ARMANDO LAB BLOOD ORDERABLES Final Result [facility] [address] [place] [address], * Lavender tube (09/13/2024 6:09 AM EDT) [facility] Extra Tube Hold for add-ons. 09/13/2024 8:01 AM EDT [facility] Comment:Auto resulted. Blood Venous blood specimen / Unknown Venipuncture / Unknown 09/13/2024 6:09 AM EDT 09/13/2024 6:33 AM EDT us Vincent [place] MD LAB BLOOD ORDERABLES Final Re sult [facility] [address] [place] [address], [place] [phone] * CBC auto differential (09/11/2024 5:21 AM EDT) Only the most recent of3 resultswithin the time period is included. [facility] WBC 7.7 4.8 - 10.8 K/mcL LAB HEMETOLOGY METHOD 09/11/2024 6:51 AM EDT [facility] RBC 3.90 3.80 - 4.80 M/mcL LAB HEMETOLOGY METHOD 09/11/2024 6:51 AM EDT [facility] Hemoglobin 12.5 11.5 - 16.0 g/dL LAB HEMETOLOGY METHOD 09/11/2024 6:51 AM EDT [facility] Hematocrit 36.4 35.0 - 47.0 % LAB HEMETOLOGY METHOD 09/11/2024 6:51 AM EDT [facility] MCV 92.4 79.0 - 98.0 FL LAB HEMETOLOGY METHOD 09/11/2024 6:51 AM EDT [facility] MCH 31.7 27.0 - 32.0 pcg LAB HEMETOLOGY METHOD 09/11/2024 6:51 AM EDT [facility] MCHC 34.3 32.0 - 37.0 g/dL LAB HEMETOLOGY METHOD 09/11/2024 6:51 AM [facility] RDW 12.4 11.0 - 15.0 % LAB HEMETOLOGY METHOD 09/11/2024 6:51 AM [facility] Platelets 304 130 - 400 K/mcL LAB HEMETOLOGY METHOD 09/11/2024 6:51 AM [facility] MPV 9.8 7.0 - 11.0 FL LAB HEMETOLOGY METHOD 09/11/2024 6:51 AM [facility] NRBC 0.0 <1.0 % LAB HEMETOLOGY METHOD 09/11/2024 6:51 AM [facility] NRBC Absolute 0.00 <0.10 K/mcL LAB HEMETOLOGY METHOD 09/11/2024 6:51 AM [facility] Neutrophils Relative 50.3 % LAB HEMETOLOGY METHOD 09/11/2024 6:51 AM [facility] Lymphocytes Relative 35.3 % LAB HEMETOLOGY METHOD 09/11/2024 6:51 AM [facility] Monocytes Relative 7.3 % LAB HEMETOLOGY METHOD 09/11/2024 6:51 AM [facility] Eosinophils Relative 6.1 % LAB HEMETOLOGY METHOD 09/11/2024 6:51 AM [facility] Basophils Relative 0.7 % LAB HEMETOLOGY METHOD 09/11/2024 6:51 AM [facility] Immature Granulocytes Relative 0.3 % LAB HEMETOLOGY METHOD 09/11/2024 6:51 AM [facility] Neutrophils Absolute 3.86 1.50 - 7.00 K/mcL LAB HEMETOLOGY METHOD 09/11/2024 6:51 AM [facility] Lymphocytes Absolute 2.71 1.00 - 5.00 K/mcL LAB HEMETOLOGY METHOD 09/11/2024 6:51 AM EDT [facility] Monocytes Absolute 0.56 0.20 - 1.00 K/[facility] LAB HEMETOLOGY METHOD 09/11/2024 6:51 AM EDT [facility] Eosinophils Absolute 0.47 0.00 - 0.50 K/[facility] LAB HEMETOLOGY METHOD 09/11/2024 6:51 AM EDT [facility] Basophils Absolute 0.05 0.00 - 0.20 K/[facility] LAB HEMETOLOGY METHOD 09/11/2024 6:51 AM EDT [facility] Immature Granulocytes Absolute 0.02 0.00 - 0.03 K/[facility] 09/11/2024 6:51 AM EDT [facility] Blood Venous blood specimen / Unknown Venipuncture / Unknown 09/11/2024 5:21 AM EDT 09/11/2024 6:22 AM EDT Ciara ARMANDO LAB BLOOD ORDERABLES Final Result [facility] [address] [place] [address], * Tissue exam (09/10/2024 2:45 PM EDT) Final Diagnosis Right foot-debridemen t: -SCAR AND NON-SPECIFIC CHRONIC INFLAMMATION 09/13/2024 2:42 PM EDT [facility] Gross Description A. Foot, Right, wound tissue sample: Labeled foot R, wound . Received in formalin is a 0.4 x 0.4 x 0.2 cm aggregate of irregular granular pink-red soft tissue fragments which is wrapped in paper and submitted in toto in one cassette, multiple pieces. BRIDGETT 09/13/2024 2:42 PM EDT [facility] Disclaimer Unless otherwise specified, all tissue is 10% NB formalin fixed and paraffin embedded. 09/13/2024 2:42 PM EDT [facility] Tissue Structure of right foot / Unknown 09/10/2024 2:45 PM EDT 09/10/2024 4:01 PM EDT us Filiberto Silva DPM LAB PATHOLOGY ORDERABLES Final Result [facility] [address] [place] [address], * (ABNORMAL) Culture wound deep (09/10/2024 2:44 PM EDT) Culture, Wound Growth in broth media only Pseudomonas aeruginosa(A) ETTA 09/13/2024 10:14 AM EDT [facility] Comment: The organism value for this result has been updated. These results have been appended to the previously preliminary verified report. This is an edited result. Previous organism was Gram negative bacilli on 09/12/2024 at 1052 EDT. Culture, Wound Klebsiella oxytoca ESBL(A) ETTA 09/13/2024 10:14 AM EDT [facility] Comment: THIS ORGANISM IS POSITIVE FOR [...] No organisms noted 09/13/2024 10:14 AM EDT [facility] Swab Structure of right foot / [...] Trimethoprim/Sul famethoxazo le ETTA >=320 ug/ml: Resistant Filiberto IQBALM LAB MICROBIOLOGY - GENERA L ORDERABLES Final Result [facility] [address] [place] [address], [place] [phone] * (ABNORMAL) Clostridium difficile molecular study (09/10/2024 12:40 PM EDT) Clostridium difficile PCR Positive (AA) Negative LAB MICROBIOLOGY METHOD 09/10/2024 2:39 PM EDT [facility] Comment: CRITICAL RESULT POSITIVE FOR TOXIN PRODUCING CLOSTRIDIOIDES DIFFICILE, NO ADDITIONAL TESTING IS NECESSARY. REPEAT SAMPLES SHOULD NOT BE SUBMITTED FOR TEST OF CURE. Stool Rectum structure / Unknown Non-blood Collection / Unknown 09/10/2024 12:40 PM EDT 09/10/2024 1:28 PM EDT Ciara ARMANDO LAB MICROBIOLOGY - GENERAL ORDERABLES Final Result Performing Organization Address [facility]/ZIP Co de Phone Number [facility] [address] [place] [address], [place] [phone] * Clostridium difficile toxin (09/10/2024 12:40 PM EDT) C difficile Toxins A+B, EIA 09/10/2024 1:29 PM EDT [facility] Comment:Refer to C. difficil e PCR assay for results. Stool Rectum structure / Unknown Non-blood Collection / Unknown 09/10/2024 12:40 PM EDT 09/10/2024 12:46 PM EDT Ciara ARMANDO LAB MICROBIOLOGY - GENERAL ORDERABLES Final Result Performing Organization Address [facility] de Phone Number [facility] [address] [place] [address], [place] [phone] * MR Foot wo and w Contrast [...] Date: 09/10/2024 08:08 ET Assigned Physician: Khalif Craen Reviewed and Electronically Signed By: Khalif Crane Signed Date: 09/10/2024 08:27 ET Workstation ID: [id number] Transcribed By: Self Edit Transcribed Date: 09/10/2024 [...] Signed Date: 09/10/2024 08:27 ET Workstation ID: [id number] Transcribed By: Self Edit Transcribed Date: 09/10/2024 08:08 ET Stella Rollins DO IMG MRI PROCEDURES Final Result * Blood culture (09/09/2024 1:54 PM EDT) Only the most recent of2 resultswithin the time period is included. Culture, Blood No growth at 5 days 09/14/2024 3:01 PM EDT [facility] Blood Venous blood specimen / Unknown Venipuncture / Unknown 09/09/2024 1:54 PM EDT 09/09/2024 2:08 PM EDT Stella Rollins DO LAB MICROBIOLOGY - GENERA L ORDERABLES Final Result [facility] [address] [place] [address], [place] [phone] * Lactate (09/09/2024 1:33 PM EDT) Lactate 1.2 0.4 - 2.0 mmol/L LAB CHEMISTRY METHOD 09/09/2024 2:37 PM EDT [facility] Blood Venous blood specimen / Unknown Venipuncture / Unknown 09/09/2024 1:33 PM EDT 09/09/2024 2:09 PM EDT Stella Kat Rollins DO LAB BLOOD ORDERABLES Enid l Result [facility] [address] [place] [address], [place] [phone] * XR Foot 3+ Views Right (09/06/2024 [...] mg/dL LAB CHEMISTRY [facility] Triglycerides 195(H) 0 - 150 mg/dL LAB CHEMISTRY METHOD 06/07/2024 6:38 AM T [facility] HDL 45 >=40 mg/dL LAB CHEMISTRY METHOD 06/07/2024 6:38 AM [facility] LDL Calculated 106(H) 0 - 100 mg/dL LAB CHEMISTRY METHOD 06/07/2024 6:38 AM T [facility] VLDL Cholesterol Chauncey 39 mg/dL LAB CHEMISTRY METHOD 06/07/2024 6:38 AM T [facility] Non HDL Chol. (LDL+VLDL) 145(H) <145 mg/dL LAB CHEMISTRY METHOD 06/07[facility]2024 [facility] Chol/HDL Ratio 4.2 0.0 - 4.4 LAB CHEMISTRY METHOD 06/07/2024 6:38 AM EDT [facility] Blood Venous blood specimen / Unknown Venipuncture / Unknown 06/07/2024 5:54 AM EDT 06/07/2024 6:01 AM EDT Luz Elena ARMANDO LAB BLOOD ORDERABLES Final Resu lt Performing Organization Address City/[facility]/ZIP Co de Phone Number [facility] [address] [place] [address], * (ABNORMAL) Hemoglobin A1c (06/06/2024 7:53 PM EDT) Hemoglobin A1C 10.2(H) <6.5 % LAB CHEMISTRY METHOD 06/07/2024 10:50 AM EDT [facility] Mean Bld Glu Estim. 246 mg/dL LAB CHEMISTRY METHOD 06/07/2024 10:50 AM EDT [facility] Blood Venous blood specimen / Unknown Venipuncture / Unknown 06/06/2024 7:53 PM EDT 06/06/2024 8:01 PM EDT Filiberto Conroy MD LAB BLOOD ORDERABLES Final Result Performing Organization Address [facility]/ZIP Co de Phone Number [facility] [address] [place] [address], * FRANCO DEXA AXIAL SKELETON (04/18/2021 1:22 PM EST) Anatomical Region Laterality Modality Mammography 04/18/2021 10:0 6 AM EST Narrative 04/18/2021 1:22 PM EST [facility] Diagnostic Imaging Department [address] [place] [address] Patient: JANICE BURT /Age/Sex: 1960 - 60 - F Unit#: [id number] Location/Status: SPDIMAM/REG CLI Mnemonic[facility] Ordering Physician: VIOLA RHODES [facility] Dexa Axial Skeleton - 04/18/211052 HISTORY: Post menopausal woman with hormone depletion for screening bone densitometry. TECHNIQUE: Bone densitometry is performed utilizing dual energy x-ray absorptiometry (DEXA) in the Cyota unit. The lumbar spine is evaluated in [...] bone mineralization in the right proximal femur. 58793 A report detailing these results has been enclosed. Dictating Physician: MILTON OCAMPO MD Electronically Signed by: MILTON OCAMPO MD Dic Date/Time: 04/18/21 1321 Sign date/Time: 04/18/21 1322 Procedure Note Milton Ocampo MD - 02/20/2022 [facility] Diagnostic Imaging Department [address] [place], [place] [address] Patient: JANICE BURT Gila/Age/Sex: 1960 - 60 - F Unit#: [id number] Location/Status: SPDIMAM/REG CLI Mnemonic/Ordering Site: [facility] Ordering Physician: VIOLA RHODES [facility] Dexa Axial Skeleton - 04/18/21 - 1053 HISTORY: Post menopausal woman with hormone depletion for screening bone densitometry. TECHNIQUE: Bone densitometry is performed utilizing dual energy x-ray absorptiometry (DEXA) in the Cyota unit. The lumbar spine isevaluated in the [...] decreased bone mineralization in the rightproximal femur. [address]171 A report detailing these results has been enclosed. Dictating Physician: MILTON OCAMPO MD Electronically Signed by: MILTON OCAMPO MD Dic Date/Time: 04/18/21 1321 Sign date/Time: 04/18/21 132 us Viola Rhodes MD IMG BI PROCEDURES Final Resul t * FRANCO SCREENING DIGITAL (04/18/2021 1:10 PM EST) Anatomical Region Laterality Modality Mammography 04/18/2021 10:0 4 AM EST Narrative 04/18/2021 1:10 PM [facility] Diagnostic Imaging Department [address] [place] [id number] Patient: JANICE BURT./Age/Sex: 1960 - 60 - F Unit#: [id number] Location/Status: SPDIMAM/REG CLI Mnemonic/Ordering Site: [facility] Ordering Physician: VIOLA RHODES [facility] Screening Digital - 04/18/21 - EXAM: [facility] Screening Digital EXAM DATE AND TIME: 04/18/2021 10:47 AM HISTORY: Screening. Mother had breast carcinoma. COMPARISON: 03/19/18, at 2616, 04/07/13, 09/19/11 TECHNIQUE: CC and MLO views of both breasts were obtained using full field digital mammography. Bilateral digital breast tomosynthesis was performed in the MLO projection. Computer aided detection with the [employer] 7.2-H was employed. TISSUE DENSITY: c. The breasts [...] Routine screening mammogram BILATERAL in 1 year. 65521, 18782 0862F, 7672F Dictating Physician: ELSY OTERO MD Electronically Signed by: ELSY OTREO MD Dic Date/Time: 04/18/21 1310 Sign date/Time: 04/18/21 1310 Procedure Note Elsy Otero MD - 02/20/2022 [facility] Diagnostic Imaging Department [address] [place] [address] Patient: JANICE BURT./Age/Sex: 1960 - 60 - F Unit#: [id number] Location/Status: SPDIMA/REG CLI Mnemonic/Ordering Site: [facility] Ordering Physician: VIOLA RHODES [facility] Screening Digital - 04/18/21 - EXAM: [facility] Screening Digital EXAM DATE AND TIME: 04/18/2021 10:47 AM HISTORY: Screening. Mother had breast carcinoma. COMPARISON: 03/19/18, at 2616, 04/07/13, 09/19/11 TECHNIQUE: CC and MLO views of both breasts were obtained using fullfield digital mammography. Bilateral digital breast tomosynthesis was performedin the MLO projection. Computer aided detection with the [employer] 7[employer] employed. TISSUE DENSITY: c. The breasts are [...] Routine screening mammogram BILATERAL in 1 year. 69927, 84042 3342F, 7025F Dictating Physician: ELSY OTERO MD [...] culture from the . 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
--- OUTSIDE RECORDS SUMMARY | 2024-11-18 16:01 | XMS_ITS | Encounter Summary ---
Author Organization [employer] Address [address] [facility] 7 [place] [address] Care Team Providers Care Pullman Conductor Name Role Phone Ana Keith MD Primary Care Provider [phone] Encounter Details Date Type Department Care Team (Late st Contact Info) Description 06/04/2023 Telephone [facility] [address] [place], [place] [phone] Ana Keith MD [address] [place] [phone] Social History Tobacco Use Types Packs/Day Years [...] Description 12/02/2024 9:00 AM EDT Office Visit [facility] ADULT DENTAL [address] [place], [place] [phone] Siddharth Roa DDS [address] [place], [place] [phone] documented as of this encounter Visit Diagnoses Not on filedocumented in this encounter Additional Health Concerns Assessment Noted Time PHQ-9 Depression Total Score: 22 024 11:59 AM EST documented as of this encounter Care Teams Pullman Conductor Relationship Specialty Start Date End Date Ana Keith MD [address] [place] [address] PCP - General Family Medicine 11/05/17 [facility] 09/16/24 documented as of this encounter
--- OUTSIDE RECORDS SUMMARY | 2024-11-18 16:01 | XMS_ITS | Encounter Summary ---
Author Organization [employer] Address [address] [facility] [address] 7t [place] [address] Care Team Providers Care Presiding Steward Name Role Phone Ana Keith MD Primary Care Provider [phone] Encounter Details Date Type Department Care Team (Late st Contact Info) Description 09/13/2024 Orders Only [facility] MED & PEDS [address] [place], [place] [phone] ProviderMegan MD Social History Tobacco Use Types [...] 9:00 AM EDT Office Visit [facility] ADULT DENTAL [address] [place], [place] [phone] Siddharth Roa DDS [address] [place] [address] documented as of this encounter Procedures Procedure [...] documented as of this encounter Care Teams Presiding Steward Relationship Specialty Start Date End Date Ana Keith MD [address] [place] [address] PCP - General Family Medicine 11/05/17 [facility] 09/16/24 documented as of this encounter
--- OUTSIDE RECORDS SUMMARY | 2024-11-18 16:01 | XMS_ITS | Encounter Summary ---
Author Organization [employer] Address [address] [facility] 7t [place] [address] Care Team Providers Care Registered Nurse Cardiac Name Role Phone Ana Keith MD Primary Care Provider [phone] Encounter Details Date Type Department Care Team [...] Upcoming Encounters Date Type Department Care Team ([facility] st Contact Info) Description 12/02/2024 9:00 AM EDT Office Visit [facility] ADULT DENTAL [address] [place] [address] Siddharth Roa, DDS [address] [place] [address] Pending Results Name Type Priority Associated Diagnoses Date /Time Immunoglobulin A Lab Routine 11/16/19 1:34 PM EDT documented as of this encounter Procedures Procedure Name Priority Date/Time Associated Diagnosis Comments TSH W/REFLEX TO FT4 Routine 11/15/2024 1 :34 PM EDT CBC Routine 11/15/2024 1:34 PM EDT IMMUNOGLOBULIN A Routine 11/15/2024 1:34 PM EDT COMPREHENSIVE METABOLIC PANEL Routine 11/15/2024 1:34 PM EDT documented in this encounter Results * TSH with Reflex to Free T4 (11/15/2024 1:34 PM EDT) TSH reflex Free T4 1.34 0.32 - 4.0 uIU/mL [facility] 11/15/2024 1:34 PM EDT 11/15/2024 1:34 PM EDT us Generic External Data Provider LAB BLOOD ORDERAB LES Final Result Performing Organization Address City/[facility]/ZIP Co de Phone Number [facility] [address] [place] [address] [phone] * (ABNORMAL) Comprehensive Metabolic Panel (11/15/2024 1:34 PM EDT) Sodium 143 135 - 145 mmol/L [facility] Potassium 4.2 3.3 - 5.1 mmol/L [facility] Chloride 102 96 - 108 mmol/L [facility] Carbon Dioxide 33(H) 22 - 29 mmol/L [facility] Anion Gap 12 12 - 20 [facility] Urea Nitrogen (BUN) 8(L) 9 - 16 mg/dL [facility] Creatinine, Serum 0.59 0.5 - 1.4 mg/dL [facility] Estimated Glomerular Filt Rate >60 [facility] Comment:Chronic Kidney Disea se: Estimated GFR < 60 mL/min/1.21u6Ukcqpr Kidney Disease: Estimated GFR < 15 mL/min/1.73m2 Glucose 90 60 - 115 mg/dL [facility] Calcium 10.3(H) 8.4 - 10.2 mg/dL [facility] Bilirubin, Total 0.3 0.0 - 1.0 mg/dL [facility] Aspartate Amino Transferase 25 5 - 31 U/L [facility] Alanine Aminotransferase 23 0 - 31 U/L [facility] Total Protein 8.8(H) 6.5 - 8.0 g/dL [facility] Albumin Level 4.5 3.5 - 5.0 g/dL [facility] Alkaline Phosphatase 80 39 - 117 U/L [facility] 11/15/2024 1:34 PM EDT 11/15/2024 1:34 PM EDT us Generic External Data Provider LAB BLOOD ORDERAB LES Final Result [facility] [address] [place] [address] [phone] * (ABNORMAL) CBC (11/15/2024 1:34 PM EDT) White Blood Count 8.9 4.8 - 10.8 X10*3/uL [facility] Red Blood Count 4.63 4.20 - 5.50 X10*6/uL [facility] Hemoglobin 14.8 12.0 - 16.0 g/dl [facility] Hematocrit 41.9 37.0 - 47.0 % [facility] Mean Corpuscular Volume 90.5 80.0 - 98.0 fL [facility] Mean Corpuscular Hemoglobin 32.0 27.0 - 33.0 pg [facility] Mean Corpuscular HGB Conc 35.3(H) 31.0 - 35.0 g/dl [facility] Red Cell Distribution Width 12.8 11.0 - 16.0 % [facility] Platelet Count 355 160 - 400 X10*3/uL [facility] Mean Platelet Volume 9.0(L) 9.4 - 12.3 fL [facility] NRBC Pct Auto 0.0 0.0 - 0.2 /100WBC [facility] NRBC Abs Auto 0.000 0.0 - 0.012 X10*3/uL [facility] 11/15/2024 1:34 PM EDT 11/15/2024 1:34 PM EDT us Generic External Data Provider LAB BLOOD ORDERAB LES Final Result [facility] [address] [place] [address] [phone] documented in this encounter Visit Diagnoses Not on filedocumented in this encounter Additional Health Concerns Assessment Noted Time PHQ-9 Depression Total Score: 17 12/30/2 024 11:10 AM EDT documented as of this encounter Care Teams Registered Nurse Cardiac Relationship Specialty Start Date End Date Ana Keith MD [address] [place] [address] PCP - General Family Medicine 11/05/17 [facility] 09/16/24 documented as of this encounter
--- OUTSIDE RECORDS SUMMARY | 2024-11-18 16:01 | XMS_ITS | Encounter Summary ---
Author Organization [employer] Address 75 [facility] 7 [place] [address] Care Team Providers Care Revenue Cycle Administrator Name Role Phone Ana Keith MD Primary Care Provider Reason for Visit * Reason Onset Date Comments Med Refill 03/19/2023 Encounter Details Date Type Department Care Team (Late st Contact Info) Description 03/19/2023 Telephone [facility] MEDICINE [address] [place] [address] Ana Keith MD [address] [place] [address] Med Refill Social History Tobacco Use Types [...] 100 UNIT/ML pen To be sent to: [id number] [place], [place] - [address] documented in this encounter Plan of Treatment Upcoming Encounters Date Type Department Care Team (Late st Contact Info) Description 12/02/2024 9:00 AM EDT Office Visit [facility] ADULT DENTAL [address] [place], [place] [phone] Siddharth Roa DDS [address] [place] [address] documented as of this encounter Visit Diagnoses Not on filedocumented in this encounter Care Teams Revenue Cycle Administrator Relationship Specialty Start Date End Date Ana Keith MD [address] [place] [address] PCP - General Family Medicine 11/05/17 [facility] 09/16/24 documented as of this encounter
--- OUTSIDE RECORDS SUMMARY | 2024-11-18 16:01 | XMS_ITS | Encounter Summary ---
Author Organization [employer] Address 75 [facility] 7t [place] [address] Care Team Providers Care Gas Meter Installer Name Role Phone Ana Keith MD Primary Care Provider [phone] Encounter Details Date Type Department Care Team [...] Description 12/02/2024 9:00 AM EDT Office Visit [facility] ADULT DENTAL [address] [place] [address] Siddharth Roa DDS [address] [place] [address] documented as of this encounter Visit Diagnoses Not on filedocumented in this encounter Additional Health Concerns Assessment Noted Time PHQ-9 Depression Total Score: 17 024 11:10 AM EDT documented as of this encounter Care Teams Gas Meter Installer Relationship Specialty Start Date End Date Ana Keith MD [address] [place] [address] PCP - General Family Medicine 11/05/17 [facility] 09/16/24 documented as of this encounter
--- OUTSIDE RECORDS SUMMARY | 2024-11-18 16:01 | XMS_ITS | Encounter Summary ---
Author Organization [email or web address] Address 75 [facility] 7 [place] [address] Care Team Providers Care Job Counselor Name Role Phone Ana Keith MD Primary Care Provider [phone] Reason for Visit * Reason Onset Date Comments Durable Medical Equipment 03/19/2023 Encounter Details Date Type Department Care Team (Late st Contact Info) Description 03/19/2023 Telephone [facility] [address] [place] [address] Ana Keith MD [address] [place] [address] Durable Medical Equipment Social History Tobacco Use [...] 12/02/2024 9:00 AM EDT Office Visit [facility] ADULT DENTAL [address] [place] [address] Siddharth Roa DDS [address] [place] [address] documented as of this encounter Visit Diagnoses Not on filedocumented in this encounter Care Teams Job Counselor Relationship Specialty Start Date End Date Ana Keith MD [address] [place] [address] PCP - General Family Medicine 11/05/17 [facility] 09/16/24 documented as of this encounter
--- OUTSIDE RECORDS SUMMARY | 2024-11-18 16:01 | XMS_ITS | Encounter Summary ---
Author Organization [employer] Address 75 [facility] 7 [place] [address] Care Team Providers Care Car Wash Supervisor Name Role Phone Ana Keith MD Primary Care Provider [phone] Reason for Visit * Reason Onset Date Comments wound orders 11/11/2024 Encounter Details Date Type Department Care Team ([facility] Contact Info) Description 11/11/2024 Telephone [facility] CHC MED & PEDS [address] [place], [place] [phone] Ana Keith MD [address] [place] [address] wound orders Social History Tobacco Use Types [...] AM EDT Tc from Samm Dolan at [facility] stating the wound of pt she was assigned too resulted. Now pt has a different wound on other side of foot and she is requesting specific orders for that wound Contact Samm at [phone] documented in this encounter Plan of Treatment Upcoming Encounters Date Type Department Care Team (Late st Contact Info) Description 12/02/2024 9:00 AM EDT Office Visit [facility] ADULT DENTAL [address] [place], [place] [phone] Siddharth Roa DDS [address] [place] [address] documented as of this encounter Visit Diagnoses Not on filedocumented in this encounter Additional Health Concerns Assessment Noted Time PHQ-9 Depression Total Score: 17 024 11:10 AM EDT documented as of this encounter Care Teams Car Wash Supervisor Relationship Specialty Start Date End Date Ana Keith MD [address] [place] [address] PCP - General Family Medicine 11/05/17 [facility] 09/16/24 documented as of this encounter
--- OUTSIDE RECORDS SUMMARY | 2024-11-18 16:01 | XMS_ITS | Encounter Summary ---
Author Organization [employer] Address 75 [facility] 7t [place] [address] Care Team Providers Care College Professor Name Role Phone Ana Keith MD Primary Care Provider [phone] Encounter Details Date Type Department Care Team (Late st Contact Info) Description 09/14/2024 Orders Only [facility] [address] [place] [address] Provider, MD Megan Social History Tobacco Use [...] Visit [facility] ADULT DENTAL [address] [place], [place] [phone] Siddharth Roa DDS [address] [place] [address] documented as of this encounter Procedures Procedure [...] documented as of this encounter Care Teams College Professor Relationship Specialty Start Date End Date Ana Keith MD [address] [place] [address] PCP - General Family Medicine 11/05/17 [facility] 09/16/24 documented as of this encounter
--- OUTSIDE RECORDS SUMMARY | 2024-11-18 16:01 | XMS_ITS | Encounter Summary ---
Author Organization [employer] Address [address] [facility] 7 [place] [address] Care Team Providers Care Supreme Court Justice Name Role Phone Ana Keith MD Primary Care Provider [phone] Reason for Visit * Reason Comments Med Refill Encounter Details Date Type Department Care Team ([facility] Contact Info) Description 02/07/2024 Refill [facility] CHC MED & PEDS [address], [place] [phone] Ana Keith MD [address] [place] [address] Type 2 diabetes mellitus without complication, with long-term current use of insulin ([facility]); Mild intermittent asthma without complication; Diverticulosis Social [...] Description 12/02/2024 9:00 AM EDT Office Visit [facility] ADULT DENTAL [address] [place] [address] Siddharth Roa DDS [address] [place] [address] documented as of this encounter Visit Diagnoses Diagnosis Type 2 diabetes mellitus without complication, with long-term current use of insulin ([facility]) Mild intermittent asthma without complication Diverticulosis Diverticulosis of colon (without mention of hemorrhage) documented in this encounter Additional Health Concerns Assessment Noted Time PHQ-9 Depression Total Score: 17 024 11:10 AM EDT documented as of this encounter Care Teams Supreme Court Justice Relationship Specialty Start Date End Date Ana Keith MD [address] [place] [address] PCP - General Family Medicine 11/05/17 [facility] 09/16/24 documented as of this encounter
--- OUTSIDE RECORDS SUMMARY | 2024-11-18 16:01 | XMS_ITS | Encounter Summary ---
Author Organization [employer] Address 75 [facility] 7t [place] [address] Care Team Providers Care Tool Setter Name Role Phone Ana Keith MD Primary Care Provider [phone] Encounter Details Date Type Department Care Team ([facility] st Contact Info) Description 02/03/2024 Orders Only [facility] CHC MED & PEDS [address] [place], [place] [phone] Ana Keith MD [address] [place] [address] Social History Tobacco Use Types Packs/Day Years [...] Office Visit [facility] ADULT DENTAL [address] [place] [address] Siddharth Roa DDS [address] [place] [address] documented as of this encounter Visit Diagnoses Not on filedocumented in this encounter Additional Health Concerns Assessment Noted Time PHQ-9 Depression Total Score: 17 024 11:10 AM EDT documented as of this encounter Care Teams Tool Setter Relationship Specialty Start Date End Date Ana Keith MD [address] [place] [address] PCP - General Family Medicine 11/05/17 [facility] 09/16/24 documented as of this encounter
--- OUTSIDE RECORDS SUMMARY | 2024-11-18 16:02 | XMS_ITS | Encounter Summary ---
Author Organization [employer] Address 75 [facility] 7 [place] [address] Care Team Providers Care American Indian Policy Specialist Name Role Phone Ana Keith MD Primary Care Provider [phone] Reason for Visit * Reason Onset Date Comments Results 03/01/2024 Encounter Details Date Type Department Care Team ([facility] Contact Info) Description 03/01/2024 Telephone [facility] CHC MED & PEDS [address] [place], [place] [phone] Ana Keith MD [address] [place] [address] Results Social History Tobacco Use Types Packs/Day [...] PM EST Noted MRI result faxed to [facility] [place] as requested. * Telephone Encounter - [...] 9:00 AM EDT Office Visit [facility] ADULT DENTAL [address] [place], [place] [phone] Siddharth Roa DDS [address] [place] [address] documented as of this encounter Visit Diagnoses Not on filedocumented in this encounter Additional Health Concerns Assessment Noted Time PHQ-9 Depression Total Score: 17 024 11:10 AM EDT documented as of this encounter Care Teams American Indian Policy Specialist Relationship Specialty Start Date End Date Ana Keith MD [address] [place] [address] PCP - General Family Medicine 11/05/17 [facility] 09/16/24 documented as of this encounter
--- OUTSIDE RECORDS SUMMARY | 2024-11-18 16:02 | XMS_ITS | Encounter Summary ---
Author Organization [employer] Address 75 [facility] 7t [place] [address] Care Team Providers Care Personnel Placement Specialist Name Role Phone Ana Keith MD Primary Care Provider [phone] Encounter Details Date Type Department Care Team ([facility] st Contact Info) Description 07/19/2024 Telephone [facility] CHC MED & PEDS [address] [place], [place] [phone] Ana Keith MD [address] [place] [address] Social History Tobacco Use Types Packs/Day Years [...] requesting a call back. Contact Celestine at [phone] documented in this encounter Plan of Treatment Upcoming Encounters Date Type Department Care Team (Late st Contact Info) Description 12/02/2024 9:00 AM EDT Office Visit [facility] ADULT DENTAL [address] [place] [address] Siddharth Roa DDS [address] [place] [address] documented as of this encounter Visit Diagnoses Not on filedocumented in this encounter Additional Health Concerns Assessment Noted Time PHQ-9 Depression Total Score: 17 024 11:10 AM EDT documented as of this encounter Care Teams Personnel Placement Specialist Relationship Specialty Start Date End Date Ana Keith MD [address] [place] [address] PCP - General Family Medicine 11/05/17 [facility] 09/16/24 documented as of this encounter
--- OUTSIDE RECORDS SUMMARY | 2024-11-18 16:02 | XMS_ITS | Encounter Summary ---
Author Organization [employer] Address 75 [facility] 7t [place] [address] Care Team Providers Care General Cleaner Name Role Phone Ana Keith MD Primary Care Provider [phone] Reason for Visit * Reason Onset Date Comments Medication Question 09/24/2024 Encounter Details Date Type Department Care Team ([facility] st Contact Info) Description 09/24/2024 Telephone [facility] MEDICINE [address] [place] [address] Ana Keith MD [address] [place] [address] Medication Question Social History Tobacco Use Types [...] to the pharmacy. Please contact pt at [phone]. (Mohawk Speaker) documented in this encounter Plan of Treatment Upcoming Encounters Date Type Department Care Team (Late st Contact Info) Description 12/02/2024 9:00 AM EDT Office Visit [facility] ADULT DENTAL [address] [place] [address] Siddharth Roa DDS [address] [place] [address] documented as of this encounter Visit Diagnoses Not on filedocumented in this encounter Additional Health Concerns Assessment Noted Time PHQ-9 Depression Total Score: 17 024 11:10 AM EDT documented as of this encounter Care Teams General Cleaner Relationship Specialty Start Date End Date Ana Keith MD [address] [place] [address] PCP - General Family Medicine 11/05/17 [facility] 09/16/24 documented as of this encounter
--- OUTSIDE RECORDS SUMMARY | 2024-11-18 16:02 | XMS_ITS | Encounter Summary ---
Author Organization [employer] Address 75 [facility] 7t [place] [address] Care Team Providers Care Service Worker Name Role Phone Ana Keith MD Primary Care Provider [phone] Encounter Details Date Type Department Care Team (Late st Contact Info) Description 07/08/2024 Orders Only [facility] [address] [place] [address] Provider, MD Megan Social History Tobacco Use [...] Description 12/02/2024 9:00 AM EDT Office Visit [facility] ADULT DENTAL [address] [place] [address] Siddharth Roa DDS [address] [place] [address] documented as of this encounter Procedures Procedure [...] documented as of this encounter Care Teams Service Worker Relationship Specialty Start Date End Date Ana Keith MD [address] [place] [address] PCP - General Family Medicine 11/05/17 [facility] 09/16/24 documented as of this encounter
--- OUTSIDE RECORDS SUMMARY | 2024-11-18 16:02 | XMS_ITS | Encounter Summary ---
Author Organization [employer] Address 75 [facility] 7t [place] [address] Care Team Providers Care Legal Activity Adjudicator Name Role Phone Ana Keith MD Primary Care Provider Encounter Details Date Type Department Care Team (Late st Contact Info) Description 10/01/2024 Orders Only [facility] [address] [place] [address] Provider, MD Megan Social History Tobacco Use [...] Description 12/02/2024 9:00 AM EDT Office Visit [facility] ADULT DENTAL [address] [place], [place] [phone] Siddharth Roa DDS [address] [place] [address] documented as of this encounter Procedures Procedure [...] documented as of this encounter Care Teams Legal Activity Adjudicator Relationship Specialty Start Date End Date Ana Keith MD [address] [place] [address] PCP - General Family Medicine 11/05/17 [facility] 09/16/24 documented as of this encounter
--- OUTSIDE RECORDS SUMMARY | 2024-11-18 16:02 | XMS_ITS | Encounter Summary ---
Author Organization [employer] Address 75 [facility] 7 [place] [address] Care Team Providers Care Technical Support Intern Name Role Phone Ana Keith MD Primary Care Provider Encounter Details Date Type Department Care Team (Late st Contact Info) Description 09/30/2023 Orders Only [facility] CHC MED & PEDS [address] [place], [place] [phone] Ana Keith MD [address] [place] [address] Social History Tobacco Use Types Packs/Day Years [...] 9:00 AM EDT Office Visit [facility] ADULT DENTAL [address] [place], [place] [phone] Siddharth Roa DDS [address] [place], [place] [phone] documented as of this encounter Visit Diagnoses Not on filedocumented in this encounter Additional Health Concerns Assessment Noted Time PHQ-9 Depression Total Score: 22 024 11:59 AM EST documented as of this encounter Care Teams Technical Support Intern Relationship Specialty Start Date End Date Ana Keith MD [address] [facility] [place] [address] PCP - General Family Medicine 11/05/17 [facility] 09/16/24 documented as of this encounter
--- OUTSIDE RECORDS SUMMARY | 2024-11-18 16:02 | XMS_ITS | Encounter Summary ---
Author Organization [employer] Address [address] [place] [address] [facility] [place] [address] Care Team Providers Care Reel Cutter Name Role Phone Ana Keith MD Primary Care Provider [phone] Reason for Visit * Reason Onset Date Comments Results 04/02/2022 Encounter Details Date Type Department Care Team ([facility] [address] Contact Info) Description 04/02/2022 Telephone [facility] CHC MED & PEDS [address] [place], [place] [phone] Ana Keith MD [address] [place] [address] Results Social History Tobacco Use Types Packs/Day [...] pt. Per pt, completed a colonoscopy at [facility] several weeks ago and is requesting results. RN advised results are not in system. Will request results and and send to scan for PCP to review. Pt agrees. Pt requesting f/u with PCP. States she saw general surgery today at [facility]. Per pt, will be scheduled for surgery [...] Description 12/02/2024 9:00 AM EDT Office Visit [facility] ADULT DENTAL [address] [place], [place] [phone] Siddharth Roa DDS [address] [place] [address] documented as of this encounter Visit Diagnoses Diagnosis Type 2 diabetes mellitus without complication, with long-term current use of insulin ([facility])- Primary Mild intermittent asthma without complication Diverticulosis Diverticulosis of colon (without mention of hemorrhage) documented in this encounter Care Teams Reel Cutter Relationship Specialty Start Date End Date Ana Keith MD [address] [place] [phone] PCP - General Family Medicine 11/05/17 [facility] 09/16/24 documented as of this encounter
--- OUTSIDE RECORDS SUMMARY | 2024-11-18 16:02 | XMS_ITS | Encounter Summary ---
Author Organization [employer] Address [address] [place] [address] 7t [place] [address] Care Team Providers Care Radio Rigger Name Role Phone Ana Keith MD Primary Care Provider [phone] Encounter Details Date Type Department Care Team (Late st Contact Info) Description 09/02/2023 Orders Only [facility] CHC MED & PEDS [address] [place], [place] [phone] Provider, MD Megan Social History Tobacco Use [...] Description 12/02/2024 9:00 AM EDT Office Visit [facility] ADULT DENTAL [address] [place] [address] Siddharth Roa DDS [address] [place], [place] [phone] documented as of this encounter Procedures Procedure [...] documented as of this encounter Care Teams Radio Rigger Relationship Specialty Start Date End Date Ana Keith MD [address] [place] [address] PCP - General Family Medicine 11/05/17 [facility] 09/16/24 documented as of this encounter
--- OUTSIDE RECORDS SUMMARY | 2024-11-18 16:02 | XMS_ITS | Clinical Summary ---
Author Organization [employer] Address [address] [facility] 7t [place] [address] Care Team Providers Care Wire Brush Operator Name Role Phone Ana Keith MD Primary Care Provider [phone] Allergies Active Allergy Reactions Criticality Noted Date [...] hyperglycemia, with long-term current use of insulin (CMS/[facility]) Inject 1.5 mg under the skin 1 (one) time per week. 0.5 mL 11 07/17/19 25 Active Blood Pressure kit 1 kit Once per day. 1 kit 07/17/19 25 Active triamcinolone (Kenalog) 0.1 % cream Apply topically if needed in the morning and at bedtime (pain and swelling). 30 g 2 07/17/19 25 Active glucose blood (I Do VenuesTouch Ultra Test) test strip USE 1 FIVE TIMES A DAY 450 strip 5 07/30/19 25 Active insulin glargine (Lantus SoloStar) 100 UNIT/ML penIndications: Type 2 diabetes mellitus with hyperglycemia, with long-term current use of insulin ([facility]) Inject 37 Units under the skin at [...] at bedtime 10/02/19 25 Active nystatin (Mycostatin) 855638 UNIT/GM powder Apply topically 4 times daily. Active nystatin (Mycostatin) cream Apply topically 2 times daily. Active pyridoxine (Vitamin B-6) 50 MG tablet Take 1 tablet (50 mg) by mouth 2 times daily. 90 tablet 1 10/09/19 25 Active Continuous Glucose Monitor Sup miscIndications :Type 2 diabetes mellitus with hyperglycemia, with long-term current use of insulin ([facility]),Type 2 diabetes mellitus with hyperglycemia, with long-term current use of insulin ([facility]) 1 kit 4 times daily. 2 kit 10/09/19 25 Active acetaminophen (Tylenol 8 Hour) 650 MG ER tablet Take 1 tablet (650 mg) by mouth every 6 (six) hours during the day. 60 tablet 3 10/09/19 25 Active pen needle 32G x 4 mm miscIndications :Type 2 diabetes mellitus with hyperglycemia, with long-term current use of insulin ([facility]) Use as instructed 100 each 3 11/06/19 25 Active Ventolin HFA 108 (90 Base) MCG/ACT inhalerIndicati ons:Type 2 diabetes mellitus without complication, with long-term current use of insulin ([facility]),Mild intermittent asthma without complication,Di verticulosis INHALE 2 PUFFS BY MOUTH EVERY 6 HOURS NEEDED FOR WHEEZING 18 g 2 11/12/19 25 Active albuterol 108 (90 Base) MCG/ACT inhalerIndicati ons:Type 2 diabetes mellitus without complication, with long-term current use of insulin ([facility]),Mild intermittent asthma without complication,Di verticulosis INHALE 2 PUFFS BY MOUTH EVERY 6 HOURS NEEDED FOR WHEEZING 18 g 2 02/09/20 24 025 Discontinued(R eorder (will not trigger notification to Pharmacy)) pen needle 32G x 4 mm miscIndications :Type 2 diabetes mellitus with hyperglycemia, with long-term current use of insulin ([facility]) Use as instructed 100 each 09/25/19 25 [...] vaginitis upon examination. Will refer to clinic cork compounder and urologist for further evaluation. Diverticulosis 04/10/2022 [...] Description 11/15/2024 2:45 PM EDT Office Visit [facility] [address] [place] [address] Cuca Sousa MD Vaginal bleeding (Primary Dx) 11/15/2024 Orders Only GENERIC EXTERNAL DATA DEPARTMENT Provider, Generic External Data 11/15/2024 Travel 11/11/2024 Telephone [facility] [address] [place] [address] Ana Keith MD wound orders 11/10/2024 Refill [facility] [address] [place] [address] Ana Keith MD Type 2 diabetes mellitus without complication, with long-term current use of insulin (CMS/HCC); Mild intermittent asthma without complication; Diverticulosis 11/04/2024 Refill [facility] [address] [place] [address] Jay Martinez MD Type 2 diabetes mellitus with hyperglycemia, with long-term current use of insulin (CMS/HCC) 11/02/2024 Telephone [facility] [address] [place] [address] Ana Keith MD request 11/02/2024 Telephone [facility] [address] [place] [address] Ana Keith MD Nurse Triage 10/27/2024 Orders Only [facility] [address] [place] [address] Ana Keith MD Left pontine stroke (CMS/HCC) (Primary Dx); Decreased peripheral vision of right eye 10/27/2024 Telephone [facility] [address] [place] [address] Ana Keith MD 10/26/2024 Telephone [facility] ADULT DENTAL [address] [place] [address] Siddharth Roa DDS 10/19/2024 Telephone [facility] [address] [place] [address] Ana Keith MD 10/08/2024 9:15 AM EDT Office Visit [facility] [address] [place] [address] Ana Keith MD Benign essential hypertension (Primary Dx); Type 2 diabetes mellitus with hyperglycemia, with long-term current use of insulin ([facility]); Type 2 diabetes mellitus with hyperglycemia, with long-term current use of insulin ([facility]); Ulcer of toe of right foot, with necrosis of muscle ([facility]); Anxiety; Primary insomnia; 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, unspecified blood vessel laterality ([facility]) 10/08/2024 Travel 10/07/2024 Telephone [facility] [address] [place] [address] Ana Keith MD FYI 10/04/2024 9:30 AM EDT Office Visit [facility] ADULT DENTAL [address] [place] [address] Siddharth Roa DDS Severe dental caries (Primary Dx); Missing teeth, acquired; Periodontal disease 10/01/2024 Orders Only [facility] [address] [place] [address] Megan Ferrer MD 09/24/[address] [phone] Ana Keith MD Medication Question 09/24/2024 Telephone [facility] [address] [place] [address] Jay Martinez MD 09/24/2024 Telephone [facility] [address] [place] [address] Ana Keith MD Med Refill 09/24/2024 Refill [facility] [address] [place] [address] Ana Keith MD 09/17/2024 Patient Outreach [address] [address] Ana Keith MD Pre-visit Planning (HDF scheduled and SDOH screening unable to be completed. ) 09/17/[address] [address] Ana Keith MD Med Refill 09/17/[address] [address] Ana Keith MD Nurse Triage 09/17/[address] [address] Ana Keith MD Hospital Follow-up 09/14/2024 Orders Only [facility] [address] [place] [address] Megan Ferrer MD 09/13/2024 Orders Only [facility] MED & PEDS [address] [place], [place] [phone] ProviderMegan MD from Last 3 Months Immunizations [...] Description 12/02/2024 9:00 AM EDT Office Visit [facility] ADULT DENTAL [address] [place] [address] Siddharth Roa, ALIZES [address] [place], [place] [phone] Health Maintenance Due Date Last Done Comments [...] Screening 12/30/2024 12/31/2023 Diabetes: Hemoglobin A1C 01/08/2025 025, 07/16/2024, 06/06/2024, Additional history exists Dental [...] Procedure Name Priority Date/Time Associated Diagnosis Comments IMMUNOGLOBULIN A Routine 11/15/2024 1:34 PM EDT TSH W/REFLEX TO FT4 Routine 11/15/2024 1 :34 PM EDT COMPREHENSIVE METABOLIC PANEL Routine 11/15/2024 1:34 PM EDT CBC Routine 11/15/2024 1:34 PM EDT POCT GLYCATED HEMOGLOBIN, TOTAL Routine 10/08/2024 9:16 AM EDT Type 2 diabetes mellitus with hyperglycemia, with long-term current use of insulin ([facility]/HCC) POCT GLUCOSE Routine 10/08/2024 9:16 AM EDT Type 2 diabetes mellitus with hyperglycemia, with long-term current use of insulin (CMS/[facility]) CASE PRESENTATION, DETAILED AND EXTENSIVE TREATMENT PLANNING [...] Free T4 1.34 0.32 - 4.0 uIU/mL [facility] 11/15/2024 1:34 PM EDT 11/15/2024 1:34 PM EDT us Generic External Data Provider LAB BLOOD ORDERAB LES Final Result [facility] [address] [place] [address] [phone] * (ABNORMAL) CBC (11/15/2024 1:34 PM EDT) White Blood Count 8.9 4.8 - 10.8 X10*3/uL [facility] Red Blood Count 4.63 4.20 - 5.50 X10*6/uL [facility] Hemoglobin 14.8 12.0 - 16.0 g/dl [facility] Hematocrit 41.9 37.0 - 47.0 % [facility] Mean Corpuscular Volume 90.5 80.0 - 98.0 fL [facility] Mean Corpuscular Hemoglobin 32.0 27.0 - 33.0 pg [facility] Mean Corpuscular HGB Conc 35.3(H) 31.0 - 35.0 g/dl [facility] Red Cell Distribution Width 12.8 11.0 - 16.0 % [facility] Platelet Count 355 160 - 400 X10*3/uL [facility] Mean Platelet Volume 9.0(L) 9.4 - 12.3 [facility] NRBC Pct Auto 0.0 0.0 - 0.2 /100WBC [facility] NRBC Abs Auto 0.000 0.0 - 0.012 X10*3/uL [facility] 11/15/2024 1:34 PM EDT 11/15/2024 1:34 PM EDT us Generic External Data Provider LAB BLOOD ORDERAB LES Final Result Performing Organization Address City/[facility]/ZIP Co de Phone Number [facility] [address] [place] [address] [phone] * (ABNORMAL) Comprehensive Metabolic Panel (11/15/2024 1:34 PM EDT) Pathologist [facility] Sodium 143 135 - 145 mmol/L [facility] Potassium 4.2 3.3 - 5.1 mmol/L [facility] Chloride 102 96 - 108 mmol/L [facility] Carbon Dioxide 33(H) 22 - 29 mmol/L [facility] Anion Gap 12 12 - 20 [facility] Urea Nitrogen (BUN) 8(L) 9 - 16 mg/dL [facility] Creatinine, Serum 0.59 0.5 - 1.4 mg/dL [facility] Estimated Glomerular Filt Rate >60 [facility] Comment:Chronic Kidney Disea se: Estimated GFR < 60 mL/min/[id number] Kidney Disease: Estimated GFR < 15 mL/min/1.73m2 Glucose 90 60 - 115 mg/dL [facility] Calcium 10.3(H) 8.4 - 10.2 mg/dL [facility] Bilirubin, Total 0.3 0.0 - 1.0 mg/dL [facility] Aspartate Amino Transferase 25 5 - 31 U/L [facility] Alanine Aminotransferase 23 0 - 31 U/L [facility] Total Protein 8.8(H) 6.5 - 8.0 g/dL [facility] Albumin Level 4.5 3.5 - 5.0 g/dL [facility] Alkaline Phosphatase 80 39 - 117 U/L [facility] 11/15/2024 1:34 PM EDT 11/15/2024 1:34 PM EDT us Generic External Data Provider LAB BLOOD ORDERAB LES Final Result [facility] [address] [place] [address] [phone] * (ABNORMAL) POCT HGB A1C (10/08/2024 9:16 AM EDT) Hemoglobin A1C 7.2(A) 4.0 - 5.7 % Blood 10/08/2024 9:16 AM EDT us Ana Keith MD POINT OF CARE TEST ENTER/EDIT ORDERABLES Final Result * POCT Glucose (10/08/2024 9:16 AM EDT) Pathologist [facility] Glucose Blood, POC 188 60 - 200 mg/dL Blood Capillary blood specimen / Unknown 10/08/2024 9:16 AM EDT Result [facility] Ana Keith MD POINT OF CARE TEST ENTER/EDIT ORDERABLES Final Result * ECG 12 lead (09/13/2024 10:22 AM EDT) Result [facility] Provider ECG ORDERABLES Final Res ult * MR Foot w/ and w/o Contrast Right (09/09/2024 8:37 AM EDT) Anatomical Region Laterality Modality Lower Extremities, Foot Right Magnetic Resonance Result [facility] Provider IMG MRI PROCEDURES Final Result * XR Foot 3+ Views Right (09/06/2024 10:04 AM EDT) Anatomical Region Laterality Modality Lower Extremities, Foot Right Radiogra phic Imaging Result [facility] Provider IMG XR PROCEDURES Final R esult * Hm Colonoscopy (03/08/2022) Pathologist [facility] Colonoscopy Normal Normal Narrative Jacqueline Chadwick - 03/08/2022 Recommended 5 years . See results scanned in media promoter Result [facility] Provider HEALTH MAINTENANCE Final Result * THINPREP TIS PAP AND HPV mRNA E6/E7, CT/NG, TRICH (03/29/2021 12:00 AM EST) Pathologist [facility] Chlamydia trachomatis RNA, TMA, Urogenital NOT DETECTED NOT DETECTED [facility] Clinical Information: None given [facility] COMMENT SEE COMMENT [facility] Comment: The analytical performance characteristics of this assay, when used to test SurePath(TM) specimens have been determined by [employer]. The modifications have not been cleared or approved by the FDA. This assay has been validated pursuant to the CLIA regulations and is used for clinical purposes. For additional information, please refer to https://education.[employer]/faq/DMB385 (This link is being provided for information/ [...] was manually screened according to routine procedures. Blacktop Paver Operator: SEE COMMENT [facility] Comment: CXP, CT(ASCP) CT screening location: [place] [address] HPV nRNA E6/E7 Not Detected Not Detected [facility] Comment: Methodology: Concrete Layer-Mediated Amplification This assay detects E6/E7 viral messenger RNA (mRNA) from 14 high-risk HPV types (16,18,31,33,35,39,45,51,52,56,58,59,66,68). The analytical performance characteristics of this assay have been determined by [employer]. The modifications have not been cleared or approved by the FDA. This assay has been validated pursuant to the CLIA regulations and is used for clinical purposes. For additional information, please refer to http://[employer]/faq/ITO090d0 (This link if provided for information/ educational [...] NONE GIVEN [facility] Review [employer] Pa[employer] Operator: SEE COMMENT [facility] Comment: GSG, CT(ASCP) CT screening location: [place] [address] SOURCE: None given [facility] Statement Of Adequacy: SATISFACTORY FOR EVALUATION [facility] Trichomonas vaginalis, QL, TMA, PAP Vial NOT DETECTED NOT DETECTED [facility] Comment: The analytical performance characteristics of this assay have been determined by [employer]. The modifications have not been cleared or approved by the FDA. This assay has been validated pursuant to the CLIA regulations and is used for clinical purposes. For additional information, please refer to http://education.[employer]/ faq/Trichomonastma (This link is being provided for information/ educational purposes only.) 03/29/2021 Ana Keith MD LAB PATHOLOGY ORDERABLES Enid l Result Performing Organization Address [facility] de Phone Number [facility] [place] [address], * ALBUMIN, RANDOM URINE W/CREATININE (02/28/2021 11:12 AM EST) Microalbumin Urine 1.9 See Note: mg/dL [facility] Comment: Reference Range: Reference Range Not established Microalb/Creat Ratio 24 <30 mcg/mg creat [facility] Comment: The ADA defines abnormalities [...] Creatinine, Urine 79 20 - 275 mg/dL [facility] 02/28/2021 11:1 2 AM EST Ana Keith MD LAB URINE ORDERABLES Final Re sult Performing Organization Address [facility] de Phone Number [facility] [place] [address], * (ABNORMAL) LIPID PANEL, STANDARD (02/28/2021 11:12 [...] equation in the estimation of LDL-C. John SS et al. CLAUDIA. 2013;310(19): 2333-7121 (http://education.[employer]/faq/ZIM557) Non-HDL Cholesterol 212(H) <130 mg/dL (calc) [facility] Comment: For patients with diabetes plus 1 major ASCVD risk factor, treating to a non-HDL-C goal of <100 mg/dL (LDL-C of <70 mg/dL) is considered a therapeutic option. Triglycerides 396(H) <150 mg/dL [facility] Comment: If a non-fasting specimen was collected, consider repeat triglyceride testing on a fasting specimen if clinically indicated. Rashmi et al. J. of Clin. Lipidol. 2015;9:129-169. 02/28/2021 11:1 2 AM EST Ana Keith MD LAB BLOOD ORDERABLES Final Re sult [facility] [address] from Last 3 Months or Most Recently Relevant to Health Maintenance Insurance [facility] < [address] [id number] DENTAL - [facility] Care Teams Wire Brush Operator Relationship Specialty Start Date End Date Ana Keith MD [address] [place] [phone] PCP - General Family Medicine 11/05/17 [facility] 09/16/24
--- OUTSIDE RECORDS SUMMARY | 2024-11-18 16:02 | XMS_ITS | Encounter Summary ---
Author Organization [employer] Address [address] [facility] 7t [place] [address] Care Team Providers Care Service Plumber Name Role Phone Ana Keith MD Primary Care Provider [phone] Encounter Details Date Type Department Care Team (Late st Contact Info) Description 06/07/2024 Orders Only [facility] [address] [place] [address] Provider, MD Megan Social History Tobacco Use [...] Description 12/02/2024 9:00 AM EDT Office Visit [facility] ADULT D[facility] [address] [place], [place] [phone] Siddharth Roa DDS [address] [place] [address] documented as of this encounter Procedures Procedure [...] as of this encounter Care Teams Service Plumber Relationship Specialty Start Date End Date Ana Keith MD [address] [place] [address] PCP - General Family Medicine 11/05/17 [facility] 09/16/24 documented as of this encounter
[2024-11-26 19:44] LABS: Calprotectin, Fecal 14 mcg/g
== END 2024-11-17 14:03 | disposition home or self-care (01) ==
LOC: HO.LNP 14:02
PROVIDERS: Visit Provider Internal Medicine
DX: R19.4 Change in bowel habit (principal)
CPT/HCPCS: 83993